=== PATIENT | male | born 1965 ===

== ENCOUNTER 2018-01-04 00:42 | Inpatient (IN) | payer MEDICAID ==
[2018-01-04] MEDS ORDERED: Sodium Chloride 0.9% 1,000 ML ONE (01:02)
--- NOTE | 2018-01-04 01:07 | C.PDOC ---
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 Pt had prostate biopsy w/ Dr. Patten at [facility] today and was d/c home. Pt had intractable nausea and vomiting once at home since 4pm. No bilious or bloody vomit. Pt was npo prior to procedure. Per bedside pts rare form of MS makes him extremely sensitive to anesthesia and feels this may be due anesthesia. She denies any fall or trauma. He denies any headache. He denies any headache or back pain. No abnl rectal d/c s/p procedure. No BM yet s/p procedure. No urinary complaints. No fever, chills or night sweats. Per this is similiar occurence to what occured prior and pt was admitted for intractable n/v at [facility]. PMD: [place] No other complaints. Time Seen by Provider: 01/04/18 01:06 Chief Complaint (Nursing): GI Problem Past Medical History Vital Signs: Last Vital Signs Temp 98.5 F 01/04/18 00:47 Pulse 89 01/04/18 00:47 Resp 22 01/04/18 00:47 BP 155/115 H 01/04/18 00:47 Pulse Ox 99 01/04/18 00:47 - Medical History PMH: HTN, Multiple Sclerosis (CIDP) Family History: States: Unknown Family Hx - Social History Hx Alcohol Use: No Hx Substance Use: No - Immunization History Hx Tetanus Toxoid Vaccination: No Hx Influenza Vaccination: No Hx Pneumococcal Vaccination: No Review Of Systems Constitutional: Negative for: Fever, Chills, Sweats, Weakness, Malaise, Weight l oss Eyes: Negative for: Pain, Vision Change, Eyelid Inflammation, Redness ENT: Negative for: Ear Pain, Ear Discharge, Nose Pain, Nose Congestion, Mouth Pain Cardiovascular: Negative for: Chest Pain, Palpitations, Orthopnea Respiratory: Negative for: Cough, Shortness of Breath, SOB with Excertion, Pl euritic Pain Gastrointestinal: Positive for: Nausea, Vomiting. Negative for: Abdominal Pain, Diarrhea, Melena, Hematochezia, Hematemesis, Rectal Pain Genitourinary: Negative for: Dysuria, Frequency, Hematuria, Penile Discharge Musculoskeletal: Negative for: Neck Pain, Arm Pain, Back Pain Skin: Negative for: Rash, Lesions Neurological: Negative for: Weakness, Numbness, Confusion, Seizures Physical Exam - Physical Exam Appears: Non-toxic, Other (vomiting) Skin: Normal Color, Warm, No Diaphoretic Head: Atraumatic, Normacephalic Eye(s): bilateral: Normal Inspection, PERRL, EOMI Nose: Normal Oral Mucosa: Other (vomiting) Tongue: Normal Appearing Lips: Normal Appearing Gingiva: Normal Appearing Throat: No Drooling, No Mass Neck: Normal ROM, Supple, Other (no meningeal signs) Chest: Symmetrical, No Deformity Cardiovascular: Rhythm Regular, No Rhythm Irregular Respiratory: Normal Breath Sounds, No Decreased Breath Sounds, No Stridor, No Wheezing Gastrointestinal/Abdominal: Normal Exam, Soft, No Tenderness, No Organomegaly, No Mass, No Distention, No Guarding, No Rebound Back: Normal Inspection, No CVA Tenderness Extremity: Normal ROM, No Tenderness Extremity: Bilateral: Atraumatic Neurological/Psych: Oriented x3, Normal Speech, Normal Cognition Additional Physical Exam Comments: at baseline strength per : pt has 4/5 strength in all extremities. ED Course And Treatment - Laboratory Results Result Diagrams: 01/04/18 01:27 01/04/18 01:27 O2 Sat by Pulse Oximetry: 99 - CT Scan/US CT abd/pel Other Rad Studies (CT/US): Read By Radiologist, Radiology Report Reviewed CT/US Interpretation: CT SCAN OF THE ABDOMEN AND PELVIS WITH CONTRAST. CLINICAL HISTORY: Abdominal pain. TECHNIQUE: Multiple axial and coronal CT images were obtained through the abdomen and pelvis after administration of intravenous contrast material. COMMENTS: Diffuse thickening of the transverse and descending colon. The liver is of uniform attenuation without mass or defect. There is no intra or extrahepatic biliary ductal dilatation. The spleen is normal. The gallbladder is within normal limits. The pancreas is of normal contour and attenuation characteristics. There is no evidence of adrenal mass. Both kidneys demonstrate prompt and equal nephrograms. The kidneys are normal in size, shape and configuration. There is no evidence of renal or ureteral mass. No renal or ureteral calculi are identified. There is no hydroureter or hydronephrosis. No evidence for appendicitis. No evidence for small or large bowel obstruction. There is no evidence of abdominal ascites or lymphadenopathy. There is no evidence of intrinsic or extrinsic bladder mass. There is no pelvic ascites or lymphadenopathy. Moderate prostatomegaly impinging on the bladder base. Images of the lung bases show no evidence of pleural or parenchymal mass. There are no pleural effusions. The bony structures are free of lytic or blastic lesions. IMPRESSION: Uncomplicated colitis. Moderate prostatomegaly. Distended bladder. Thank you for your kind referral of this patient. Medical Decision Making Medical Decision Makin yr old male w/ hx of CIDP MS, HTN ~12 h s/p prostate biopsy p/w intractable n/v. Likely secondary to anesthesia vs cyclical vomiting vs obstruction. Will seek imaging and labs. No other complaints. [address], no obstruction PO trialed: continues w/ n/v will require inpt admission for intractable n/v started on IV abx for colitis family and pt agreeable. appreciate consult w/ Bruce Fiore to admit to his service. Disposition - Disposition Disposition Time: 04:18 Condition: GOOD Forms: [facility] (French) - Clinical Impression Clinical Impression: Colitis, Intractable nausea and vomiting
[2018-01-04] MEDS: Sodium Chloride 0.9% 1,000 ML IV SCH ×3 (01:09→20:15)
[2018-01-04 01:34] LABS: BASO % 0.2 % (0.0-2.0); HEMOGLOBIN 17.4 g/dL (12.0-18.0); LYMPH # 0.7 K/uL (1.0-4.3); LYMPH % 5.5 % (20.0-40.0); MEAN CELL VOLUME 88.4 fL (80.0-94.0); MEAN CORPUSCULAR HEMOGLOBIN 30.1 pg (27.0-31.0); MEAN PLATELET VOLUME 11.1 fL (7.2-11.7); MONO # 0.3 K/uL (0.0-0.8); MONO % 2.7 % (0.0-10.0); NEUT # 11.6 K/uL (1.8-7.0); NEUT % 91.6 % (50.0-75.0); PLATELET COUNT 223 K/uL (130-400); RBC 5.78 Mil/uL (4.40-5.90); RED CELL DISTRIBUTION WIDTH 12.8 % (11.5-14.5); WHITE BLOOD COUNT 12.7 K/uL (4.8-10.8)
[2018-01-04 01:47] LABS: BLOOD UREA NITROGEN 9 mg/dL (9-20); CALCIUM 9.5 mg/dl (8.6-10.4); GFR NON-AFRICAN AMERICAN > 60
[2018-01-04 01:50] LABS: ALB/GLOB RATIO 1.3 (1.0-2.1); ALBUMIN 4.7 g/dL (3.5-5.0); ALT/SGPT 25 U/L (21-72); AST/SGOT 54 U/L (17-59)
[2018-01-04] MEDS ORDERED: Iodixanol 320 MG/ML 100 ML BOTTLE IV ONE (01:53)
[2018-01-04 01:57] LABS: LYMPHOCYTE 6 % (20-40); MONOCYTE 3 % (0-10); NEUTROPHIL 91 % (50-75); PLATELET ESTIMATE NORMAL (NORMAL); TOTAL CELLS COUNTED 100
[2018-01-04 02:21] LABS: URINE BILIRUBIN NEGATIVE (NEGATIVE); URINE BLOOD 1+ (NEGATIVE); URINE CLARITY Clear (Clear); URINE COLOR Yellow (YELLOW); URINE GLUCOSE (UA) NORMAL (Normal); URINE LEUKOCYTE ESTERASE NEG Leu/uL (Negative); URINE PROTEIN NEGATIVE (NEGATIVE); URINE UROBILINOGEN NORMAL mg/dL (0.2-1.0)
[2018-01-04] MEDS ORDERED: metroNIDAZOLE IV 500 mg/100 ml 500 MG/100 ML BAG IVPB STA (04:05)
[2018-01-04] MEDS ORDERED: Ciprofloxacin 400mg/200ml D5W 400 MG/200 ML BAG IVPB STA (04:05)
[2018-01-04] MEDS ORDERED: metroNIDAZOLE IV 500 mg/100 ml 500 MG/100 ML BAG ONE (04:12)
[2018-01-04] MEDS ORDERED: Ciprofloxacin 400mg/200ml D5W 400 MG/200 ML BAG IVPB ONE (04:12)
--- NOTE | 2018-01-04 05:04 | CP.PCM.HP ---
<Renetta Nunez P - Last Filed: 01/04/18 10:51> History of Present Illness - History of Present Illness History of Present Illness: Medicine H&P CC: Nausea and vomiting for 12 hours HPI: 52 year old male with PMHx of MS with paralysis of lower extremities and HTN who presents to ED for severe nasuea and vomiting for the past 12 hours. Patient states he had a prostate biopsy done at 1:30pm, felt slightly nauseous after the procedure and then began with severe intractable vomiting 4 hours later. Has not been able to tolerate PO intate. Emesis is non-bloody. Patient denies abdominal pain, diarrhea, constipation, fever, chills, chest pain and shortness of breath. No modifying factors noted. PMHx: MS with paralysis of lower extremities, HTN, prostatic enlargement PSHx: Prostate biopsy 01/03/18 Meds: Losartan 50mg daily, Citalopram 20mg Daily, loratadine 10mg PRN, IVIG treatment monthly for MS Allergies: NKDA FamHx: Mother- DM, HTN SocHx: denies tobacco, alcohol, drugs, is disabled, lives with ex- who cares for him PMD: Jomar Review of Systems: -Gen: No fever, No chills, No headache, No lethargy, No weakness. -HEENT: No dizziness, No change in vision, No change in hearing, No sore throat, No dysphagia, No nasal congestion, No mucous. -Cardio: No chest pain, No palpitations, No lower extremity edema, No orthopnea. -Resp: No cough, No dyspnea, No hemoptysis, No wheezing, No pain on inspiration. -GI: No abdominal pain, + nausea/vomiting, No diarrhea/constipation, No hematochezia, No hematemesis. -: No dysuria, No urinary freq, No incontinence, No hematuria, No change in urinary stream. -MSK: No back pain, No muscle weakness, No radiating pain. -Skin: No itching, No rash, No lesions. -Neuro: No confusion, No numbness, No tingling, No focal weakness, No radicular pain, No syncope. -Psych: No anxiety, No depression, No H/I, No S/I, No hallucinations. Present on Admission - Present on Admission Any Indicators Present on Admission: No Past Patient History - Past Social History Smoking Status: Never Smoked - CARDIAC Hx Hypertension: Yes - NEUROLOGICAL Hx Multiple Sclerosis: Yes (CIDP) - PSYCHIATRIC Hx Substance Use: No - SURGICAL HISTORY Hx Surgeries: No Meds Allergies/Adverse Reactions: Allergies Allergy/AdvReac Type Severity Reaction Status Date / Time No Known Allergies Allergy Unverified 01/04/18 00:51 Physical Exam - Constitutional Appears: In Acute Distress (with vomiting) - Head Exam Head Exam: ATRAUMATIC, NORMOCEPHALIC - Eye Exam Eye Exam: EOMI, Normal appearance, PERRL - ENT Exam ENT Exam: Mucous Membranes Moist - Neck Exam Neck exam: Positive for: Full Rom, Normal Inspection - Respiratory Exam Respiratory Exam: Clear to Auscultation Bilateral, NORMAL BREATHING PATTERN. absent: Decreased Breath Sounds, Rales, Rhonchi, Wheezes - Cardiovascular Exam Cardiovascular Exam: REGULAR RHYTHM, +S1, +S2 - GI/Abdominal Exam GI & Abdominal Exam: Normal Bowel Sounds, Soft. absent: Guarding, Rebound, Tenderness - Extremities Exam Extremities exam: Positive for: normal capillary refill, normal inspection. Negative for: calf tenderness, full ROM (paralysis to bilateral lower extremities), pedal edema, tenderness - Neurological Exam Neurological exam: Alert, CN II-XII Intact, Oriented x3 - Psychiatric Exam Psychiatric exam: Normal Affect, Normal Mood - Skin Skin Exam: Dry, Intact, Normal Color, Warm Results - Vital Signs Recent Vital Signs: Last Vital Signs Temp 98.5 F 01/04/18 00:47 Pulse 89 01/04/18 03:45 Resp 18 01/04/18 03:45 BP 154/88 H 01/04/18 03:45 Pulse Ox 99 01/04/18 04:20 - Labs Result Diagrams: 01/04/18 01:27 01/04/18 01:27 Labs: Laboratory Results - last 24 hr 01/04/18 01/04/18 01/04/18 01:27 01:27 02:10 WBC 12.7 H RBC 5.78 Hgb 17.4 Hct 51.1 H MCV 88.4 MCH 30.1 MCHC 34.0 RDW 12.8 Plt Count 223 MPV 11.1 Neut % (Auto) 91.6 H Lymph % (Auto) 5.5 L [place] % (Auto) 2.7 Eos % (Auto) 0.0 Baso % (Auto) 0.2 Neut # (Auto) 11.6 H Lymph # (Auto) 0.7 L [place] # (Auto) 0.3 Eos # (Auto) 0.0 Baso # (Auto) 0.0 Neutrophils % (Manual) 91 H Lymphocytes % (Manual) 6 L Monocytes % (Manual) 3 Platelet Estimate Normal Sodium 135 Potassium 4.5 Chloride 100 Carbon Dioxide 23 Anion Gap 17 BUN 9 Creatinine 0.3 L Est GFR ( Amer) > 60 Est GFR (Non-Af Amer) > 60 Random Glucose 129 H Calcium 9.5 Magnesium 1.8 Total Bilirubin 2.4 H AST 54 ALT 25 Alkaline Phosphatase 100 Total Protein 8.4 H Albumin 4.7 Globulin 3.7 Albumin/Globulin Ratio 1.3 Urine Color Yellow Urine Clarity Clear Urine pH 7.0 Ur Specific [place] 1.013 Urine Protein Negative Urine Glucose (UA) Normal Urine Ketones 2+ H Urine Blood 1+ H Urine Nitrate Negative Urine Bilirubin Negative Urine Urobilinogen Normal Ur Leukocyte Esterase Neg Urine WBC (Auto) 3 Urine RBC (Auto) 28 H Assessment & Plan - Assessment and Plan (Free Text) Plan: 52 year old male with PMHx of MS and HTN presents to ED with intractable vomiting s/p prostate biopsy. Colitis -CT abdomen pelvis: Uncomplicated colitis, prostatomegaly, distended bladder. (see full report) -Ciprofloxacin 400mg IV Q12H (01/04) -Flagyl 500mg IV Q8 (01/04) -NS @ 100ml/hr Intractable vomiting -Zofran 4mg IV Q6H -NPO MS -Outpatient IVIg treatments -Follow up as outpatient Hx HTN -Losartan 50mg PO daily to be resumed once patient tolerating PO intake -Monitor BP Depression -Citalopram 20mg PO daily- to be resumed once patient tolerating PO intake Prophylaxis -Holding chemical anticoagulation due to recent procedure -GI prophylaxis not indicated -SCDs <Tony Ruby - Last Filed: 01/04/18 18:47> Results - Vital Signs Recent Vital Signs: Last Vital Signs Temp 98.7 F 01/04/18 15:51 Pulse 91 H 01/04/18 15:51 Resp 20 01/04/18 15:51 BP 127/72 01/04/18 15:51 Pulse Ox 100 01/04/18 15:51 - Labs Result Diagrams: 01/04/18 01:27 01/04/18 01:27 Labs: Laboratory Results - last 24 hr 01/04/18 01/04/18 01/04/18 01:27 01:27 02:10 WBC 12.7 H RBC 5.78 Hgb 17.4 Hct 51.1 H MCV 88.4 MCH 30.1 MCHC 34.0 RDW 12.8 Plt Count 223 MPV 11.1 Neut % (Auto) 91.6 H Lymph % (Auto) 5.5 L [place] % (Auto) 2.7 Eos % (Auto) 0.0 Baso % (Auto) 0.2 Neut # (Auto) 11.6 H Lymph # (Auto) 0.7 L [place] # (Auto) 0.3 Eos # (Auto) 0.0 Baso # (Auto) 0.0 Neutrophils % (Manual) 91 H Lymphocytes % (Manual) 6 L Monocytes % (Manual) 3 Platelet Estimate Normal Sodium 135 Potassium 4.5 Chloride 100 Carbon Dioxide 23 Anion Gap 17 BUN 9 Creatinine 0.3 L Est GFR ( Amer) > 60 Est GFR (Non-Af Amer) > 60 Random Glucose 129 H Calcium 9.5 Magnesium 1.8 Total Bilirubin 2.4 H AST 54 ALT 25 Alkaline Phosphatase 100 Total Protein 8.4 H Albumin 4.7 Globulin 3.7 Albumin/Globulin Ratio 1.3 Urine Color Yellow Urine Clarity Clear Urine pH 7.0 Ur Specific [place] 1.013 Urine Protein Negative Urine Glucose (UA) Normal Urine Ketones 2+ H Urine Blood 1+ H Urine Nitrate Negative Urine Bilirubin Negative Urine Urobilinogen Normal Ur Leukocyte Esterase Neg Urine WBC (Auto) 3 Urine RBC (Auto) 28 H Assessment & Plan - Date & Time Date: 01/04/18 (I have seen and examined the patient. I agree with the findings and plan of care as documented by Dr. Nunez. Patient with colitis. Intractable nausea/vomiting. Zofran. Symptomatic treatment. Cipro and flagyl. Monitor for acute changes.) Time: 18:46 Attending/Attestation - Attestation I have personally seen and examined this patient.: Yes I have fully participated in the care of the patient.: Yes I have reviewed all pertinent clinical information: Yes
[2018-01-04] MEDS: Ciprofloxacin 400mg/200ml D5W 400 MG/200 ML BAG IVPB SCH ×2 (05:17→17:34)
[2018-01-04] MEDS: metroNIDAZOLE IV 500 mg/100 ml 500 MG/100 ML BAG IVPB SCH ×3 (05:18→21:15)
--- NOTE | 2018-01-04 07:40 | RAD ---
Date of service: 01/04/2018 HISTORY: n/v COMPARISON: None available. FINDINGS: LUNGS: No active pulmonary disease. PLEURA: No significant pleural effusion identified, no pneumothorax apparent. CARDIOVASCULAR: No aortic atherosclerotic calcification present. Normal cardiac size. No pulmonary vascular congestion. OSSEOUS STRUCTURES: No significant abnormalities. VISUALIZED UPPER ABDOMEN: Elevated left hemidiaphragm of indeterminate etiology. OTHER FINDINGS: None. IMPRESSION: No acute infiltrate or pleural effusion. No pneumothorax bilaterally. Elevated left hemidiaphragm identified.
--- NOTE | 2018-01-04 09:15 | CP.PCM.PN ---
<Benito Jamil - Last Filed: 01/04/18 17:37> Subjective - Date & Time of Evaluation Date of Evaluation: 01/04/18 Time of Evaluation: 09:15 - Subjective Subjective: PGY-1 Medicine progress note for Dr. iHram Gomes Patient seen and examined at bedside. Patient complains of nausea and vomited a few times this morning. Denies hematemesis, fever, chills, shortness of breath, chest pain, or diarrhea. Objective - Vital Signs/Intake and Output Vital Signs (last 24 hours): Temp Pulse Resp BP Pulse Ox 98.1 F 91 H 21 143/76 100 01/04/18 08:30 01/04/18 08:30 01/04/18 08:30 01/04/18 08:30 01/04/18 08:30 - Medications Medications: Current Medications Sodium Chloride (Sodium Chloride 0.9%) 1,000 mls @ 100 mls/hr IV .Q10H [facility] Last Admin: 01/04/18 01:09 Dose: 100 mls/hr Ciprofloxacin (Cipro 400mg/200ml Dsw) 400 mg in 200 mls @ 133 mls/hr IVPB Q12H [facility]AD[facility]; Protocol Last Admin: 01/04/18 05:17 Dose: Not Given Metronidazole (Flagyl) 500 mg in 100 mls @ 100 mls/hr IVPB Q8H [facility]; Protocol Last Admin: 01/04/18 05:18 Dose: Not Given Ondansetron HCl (Zofran Inj) 4 mg IVP Q6H PRN PRN Reason: Nausea/Vomiting Last Admin: 01/04/18 05:44 Dose: 4 mg - Labs Labs: 01/04/18 01:27 01/04/18 01:27 - Additional Findings Additional findings: - Constitutional Appears: In Acute Distress (with vomiting) - Head Exam Head Exam: ATRAUMATIC, NORMOCEPHALIC - Eye Exam Eye Exam: EOMI, Normal appearance, PERRL - ENT Exam ENT Exam: Mucous Membranes Moist - Neck Exam Neck exam: Positive for: Full Rom, Normal Inspection - Respiratory Exam Respiratory Exam: Clear to Auscultation Bilateral, NORMAL BREATHING PATTERN. absent: Decreased Breath Sounds, Rales, Rhonchi, Wheezes - Cardiovascular Exam Cardiovascular Exam: REGULAR RHYTHM, +S1, +S2 - GI/Abdominal Exam GI & Abdominal Exam: Normal Bowel Sounds, Soft. absent: Guarding, Rebound, Tenderness - Extremities Exam Extremities exam: Positive for: normal capillary refill, normal inspection. Negative for: calf tenderness, full ROM (paralysis to bilateral lower extremities), pedal edema, tenderness - Neurological Exam Neurological exam: Alert, CN II-XII Intact, Oriented x3 - Psychiatric Exam Psychiatric exam: Normal Affect, Normal Mood - Skin Skin Exam: Dry, Intact, Normal Color, Warm Assessment and Plan - Assessment and Plan (Free Text) Assessment: 52 year old male with PMHx of MS and HTN presents to ED with intractable vomiting s/p prostate biopsy. Plan: Colitis: - CT abdomen/pelvis (01/04): Uncomplicated colitis, prostatomegaly, distended bladder. (Official read pending) - Ciprofloxacin 400mg IV Q12H (started on 01/04) - Flagyl 500mg IV Q8 (started on 01/04) - NS @ 100ml/hr Intractable vomiting: - Zofran 4mg IV Q6H PRN - Reglan 10mg IV Q6H PRN - NPO Multiple sclerosis: - Outpatient IVIg treatments - Follow up as outpatient Hx of HTN: - Losartan 50mg PO daily to be resumed once patient tolerating PO intake - Monitor BP Hx of depression: - Citalopram 20mg PO daily- to be resumed once patient tolerating PO intake Prophylaxis: - Holding chemical anticoagulation due to recent procedure - GI prophylaxis not indicated - SCDs Case discussed with Dr. Hiram Jamil, PGY-1 <Cody Gomes - Last Filed: 01/08/18 00:24> Objective - Vital Signs/Intake and Output Vital Signs (last 24 hours): Temp Pulse Resp BP Pulse Ox 97.3 F L 73 20 130/78 98 01/07/18 15:25 01/07/18 15:25 01/07/18 15:25 01/07/18 15:25 01/07/18 15:25 - Medications Medications: Current Medications Dextrose (Dextrose 50% Inj) 0 ml IVP .STAT PRN; Protocol PRN Reason: Hypoglycemia Protocol Dextrose (Glutose 15) 0 gm PO .ONCE PRN; Protocol PRN Reason: Hypoglycemia Protocol Enoxaparin Sodium (Lovenox) 40 mg SC DAILY [facility] Last Admin: 01/07/18 11:38 Dose: 40 mg Glucagon (Glucagen Diagnostic Kit) 0 mg IM .STAT PRN; Protocol PRN Reason: Hypoglycemia Protocol Sodium Chloride (Sodium Chloride 0.9%) 1,000 mls @ 100 mls/hr IV .Q10H [facility] Last Admin: 01/07/18 02:00 Dose: 100 mls/hr Dextrose (Dextrose 5% In Water 1000 Ml) 1,000 mls @ 0 mls/hr IV .Q0M PRN; Protocol PRN Reason: Hypoglycemia Protocol Potassium Chloride/Dextrose/Sod Cl (Potassium Chl 40 Meq In D5-1/2ns) 1,000 mls @ 80 mls/hr IV .[id number] [facility] Last Admin: 01/07/18 21:40 Dose: 80 mls/hr Metoclopramide HCl (Reglan) 10 mg IVP Q6H PRN PRN Reason: Nausea/Vomiting Last Admin: 01/07/18 12:59 Dose: 10 mg Ondansetron HCl (Zofran Inj) 4 mg IVP Q6H PRN PRN Reason: Nausea/Vomiting Last Admin: 01/07/18 17:04 Dose: 4 mg Pantoprazole Sodium (Protonix Inj) 40 mg IVP DAILY [facility] Last Admin: 01/07/18 14:57 Dose: 40 mg Sucralfate (Carafate Oral Susp) 1 gm PO BID [facility] Last Admin: 01/07/18 18:16 Dose: Not Given - Labs Labs: 01/07/18 07:11 01/07/18 07:11 Attending/Attestation - Attestation I have personally seen and examined this patient.: Yes I have fully participated in the care of the patient.: Yes I have reviewed all pertinent clinical information, including history, physical exam and plan: Yes Notes (Text): 01/08/18 00:23 This is a late entry. Care of this patient was gone over with resident Dr. Jamil on 01/04/18 juan c ta. Cody Gomes D.O.
--- NOTE | 2018-01-04 15:33 | CT ---
Date of service: 01/04/2018 PROCEDURE: CT Abdomen and Pelvis with contrast HISTORY: intractable n/v s/p prostate biopsy COMPARISON: None available TECHNIQUE: Contrast dose: 100 mL Visipaque IV Radiation dose: Total exam DLP = 587.35 mGy-cm. This CT exam was performed using one or more of the following dose reduction techniques: Automated exposure control, adjustment of the mA and/or kV according to patient size, and/or use of iterative reconstruction technique. FINDINGS: LOWER THORAX: No visible consolidation, pleural effusion, or pneumothorax. LIVER: Hypoattenuation of the liver compatible with hepatic steatosis. GALLBLADDER AND BILE DUCTS: Unremarkable. PANCREAS: Atrophic. SPLEEN: Unremarkable. ADRENALS: Unremarkable. KIDNEYS AND URETERS: The kidneys enhance symmetrically. No hydronephrosis or obstructing calculus identified. Too small to characterize renal hypodensities; statistically likely cysts. VASCULATURE: No aortic aneurysm. No atherosclerotic calcification or mural plaque present. BOWEL: Stomach is nondistended. Lack of oral contrast limits evaluation for bowel pathology. Bowel loops appear within normal limits of caliber without evidence of obstruction. Mild wall thickening of the transverse colon, likely exaggerated by under distension. Correlate clinically. APPENDIX: The appendix appears within normal limits of caliber. No secondary signs of acute appendicitis. PERITONEUM: No significant free fluid. No definite free air. LYMPH NODES: No bulky adenopathy identified. BLADDER: Urinary bladder distension. REPRODUCTIVE: Heterogeneous enlarged prostate gland measures approximately 5.0 x 6.4 cm. BONES: Degenerative changes. OTHER FINDINGS: None. IMPRESSION: Mild wall thickening of the transverse colon, likely exaggerated by under distension rather than colitis. Correlate clinically. Enlarged heterogeneous prostate gland. Urinary bladder distension. Additional findings as above. Preliminary impression was provided by [employer]. Study marked for PA review.
[2018-01-05] MEDS: metroNIDAZOLE IV 500 mg/100 ml 500 MG/100 ML BAG IVPB SCH ×2 (05:37→14:24)
[2018-01-05] MEDS: Ciprofloxacin 400mg/200ml D5W 400 MG/200 ML BAG IVPB SCH (05:38)
[2018-01-05] MEDS: Sodium Chloride 0.9% 1,000 ML IV SCH ×2 (07:21→17:05)
[2018-01-05 08:12] LABS: BASO % 0.2 % (0.0-2.0); HEMOGLOBIN 15.5 g/dL (12.0-18.0); LYMPH # 1.3 K/uL (1.0-4.3); MEAN CELL VOLUME 88.1 fL (80.0-94.0); MEAN CORPUSCULAR HEMOGLOBIN 30.6 pg (27.0-31.0); MEAN CORPUSCULAR HGB CONC 34.7 g/dL (33.0-37.0); MEAN PLATELET VOLUME 10.7 fL (7.2-11.7); MONO # 0.5 K/uL (0.0-0.8); MONO % 4.1 % (0.0-10.0); NEUT # 9.8 K/uL (1.8-7.0); NEUT % 84.7 % (50.0-75.0); RBC 5.08 Mil/uL (4.40-5.90); WHITE BLOOD COUNT 11.6 K/uL (4.8-10.8)
[2018-01-05 08:47] LABS: ALB/GLOB RATIO 1.1 (1.0-2.1); ALBUMIN 3.8 g/dL (3.5-5.0); ALT/SGPT 27 U/L (21-72); AST/SGOT 31 U/L (17-59); BLOOD UREA NITROGEN 14 mg/dL (9-20); CALCIUM 8.9 mg/dl (8.6-10.4); GFR NON-AFRICAN AMERICAN > 60
--- NOTE | 2018-01-05 09:23 | CP.PCM.PN ---
Subjective - Date & Time of Evaluation Date of Evaluation: 01/05/18 Time of Evaluation: 09:22 - Subjective Subjective: Medicine Dr. Go's Service Patient seen and examined at bedside this morning. Per RN overnight patient had to be moved to an empty room without roommates because he was retching/vomiting all night. However, patient thinks addition of reglan decreased vomiting some but not enough. Denies abdominal pain, diarrhea, fevers, chills, night sweats, chest pain, palpitations Objective - Vital Signs/Intake and Output Vital Signs (last 24 hours): Temp Pulse Resp BP Pulse Ox 98.1 F 72 20 173/96 H 97 01/05/18 08:26 01/05/18 08:26 01/05/18 08:26 01/05/18 08:26 01/05/18 08:26 Intake and Output: 01/05/18 01/05/18 06:59 18:59 Intake Total 600 Output Total 400 Balance 200 - Medications Medications: Current Medications Enoxaparin Sodium (Lovenox) 40 mg SC DAILY [facility] Sodium Chloride (Sodium Chloride 0.9%) 1,000 mls @ 100 mls/hr IV .Q10H [facility] Last Admin: 01/05/18 07:21 Dose: Not Given Ciprofloxacin (Cipro 400mg/200ml Dsw) 400 mg in 200 mls @ 133 mls/hr IVPB Q12H [facility]; Protocol Last Admin: 01/05/18 05:38 Dose: 133 mls/hr Metronidazole (Flagyl) 500 mg in 100 mls @ 100 mls/hr IVPB Q8H [facility]; Protocol Last Admin: 01/05/18 05:37 Dose: 100 mls/hr Metoclopramide HCl (Reglan) 10 mg IVP Q6H PRN PRN Reason: Nausea/Vomiting Last Admin: 01/05/18 08:32 Dose: 10 mg Ondansetron HCl (Zofran Inj) 4 mg IVP Q6H PRN PRN Reason: Nausea/Vomiting Last Admin: 01/05/18 07:41 Dose: 4 mg - Labs Labs: 01/05/18 07:57 01/05/18 07:57 - Constitutional Appears: Cachectic - Head Exam Head Exam: ATRAUMATIC, NORMAL INSPECTION - Eye Exam Additional comments: right directioned nystagmus - Neck Exam Neck Exam: Normal Inspection - Respiratory Exam Respiratory Exam: Clear to Ausculation Bilateral, NORMAL BREATHING PATTERN - Cardiovascular Exam Cardiovascular Exam: REGULAR RHYTHM. absent: Bradycardia, Tachycardia, Irregul ar Rhythm - GI/Abdominal Exam GI & Abdominal Exam: Soft, Normal Bowel Sounds. absent: Distended, Firm, Guarding, Rigid - Extremities Exam Extremities Exam: Normal Capillary Refill Additional comments: thin extremities cachexia - Neurological Exam Neurological Exam: Alert, Awake, Oriented x3. absent: Normal Gait (Patient bed bound due to weak lower extremities) - Psychiatric Exam Psychiatric exam: Normal Affect, Normal Mood - Skin Skin Exam: Dry, Intact, Normal Color, Warm Assessment and Plan - Assessment and Plan (Free Text) Assessment: 52 year old male with PMHx of MS and HTN presents to ED with intractable vomiting s/p prostate biopsy. Intractable vomiting: - Zofran 4mg IV Q6H PRN - Reglan 10mg IV Q6H PRN -added ativan 1 mg IV q6h PRN 01/05 - NS @ 100ml/hr - CMP qAM - NPO Abnormal CT abd/pelvis reading 01/04: - CT abdomen/pelvis (01/04): Uncomplicated colitis, prostatomegaly, distended bladder. (Official read pending) - Official read: Mild wall thickening of the transverse colon, likely exaggerated by under distension rather than colitis. - Ciprofloxacin 400mg IV Q12H (started on 01/04 and d/ke 01/05; lack of clinical evidence of colitis) - Flagyl 500mg IV Q8 (started on 01/04 and d/ke 01/05; lack of clinical evidence of colitis) Multiple sclerosis: - Outpatient IVIg treatments - Follow up as outpatient HTN: - Losartan 50mg PO daily to be resumed once patient tolerating PO intake - Monitor BP Enlarged prostate: -follow up outpatient depression: - Citalopram 20mg PO daily- to be resumed once patient tolerating PO intake Prophylaxis: - DVT: Holding chemical anticoagulation due to recent procedure, for now SCDs - GI: prophylaxis not indicated Case discussed with Dr. Donavan Garcia PGY1
[2018-01-05] MEDS: Enoxaparin 40 mg Syringe SC SCH (10:42)
--- NOTE | 2018-01-05 12:45 | CARD ---
APPROVED REPORT Date of service: 01/04/2018 EKG Measurement Heart [id number] <Conclusion> Sinus rhythm with occasional premature ventricular complexes Left axis deviation Abnormal ECG
[2018-01-06] MEDS: Sodium Chloride 0.9% 1,000 ML IV SCH ×5 (01:38→23:02)
[2018-01-06 08:44] LABS: BASO % 0.3 % (0.0-2.0); HEMOGLOBIN 14.1 g/dL (12.0-18.0); LYMPH # 1.3 K/uL (1.0-4.3); LYMPH % 13.6 % (20.0-40.0); MEAN CELL VOLUME 87.8 fL (80.0-94.0); MEAN CORPUSCULAR HEMOGLOBIN 30.4 pg (27.0-31.0); MEAN CORPUSCULAR HGB CONC 34.6 g/dL (33.0-37.0); MEAN PLATELET VOLUME 10.4 fL (7.2-11.7); MONO # 0.6 K/uL (0.0-0.8); MONO % 6.5 % (0.0-10.0); NEUT # 7.6 K/uL (1.8-7.0); NEUT % 79.6 % (50.0-75.0); RBC 4.65 Mil/uL (4.40-5.90); WHITE BLOOD COUNT 9.5 K/uL (4.8-10.8)
[2018-01-06 09:14] LABS: ALB/GLOB RATIO 1.2 (1.0-2.1); ALBUMIN 3.3 g/dL (3.5-5.0); ALT/SGPT 32 U/L (21-72); AST/SGOT 34 U/L (17-59); BLOOD UREA NITROGEN 13 mg/dL (9-20); CALCIUM 8.4 mg/dl (8.6-10.4); GFR NON-AFRICAN AMERICAN > 60
[2018-01-06] MEDS: Enoxaparin 40 mg Syringe SC SCH (10:27)
[2018-01-06] MEDS ORDERED: Glucagon Recombinant 1 mg Inj IM PRN (11:48)
[2018-01-06] MEDS ORDERED: Dextrose 50% SYRINGE Inj (50 ml) IVP PRN (11:48)
--- NOTE | 2018-01-06 12:58 | CP.PCM.PN ---
<Benito Jamil - Last Filed: 01/06/18 15:50> Subjective - Date & Time of Evaluation Date of Evaluation: 01/06/18 Time of Evaluation: 12:58 - Subjective Subjective: PGY-1 Medicine progress note for Dr. King Patient seen and examined at bedside. Patient last vomited clear mucus last night at 9PM. He denies nausea and vomiting thois morning. He states that he would like to start eating. He denies hematemesis, fever, chills, shortness of breath, chest pain, or diarrhea. Objective - Vital Signs/Intake and Output Vital Signs (last 24 hours): Temp Pulse Resp BP Pulse Ox 97.8 F 69 18 156/79 H 96 01/06/18 08:15 01/06/18 08:15 01/06/18 08:15 01/06/18 08:15 01/06/18 08:15 Intake and Output: 01/06/18 01/06/18 06:59 18:59 Intake Total 1000 Balance 1000 - Medications Medications: Current Medications Dextrose (Dextrose 50% Inj) 0 ml IVP .STAT PRN; Protocol PRN Reason: Hypoglycemia Protocol Dextrose (Glutose 15) 0 gm PO .ONCE PRN; Protocol PRN Reason: Hypoglycemia Protocol Enoxaparin Sodium (Lovenox) 40 mg SC DAILY [facility] Last Admin: 01/06/18 10:27 Dose: 40 mg Glucagon (Glucagen Diagnostic Kit) 0 mg IM .STAT PRN; Protocol PRN Reason: Hypoglycemia Protocol Sodium Chloride (Sodium Chloride 0.9%) 1,000 mls @ 100 mls/hr IV .Q10H [facility] Last Admin: 01/06/18 10:27 Dose: 100 mls/hr Potassium Chloride (Potassium Chloride 20 Meq/100 Ml) 20 meq in 100 mls @ 50 mls/hr IVPB Q2H [facility] Stop: 01/06/18 15:44 Last Admin: 01/06/18 10:26 Dose: 50 mls/hr Dextrose (Dextrose 5% In Water 1000 Ml) 1,000 mls @ 0 mls/hr IV .Q0M PRN; Protocol PRN Reason: Hypoglycemia Protocol Lorazepam (Ativan) 1 mg IVP Q6H PRN PRN Reason: Anxiety Metoclopramide HCl (Reglan) 10 mg IVP Q6H PRN PRN Reason: Nausea/Vomiting Last Admin: 01/05/18 20:11 Dose: 10 mg Ondansetron HCl (Zofran Inj) 4 mg IVP Q6H PRN PRN Reason: Nausea/Vomiting Last Admin: 01/06/18 04:52 Dose: 4 mg - Labs Labs: 01/06/18 08:32 01/06/18 08:32 - Additional Findings Additional findings: - Constitutional Appears: Not in Acute Distress - Head Exam Head Exam: ATRAUMATIC, NORMOCEPHALIC - Eye Exam Eye Exam: EOMI, Normal appearance, PERRL - ENT Exam ENT Exam: Mucous Membranes Moist - Neck Exam Neck exam: Positive for: Full Rom, Normal Inspection - Respiratory Exam Respiratory Exam: Clear to Auscultation Bilateral, NORMAL BREATHING PATTERN. absent: Decreased Breath Sounds, Rales, Rhonchi, Wheezes - Cardiovascular Exam Cardiovascular Exam: REGULAR RHYTHM, +S1, +S2 - GI/Abdominal Exam GI & Abdominal Exam: Normal Bowel Sounds, Soft. absent: Guarding, Rebound, Tenderness - Extremities Exam Extremities exam: Positive for: normal capillary refill, normal inspection. Negative for: calf tenderness, pedal edema, tenderness - Neurological Exam Neurological exam: Alert, CN II-XII Intact, Oriented x3 - Psychiatric Exam Psychiatric exam: Normal Affect, Normal Mood - Skin Skin Exam: Dry, Intact, Normal Color, Warm Assessment and Plan - Assessment and Plan (Free Text) Assessment: 52 year old male with PMHx of MS, BPH, and HTN presents to ED with intractable vomiting s/p prostate biopsy. Plan: Intractable vomiting: - Zofran 4mg IV Q6H PRN - Reglan 10mg IV Q6H PRN - Ativan 1mg IV QD PRN - Clear liquid diet - Accuchecks Q6H - Hypoglycemia protocol - GI consulted, Dr. Quijano Hypokalemia: - Potassium 20mEq IVPB Q2H X 3 - Mg: f/u - Continue to monitor and replete as needed Multiple sclerosis: - Outpatient IVIg treatments - Follow up as outpatient Hx of HTN: - Losartan 50mg PO daily to be resumed once patient tolerating PO intake - Monitor BP Hx of depression: - Citalopram 20mg PO daily- to be resumed once patient tolerating PO intake Prophylaxis: - Holding chemical anticoagulation due to recent procedure - GI prophylaxis not indicated - SCDs Case discussed with Dr. Fernando Jamil, PGY-1 <Melva King V - Last Filed: 01/06/18 23:07> Objective - Vital Signs/Intake and Output Vital Signs (last 24 hours): Temp Pulse Resp BP Pulse Ox 99.2 F 56 L 20 141/82 96 01/06/18 16:00 01/06/18 16:00 01/06/18 16:00 01/06/18 16:00 01/06/18 16:00 Intake and Output: 01/06/18 01/07/18 18:59 06:59 Intake Total 500 1175 Balance 500 1175 - Medications Medications: Current Medications Dextrose (Dextrose 50% Inj) 0 ml IVP .STAT PRN; Protocol PRN Reason: Hypoglycemia Protocol Dextrose (Glutose 15) 0 gm PO .ONCE PRN; Protocol PRN Reason: Hypoglycemia Protocol Enoxaparin Sodium (Lovenox) 40 mg SC DAILY [facility] Last Admin: 01/06/18 10:27 Dose: 40 mg Glucagon (Glucagen Diagnostic Kit) 0 mg IM .STAT PRN; Protocol PRN Reason: Hypoglycemia Protocol Sodium Chloride (Sodium Chloride 0.9%) 1,000 mls @ 100 mls/hr IV .Q10H [facility] Last Admin: 01/06/18 13:15 Dose: Not Given Dextrose (Dextrose 5% In Water 1000 Ml) 1,000 mls @ 0 mls/hr IV .Q0M PRN; Protocol PRN Reason: Hypoglycemia Protocol Lorazepam (Ativan) 1 mg IVP Q6H PRN PRN Reason: Anxiety Metoclopramide HCl (Reglan) 10 mg IVP Q6H PRN PRN Reason: Nausea/Vomiting Last Admin: 01/05/18 20:11 Dose: 10 mg Ondansetron HCl (Zofran Inj) 4 mg IVP Q6H PRN PRN Reason: Nausea/Vomiting Last Admin: 01/06/18 04:52 Dose: 4 mg - Labs Labs: 01/06/18 08:32 01/06/18 18:46 Attending/Attestation - Attestation I have personally seen and examined this patient.: Yes I have fully participated in the care of the patient.: Yes I have reviewed all pertinent clinical information, including history, physical exam and plan: Yes Notes (Text): Patient seen, examined, and case discussed with product manager medical device. Patient seen this morning accompanied with present at bedside. Patient had been NPO for persistent nausea since completing prostate biopsy at 1:30PM on 01/04. Patient had this accomplished at separate facility however came to [facility] because it was closer for him. patient per view of EMR has been notably taking Zofran more frequently compared to Reglan. Patient this morning reported he would like to try clear diet and if see how he felt. He had been notably spitting up in pink basin at bedside. No blood noted. In spite of liquid diet, patient continues to report intractable nausea; he notes he has not had this problem before. Will seek recommendations from GI butadiene converter helper. Assessment/Plan 1) Intractable vomiting: - Zofran 4mg IV Q6H PRN - Reglan 10mg IV Q6H PRN - Ativan 1mg IV QD PRN - Clear liquid diet - Accuchecks Q6H - Hypoglycemia protocol - GI consulted, Dr. Quijano 2) Hypokalemia: - Potassium 20mEq IVPB Q2H X 3 - Mg: f/u - Continue to monitor and replete as needed 3. History of Multiple sclerosis: - Outpatient IVIg treatments - Follow up as outpatient - Patient goes to center for MS 4. Hx of HTN: * Losartan 50mg PO daily to be resumed once patient tolerating PO intake * Monitor BP 5 hHx of depression: - Citalopram 20mg PO daily- to be resumed once patient tolerating PO intake 6. Prophylaxis: * -Holding chemical anticoagulation due to recent procedure * GI prophylaxis not indicated * SCDs Disposition: patient reporting persistent nausea in spite of PRNs. Seek gi recommendation.
[2018-01-06 19:07] LABS: BLOOD UREA NITROGEN 14 mg/dL (9-20); CALCIUM 8.8 mg/dl (8.6-10.4); GFR NON-AFRICAN AMERICAN > 60
[2018-01-07] MEDS: Sodium Chloride 0.9% 1,000 ML IV SCH (02:00)
[2018-01-07 07:27] LABS: BASO % 0.5 % (0.0-2.0); EOS % 0.6 % (0.0-4.0); LYMPH # 1.4 K/uL (1.0-4.3); LYMPH % 21.5 % (20.0-40.0); MEAN CELL VOLUME 88.3 fL (80.0-94.0); MEAN CORPUSCULAR HEMOGLOBIN 30.7 pg (27.0-31.0); MEAN CORPUSCULAR HGB CONC 34.7 g/dL (33.0-37.0); MEAN PLATELET VOLUME 10.6 fL (7.2-11.7); MONO # 0.5 K/uL (0.0-0.8); MONO % 7.8 % (0.0-10.0); NEUT # 4.5 K/uL (1.8-7.0); NEUT % 69.6 % (50.0-75.0); NRBC % 0.2 % (0.0-2.0); RBC 4.88 Mil/uL (4.40-5.90); RED CELL DISTRIBUTION WIDTH 12.7 % (11.5-14.5); WHITE BLOOD COUNT 6.4 K/uL (4.8-10.8)
[2018-01-07 08:04] LABS: ALB/GLOB RATIO 1.1 (1.0-2.1); ALBUMIN 3.1 g/dL (3.5-5.0); ALT/SGPT 29 U/L (21-72); AST/SGOT 21 U/L (17-59); BLOOD UREA NITROGEN 7 mg/dL (9-20); CALCIUM 8.2 mg/dl (8.6-10.4); GFR NON-AFRICAN AMERICAN > 60
[2018-01-07] MEDS ORDERED: Potassium Chloride 20 mEq/15 ml LIQ UD PO ONE (08:45)
[2018-01-07] MEDS ORDERED: Promethazine 12.5 mg/10 ml Syrup PO ONE (09:50)
[2018-01-07] MEDS: Potassium Chl 40 mEq in D5-1/2 1,000 ML IV SCH ×2 (10:30→21:40)
[2018-01-07] MEDS: Enoxaparin 40 mg Syringe SC SCH (11:38)
--- NOTE | 2018-01-07 13:22 | CP.PCM.PN ---
<Leyda Hennessy - Last Filed: 01/07/18 13:12> Subjective - Date & Time of Evaluation Date of Evaluation: 01/07/18 Time of Evaluation: 08:00 - Subjective Subjective: GI Fellow PGY5 Consult Note This is a 52 year old male with PMHx of MS with paralysis of lower extremities and HTN who presents to ED for severe nasuea and vomiting. Patient states he had a prostate biopsy done and soon after started having nausea and then began with severe intractable vomiting. Has not been able to tolerate PO intate. Emesis is non-bloody. Patient denies abdominal pain, diarrhea, constipation, fever, chills, chest pain and shortness of breath. No complaints of dysphagia, he was tolerating a regular diet with no issues prior to this acute onset. No prior EGD. ROS: A 12pt ROS was negative except as above PMHx: MS with paralysis of lower extremities, HTN, prostatic enlargement PSHx: Prostate biopsy 01/03/18 FHx: Mother- DM, HTN SHx: denies tobacco, alcohol, drugs Objective - Vital Signs/Intake and Output Vital Signs (last 24 hours): Temp Pulse Resp BP Pulse Ox 98.5 F 65 20 168/85 H 96 01/07/18 07:56 01/07/18 07:56 01/07/18 07:56 01/07/18 07:56 01/07/18 07:56 Intake and Output: 01/07/18 01/07/18 06:59 18:59 Intake Total 1975 Output Total 1300 Balance 675 - Medications Medications: Current Medications Dextrose (Dextrose 50% Inj) 0 ml IVP .STAT PRN; Protocol PRN Reason: Hypoglycemia Protocol Dextrose (Glutose 15) 0 gm PO .ONCE PRN; Protocol PRN Reason: Hypoglycemia Protocol Enoxaparin Sodium (Lovenox) 40 mg SC DAILY [facility] Last Admin: 01/07/18 11:38 Dose: 40 mg Glucagon (Glucagen Diagnostic Kit) 0 mg IM .STAT PRN; Protocol PRN Reason: Hypoglycemia Protocol Sodium Chloride (Sodium Chloride 0.9%) 1,000 mls @ 100 mls/hr IV .Q10H [facility] Last Admin: 01/07/18 02:00 Dose: 100 mls/hr Dextrose (Dextrose 5% In Water 1000 Ml) 1,000 mls @ 0 mls/hr IV .Q0M PRN; Protocol PRN Reason: Hypoglycemia Protocol Potassium Chloride/Dextrose/Sod Cl (Potassium Chl 40 Meq In D5-1/2ns) 1,000 mls @ 80 mls/hr IV .[id number] [facility] Last Admin: 01/07/18 10:30 Dose: 80 mls/hr Lorazepam (Ativan) 1 mg IVP Q6H PRN PRN Reason: Anxiety Last Admin: 01/07/18 13:02 Dose: 1 mg Metoclopramide HCl (Reglan) 10 mg IVP Q6H PRN PRN Reason: Nausea/Vomiting Last Admin: 01/07/18 12:59 Dose: 10 mg Ondansetron HCl (Zofran Inj) 4 mg IVP Q6H PRN PRN Reason: Nausea/Vomiting Last Admin: 01/07/18 08:45 Dose: 4 mg Pantoprazole Sodium (Protonix Inj) 40 mg IVP DAILY [facility] Sucralfate (Carafate Tab) 1 gm PO BID [facility] - Labs Labs: 01/07/18 07:11 01/07/18 07:11 - Constitutional Appears: Non-toxic, No Acute Distress - Head Exam Head Exam: ATRAUMATIC, NORMAL INSPECTION - Eye Exam Eye Exam: EOMI, Normal appearance, PERRL - ENT Exam ENT Exam: Mucous Membranes Moist, Normal Exam - Neck Exam Neck Exam: Full ROM - Respiratory Exam Respiratory Exam: Clear to Ausculation Bilateral, NORMAL BREATHING PATTERN - Cardiovascular Exam Cardiovascular Exam: RRR, +S1, +S2 - GI/Abdominal Exam GI & Abdominal Exam: Soft, Normal Bowel Sounds. absent: Distended, Firm, Guard ing - Neurological Exam Neurological Exam: Alert, Awake, Oriented x3 - Psychiatric Exam Psychiatric exam: Normal Affect, Normal Mood - Skin Skin Exam: Dry, Normal Color, Warm Assessment and Plan - Assessment and Plan (Free Text) Assessment: This is a 52yM presenting with N/V. 1. Nausea and Vomiting 2. Multiple sclerosis Plan: -Continue supportive care -Pt was tolerating clears, continue clear liquid diet -Start IV PPI -Carafate daily -IVF hydration -No prior EGD -If persistent N/V will consider EGD -N/V maybe from MS flare and gastroparesis -Will continue to follow closely <Pipe Drew - Last Filed: 01/07/18 14:23> Objective - Vital Signs/Intake and Output Vital Signs (last 24 hours): Temp Pulse Resp BP Pulse Ox 98.5 F 65 20 168/85 H 96 01/07/18 07:56 01/07/18 07:56 01/07/18 07:56 01/07/18 07:56 01/07/18 07:56 Intake and Output: 01/07/18 01/07/18 06:59 18:59 Intake Total 1975 Output Total 1300 Balance 675 - Medications Medications: Current Medications Dextrose (Dextrose 50% Inj) 0 ml IVP .STAT PRN; Protocol PRN Reason: Hypoglycemia Protocol Dextrose (Glutose 15) 0 gm PO .ONCE PRN; Protocol PRN Reason: Hypoglycemia Protocol Enoxaparin Sodium (Lovenox) 40 mg SC DAILY [facility] Last Admin: 01/07/18 11:38 Dose: 40 mg Glucagon (Glucagen Diagnostic Kit) 0 mg IM .STAT PRN; Protocol PRN Reason: Hypoglycemia Protocol Sodium Chloride (Sodium Chloride 0.9%) 1,000 mls @ 100 mls/hr IV .Q10H [facility] Last Admin: 01/07/18 02:00 Dose: 100 mls/hr Dextrose (Dextrose 5% In Water 1000 Ml) 1,000 mls @ 0 mls/hr IV .Q0M PRN; Protocol PRN Reason: Hypoglycemia Protocol Potassium Chloride/Dextrose/Sod Cl (Potassium Chl 40 Meq In D5-1/2ns) 1,000 mls @ 80 mls/hr IV .[id number] [facility] Last Admin: 01/07/18 10:30 Dose: 80 mls/hr Lorazepam (Ativan) 1 mg IVP Q6H PRN PRN Reason: Anxiety Last Admin: 01/07/18 13:02 Dose: 1 mg Metoclopramide HCl (Reglan) 10 mg IVP Q6H PRN PRN Reason: Nausea/Vomiting Last Admin: 01/07/18 12:59 Dose: 10 mg Ondansetron HCl (Zofran Inj) 4 mg IVP Q6H PRN PRN Reason: Nausea/Vomiting Last Admin: 01/07/18 08:45 Dose: 4 mg Pantoprazole Sodium (Protonix Inj) 40 mg IVP DAILY [facility] Sucralfate (Carafate Tab) 1 gm PO BID [facility] - Labs Labs: 01/07/18 07:11 01/07/18 07:11 Attending/Attestation - Attestation I have personally seen and examined this patient.: Yes I have fully participated in the care of the patient.: Yes I have reviewed all pertinent clinical information, including history, physical exam and plan: Yes Notes (Text): 01/07/18 13:49 The patient was evaluated today and discussed with Dr. De Los Santos. Agree with above assessment and recommendations.
--- NOTE | 2018-01-07 17:28 | CP.PCM.PN ---
Subjective - Date & Time of Evaluation Date of Evaluation: 01/07/18 Time of Evaluation: 16:00 - Subjective Subjective: Medical Attending note: Patient seen and examined this afternoon. Discussed with patient's RN Forrest this morning, patient is audible wretching this morning; did not tolerate liquid diet overnight. I spoke with his this morning, patient did not appear well today. I saw patient this afternoon, he reports he got promethazine which helped little bit and tried some clears. He is urinating, has not had a bowel movement which is expected given he has not eaten for 4 days given nausea. Objective - Vital Signs/Intake and Output Vital Signs (last 24 hours): Temp Pulse Resp BP Pulse Ox 97.3 F L 73 20 130/78 98 01/07/18 15:25 01/07/18 15:25 01/07/18 15:25 01/07/18 15:25 01/07/18 15:25 Intake and Output: 01/07/18 01/07/18 06:59 18:59 Intake Total 1975 Output Total 1300 Balance 675 - Medications Medications: Current Medications Dextrose (Dextrose 50% Inj) 0 ml IVP .STAT PRN; Protocol PRN Reason: Hypoglycemia Protocol Dextrose (Glutose 15) 0 gm PO .ONCE PRN; Protocol PRN Reason: Hypoglycemia Protocol Enoxaparin Sodium (Lovenox) 40 mg SC DAILY [facility] Last Admin: 01/07/18 11:38 Dose: 40 mg Glucagon (Glucagen Diagnostic Kit) 0 mg IM .STAT PRN; Protocol PRN Reason: Hypoglycemia Protocol Sodium Chloride (Sodium Chloride 0.9%) 1,000 mls @ 100 mls/hr IV .Q10H [facility] Last Admin: 01/07/18 02:00 Dose: 100 mls/hr Dextrose (Dextrose 5% In Water 1000 Ml) 1,000 mls @ 0 mls/hr IV .Q0M PRN; Protocol PRN Reason: Hypoglycemia Protocol Potassium Chloride/Dextrose/Sod Cl (Potassium Chl 40 Meq In D5-1/2ns) 1,000 mls @ 80 mls/hr IV .[id number] [facility] Last Admin: 01/07/18 10:30 Dose: 80 mls/hr Metoclopramide HCl (Reglan) 10 mg IVP Q6H PRN PRN Reason: Nausea/Vomiting Last Admin: 01/07/18 12:59 Dose: 10 mg Ondansetron HCl (Zofran Inj) 4 mg IVP Q6H PRN PRN Reason: Nausea/Vomiting Last Admin: 01/07/18 17:04 Dose: 4 mg Pantoprazole Sodium (Protonix Inj) 40 mg IVP DAILY [facility] Last Admin: 01/07/18 14:57 Dose: 40 mg Sucralfate (Carafate Oral Susp) 1 gm PO BID [facility] - Labs Labs: 01/07/18 07:11 01/07/18 07:11 - Constitutional Appears: Non-toxic, No Acute Distress, Unkempt - Head Exam Head Exam: NORMAL INSPECTION - Eye Exam Eye Exam: EOMI - ENT Exam ENT Exam: Mucous Membranes Dry - Respiratory Exam Respiratory Exam: Clear to Ausculation Bilateral, NORMAL BREATHING PATTERN. absent: Rales, Rhonchi, Wheezes - Cardiovascular Exam Cardiovascular Exam: REGULAR RHYTHM, +S1, +S2 - GI/Abdominal Exam GI & Abdominal Exam: Soft, Normal Bowel Sounds. absent: Distended, Firm, Guarding, Rigid, Tenderness, Rebound - Extremities Exam Extremities Exam: absent: Pedal Edema, Tenderness - Neurological Exam Neurological Exam: Alert, Awake, Oriented x3 - Psychiatric Exam Additional comments: tired, lethargic - Skin Skin Exam: Dry, Intact, Normal Color, Warm. 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 History of Multiple sclerosis: * Outpatient IVIg treatments * Patient goes to center for MS 4. Hx of HTN: * Losartan 50mg PO daily to be resumed once patient tolerating PO intake * Monitor BP 5 Hx of depression: * Citalopram 20mg PO daily- to be resumed once patient tolerating PO intake 6. Prophylaxis: * Lovenox 40mg subqdaily * GI prophylaxis: protonix 40mg IV qdaily * Sucralfate 1gm PO BID * SCDs * D51/2 NS with KCL 40meq 80cc/hr Disposition: patient reporting persistent nausea in spite of PRNs. GI consult appreciated. Continue to monitor for symptom relief; may warrant EGD if refractory to PRNs.
[2018-01-07] MEDS: Sucralfate 1 gm/10 ml Oral Susp UD PO SCH (18:16)
[2018-01-08] MEDS: Sodium Chloride 0.9% 1,000 ML IV SCH ×2 (06:20→15:28)
[2018-01-08 07:34] LABS: BASO % 0.4 % (0.0-2.0); EOS % 0.4 % (0.0-4.0); HEMOGLOBIN 15.2 g/dL (12.0-18.0); LYMPH # 1.2 K/uL (1.0-4.3); LYMPH % 18.9 % (20.0-40.0); MEAN CELL VOLUME 88.1 fL (80.0-94.0); MEAN CORPUSCULAR HEMOGLOBIN 30.2 pg (27.0-31.0); MEAN CORPUSCULAR HGB CONC 34.3 g/dL (33.0-37.0); MONO # 0.5 K/uL (0.0-0.8); MONO % 8.8 % (0.0-10.0); NEUT # 4.4 K/uL (1.8-7.0); NEUT % 71.5 % (50.0-75.0); NRBC % 0.1 % (0.0-2.0); RBC 5.05 Mil/uL (4.40-5.90); RED CELL DISTRIBUTION WIDTH 12.7 % (11.5-14.5); WHITE BLOOD COUNT 6.2 K/uL (4.8-10.8)
[2018-01-08 07:50] LABS: ALB/GLOB RATIO 1.1 (1.0-2.1); ALBUMIN 3.3 g/dL (3.5-5.0); ALT/SGPT 29 U/L (21-72); AST/SGOT 25 U/L (17-59); BLOOD UREA NITROGEN 7 mg/dL (9-20); CALCIUM 8.6 mg/dl (8.6-10.4); GFR NON-AFRICAN AMERICAN > 60
[2018-01-08] MEDS: Sucralfate 1 gm/10 ml Oral Susp UD PO SCH ×2 (09:12→17:27)
[2018-01-08] MEDS: Enoxaparin 40 mg Syringe SC SCH (09:12)
[2018-01-08] MEDS: Potassium Chl 40 mEq in D5-1/2 1,000 ML IV SCH (10:16)
--- NOTE | 2018-01-08 11:47 | CP.PCM.PN ---
<Leyda Hennessy - Last Filed: 01/08/18 11:42> Subjective - Date & Time of Evaluation Date of Evaluation: 01/08/18 Time of Evaluation: 08:30 - Subjective Subjective: GI Fellow PGY5 Progress Note Pt seen and evaluated at bedside, pt denies any abdominal pain. Nausea and spitting up, dry heaves. ROS: A 12pt ROS was negative except as above. Objective - Vital Signs/Intake and Output Vital Signs (last 24 hours): Temp Pulse Resp BP Pulse Ox 98.1 F 60 60 H 147/89 98 01/08/18 08:00 01/08/18 08:00 01/08/18 08:00 01/08/18 08:00 01/08/18 08:00 - Medications Medications: Current Medications Dextrose (Dextrose 50% Inj) 0 ml IVP .STAT PRN; Protocol PRN Reason: Hypoglycemia Protocol Dextrose (Glutose 15) 0 gm PO .ONCE PRN; Protocol PRN Reason: Hypoglycemia Protocol Enoxaparin Sodium (Lovenox) 40 mg SC DAILY [facility] Last Admin: 01/08/18 09:12 Dose: 40 mg Glucagon (Glucagen Diagnostic Kit) 0 mg IM .STAT PRN; Protocol PRN Reason: Hypoglycemia Protocol Sodium Chloride (Sodium Chloride 0.9%) 1,000 mls @ 100 mls/hr IV .Q10H [facility] Last Admin: 01/08/18 06:20 Dose: Not Given Dextrose (Dextrose 5% In Water 1000 Ml) 1,000 mls @ 0 mls/hr IV .Q0M PRN; Protocol PRN Reason: Hypoglycemia Protocol Potassium Chloride/Dextrose/Sod Cl (Potassium Chl 40 Meq In D5-1/2ns) 1,000 mls @ 80 mls/hr IV .[id number] [facility] Last Admin: 01/08/18 10:16 Dose: 80 mls/hr Metoclopramide HCl (Reglan) 10 mg IVP Q6H PRN PRN Reason: Nausea/Vomiting Last Admin: 01/08/18 09:12 Dose: 10 mg Ondansetron HCl (Zofran Inj) 4 mg IVP Q6H PRN PRN Reason: Nausea/Vomiting Last Admin: 01/08/18 07:18 Dose: 4 mg Pantoprazole Sodium (Protonix Inj) 40 mg IVP DAILY [facility] Last Admin: 01/08/18 09:11 Dose: 40 mg Sucralfate (Carafate Oral Susp) 1 gm PO BID [facility] Last Admin: 01/08/18 09:12 Dose: 1 gm - Labs Labs: 01/08/18 07:23 01/08/18 07:23 - Constitutional Appears: Non-toxic, No Acute Distress - Head Exam Head Exam: ATRAUMATIC, NORMAL INSPECTION, NORMOCEPHALIC - Eye Exam Eye Exam: EOMI, Normal appearance Pupil Exam: PERRL - ENT Exam ENT Exam: Mucous Membranes Moist - Respiratory Exam Respiratory Exam: Clear to Ausculation Bilateral, NORMAL BREATHING PATTERN - Cardiovascular Exam Cardiovascular Exam: REGULAR RHYTHM, RRR - GI/Abdominal Exam GI & Abdominal Exam: Soft, Normal Bowel Sounds - Extremities Exam Extremities Exam: Full ROM, Normal Inspection - Neurological Exam Neurological Exam: Alert, Awake, Oriented x3 - Psychiatric Exam Psychiatric exam: Normal Affect, Normal Mood - Skin Skin Exam: Dry, Intact, Normal Color, Warm Assessment and Plan - Assessment and Plan (Free Text) Assessment: This is a 52yM presenting with N/V. 1. Nausea and Vomiting 2. Multiple sclerosis Plan: -Continue supportive care -Pt on clear liquid diet but not tolerating -Continue IV PPI -Carafate daily -IVF hydration -No prior EGD -Persistent N/V -N/V maybe from MS flare and gastroparesis -Keep NPO for possible EGD tomorrow -Will continue to follow closely <Pipe Drew - Last Filed: 01/08/18 14:49> Objective - Vital Signs/Intake and Output Vital Signs (last 24 hours): Temp Pulse Resp BP Pulse Ox 98.1 F 60 20 147/89 98 01/08/18 08:00 01/08/18 08:00 01/08/18 08:00 01/08/18 08:00 01/08/18 08:00 - Medications Medications: Current Medications Dextrose (Dextrose 50% Inj) 0 ml IVP .STAT PRN; Protocol PRN Reason: Hypoglycemia Protocol Dextrose (Glutose 15) 0 gm PO .ONCE PRN; Protocol PRN Reason: Hypoglycemia Protocol Enoxaparin Sodium (Lovenox) 40 mg SC DAILY [facility] Last Admin: 01/08/18 09:12 Dose: 40 mg Glucagon (Glucagen Diagnostic Kit) 0 mg IM .STAT PRN; Protocol PRN Reason: Hypoglycemia Protocol Sodium Chloride (Sodium Chloride 0.9%) 1,000 mls @ 100 mls/hr IV .Q10H [facility] Last Admin: 01/08/18 06:20 Dose: Not Given Dextrose (Dextrose 5% In Water 1000 Ml) 1,000 mls @ 0 mls/hr IV .Q0M PRN; P rotocol PRN Reason: Hypoglycemia Protocol Potassium Chloride/Dextrose/Sod Cl (Potassium Chl 40 Meq In D5-1/2ns) 1,000 mls @ 80 mls/hr IV .[id number] [facility] Last Admin: 01/08/18 10:16 Dose: 80 mls/hr Metoclopramide HCl (Reglan) 10 mg IVP Q6H PRN PRN Reason: Nausea/Vomiting Last Admin: 01/08/18 09:12 Dose: 10 mg Ondansetron HCl (Zofran Inj) 4 mg IVP Q6H PRN PRN Reason: Nausea/Vomiting Last Admin: 01/08/18 14:33 Dose: 4 mg Pantoprazole Sodium (Protonix Inj) 40 mg IVP DAILY [facility] Last Admin: 01/08/18 09:11 Dose: 40 mg Sucralfate (Carafate Oral Susp) 1 gm PO BID [facility] Last Admin: 01/08/18 09:12 Dose: 1 gm - Labs Labs: 01/08/18 07:23 01/08/18 07:23 Attending/Attestation - Attestation I have personally seen and examined this patient.: Yes I have fully participated in the care of the patient.: Yes I have reviewed all pertinent clinical information, including history, physical exam and plan: Yes Notes (Text): 01/08/18 14:49 The patient was evaluated today and discussed with Dr. De Los Santos. Agree with above findings, assessment and recommendations.
[2018-01-08] MEDS ORDERED: Promethazine 12.5 mg/10 ml Syrup PO PRN (15:04)
--- NOTE | 2018-01-08 15:08 | CP.PCM.PN ---
Subjective - Date & Time of Evaluation Date of Evaluation: 01/08/18 Time of Evaluation: 15:08 - Subjective Subjective: PGY3 Note for Dr. Scanlon Patient seen and examined at bedside this AM; patient admits to continued nausea/vomiting however able to eat some of dinner last night. Mostly nauseas in the morning time, and still stating he is extremely nauseas this AM. Denies fevers/chills, BRAVO, CP, Sob, abdominal pain, diarrhea, or lower extremity pain /swelling. Objective - Vital Signs/Intake and Output Vital Signs (last 24 hours): Temp Pulse Resp BP Pulse Ox 98.1 F 60 20 147/89 98 01/08/18 08:00 01/08/18 08:00 01/08/18 08:00 01/08/18 08:00 01/08/18 08:00 - Medications Medications: Current Medications Dextrose (Dextrose 50% Inj) 0 ml IVP .STAT PRN; Protocol PRN Reason: Hypoglycemia Protocol Dextrose (Glutose 15) 0 gm PO .ONCE PRN; Protocol PRN Reason: Hypoglycemia Protocol Enoxaparin Sodium (Lovenox) 40 mg SC DAILY [facility] Last Admin: 01/08/18 09:12 Dose: 40 mg Glucagon (Glucagen Diagnostic Kit) 0 mg IM .STAT PRN; Protocol PRN Reason: Hypoglycemia Protocol Sodium Chloride (Sodium Chloride 0.9%) 1,000 mls @ 100 mls/hr IV .Q10H [facility] Last Admin: 01/08/18 06:20 Dose: Not Given Dextrose (Dextrose 5% In Water 1000 Ml) 1,000 mls @ 0 mls/hr IV .Q0M PRN; Protocol PRN Reason: Hypoglycemia Protocol Potassium Chloride/Dextrose/Sod Cl (Potassium Chl 40 Meq In D5-1/2ns) 1,000 mls @ 80 mls/hr IV .[id number] [facility] Last Admin: 01/08/18 10:16 Dose: 80 mls/hr Metoclopramide HCl (Reglan) 10 mg IVP Q6H PRN PRN Reason: Nausea/Vomiting Last Admin: 01/08/18 09:12 Dose: 10 mg Ondansetron HCl (Zofran Inj) 4 mg IVP Q6H PRN PRN Reason: Nausea/Vomiting Last Admin: 01/08/18 14:33 Dose: 4 mg Pantoprazole Sodium (Protonix Inj) 40 mg IVP DAILY [facility] Last Admin: 01/08/18 09:11 Dose: 40 mg Promethazine HCl (Phenergan Syrup) 12.5 mg PO Q6 PRN PRN Reason: Nausea/Vomiting Sucralfate (Carafate Oral Susp) 1 gm PO BID [facility] Last Admin: 01/08/18 09:12 Dose: 1 gm - Labs Labs: 01/08/18 07:23 01/08/18 07:23 - Constitutional Appears: Cachectic, Chronically Ill - Head Exam Head Exam: ATRAUMATIC - Eye Exam Eye Exam: EOMI, Normal appearance, PERRL - Neck Exam Neck Exam: absent: Lymphadenopathy, Tenderness, Thyromegaly - Respiratory Exam Respiratory Exam: Clear to Ausculation Bilateral, NORMAL BREATHING PATTERN. absent: Rales, Rhonchi, Wheezes - Cardiovascular Exam Cardiovascular Exam: REGULAR RHYTHM, +S1, +S2 - GI/Abdominal Exam GI & Abdominal Exam: Soft, Normal Bowel Sounds. absent: Tenderness, Organomegaly - Extremities Exam Extremities Exam: absent: Calf Tenderness - Back Exam Back Exam: NORMAL INSPECTION. absent: CVA tenderness (L), CVA tenderness (R) - Neurological Exam Neurological Exam: Awake - Skin Skin Exam: Warm Assessment and Plan - Assessment and Plan (Free Text) Assessment: 1) Intractable nausea and vomiting * GI (Dr. Quijano) physician compensation analyst-->help appreciated * may consider EGD if continues to be persistent * Possible flare from MS or gastroparesis * Zofran 4mg IV Q6H PRN * Reglan 10mg IV Q6H PRN * Clear liquid diet * Accuchecks Q6H * Hypoglycemia protocol For tentative EGD 01/09 NPO after midnight 01/08 2) Hypokalemia-->resolved * Potassium 20mEq IVPB Q2H X 3: k+ 3.3 * Mg2+: 1.7 * Continue to monitor and replete as needed 3. History of Multiple sclerosis: * Outpatient IVIg treatments * Patient goes to center for MS 4. Hx of HTN: * Losartan 50mg PO daily to be resumed once patient tolerating PO intake * Monitor BP 5 Hx of depression: * Citalopram 20mg PO daily- to be resumed once patient tolerating PO intake 6. Prophylaxis: * Lovenox 40mg subqdaily * GI prophylaxis: protonix 40mg IV qdaily * Sucralfate 1gm PO BID * D5 1/2 normal saline at 100ml/hr for maintan * SCDs Disposition: patient reporting persistent nausea in spite of PRNs. GI consult appreciated; thank you for your help case discussed and seen with Dr. Capo Muhammad PGY3
[2018-01-08] MEDS: Dextrose 5%/0.45% NS 1,000 ML IV SCH (16:14)
[2018-01-09] MEDS: Dextrose 5%/0.45% NS 1,000 ML IV SCH ×3 (02:10→22:32)
[2018-01-09] MEDS: Sodium Chloride 0.9% 1,000 ML IV SCH (06:17)
[2018-01-09 08:24] LABS: BASO % 0.2 % (0.0-2.0); EOS % 0.3 % (0.0-4.0); HEMOGLOBIN 15.8 g/dL (12.0-18.0); LYMPH # 1.1 K/uL (1.0-4.3); LYMPH % 11.4 % (20.0-40.0); MEAN CELL VOLUME 88.3 fL (80.0-94.0); MEAN CORPUSCULAR HEMOGLOBIN 30.4 pg (27.0-31.0); MEAN CORPUSCULAR HGB CONC 34.4 g/dL (33.0-37.0); MEAN PLATELET VOLUME 10.1 fL (7.2-11.7); MONO # 0.8 K/uL (0.0-0.8); NEUT # 7.3 K/uL (1.8-7.0); NEUT % 79.1 % (50.0-75.0); NRBC % 0.1 % (0.0-2.0); RBC 5.2 Mil/uL (4.40-5.90); RED CELL DISTRIBUTION WIDTH 12.8 % (11.5-14.5); WHITE BLOOD COUNT 9.3 K/uL (4.8-10.8)
[2018-01-09 08:47] LABS: ALB/GLOB RATIO 1.1 (1.0-2.1); ALBUMIN 3.3 g/dL (3.5-5.0); ALT/SGPT 29 U/L (21-72); AST/SGOT 24 U/L (17-59); BLOOD UREA NITROGEN 5 mg/dL (9-20); CALCIUM 8.7 mg/dl (8.6-10.4); GFR NON-AFRICAN AMERICAN > 60
[2018-01-09] MEDS ORDERED: Potassium Chloride 20 mEq/15 ml LIQ UD PO STA (08:49)
--- NOTE | 2018-01-09 08:57 | CP.PCM.PN ---
<Kevin Beyer - Last Filed: 01/09/18 14:19> Subjective - Date & Time of Evaluation Date of Evaluation: 01/09/18 Time of Evaluation: 08:54 - Subjective Subjective: GI Fellow PGY4, progress note. Patient feels better. No nausea, vomiting today. He is hungry and would like to try liquids. Patient and are very concerned about anesthesia for EGD. Prefer to avoid if possible. Objective - Vital Signs/Intake and Output Vital Signs (last 24 hours): Temp Pulse Resp BP Pulse Ox 97.6 F 56 L 20 138/84 97 01/09/18 00:00 01/09/18 00:00 01/09/18 00:00 01/09/18 00:00 01/09/18 00:00 Intake and Output: 01/09/18 01/09/18 06:59 18:59 Intake Total 1600 Balance 1600 - Medications Medications: Current Medications Dextrose (Dextrose 50% Inj) 0 ml IVP .STAT PRN; Protocol PRN Reason: Hypoglycemia Protocol Dextrose (Glutose 15) 0 gm PO .ONCE PRN; Protocol PRN Reason: Hypoglycemia Protocol Enoxaparin Sodium (Lovenox) 40 mg SC DAILY [facility] Last Admin: 01/08/18 09:12 Dose: 40 mg Glucagon (Glucagen Diagnostic Kit) 0 mg IM .STAT PRN; Protocol PRN Reason: Hypoglycemia Protocol Sodium Chloride (Sodium Chloride 0.9%) 1,000 mls @ 100 mls/hr IV .Q10H [facility] Last Admin: 01/09/18 06:17 Dose: Not Given Dextrose (Dextrose 5% In Water 1000 Ml) 1,000 mls @ 0 mls/hr IV .Q0M PRN; Protocol PRN Reason: Hypoglycemia Protocol Dextrose/Sodium Chloride (Dextrose 5%/0.45% Ns 1000 Ml) 1,000 mls @ 100 mls/hr IV .Q10H [facility] Last Admin: 01/09/18 02:10 Dose: 100 mls/hr Metoclopramide HCl (Reglan) 10 mg IVP Q6H PRN PRN Reason: Nausea/Vomiting Last Admin: 01/09/18 00:21 Dose: 10 mg Ondansetron HCl (Zofran Inj) 4 mg IVP Q6H PRN PRN Reason: Nausea/Vomiting Last Admin: 01/09/18 07:01 Dose: 4 mg Pantoprazole Sodium (Protonix Inj) 40 mg IVP DAILY [facility] Last Admin: 01/08/18 09:11 Dose: 40 mg Potassium Chloride (Potassium Chloride Oral Soln) 40 meq PO STAT [facility] Stop: 01/09/18 08:50 Promethazine HCl (Phenergan Syrup) 12.5 mg PO Q6 PRN PRN Reason: Nausea/Vomiting Sucralfate (Carafate Oral Susp) 1 gm PO BID [facility] Last Admin: 01/08/18 17:27 Dose: Not Given - Labs Labs: 01/09/18 08:13 01/09/18 08:13 - Constitutional Appears: Non-toxic, No Acute Distress, Chronically Ill - Head Exam Head Exam: NORMAL INSPECTION, NORMOCEPHALIC - Eye Exam Eye Exam: EOMI, Normal appearance - ENT Exam ENT Exam: Mucous Membranes Moist, Normal Exam - Respiratory Exam Respiratory Exam: Clear to Ausculation Bilateral, NORMAL BREATHING PATTERN - Cardiovascular Exam Cardiovascular Exam: REGULAR RHYTHM, +S1, +S2 - Extremities Exam Extremities Exam: absent: Normal Inspection - Neurological Exam Neurological Exam: Alert, Awake, Oriented x3 - Psychiatric Exam Psychiatric exam: Normal Affect, Normal Mood - Skin Skin Exam: Dry, Normal Color Assessment and Plan - Assessment and Plan (Free Text) Assessment: This is a 52yM presenting with N/V. 1. Nausea and Vomiting 2. Multiple sclerosis Plan: -Continue supportive care -Trial of CLD and advanced to regular. -Continue IV PPI -Carafate daily -IVF hydration -No prior EGD. Patient and would like to avoid given previous poor tolerance to anesthesia. -Continue PRN salome lopez. Monitor closely for side effects. <Ankit Quijano - Last Filed: 01/09/18 15:19> Objective - Vital Signs/Intake and Output Vital Signs (last 24 hours): Temp Pulse Resp BP Pulse Ox 99.2 F 59 L 20 138/87 98 01/09/18 08:59 01/09/18 08:59 01/09/18 08:59 01/09/18 08:59 01/09/18 08:59 Intake and Output: 01/09/18 01/09/18 06:59 18:59 Intake Total 1600 Balance 1600 - Medications Medications: Current Medications Dextrose (Dextrose 50% Inj) 0 ml IVP .STAT PRN; Protocol PRN Reason: Hypoglycemia Protocol Dextrose (Glutose 15) 0 gm PO .ONCE PRN; Protocol PRN Reason: Hypoglycemia Protocol Enoxaparin Sodium (Lovenox) 40 mg SC DAILY [facility] Last Admin: 01/09/18 09:29 Dose: 40 mg Glucagon (Glucagen Diagnostic Kit) 0 mg IM .STAT PRN; Protocol PRN Reason: Hypoglycemia Protocol Sodium Chloride (Sodium Chloride 0.9%) 1,000 mls @ 100 mls/hr IV .Q10H [facility] Last Admin: 01/09/18 06:17 Dose: Not Given Dextrose (Dextrose 5% In Water 1000 Ml) 1,000 mls @ 0 mls/hr IV .Q0M PRN; Protocol PRN Reason: Hypoglycemia Protocol Dextrose/Sodium Chloride (Dextrose 5%/0.45% Ns 1000 Ml) 1,000 mls @ 100 mls/hr IV .Q10H [facility] Last Admin: 01/09/18 12:21 Dose: 100 mls/hr Metoclopramide HCl (Reglan) 10 mg IVP Q6H PRN PRN Reason: Nausea/Vomiting Last Admin: 01/09/18 00:21 Dose: 10 mg Ondansetron HCl (Zofran Inj) 4 mg IVP Q6H PRN PRN Reason: Nausea/Vomiting Last Admin: 01/09/18 07:01 Dose: 4 mg Pantoprazole Sodium (Protonix Inj) 40 mg IVP DAILY [facility] Last Admin: 01/09/18 09:29 Dose: 40 mg Promethazine HCl (Phenergan Syrup) 12.5 mg PO Q6 PRN PRN Reason: Nausea/Vomiting Sucralfate (Carafate Oral Susp) 1 gm PO BID [facility] Last Admin: 01/09/18 09:29 Dose: 1 gm - Labs Labs: 01/09/18 08:13 01/09/18 08:13 Attending/Attestation - Attestation I have personally seen and examined this patient.: Yes I have fully participated in the care of the patient.: Yes I have reviewed all pertinent clinical information, including history, physical exam and plan: Yes Notes (Text): 01/09/18 15:17 I have seen and examined patient with GI fellow. No acute events overnight, he is seen resting in bed comfortably. He denies abdominal pain, nausea, vomiting, fever/chills. Tolerating PO liquids without difficulty. Review of vitals from today are normal. Multiple sclerosis Nausea, vomiting - resolving, possibly related to post anesthesia course - Advance diet slowly as tolerated - Continue with supportive care, IVF hydration therapy - Anti-emetic therapy PRN - Patient would benefit from additional outpatient follow up including age appropriate screening colonoscopy. No further GI intervention planned, will sign off case. Please reconsult as necessary, thank you.
[2018-01-09] MEDS: Sucralfate 1 gm/10 ml Oral Susp UD PO SCH ×2 (09:29→17:54)
[2018-01-09] MEDS: Enoxaparin 40 mg Syringe SC SCH (09:29)
[2018-01-09] MEDS ORDERED: Simethicone 80 mg Chewtab PO ONE (13:28)
--- NOTE | 2018-01-09 15:09 | CP.PCM.PN ---
<Jeff Brown - Last Filed: 01/09/18 15:05> Subjective - Date & Time of Evaluation Date of Evaluation: 01/09/18 Time of Evaluation: 15:05 - Subjective Subjective: Hospitalist Service Pt seen and examined at bedside. Pt symptoms of nausea improved greatly, no more vomiting. Pt believes new medication worked well. Pt tolerating foods and feels ready to start regular diet. Pt denies cp sob fc Objective - Vital Signs/Intake and Output Vital Signs (last 24 hours): Temp Pulse Resp BP Pulse Ox 99.2 F 59 L 20 138/87 98 01/09/18 08:59 01/09/18 08:59 01/09/18 08:59 01/09/18 08:59 01/09/18 08:59 Intake and Output: 01/09/18 01/09/18 06:59 18:59 Intake Total 1600 Balance 1600 - Medications Medications: Current Medications Dextrose (Dextrose 50% Inj) 0 ml IVP .STAT PRN; Protocol PRN Reason: Hypoglycemia Protocol Dextrose (Glutose 15) 0 gm PO .ONCE PRN; Protocol PRN Reason: Hypoglycemia Protocol Enoxaparin Sodium (Lovenox) 40 mg SC DAILY [facility] Last Admin: 01/09/18 09:29 Dose: 40 mg Glucagon (Glucagen Diagnostic Kit) 0 mg IM .STAT PRN; Protocol PRN Reason: Hypoglycemia Protocol Sodium Chloride (Sodium Chloride 0.9%) 1,000 mls @ 100 mls/hr IV .Q10H [facility] Last Admin: 01/09/18 06:17 Dose: Not Given Dextrose (Dextrose 5% In Water 1000 Ml) 1,000 mls @ 0 mls/hr IV .Q0M PRN; Protocol PRN Reason: Hypoglycemia Protocol Dextrose/Sodium Chloride (Dextrose 5%/0.45% Ns 1000 Ml) 1,000 mls @ 100 mls/hr IV .Q10H [facility] Last Admin: 01/09/18 12:21 Dose: 100 mls/hr Metoclopramide HCl (Reglan) 10 mg IVP Q6H PRN PRN Reason: Nausea/Vomiting Last Admin: 01/09/18 00:21 Dose: 10 mg Ondansetron HCl (Zofran Inj) 4 mg IVP Q6H PRN PRN Reason: Nausea/Vomiting Last Admin: 01/09/18 07:01 Dose: 4 mg Pantoprazole Sodium (Protonix Inj) 40 mg IVP DAILY [facility] Last Admin: 01/09/18 09:29 Dose: 40 mg Promethazine HCl (Phenergan Syrup) 12.5 mg PO Q6 PRN PRN Reason: Nausea/Vomiting Sucralfate (Carafate Oral Susp) 1 gm PO BID [facility] Last Admin: 01/09/18 09:29 Dose: 1 gm - Labs Labs: 01/09/18 08:13 01/09/18 08:13 - Additional Findings Additional findings: - Constitutional Appears: Cachectic, Chronically Ill - Head Exam Head Exam: ATRAUMATIC - Eye Exam Eye Exam: EOMI, Normal appearance, PERRL - Neck Exam Neck Exam: absent: Lymphadenopathy, Tenderness, Thyromegaly - Respiratory Exam Respiratory Exam: Clear to Ausculation Bilateral, NORMAL BREATHING PATTERN. absent: Rales, Rhonchi, Wheezes - Cardiovascular Exam Cardiovascular Exam: REGULAR RHYTHM, +S1, +S2 - GI/Abdominal Exam GI & Abdominal Exam: Soft, Normal Bowel Sounds. absent: Tenderness, Organomegaly - Extremities Exam Extremities Exam: absent: Calf Tenderness - Back Exam Back Exam: NORMAL INSPECTION. absent: CVA tenderness (L), CVA tenderness (R) - Neurological Exam Neurological Exam: Awake - Skin Skin Exam: Warm Assessment and Plan - Assessment and Plan (Free Text) Assessment: 52M with MS related gastroparesis, responding to phenergan, to f/u with established care at [facility] 1) Intractable nausea and vomiting * GI (Dr. Quijano) system operation superintendent-->help appreciated * may consider EGD if continues to be persistent * Possible flare from MS or gastroparesis * Zofran 4mg IV Q6H PRN * Reglan 10mg IV Q6H PRN * Phenergan 12.5mg q6 * Clear liquid diet * Accuchecks Q6H * Hypoglycemia protocol For tentative EGD 01/09 NPO after midnight 01/08 2) Hypokalemia * Potassium 40meq oral soln given * 3.3 today * Mg2+: 1.7 * Continue to monitor and replete as needed 3. History of Multiple sclerosis: * Outpatient IVIg treatments * Patient goes to center for MS 4. Hx of HTN: * Losartan 50mg PO daily to be resumed once patient tolerating PO intake * Monitor BP 5 Hx of depression: * Citalopram 20mg PO daily- to be resumed once patient tolerating PO intake 6. Prophylaxis: * Lovenox 40mg subqdaily * GI prophylaxis: protonix 40mg IV qdaily * Sucralfate 1gm PO BID * D5 1/2 normal saline at 100ml/hr for maintan * SCDs Disposition: patient symptoms improved, likely d/c tmrw <Melva King V - Last Filed: 01/09/18 20:20> Objective - Vital Signs/Intake and Output Vital Signs (last 24 hours): Temp Pulse Resp BP Pulse Ox 99.9 F H 68 20 117/76 96 01/09/18 16:00 01/09/18 16:00 01/09/18 16:00 01/09/18 16:00 01/09/18 16:00 - Medications Medications: Current Medications Dextrose (Dextrose 50% Inj) 0 ml IVP .STAT PRN; Protocol PRN Reason: Hypoglycemia Protocol Dextrose (Glutose 15) 0 gm PO .ONCE PRN; Protocol PRN Reason: Hypoglycemia Protocol Enoxaparin Sodium (Lovenox) 40 mg SC DAILY [facility] Last Admin: 01/09/18 09:29 Dose: 40 mg Glucagon (Glucagen Diagnostic Kit) 0 mg IM .STAT PRN; Protocol PRN Reason: Hypoglycemia Protocol Sodium Chloride (Sodium Chloride 0.9%) 1,000 mls @ 100 mls/hr IV .Q10H [facility] Last Admin: 01/09/18 06:17 Dose: Not Given Dextrose (Dextrose 5% In Water 1000 Ml) 1,000 mls @ 0 mls/hr IV .Q0M PRN; Protocol PRN Reason: Hypoglycemia Protocol Dextrose/Sodium Chloride (Dextrose 5%/0.45% Ns 1000 Ml) 1,000 mls @ 100 mls/hr IV .Q10H [facility] Last Admin: 01/09/18 12:21 Dose: 100 mls/hr Metoclopramide HCl (Reglan) 10 mg IVP Q6H PRN PRN Reason: Nausea/Vomiting Last Admin: 01/09/18 00:21 Dose: 10 mg Ondansetron HCl (Zofran Inj) 4 mg IVP Q6H PRN PRN Reason: Nausea/Vomiting Last Admin: 01/09/18 07:01 Dose: 4 mg Pantoprazole Sodium (Protonix Inj) 40 mg IVP DAILY [facility] Last Admin: 01/09/18 09:29 Dose: 40 mg Promethazine HCl (Phenergan Syrup) 12.5 mg PO Q6 PRN PRN Reason: Nausea/Vomiting Sucralfate (Carafate Oral Susp) 1 gm PO BID [facility] Last Admin: 01/09/18 17:54 Dose: 1 gm - Labs Labs: 01/09/18 08:13 01/09/18 08:13 Attending/Attestation - Attestation I have personally seen and examined this patient.: Yes I have fully participated in the care of the patient.: Yes I have reviewed all pertinent clinical information, including history, physical exam and plan: Yes Notes (Text): Patient seen, examined, and case discussed with day-time resident. Patient seen this afternoon. Patient reports he was able to tolerate breakfast liquid diet. He will attempt lunch liquid diet. He is eager to try regular diet. He and have refused EGD, would like to hold off until he sees his GI in [place]. GI has signed off. If patient's nausea abated and able to tolerate diet, will discharge the patient tomorrow. Social work to help patient to arrange transportation in the morning. Patient and have refused rehab would like to take the patient home Assessment/Plan 1) Intractable nausea and vomiting * GI (Dr. Quijano) system operation superintendent-->help appreciated * may consider EGD if continues to be persistent * Possible flare from MS or gastroparesis * Family has refused EGD. * GI has signed off. * Zofran 4mg IV Q6H PRN * Reglan 10mg IV Q6H PRN * Clear liquid diet * Accuchecks Q6H * Hypoglycemia protocol 2) Hypokalemia: * Continue to monitor and replete as needed 3. History of Multiple sclerosis: * Outpatient IVIg treatments * Patient goes to center for MS 4. Hx of HTN: * Losartan 50mg PO daily to be resumed once patient tolerating PO intake * Monitor BP 5 Hx of depression: * Citalopram 20mg PO daily- to be resumed once patient tolerating PO intake 6. Prophylaxis: * Lovenox 40mg subqdaily * GI prophylaxis: protonix 40mg IV qdaily * Sucralfate 1gm PO BID * SCDs * D51/2 NS with KCL 40meq 80cc/hr Disposition: Patient reports improving nausea. Advanced diet as tolerated. Refused EGD. If patient tolerate diet and nausea abated, will discharge in the morning.
[2018-01-10 00:52] VITALS: PULSE 66
[2018-01-10 01:34] VITALS: RESP 18
[2018-01-10 06:27] LABS: BASO % 0.3 % (0.0-2.0); EOS % 0.2 % (0.0-4.0); HEMOGLOBIN 15.8 g/dL (12.0-18.0); LYMPH # 1.2 K/uL (1.0-4.3); LYMPH % 11.4 % (20.0-40.0); MEAN CELL VOLUME 88.5 fL (80.0-94.0); MEAN CORPUSCULAR HEMOGLOBIN 30.1 pg (27.0-31.0); MEAN PLATELET VOLUME 10.6 fL (7.2-11.7); MONO # 0.9 K/uL (0.0-0.8); MONO % 8.1 % (0.0-10.0); NEUT # 8.5 K/uL (1.8-7.0); RBC 5.25 Mil/uL (4.40-5.90); RED CELL DISTRIBUTION WIDTH 12.7 % (11.5-14.5); WHITE BLOOD COUNT 10.6 K/uL (4.8-10.8)
[2018-01-10 06:51] LABS: ALBUMIN 3.2 g/dL (3.5-5.0); ALT/SGPT 30 U/L (21-72); AST/SGOT 27 U/L (17-59); BLOOD UREA NITROGEN 4 mg/dL (9-20); CALCIUM 8.7 mg/dl (8.6-10.4); GFR NON-AFRICAN AMERICAN > 60
[2018-01-10 08:18] VITALS: BP 135/79; TEMP 98.8; O2SAT 97
[2018-01-10] MEDS: Enoxaparin 40 mg Syringe SC SCH (09:43)
[2018-01-10] MEDS: Sucralfate 1 gm/10 ml Oral Susp UD PO SCH (09:43)
--- NOTE | 2018-01-10 13:27 | CP.PCM.DIS ---
<Jeff Brown - Last Filed: 01/10/18 13:27> Provider - Provider Date of Admission: 01/04/18 04:40 Attending physician: Melva King DO Time Spent in preparation of Discharge (in minutes): 45 Diagnosis - Discharge Diagnosis (1) Colitis Status: Resolved (2) Intractable nausea and vomiting Status: Resolved Hospital Course - Lab Results Lab Results: Most Recent Lab Values WBC 10.6 K/uL (4.8-10.8) 01/10/18 06:19 RBC 5.25 Mil/uL (4.40-5.90) 01/10/18 06:19 Hgb 15.8 g/dL (12.0-18.0) 01/10/18 06:19 Hct 46.5 % (35.0-51.0) 01/10/18 06:19 MCV 88.5 fL (80.0-94.0) 01/10/18 06:19 MCH 30.1 pg (27.0-31.0) 01/10/18 06:19 MCHC 34.0 g/dL (33.0-37.0) 01/10/18 06:19 RDW 12.7 % (11.5-14.5) 01/10/18 06:19 Plt Count 163 K/uL (130-400) 01/10/18 06:19 MPV 10.6 fL (7.2-11.7) 01/10/18 06:19 Neut % (Auto) 80.0 % (50.0-75.0) H 01/10/18 06:19 Lymph % (Auto) 11.4 % (20.0-40.0) L 01/10/18 06:19 Garfield % (Auto) 8.1 % (0.0-10.0) 01/10/18 06:19 Eos % (Auto) 0.2 % (0.0-4.0) 01/10/18 06:19 Baso % (Auto) 0.3 % (0.0-2.0) 01/10/18 06:19 Neut # (Auto) 8.5 K/uL (1.8-7.0) H 01/10/18 06:19 Lymph # (Auto) 1.2 K/uL (1.0-4.3) 01/10/18 06:19 Garfield # (Auto) 0.9 K/uL (0.0-0.8) H 01/10/18 06:19 Eos # (Auto) 0.0 K/uL (0.0-0.7) 01/10/18 06:19 Baso # (Auto) 0.0 K/uL (0.0-0.2) 01/10/18 06:19 Neutrophils % (Manual) 91 % (50-75) H 01/04/18 01:27 Lymphocytes % (Manual) 6 % (20-40) L 01/04/18 01:27 Monocytes % (Manual) 3 % (0-10) 01/04/18 01:27 Platelet Estimate Normal (NORMAL) 01/04/18 01:27 Sodium 136 mmol/L (132-148) 01/10/18 06:19 Potassium 3.6 mmol/L (3.6-5.2) 01/10/18 06:19 Chloride 99 mmol/L (98-107) 01/10/18 06:19 Carbon Dioxide 29 mmol/L (22-30) 01/10/18 06:19 Anion Gap 12 (10-20) 01/10/18 06:19 BUN 4 mg/dL (9-20) L 01/10/18 06:19 Creatinine 0.4 mg/dL (0.8-1.5) L 01/10/18 06:19 Est GFR ( Amer) > 60 01/10/18 06:19 Est GFR (Non-Af Amer) > 60 01/10/18 06:19 POC Glucose (mg/dL) 121 mg/dL (65-110) H 01/08/18 21:04 Random Glucose 123 mg/dL (75-110) H 01/10/18 06:19 Calcium 8.7 mg/dl (8.6-10.4) 01/10/18 06:19 Phosphorus 3.1 mg/dL (2.5-4.5) 01/10/18 06:19 Magnesium 1.8 mg/dL (1.6-2.3) 01/10/18 06:19 Total Bilirubin 2.1 mg/dL (0.2-1.3) H 01/10/18 06:19 AST 27 U/L (17-59) 01/10/18 06:19 ALT 30 U/L (21-72) 01/10/18 06:19 Alkaline Phosphatase 51 U/L (38-126) 01/10/18 06:19 Total Protein 6.3 g/dL (6.3-8.3) 01/10/18 06:19 Albumin 3.2 g/dL (3.5-5.0) L 01/10/18 06:19 Globulin 3.1 gm/dL (2.2-3.9) 01/10/18 06:19 Albumin/Globulin Ratio 1.0 (1.0-2.1) 01/10/18 06:19 Urine Color Yellow (YELLOW) 01/04/18 02:10 Urine Clarity Clear (Clear) 01/04/18 02:10 Urine pH 7.0 (5.0-8.0) 01/04/18 02:10 Ur Specific [place] 1.013 (1.003-1.030) 01/04/18 02:10 Urine Protein Negative mg/dL (NEGATIVE) 01/04/18 02:10 Urine Glucose (UA) Normal mg/dL (Normal) 01/04/18 02:10 Urine Ketones 2+ mg/dL (NEGATIVE) H 01/04/18 02:10 Urine Blood 1+ (NEGATIVE) H 01/04/18 02:10 Urine Nitrate Negative (NEGATIVE) 01/04/18 02:10 Urine Bilirubin Negative (NEGATIVE) 01/04/18 02:10 Urine Urobilinogen Normal mg/dL (0.2-1.0) 01/04/18 02:10 Ur Leukocyte Esterase Neg Michael/uL (Negative) 01/04/18 02:10 Urine WBC (Auto) 3 /hpf (0-5) 01/04/18 02:10 Urine RBC (Auto) 28 /hpf (0-3) H 01/04/18 02:10 - Hospital Course Hospital Course: Medicine H&P CC: Nausea and vomiting for 12 hours HPI: 52 year old male with PMHx of MS with paralysis of lower extremities and HTN who presents to ED for severe nasuea and vomiting for the past 12 hours. Patient states he had a prostate biopsy done at 1:30pm, felt slightly nauseous after the procedure and then began with severe intractable vomiting 4 hours later. Has not been able to tolerate PO intate. Emesis is non-bloody. Patient denies abdominal pain, diarrhea, constipation, fever, chills, chest pain and shortness of breath. No modifying factors noted. PMHx: MS with paralysis of lower extremities, HTN, prostatic enlargement PSHx: Prostate biopsy 01/03/18 Meds: Losartan 50mg daily, Citalopram 20mg Daily, loratadine 10mg PRN, IVIG treatment monthly for MS Allergies: NKDA FamHx: Mother- DM, HTN SocHx: denies tobacco, alcohol, drugs, is disabled, lives with ex- who cares for him PMD: Jomar HOSPITAL COURSE: Pt was admitted for intractable vomiting. Pt received NS IV fluids for rehydration, Zofran and Reglan for nausea, and Flagyl for suspected infectious gastritis. Pt was afebrile and no leukocytosis on follow up labs so flagyl was stopped. Patient had no relief with the Zofran Reglan antiemetic regimen and was still unable to tolerate any foods or liquids. He was started on Phenergan on 01/08 and got relief from his nausea and vomiting. His diet was progressed to clears then regular foods and the patient was deemed medically stable for discharge on 01/10. Pt has no more episodes of emesis from 01/08 onwards. IMAGING AND DIAGNOSTICS: 01/04 CXR: no infiltrates or pleural effusions, neg for acute pathology 01/04 CT Abd Pelv: Mild wall thickening likely 2/2 to under distention Instructions: Pt is to be discharged home Pt is instructed to follow up with PMD Dr David Hadley in [facility] office within 7 days Recommending established of care with Gastroenterology through referral from PMD Dr Hadley If symptoms of acute nausea, vomiting, severe abdominal pain recur please seek medical attention immediately. Please take care and be well Fidencio Thapa DO This is a summary please refer to [facility] for complete records. Discharge Exam - Head Exam Head Exam: NORMAL INSPECTION, NORMOCEPHALIC - Additional Findings Additional findings: - Constitutional Appears: Cachectic, Chronically Ill - Head Exam Head Exam: ATRAUMATIC - Eye Exam Eye Exam: EOMI, Normal appearance, PERRL - Neck Exam Neck Exam: absent: Lymphadenopathy, Tenderness, Thyromegaly - Respiratory Exam Respiratory Exam: Clear to Ausculation Bilateral, NORMAL BREATHING PATTERN. absent: Rales, Rhonchi, Wheezes - Cardiovascular Exam Cardiovascular Exam: REGULAR RHYTHM, +S1, +S2 - GI/Abdominal Exam GI & Abdominal Exam: Soft, Normal Bowel Sounds. absent: Tenderness, Organomegaly - Extremities Exam Extremities Exam: absent: Calf Tenderness - Back Exam Back Exam: NORMAL INSPECTION. absent: CVA tenderness (L), CVA tenderness (R) - Neurological Exam Neurological Exam: Awake - Skin Skin Exam: Warm Discharge Plan - Follow Up Plan Condition: GOOD Disposition: HOME/ ROUTINE Instructions: Diarrhea in Adolescents and Adults, Nausea and Vomiting, Adult (DC) Additional Instructions: Pt is to be discharged home Pt is instructed to follow up with PMD Dr David Hadley in [facility] office within 7 days Recommending established of care with Gastroenterology through referral from PMD Dr Hadley If symptoms of acute nausea, vomiting, severe abdominal pain recur please seek medical attention immediately. Please take care and be well Fidencio Thapa DO Referrals: David Hadley MD [Staff Provider] - <Melva iKng V - Last Filed: 01/11/18 09:43> Provider - Provider Date of Admission: 01/04/18 04:40 Attending physician: Melva King DO Hospital Course - Lab Results Lab Results: Most Recent Lab Values WBC 10.6 K/uL (4.8-10.8) 01/10/18 06:19 RBC 5.25 Mil/uL (4.40-5.90) 01/10/18 06:19 Hgb 15.8 g/dL (12.0-18.0) 01/10/18 06:19 Hct 46.5 % (35.0-51.0) 01/10/18 06:19 MCV 88.5 fL (80.0-94.0) 01/10/18 06:19 MCH 30.1 pg (27.0-31.0) 01/10/18 06:19 MCHC 34.0 g/dL (33.0-37.0) 01/10/18 06:19 RDW 12.7 % (11.5-14.5) 01/10/18 06:19 Plt Count 163 K/uL (130-400) 01/10/18 06:19 MPV 10.6 fL (7.2-11.7) 01/10/18 06:19 Neut % (Auto) 80.0 % (50.0-75.0) H 01/10/18 06:19 Lymph % (Auto) 11.4 % (20.0-40.0) L 01/10/18 06:19 Garfield % (Auto) 8.1 % (0.0-10.0) 01/10/18 06:19 Eos % (Auto) 0.2 % (0.0-4.0) 01/10/18 06:19 Baso % (Auto) 0.3 % (0.0-2.0) 01/10/18 06:19 Neut # (Auto) 8.5 K/uL (1.8-7.0) H 01/10/18 06:19 Lymph # (Auto) 1.2 K/uL (1.0-4.3) 01/10/18 06:19 Garfield # (Auto) 0.9 K/uL (0.0-0.8) H 01/10/18 06:19 Eos # (Auto) 0.0 K/uL (0.0-0.7) 01/10/18 06:19 Baso # (Auto) 0.0 K/uL (0.0-0.2) 01/10/18 06:19 Neutrophils % (Manual) 91 % (50-75) H 01/04/18 01:27 Lymphocytes % (Manual) 6 % (20-40) L 01/04/18 01:27 Monocytes % (Manual) 3 % (0-10) 01/04/18 01:27 Platelet Estimate Normal (NORMAL) 01/04/18 01:27 Sodium 136 mmol/L (132-148) 01/10/18 06:19 Potassium 3.6 mmol/L (3.6-5.2) 01/10/18 06:19 Chloride 99 mmol/L (98-107) 01/10/18 06:19 Carbon Dioxide 29 mmol/L (22-30) 01/10/18 06:19 Anion Gap 12 (10-20) 01/10/18 06:19 BUN 4 mg/dL (9-20) L 01/10/18 06:19 Creatinine 0.4 mg/dL (0.8-1.5) L 01/10/18 06:19 Est GFR ( Amer) > 60 01/10/18 06:19 Est GFR (Non-Af Amer) > 60 01/10/18 06:19 POC Glucose (mg/dL) 121 mg/dL (65-110) H 01/08/18 21:04 Random Glucose 123 mg/dL (75-110) H 01/10/18 06:19 Calcium 8.7 mg/dl (8.6-10.4) 01/10/18 06:19 Phosphorus 3.1 mg/dL (2.5-4.5) 01/10/18 06:19 Magnesium 1.8 mg/dL (1.6-2.3) 01/10/18 06:19 Total Bilirubin 2.1 mg/dL (0.2-1.3) H 01/10/18 06:19 AST 27 U/L (17-59) 01/10/18 06:19 ALT 30 U/L (21-72) 01/10/18 06:19 Alkaline Phosphatase 51 U/L (38-126) 01/10/18 06:19 Total Protein 6.3 g/dL (6.3-8.3) 01/10/18 06:19 Albumin 3.2 g/dL (3.5-5.0) L 01/10/18 06:19 Globulin 3.1 gm/dL (2.2-3.9) 01/10/18 06:19 Albumin/Globulin Ratio 1.0 (1.0-2.1) 01/10/18 06:19 Urine Color Yellow (YELLOW) 01/04/18 02:10 Urine Clarity Clear (Clear) 01/04/18 02:10 Urine pH 7.0 (5.0-8.0) 01/04/18 02:10 Ur Specific [place] 1.013 (1.003-1.030) 01/04/18 02:10 Urine Protein Negative mg/dL (NEGATIVE) 01/04/18 02:10 Urine Glucose (UA) Normal mg/dL (Normal) 01/04/18 02:10 Urine Ketones 2+ mg/dL (NEGATIVE) H 01/04/18 02:10 Urine Blood 1+ (NEGATIVE) H 01/04/18 02:10 Urine Nitrate Negative (NEGATIVE) 01/04/18 02:10 Urine Bilirubin Negative (NEGATIVE) 01/04/18 02:10 Urine Urobilinogen Normal mg/dL (0.2-1.0) 01/04/18 02:10 Ur Leukocyte Esterase Neg Michael/uL (Negative) 01/04/18 02:10 Urine WBC (Auto) 3 /hpf (0-5) 01/04/18 02:10 Urine RBC (Auto) 28 /hpf (0-3) H 01/04/18 02:10 Attending/Attestation - Attestation I have personally seen and examined this patient.: Yes I have fully participated in the care of the patient.: Yes I have reviewed all pertinent clinical information, including history, physical exam and plan: Yes Notes (Text): This is late computer entry for 01/10/18. Patient seen, examined, and case discussed with day-time resident. Patient seen in the morning. He is working with occupational therapy. He reports he is tolerating diet and no longer nausea and would like to go home. patient refuses rehab, would like to go home. Patient understands he need to follow-up with his GI in [place]. Patient is medically stable for discharge. No new medications on discharge. Social/case management to make arrangements for transportation for discharge. This is a summary of patient's hospitalization. Please see EMR for further detail of record. Discharge Diagnoses: 1) Intractable nausea and vomiting-->resolved * tolerating diet, no longer symptomatic of nausea 2) Hypokalemia-->resolved * Continue to monitor and replete as needed 3. History of Multiple sclerosis-->chronic * Outpatient IVIg treatments * Patient goes to center for MS 4. Hx of HTN-->resume meds on discharge * Losartan 50mg PO daily resumed on discharge * Monitor BP 5 Hx of depression-->msume meds on discharge * Citalopram 20mg PO daily resume on discharge
== END 2018-01-10 15:35 | disposition home or self-care (01) | DRG 813 ==
LOC: C.ER 00:42 → C.9E 04:40 → C.5S 08:14
PROVIDERS: ADMIT Hospitalist; ATTEND Hospitalist
DX: K52.9 Noninfective gastroenteritis and colitis, unspecified (principal); G35 Multiple sclerosis; E87.6 Hypokalemia; N40.0 Benign prostatic hyperplasia without lower urinary tract symptoms; K31.84 Gastroparesis; I10 Essential (primary) hypertension; G82.20 Paraplegia, unspecified; F32.9 Major depressive disorder, single episode, unspecified

== ENCOUNTER 2018-01-23 18:24 | Inpatient (IN) | payer MEDICAID ==
[2018-01-23] MEDS ORDERED: Sodium Chloride 0.9% 1,000 ML IV ONE (20:32)
[2018-01-23 20:56] LABS: BASO % 0.1 % (0.0-2.0); HEMOGLOBIN 16.7 g/dL (12.0-18.0); LYMPH # 0.5 K/uL (1.0-4.3); LYMPH % 4.1 % (20.0-40.0); MEAN CELL VOLUME 87.8 fL (80.0-94.0); MEAN CORPUSCULAR HEMOGLOBIN 29.3 pg (27.0-31.0); MEAN CORPUSCULAR HGB CONC 33.4 g/dL (33.0-37.0); MEAN PLATELET VOLUME 10.1 fL (7.2-11.7); MONO # 0.6 K/uL (0.0-0.8); MONO % 4.6 % (0.0-10.0); NEUT # 12.2 K/uL (1.8-7.0); NEUT % 91.2 % (50.0-75.0); RBC 5.69 Mil/uL (4.40-5.90); RED CELL DISTRIBUTION WIDTH 13.2 % (11.5-14.5); WHITE BLOOD COUNT 13.4 K/uL (4.8-10.8)
[2018-01-23 20:57] LABS: PLATELET COUNT 352 K/uL (130-400)
[2018-01-23] MEDS ORDERED: Sodium Chloride 0.9% 1,000 ML ONE (20:58)
[2018-01-23 21:16] LABS: ALB/GLOB RATIO 1.2 (1.0-2.1); ALT/SGPT 28 U/L (21-72); AST/SGOT 33 U/L (17-59); BLOOD UREA NITROGEN 10 mg/dL (9-20); CALCIUM 9.2 mg/dl (8.6-10.4); GFR NON-AFRICAN AMERICAN > 60; LIPASE < 10 U/L (23-300)
[2018-01-23 21:22] LABS: B-TYPE NATRIURETIC PEPTIDE 1380 pg/mL (0-900); LYMPHOCYTE 7 % (20-40); MONOCYTE 7 % (0-10); NEUTROPHIL 86 % (50-75); TOTAL CELLS COUNTED 100
[2018-01-23 21:23] LABS: PLATELET ESTIMATE NORMAL (NORMAL)
--- NOTE | 2018-01-23 21:47 | C.PDOC ---
History Of Present Illness 52 year old male presents to the ED for evaluation of persistent nausea and vomiting for 11 days. Patient has history of cyclical vomiting. He underwent admission from 01/04-01/11 under Hospitalist's service. Patient was refractory t o Zofran and Reglan, but was responsive to Phenergan. Patient denies fever, chills. Time Seen by Provider: 01/23/18 19:37 Chief Complaint (Nursing): GI Problem History Per: Patient History/Exam Limitations: no limitations Onset/Duration Of Symptoms: Days Current Symptoms Are (Timing): Still Present Associated Symptoms: Nausea, Vomiting. denies: Fever, Chills Additional History Per: Patient Past Medical History Reviewed: Historical Data, Nursing Documentation, Vital Signs Vital Signs: Last Vital Signs Temp 98.7 F 01/23/18 18:25 Pulse 84 01/23/18 21:20 Resp 20 01/23/18 21:20 BP 147/79 01/23/18 21:20 Pulse Ox 99 01/23/18 21:20 - Medical History PMH: HTN, Multiple Sclerosis (CIDP) Surgical History: No Surg Hx Family History: States: Unknown Family Hx - Social History Hx Alcohol Use: No Hx Substance Use: No - Immunization History Hx Tetanus Toxoid Vaccination: No Hx Influenza Vaccination: No Hx Pneumococcal Vaccination: No Review Of Systems Constitutional: Negative for: Fever, Chills Gastrointestinal: Positive for: Nausea, Vomiting Physical Exam - Physical Exam Appears: Non-toxic, No Acute Distress, Chronically Ill, Other (thin, appears older than stated age ) Skin: Normal Color, Warm, Dry Head: Atraumatic, Normacephalic Eye(s): bilateral: Normal Inspection Oral Mucosa: Moist Neck: Supple Chest: Symmetrical, No Deformity, No Tenderness Cardiovascular: Rhythm Regular, No Murmur Respiratory: Normal Breath Sounds, No Rales, No Rhonchi, No Wheezing Gastrointestinal/Abdominal: Soft, No Tenderness, No Guarding, No Rebound Extremity: Other (small, thin lower extremities related to paraplegia) Neurological/Psych: Oriented x3, Normal Speech, Normal Cognition ED Course And Treatment - Laboratory Results Result Diagrams: 01/23/18 20:53 01/23/18 20:53 Lab Interpretation: Abnormal (trop 0.160 H) ECG: Interpreted By Hi ECG Rhythm: Sinus Rhythm ECG Interpretation: Normal Rate From EC O2 Sat by Pulse Oximetry: 99 (on RA) Pulse Ox Interpretation: Normal - Radiology CXR: Interpreted by Me CXR Interpretation: Yes: No Acute Disease Progress Note: Bloodwork, urinalysis, CXR ordered and reviewed. Protonix IVP and IV fluids given. Case discussed with pharmacist. Phenergan IM has been taken out of formulary due to side effect issues. Advised to order TX. Phenergan TX given. Reevaluation Time: 22:01 Reassessment Condition: Improved - Physician Consult Information Outcome Of Conversation: 2200: d/w Dr. Tony Ruby- Hospitalist- ok to admit Medical Decision Making Medical Decision Making: cyclical vomiting improved with Phenergan TX continue hydration follow WBC's NSTEMI asa given normal EKG cardio consult Disposition Doctor Will See Patient In The: Hospital Counseled Patient/Family Regarding: Studies Performed, Diagnosis - Disposition Disposition: HOSPITALIZED Disposition Time: 22:03 Condition: GOOD Forms: [facility] (Indonesian) - Clinical Impression Clinical Impression: NSTEMI (non-ST elevated myocardial infarction), Intractable vomiting with nausea - Scribe Statement The provider has reviewed the documentation as recorded by the Scribe (Gabriela Gomes) Provider Attestation: All medical record entries made by the Scribe were at my direction and personally dictated by me. I have reviewed the chart and agree that the record accurately reflects my personal performance of the history, physical exam, medical decision making, and the department course for this patient. I have also personally directed, reviewed, and agree with the discharge instructions and disposition.
[2018-01-23] MEDS ORDERED: Aspirin 325 mg EC Tablets PO STA (22:00)
[2018-01-23] MEDS ORDERED: Aspirin 325 mg EC Tablets PO ONE (22:32)
[2018-01-23] MEDS ORDERED: Dextrose 5%/0.9% NS 1,000 ML IV SCH (23:45)
[2018-01-23 23:48] LABS: URINE BACTERIA MOD (<OCC); URINE BILIRUBIN NEGATIVE (NEGATIVE); URINE BLOOD 1+ (NEGATIVE); URINE CLARITY Hazy (Clear); URINE GLUCOSE (UA) NORMAL (Normal); URINE LEUKOCYTE ESTERASE 3+ Leu/uL (Negative); URINE PROTEIN 2+ mg/dL (NEGATIVE); URINE UROBILINOGEN NORMAL mg/dL (0.2-1.0)
[2018-01-23 23:49] LABS: URINE COLOR YELLOW (YELLOW)
--- NOTE | 2018-01-24 00:05 | CP.PCM.HP ---
<Ankit Love - Last Filed: 01/24/18 06:16> History of Present Illness - History of Present Illness History of Present Illness: PGY-1 H&P note for Dr Ruby Patient is 52 year old Male with Pmhx of Chronic Inflammatory Demyelinating Polyneuropathy (CIDP), HTN, depression, anxiety and prostatic enlargement who presents to the ER today for nausea and vomiting. Patient's is at bedside and contribute to the history of present illness. Patient states these episodes started at 2 am this morning and occurred every 2-3 minutes after he had a single bowel movement. Patient's gave patient one dose of zofran orally, which provided temporary relief for a few hours. Patient continued having nausea and vomiting through the day, and was given a second dose of zofran, which did not help, with patient becoming short of breath, feeling weak and hyperventilating. Vomit is described as a "dry vomit", containing mostly clear phlegm but no watery, bloody or food-containing vomit. Patient admits to feeling vertigo when today's episodes occurred. Patient states these episodes of vomiting have occurred in the past, and are usually associated with anxiety. Patient admits to having constipation for the past week. Patient is bedridden and requires the help of an marketing support assistant and his . Admits to 15-20 lbs of weight loss for the past 6 months, and decreased appetite. Admits to burning feeling when urinating this morning. Denies fever, chills, chest pain, shortness of breath, abdominal pain, sore throat, diarrhea, constipation, blood in the urine or bowels, rash or leg swelling. PMD: Jomar Code Status: Full Code, Proxy: Bindu Leahy (daughter), No Advance directive All: NKDA Pmhx: CIDP affecting upper and lower extremities (diagnosed 2007), HTN, Prostatic enlargement Shx: Prostate biopsy 01/03/18 Meds: Zofran 4mg Q8hrs PRN, Losartan 50mg PO QD, Citalopram (celexa) 10mg QD Fmhx: Diabetes, HTN (mother) Sochx: denies alcohol, tobacco or illegal drug use, Lives with and mother, disabled. Present on Admission - Present on Admission Any Indicators Present on Admission: No Review of Systems - Review of Systems All systems: reviewed and no additional remarkable complaints except (as stated in HPI) Past Patient History - Past Medical History & Family History Past Medical History?: Yes - Past Social History Smoking Status: Never Smoked - CARDIAC Hx Hypertension: Yes - NEUROLOGICAL Hx Multiple Sclerosis: Yes (CIDP) - MUSCULOSKELETAL/RHEUMATOLOGICAL Hx Falls: No Other/Comment: Muscular dystrophy - PSYCHIATRIC Hx Substance Use: No - SURGICAL HISTORY Hx Surgeries: No - ANESTHESIA Hx Anesthesia: Yes Meds Allergies/Adverse Reactions: Allergies Allergy/AdvReac Type Severity Reaction Status Date / Time No Known Allergies Allergy Unverified 01/23/18 18:29 Physical Exam - Constitutional Appears: Non-toxic, No Acute Distress, Cachectic, Chronically Ill - Head Exam Head Exam: ATRAUMATIC, NORMAL INSPECTION, NORMOCEPHALIC - Eye Exam Eye Exam: EOMI, Normal appearance Pupil Exam: absent: NORMAL ACCOMODATION - ENT Exam ENT Exam: Mucous Membranes Moist, Normal Exam, Normal Oropharynx - Neck Exam Neck exam: Positive for: Normal Inspection. Negative for: Lymphadenopathy, Tenderness, Thyromegaly - Respiratory Exam Respiratory Exam: Clear to Auscultation Bilateral, NORMAL BREATHING PATTERN. absent: Rales, Rhonchi, Wheezes - Cardiovascular Exam Cardiovascular Exam: REGULAR RHYTHM, +S1, +S2 - GI/Abdominal Exam GI & Abdominal Exam: Normal Bowel Sounds, Soft, Tenderness (mild tenderness on left lower quadrant). absent: Distended - Extremities Exam Extremities exam: Positive for: pedal pulses present Additional comments: bilateral feet observed to be inverted and plantar flexed. - Back Exam Back exam: FULL ROM, NORMAL INSPECTION - Neurological Exam Neurological exam: Alert, CN II-XII Intact, Oriented x3 - Expanded Neurological Exam Expanded Patient oriented to: person, place, time Sensory exam: Lower Extremity Light Touch: Abnormal Left, Abnormal Right (absent sensation b/l leg and foot), Upper Extremity Light Touch: Abnormal Left, Abnormal Right (absent sensation b/l hands ) Neuro motor strength exam: Left Upper Extremity: 5, Right Upper Extremity: 5, Left Lower Extremity: 2/1, Right Lower Extremity: 2/1 - Psychiatric Exam Psychiatric exam: Depressed, Normal Affect, Normal Mood - Skin Additional comments: erythema left 1st toe plantar driness and scaling bilaterally healed pressure ulcer on dorsal aspect of right foot and lateral aspect of left foot Results - Vital Signs Recent Vital Signs: Last Vital Signs Temp 98.7 F 12/03/18 18:25 Pulse 85 01/23/18 22:34 Resp 20 01/23/18 22:34 BP 141/90 01/23/18 22:34 Pulse Ox 100 01/23/18 22:34 - Labs Result Diagrams: 01/24/18 05:16 01/24/18 05:16 Labs: Laboratory Results - last 24 hr 01/23/18 01/23/18 01/23/18 20:53 20:53 23:49 WBC 13.4 H RBC 5.69 Hgb 16.7 Hct 50.0 MCV 87.8 MCH 29.3 MCHC 33.4 RDW 13.2 Plt Count 352 D MPV 10.1 Neut % (Auto) 91.2 H Lymph % (Auto) 4.1 L [place] % (Auto) 4.6 Eos % (Auto) 0.0 Baso % (Auto) 0.1 Neut # (Auto) 12.2 H Lymph # (Auto) 0.5 L [place] # (Auto) 0.6 Eos # (Auto) 0.0 Baso # (Auto) 0.0 Neutrophils % (Manual) 86 H Lymphocytes % (Manual) 7 L Monocytes % (Manual) 7 Platelet Estimate Normal Sodium 137 Potassium 3.7 Chloride 96 L Carbon Dioxide 28 Anion Gap 17 BUN 10 Creatinine 0.4 L Est GFR ( Amer) > 60 Est GFR (Non-Af Amer) > 60 Random Glucose 111 H Calcium 9.2 Total Bilirubin 1.1 AST 33 ALT 28 Alkaline Phosphatase 68 Troponin I 0.1600 H* NT-Pro-B Natriuret Pep 1380 H Total Protein 7.6 Albumin 4.0 Globulin 3.5 Albumin/Globulin Ratio 1.2 Lipase < 10 L Urine Color Yellow Urine Clarity Hazy Urine pH 6.0 Ur Specific Anderson 1.015 Urine Protein 2+ H Urine Glucose (UA) Normal Urine Ketones 1+ H Urine Blood 1+ H Urine Nitrate Negative Urine Bilirubin Negative Urine Urobilinogen Normal Ur Leukocyte Esterase 3+ H Urine WBC (Auto) 578 H Urine RBC (Auto) 36 H Urine Bacteria Mod H Assessment & Plan - Assessment and Plan (Free Text) Plan: Elevated Troponin level, r/o cardiac cause - F/U troponin at 5:00 am and 11:00 am - F/U EKG at 5:00 am and 11: am - Echo in am - Cardio consult - Dr Bear Terry - help is appreciated - Crestor 5mg PO HS elevated BNP, r/o PE - D-dimer stat -f/u - if d-dimer positive - consider CTA - Aspirin 325 mg x 1 dose given in ER - Aspirin 81mg PO QD Mild Leukocytosis w/o bandemia - no abx at this time - continue monitor - am labs (CBC, CMP) - f/u blood culture UTI - U/A: +leukocyte esterase, WBC 578 - rocephin 1gm IVPB Q24hrs Erythema left 1st toe - r/o infection - Podiatry consult - help is appreciated Nausea/ intractable vomiting - Phenergan 25mg DC Q4hrs PRN for nausea/vomiting - Monitor patient - D5W 1/2 NS @ 100mls/hr hx of Chronic inflammatory Demyelinating radiculopathy/ MS - Neuro Consult - Dr Samm Ronquillo- help is appreciated for management - Patient supposed to go for IVIG infusion this tuesday for 3 consecutive days - PT consult - help is appreciated hx of HTN - continue home med Losartan 50mg QD hx of anxiety/depression - continue celexa 10mg QD Prophylaxis - Heparin 5,000 SC Q8hrs - Swallow eval - evaluate and treat for decrease food intake - NPO except meds diet until swallow eval - Full code Plan discussed with Dr Flori Love, PGY-1 - Date & Time Date: 01/23/18 Time: 23:05 <Tony Ruby - Last Filed: 01/24/18 06:27> Results - Vital Signs Recent Vital Signs: Last Vital Signs Temp 98.6 F 01/24/18 01:37 Pulse 76 01/24/18 01:37 Resp 20 01/24/18 01:37 BP 123/83 01/24/18 01:37 Pulse Ox 97 01/24/18 01:37 - Labs Result Diagrams: 01/24/18 05:16 01/24/18 05:16 Labs: Laboratory Results - last 24 hr 01/23/18 01/23/18 01/23/18 20:53 20:53 22:34 WBC 13.4 H RBC 5.69 Hgb 16.7 Hct 50.0 MCV 87.8 MCH 29.3 MCHC 33.4 RDW 13.2 Plt Count 352 D MPV 10.1 Neut % (Auto) 91.2 H Lymph % (Auto) 4.1 L [place] % (Auto) 4.6 Eos % (Auto) 0.0 Baso % (Auto) 0.1 Neut # (Auto) 12.2 H Lymph # (Auto) 0.5 L [place] # (Auto) 0.6 Eos # (Auto) 0.0 Baso # (Auto) 0.0 Neutrophils % (Manual) 86 H Lymphocytes % (Manual) 7 L Monocytes % (Manual) 7 Platelet Estimate Normal D-Dimer, Quantitative < 200 Sodium 137 Potassium 3.7 Chloride 96 L Carbon Dioxide 28 Anion Gap 17 BUN 10 Creatinine 0.4 L Est GFR ( Amer) > 60 Est GFR (Non-Af Amer) > 60 Random Glucose 111 H Calcium 9.2 Total Bilirubin 1.1 AST 33 ALT 28 Alkaline Phosphatase 68 Troponin I 0.1600 H* NT-Pro-B Natriuret Pep 1380 H Total Protein 7.6 Albumin 4.0 Globulin 3.5 Albumin/Globulin Ratio 1.2 Lipase < 10 L Urine Color Urine Clarity Urine pH Ur Specific Anderson Urine Protein Urine Glucose (UA) Urine Ketones Urine Blood Urine Nitrate Urine Bilirubin Urine Urobilinogen Ur Leukocyte Esterase Urine WBC (Auto) Urine RBC (Auto) Urine Bacteria 01/23/18 01/24/18 01/24/18 23:49 05:16 05:16 WBC 11.9 H RBC 4.91 Hgb 14.7 D Hct 43.1 MCV 87.7 MCH 29.8 MCHC 34.0 RDW 13.1 Plt Count 290 MPV 9.9 Neut % (Auto) 80.8 H Lymph % (Auto) 12.3 L [place] % (Auto) 6.6 Eos % (Auto) 0.0 Baso % (Auto) 0.3 Neut # (Auto) 9.6 H Lymph # (Auto) 1.5 [place] # (Auto) 0.8 Eos # (Auto) 0.0 Baso # (Auto) 0.0 Neutrophils % (Manual) Lymphocytes % (Manual) Monocytes % (Manual) Platelet Estimate D-Dimer, Quantitative Sodium 139 Potassium 3.3 L Chloride 104 Carbon Dioxide 28 Anion Gap 10 BUN 12 Creatinine 0.3 L Est GFR ( Amer) > 60 Est GFR (Non-Af Amer) > 60 Random Glucose 122 H Calcium 8.8 Total Bilirubin 0.7 AST 18 ALT 29 Alkaline Phosphatase 66 Troponin I 0.1430 H* NT-Pro-B Natriuret Pep Total Protein 6.1 L Albumin 3.3 L Globulin 2.8 Albumin/Globulin Ratio 1.2 Lipase Urine Color Yellow Urine Clarity Hazy Urine pH 6.0 Ur Specific Anderson 1.015 Urine Protein 2+ H Urine Glucose (UA) Normal Urine Ketones 1+ H Urine Blood 1+ H Urine Nitrate Negative Urine Bilirubin Negative Urine Urobilinogen Normal Ur Leukocyte Esterase 3+ H Urine WBC (Auto) 578 H Urine RBC (Auto) 36 H Urine Bacteria Mod H Assessment & Plan - Date & Time Date: 01/24/18 (I have seen and examined the patient. I agree with the findings and plan of care as documented by Dr. Love. Patient with NSTEMI. ROMIx3 with EKG. Aspirin and Statin. Consult to Cardio. Check d-dimer. If positive, check CTA. UTI. Rocephin for now. Check urine and blood cultures. History of MS. Consult to neuro. Consult to podiatry due to complications of MS. Monitor for acute changes.) Time: 06:25 Attending/Attestation - Attestation I have personally seen and examined this patient.: Yes I have fully participated in the care of the patient.: Yes I have reviewed all pertinent clinical information: Yes
[2018-01-24 05:36] LABS: BASO % 0.3 % (0.0-2.0); HEMOGLOBIN 14.7 g/dL (12.0-18.0); LYMPH # 1.5 K/uL (1.0-4.3); LYMPH % 12.3 % (20.0-40.0); MEAN CELL VOLUME 87.7 fL (80.0-94.0); MEAN CORPUSCULAR HEMOGLOBIN 29.8 pg (27.0-31.0); MEAN PLATELET VOLUME 9.9 fL (7.2-11.7); MONO # 0.8 K/uL (0.0-0.8); MONO % 6.6 % (0.0-10.0); NEUT # 9.6 K/uL (1.8-7.0); NEUT % 80.8 % (50.0-75.0); RBC 4.91 Mil/uL (4.40-5.90); RED CELL DISTRIBUTION WIDTH 13.1 % (11.5-14.5); WHITE BLOOD COUNT 11.9 K/uL (4.8-10.8)
[2018-01-24 06:03] LABS: ALB/GLOB RATIO 1.2 (1.0-2.1); ALBUMIN 3.3 g/dL (3.5-5.0); ALT/SGPT 29 U/L (21-72); AST/SGOT 18 U/L (17-59); BLOOD UREA NITROGEN 12 mg/dL (9-20); CALCIUM 8.8 mg/dl (8.6-10.4); GFR NON-AFRICAN AMERICAN > 60
--- NOTE | 2018-01-24 07:23 | CP.PCM.PN ---
<Shelly Olivera L - Last Filed: 01/24/18 14:30> Subjective - Date & Time of Evaluation Date of Evaluation: 01/24/18 Time of Evaluation: 07:22 - Subjective Subjective: Resident Progress Note for Hospitalist Service Patient examined at bedside. States that he is feeling better today and that nausea and vomiting is resolved. States that he did not follow up with a GI specialist upon discharge from previous admission because his symptoms had resolved. Offers no other complaints at this time. He has a chronic indwelling west catheter. Denies fevers, chills, chest pain, palpitations, shortness of breath, abdominal pain, constipation, diarrhea. Objective - Vital Signs/Intake and Output Vital Signs (last 24 hours): Temp Pulse Resp BP Pulse Ox 98.6 F 76 20 123/83 97 01/24/18 01:37 01/24/18 01:37 01/24/18 01:37 01/24/18 01:37 01/24/18 01:37 Intake and Output: 01/24/18 01/24/18 06:59 18:59 Output Total 300 Balance -300 - Medications Medications: Current Medications Acetaminophen (Tylenol 650 Mg Supp) 650 mg NM Q6 PRN PRN Reason: Fever >100.4 F Aspirin (Ecotrin) 81 mg PO DAILY [facility] Citalopram Hydrobromide (Celexa) 1 mg PO DAILY [facility] Heparin Sodium (Porcine) (Heparin) 5,000 units SC Q8 [facility] Last Admin: 01/24/18 05:35 Dose: 5,000 units Dextrose/Sodium Chloride (Dextrose 5%/0.9% Ns 1000 Ml) 1,000 mls @ 100 mls/hr IV .Q10H [facility] Last Admin: 01/24/18 00:37 Dose: 100 mls/hr Ceftriaxone Sodium 1 gm/ (Sodium Chloride) 100 mls @ 100 mls/hr IVPB DAILY [facility]; Protocol Last Admin: 01/24/18 04:20 Dose: 100 mls/hr Losartan Potassium (Cozaar) 1 mg PO DAILY [facility] Promethazine HCl (Phenergan Rectal Supp) 25 mg NM Q4 PRN PRN Reason: Nausea/Vomiting Rosuvastatin Calcium (Crestor) 5 mg PO HS [facility] - Labs Labs: 01/24/18 05:16 01/24/18 05:16 - Additional Findings Additional findings: - Constitutional Appears: Non-toxic, No Acute Distress, Cachectic - Head Exam Head Exam: ATRAUMATIC, NORMOCEPHALIC - Eye Exam Eye Exam: EOMI, Normal appearance - ENT Exam ENT Exam: Mucous Membranes Moist, Normal Exam - Neck Exam Neck exam: Positive for: Normal Inspection. Negative for: Lymphadenopathy, Tenderness, Thyromegaly - Respiratory Exam Respiratory Exam: Clear to Auscultation Bilateral, NORMAL BREATHING PATTERN. absent: Rales, Rhonchi, Wheezes - Cardiovascular Exam Cardiovascular Exam: REGULAR RHYTHM, +S1, +S2 - GI/Abdominal Exam GI & Abdominal Exam: Normal Bowel Sounds, Soft. absent: Tenderness, Rebound, Distended - Extremities Exam Extremities exam: Positive for: pedal pulses present Additional comments: bilateral feet observed to be inverted and plantar flexed. - Neurological Exam Neurological exam: Alert, CN II-XII Intact, Oriented x3 - Expanded Neurological Exam Expanded Patient oriented to: person, place, time Sensory exam: Lower Extremity Light Touch: Abnormal Left, Abnormal Right (absent sensation b/l leg and foot), Upper Extremity Light Touch: Abnormal Left, Abnormal Right (absent sensation b/l hands ) Neuro motor strength exam: Left Upper Extremity: 5, Right Upper Extremity: 5, Left Lower Extremity: 2/1, Right Lower Extremity: 2/1 - Psychiatric Exam Psychiatric exam: Normal Affect, Normal Mood - Skin Additional comments: erythema left 1st toe plantar dryness and scaling bilaterally healed pressure ulcer on dorsal aspect of right foot and lateral aspect of left foot Assessment and Plan - Assessment and Plan (Free Text) Assessment: Patient is 52 year old male with PMH Chronic Inflammatory Demyelinating Polyneuropathy (CIDP), HTN, depression, anxiety and prostatic enlargement who presented to ED with nausea and vomiting and was found to have elevated troponins and UTI. Plan: Elevated troponins - Troponins 0.1600 (H) -> 0.1430 (H) -> 0.1130 - EKG x3 shows normal sinus rhythm, left axis deviation - Followup echo - Cardio consult - Dr Bear Terry. Appreciate recs. - Crestor 5mg PO HS UTI - U/A: +leukocyte esterase, WBC 578 - Rocephin 1gm IVPB Q24hrs - blood cultures, urine cultures Erythema left 1st toe - Podiatry consult. Recs appreciated. Nausea/intractable vomiting - Phenergan 25mg NM Q4hrs PRN - D5W / NS @ 100mls/hr elevated BNP, r/o PE - D-dimer <200 - Aspirin 325 mg x 1 dose given in ER - Aspirin 81mg PO QD Chronic inflammatory Demyelinating radiculopathy/ MS - Neurology consulted. Appreciate recs. - Patient supposed to go for IVIG infusion this tuesday for 3 consecutive days - PT consult HTN - continue home Losartan 50mg QD Anxiety/depression - continue Celexa 10mg QD Prophylaxis - Heparin 5,000 SC Q8H - Full code Plan discussed with Dr. Scanlon <Naveen Scanlon - Last Filed: 01/25/18 16:05> Objective - Vital Signs/Intake and Output Vital Signs (last 24 hours): Temp Pulse Resp BP Pulse Ox 98.2 F 83 18 139/82 97 01/25/18 08:00 01/25/18 11:54 01/25/18 08:00 01/25/18 08:00 01/25/18 08:00 Intake and Output: 01/25/18 01/25/18 06:59 18:59 Intake Total 300 Output Total 850 300 Balance -550 -300 - Medications Medications: Current Medications Acetaminophen (Tylenol 325mg Tab) 650 mg PO Q6 PRN PRN Reason: Fever >100.4 F Aspirin (Ecotrin) 81 mg PO DAILY [facility] Last Admin: 01/25/18 09:57 Dose: 81 mg Citalopram Hydrobromide (Celexa) 10 mg PO DAILY [facility] Last Admin: 01/25/18 09:56 Dose: 10 mg Heparin Sodium (Porcine) (Heparin) 5,000 units SC Q8 [facility] Last Admin: 01/25/18 14:21 Dose: 5,000 units Ceftriaxone Sodium 1 gm/ (Sodium Chloride) 100 mls @ 100 mls/hr IVPB DAILY [facility]; Protocol Last Admin: 01/25/18 09:56 Dose: 100 mls/hr Losartan Potassium (Cozaar) 12.5 mg PO DAILY [facility] Last Admin: 01/25/18 09:56 Dose: 12.5 mg Meclizine HCl (Antivert) 25 mg PO Q8H [facility] Last Admin: 01/25/18 11:32 Dose: Not Given Rosuvastatin Calcium (Crestor) 5 mg PO HS [facility] Last Admin: 01/24/18 21:46 Dose: 5 mg - Labs Labs: 01/25/18 06:55 01/25/18 06:55 Attending/Attestation - Attestation I have personally seen and examined this patient.: Yes I have fully participated in the care of the patient.: Yes I have reviewed all pertinent clinical information, including history, physical exam and plan: Yes Notes (Text): Seen and examined.feels good,nonausea,no vomiting and no urinary symptoms spoke to DR Ronquillo.Plan discussed. Spoke to Dr Terry. consult appreciated I agree with the resident's documentation continue antibiotics and follow cultures
[2018-01-24] MEDS ORDERED: Potassium Chloride 20 mEq ER Tab PO ONE (09:55)
[2018-01-24] MEDS ORDERED: Potassium Chloride 20 mEq ER Tab PO SCH (10:00)
--- NOTE | 2018-01-24 10:21 | RAD ---
Chest x-ray single frontal view HISTORY: Abdominal pain. Comparison: 01/04/2018 FINDINGS: No focal infiltrate or effusion. Tortuous aorta. Heart size within normal limits. Mild venous congestion. Impression: Mild venous congestion.
--- NOTE | 2018-01-24 12:17 | CP.PCM.CON ---
History of Present Illness - History of Present Illness History of Present Illness: Podiatry Consult note: Dr. Urbano 52 year old male with PMHx of Chronic Inflammatory Demyelinating Polyneuropathy (CIDP), HTN, depression, anxiety and prostatic enlargement was seen and evaluated for erythema on the left hallux. Patient reports that he came to the hospital yesterday due to multiple incidents of nausea and vomiting. Patient denies of any recent trauma to the LE. Patient denies of any incident where he may have fallen or hit his foot. Patient states that he does not have much of control on his LE due to neuropathy. Denies of having recent F/C/SOB/CP/headache. No other pedal complains at this time. PMHx: Chronic Inflammatory Demyelinating Polyneuropathy (CIDP), HTN, depression, anxiety and prostatic enlargement PSHx: Prostate biopsy Allergies: N.K.D.A SHx: denies of EtOH, illicit drug usage, denies smoking Review of Systems - Constitutional Constitutional: As Per HPI Past Patient History - Past Medical History & Family History Past Medical History?: Yes - Past Social History Smoking Status: Never Smoked - CARDIAC Hx Hypertension: Yes - NEUROLOGICAL Hx Multiple Sclerosis: Yes (CIDP) - MUSCULOSKELETAL/RHEUMATOLOGICAL Hx Falls: No Other/Comment: Muscular dystrophy - PSYCHIATRIC Hx Substance Use: No - SURGICAL HISTORY Hx Surgeries: No - ANESTHESIA Hx Anesthesia: Yes Meds Allergies/Adverse Reactions: Allergies Allergy/AdvReac Type Severity Reaction Status Date / Time No Known Allergies Allergy Unverified 01/23/18 18:29 - Medications Medications: Current Medications Acetaminophen (Tylenol 650 Mg Supp) 650 mg VA Q6 PRN PRN Reason: Fever >100.4 F Aspirin (Ecotrin) 81 mg PO DAILY [facility] Last Admin: 01/24/18 10:42 Dose: 81 mg Citalopram Hydrobromide (Celexa) 10 mg PO DAILY [facility] Last Admin: 01/24/18 10:42 Dose: 10 mg Heparin Sodium (Porcine) (Heparin) 5,000 units SC Q8 [facility] Last Admin: 01/24/18 05:35 Dose: 5,000 units Dextrose/Sodium Chloride (Dextrose 5%/0.9% Ns 1000 Ml) 1,000 mls @ 100 mls/hr IV .Q10H [facility] Last Admin: 01/24/18 00:37 Dose: 100 mls/hr Ceftriaxone Sodium 1 gm/ (Sodium Chloride) 100 mls @ 100 mls/hr IVPB DAILY [facility]; Protocol Last Admin: 01/24/18 11:34 Dose: 100 mls/hr Losartan Potassium (Cozaar) 1 mg PO DAILY [facility] Meclizine HCl (Antivert) 25 mg PO Q8H [facility] Promethazine HCl (Phenergan Rectal Supp) 25 mg VA Q4 PRN PRN Reason: Nausea/Vomiting Rosuvastatin Calcium (Crestor) 5 mg PO HS [facility] Physical Exam - Constitutional Appears: Well, Non-toxic, No Acute Distress - Extremities Exam Additional comments: Bilateral LE exam VASC: DP/PT pulses are palpable 2/4, Cap refill time: < 3 sec to all digits, Temp gradient: warm to cold from proximal to distal, no pitting or non-pitting edema noted DERM: mild erythema noted on the hallux of the LLE, no open lesions, previous healed wound site noted, no clinical suspicion of active infection NEURO: Protective sensation grossly diminished ORTHO: Bilateral feet are inverted, patient unable to move bilateral LE - Neurological Exam Neurological exam: Alert, Oriented x3 - Psychiatric Exam Psychiatric exam: Normal Affect, Normal Mood Results - Vital Signs Recent Vital Signs: Last Vital Signs Temp 97.8 F 01/24/18 08:02 Pulse 68 01/24/18 08:02 Resp 20 01/24/18 08:02 BP 161/82 H 01/24/18 08:02 Pulse Ox 98 01/24/18 08:02 - Labs Result Diagrams: 01/24/18 05:16 01/24/18 05:16 Labs: Laboratory Results - last 24 hr 01/23/18 01/23/18 01/23/18 20:53 20:53 22:34 WBC 13.4 H RBC 5.69 Hgb 16.7 Hct 50.0 MCV 87.8 MCH 29.3 MCHC 33.4 RDW 13.2 Plt Count 352 D MPV 10.1 Neut % (Auto) 91.2 H Lymph % (Auto) 4.1 L [place] % (Auto) 4.6 Eos % (Auto) 0.0 Baso % (Auto) 0.1 Neut # (Auto) 12.2 H Lymph # (Auto) 0.5 L [place] # (Auto) 0.6 Eos # (Auto) 0.0 Baso # (Auto) 0.0 Neutrophils % (Manual) 86 H Lymphocytes % (Manual) 7 L Monocytes % (Manual) 7 Platelet Estimate Normal D-Dimer, Quantitative < 200 Sodium 137 Potassium 3.7 Chloride 96 L Carbon Dioxide 28 Anion Gap 17 BUN 10 Creatinine 0.4 L Est GFR ( Amer) > 60 Est GFR (Non-Af Amer) > 60 Random Glucose 111 H Calcium 9.2 Total Bilirubin 1.1 AST 33 ALT 28 Alkaline Phosphatase 68 Troponin I 0.1600 H* NT-Pro-B Natriuret Pep 1380 H Total Protein 7.6 Albumin 4.0 Globulin 3.5 Albumin/Globulin Ratio 1.2 Lipase < 10 L Urine Color Urine Clarity Urine pH Ur Specific [place] Urine Protein Urine Glucose (UA) Urine Ketones Urine Blood Urine Nitrate Urine Bilirubin Urine Urobilinogen Ur Leukocyte Esterase Urine WBC (Auto) Urine RBC (Auto) Urine Bacteria 01/23/18 01/24/18 01/24/18 23:49 05:16 05:16 WBC 11.9 H RBC 4.91 Hgb 14.7 D Hct 43.1 MCV 87.7 MCH 29.8 MCHC 34.0 RDW 13.1 Plt Count 290 MPV 9.9 Neut % (Auto) 80.8 H Lymph % (Auto) 12.3 L [place] % (Auto) 6.6 Eos % (Auto) 0.0 Baso % (Auto) 0.3 Neut # (Auto) 9.6 H Lymph # (Auto) 1.5 [place] # (Auto) 0.8 Eos # (Auto) 0.0 Baso # (Auto) 0.0 Neutrophils % (Manual) Lymphocytes % (Manual) Monocytes % (Manual) Platelet Estimate D-Dimer, Quantitative Sodium 139 Potassium 3.3 L Chloride 104 Carbon Dioxide 28 Anion Gap 10 BUN 12 Creatinine 0.3 L Est GFR ( Amer) > 60 Est GFR (Non-Af Amer) > 60 Random Glucose 122 H Calcium 8.8 Total Bilirubin 0.7 AST 18 ALT 29 Alkaline Phosphatase 66 Troponin I 0.1430 H* NT-Pro-B Natriuret Pep Total Protein 6.1 L Albumin 3.3 L Globulin 2.8 Albumin/Globulin Ratio 1.2 Lipase Urine Color Yellow Urine Clarity Hazy Urine pH 6.0 Ur Specific [place] 1.015 Urine Protein 2+ H Urine Glucose (UA) Normal Urine Ketones 1+ H Urine Blood 1+ H Urine Nitrate Negative Urine Bilirubin Negative Urine Urobilinogen Normal Ur Leukocyte Esterase 3+ H Urine WBC (Auto) 578 H Urine RBC (Auto) 36 H Urine Bacteria Mod H 01/24/18 11:05 WBC RBC Hgb Hct MCV MCH MCHC RDW Plt Count MPV Neut % (Auto) Lymph % (Auto) [place] % (Auto) Eos % (Auto) Baso % (Auto) Neut # (Auto) Lymph # (Auto) [place] # (Auto) Eos # (Auto) Baso # (Auto) Neutrophils % (Manual) Lymphocytes % (Manual) Monocytes % (Manual) Platelet Estimate D-Dimer, Quantitative Sodium Potassium Chloride Carbon Dioxide Anion Gap BUN Creatinine Est GFR ( Amer) Est GFR (Non-Af Amer) Random Glucose Calcium Total Bilirubin AST ALT Alkaline Phosphatase Troponin I 0.1130 NT-Pro-B Natriuret Pep Total Protein Albumin Globulin Albumin/Globulin Ratio Lipase Urine Color Urine Clarity Urine pH Ur Specific [place] Urine Protein Urine Glucose (UA) Urine Ketones Urine Blood Urine Nitrate Urine Bilirubin Urine Urobilinogen Ur Leukocyte Esterase Urine WBC (Auto) Urine RBC (Auto) Urine Bacteria Assessment & Plan - Assessment and Plan (Free Text) Assessment: 52 year old male with extensive PMHx was evaluated for left LE erythema Plan: Patient seen and evaluated Discussed plan with attending Dr. Urbano Labs, vitals and charts reviewed - VSS, Positive leukocytosis No signs of infection on b/l LE Multipodus boots ordered - to be worn while in bed Stable from podiatry standpoint Please re-consult if needed Thank you for the podiatry consult and allowing to take part in patient care - Date & Time Date: 01/24/18 Time: 12:29
--- NOTE | 2018-01-24 13:05 | CT ---
Date of service: 01/24/2018 PROCEDURE: CT HEAD WITHOUT CONTRAST. HISTORY: vertigo COMPARISON: None available. TECHNIQUE: Axial computed tomography images were obtained through the head/brain without intravenous contrast. Radiation dose: Total exam DLP = 1053.09 mGy-cm. This CT exam was performed using one or more of the following dose reduction techniques: Automated exposure control, adjustment of the mA and/or kV according to patient size, and/or use of iterative reconstruction technique. FINDINGS: HEMORRHAGE: No intracranial hemorrhage. BRAIN: No mass effect or edema. The rodríguez-white matter differentiation appears intact. Please note that MRI with diffusion imaging is more sensitive in the detection of acute ischemic event. VENTRICLES: No hydrocephalus. CALVARIUM: Unremarkable. PARANASAL SINUSES: Unremarkable as visualized. No significant inflammatory changes. MASTOID AIR CELLS: Unremarkable as visualized. No inflammatory changes. OTHER FINDINGS: None. IMPRESSION: No acute intracranial pathology identified.
[2018-01-24] MEDS: Losartan 12.5 MG TAB PO SCH (15:48)
--- NOTE | 2018-01-24 18:46 | CARD ---
APPROVED REPORT Date of service: 01/24/2018 EXAM: Two-dimensional and M-mode echocardiogram with Doppler and color Doppler. INDICATION elevated troponin RISK FACTORS Hypertension 2D DIMENSIONS IVSd1.2 (0.7-1.1cm)LVDd3.8 (3.9-5.9cm) PWd1.0 (0.7-1.1cm)LA Bcpdap39 (18-58mL) LVDs2.0 (2.5-4.0cm)FS (%) 48.2 % LVEF (%)80.2 (>50%)LVEF (Davalos's)78 % IVC0.00 cm M-Mode DIMENSIONS RVDd1.26 (2.1-3.2cm)Left Atrium (MM)3.89 (2.5-4.0cm) IVSd1.14 (0.7-1.1cm)Aortic Root2.99 (2.2-3.7cm) LVDd4.77 (4.0-5.6cm)Aortic Cusp Exc.2.28 (1.5-2.0cm) PWd0.97 (0.7-1.1cm)FS (%) 46 % LVDs2.56 (2.0-3.8cm)TAPSE20.17 cm LVEF (%)78 (>50%) Mitral Valve MV E Qledpvmr09.2cm/sMV A Lurfgzjx240.9cm/sE/A ratio0.8 LKUS200.92 cm/s TDI Lateral E' Peak V8.09cm/sMedial E' Peak V5.00cm/sE/Lateral E'10.4 E/Medial E'16.8 Tricuspid Valve TR Peak Rwitlvyg421ft/sTR Peak Gr.[id number] <Conclusion> normal size la,lv & ra rv. normal lv wall motion,thickness & systolic function with lvef of 65-70%. lv diastolic dysfunction grade one. normal aortic,mitral,tv & pv. mild mr & tr with normal pulmonary systolic pressures of 23 mm of hg. no pericardial effusion. normal size aortic root & ivc.
--- NOTE | 2018-01-24 19:27 | CARD ---
APPROVED REPORT Date of service: 01/23/2018 EKG Measurement Heart [id number] MD [id number] <Conclusion> Normal sinus rhythm Left axis deviation Abnormal ECG
--- NOTE | 2018-01-24 21:50 | CON ---
DATE: 01/24/2018 HISTORY OF PRESENT ILLNESS: This is a 52-year-old male with a past medical history of CIDP, hypertension, depression, anxiety and prostatic enlargement, came to the emergency room with nausea and vomiting. The patient's gave Zofran, got some temporary relief and also was becoming short of breath. The patient also complained of vertigo, dizziness associated with his anxiety. The patient is bedridden and weight loss for the past 6 months and also burning feeling during urination. PAST MEDICAL HISTORY: As above. History of CIDP diagnosed in 2007. The patient gets IVIG at home. Hypertension, prostatic enlargement. ALLERGIES: NO KNOWN DRUG ALLERGIES. HOME MEDICATIONS: Losartan, citalopram, and Zofran. SOCIAL HISTORY: He does not smoke, does not drink. PHYSICAL EXAMINATION: VITAL SIGNS: Blood pressure 141/90. NEUROLOGY: Awake. Oriented to self. No aphasia. Cranial nerves II through XII were tested. Pupils reactive. EOM intact. Visual felipe full. No facial asymmetry. Tongue midline. Motor examination, weakness of all the four extremities. Tone normal. Deep tendon reflexes 1+, absent in the lower extremities. Cerebellar, gait was deferred. LABORATORY DATA: WBC 11.1, hemoglobin 14.7, hematocrit 43.1, platelets 290. Sodium 139, potassium 3.3, chloride 104, CO2 of 28, glucose 122, BUN 12, creatinine 0.3. IMPRESSION: A 52-year-old male with a past medical history of chronic inflammatory demyelinating polyneuropathy and hypertension. The patient came with dizziness and vomiting, and the patient had [id number] myocardial infarction. Cardiology on the case. We will do CAT scan of the head without contrast. Continue meclizine and continue home intravenous immunoglobulin. Samm Ronquillo MD
[2018-01-25 00:21] VITALS: O2SAT 97
[2018-01-25 07:03] LABS: HEMOGLOBIN 16.2 g/dL (12.0-18.0); MEAN CELL VOLUME 87.9 fL (80.0-94.0); MEAN CORPUSCULAR HEMOGLOBIN 29.9 pg (27.0-31.0); MEAN PLATELET VOLUME 9.9 fL (7.2-11.7); RBC 5.43 Mil/uL (4.40-5.90); RED CELL DISTRIBUTION WIDTH 13.2 % (11.5-14.5); WHITE BLOOD COUNT 8.3 K/uL (4.8-10.8)
[2018-01-25 07:33] LABS: ALB/GLOB RATIO 1.2 (1.0-2.1); ALBUMIN 3.6 g/dL (3.5-5.0); ALT/SGPT 35 U/L (21-72); AST/SGOT 25 U/L (17-59); BLOOD UREA NITROGEN 11 mg/dL (9-20); CALCIUM 9.1 mg/dl (8.6-10.4); GFR NON-AFRICAN AMERICAN > 60
--- NOTE | 2018-01-25 07:45 | CP.PCM.PN ---
Subjective - Date & Time of Evaluation Date of Evaluation: 01/25/18 Time of Evaluation: 07:45 - Subjective Subjective: PGY-1 Carina Gallo D.O. Medicine progress note for Dr. Scanlon's service: Patient was seen and examined this morning. Objective - Vital Signs/Intake and Output Vital Signs (last 24 hours): Temp Pulse Resp BP Pulse Ox 98.5 F 78 20 132/84 97 01/24/18 23:10 01/24/18 23:10 01/24/18 23:10 01/24/18 23:10 01/24/18 23:10 Intake and Output: 01/25/18 01/25/18 06:59 18:59 Intake Total 300 Output Total 850 Balance -550 - Medications Medications: Current Medications Acetaminophen (Tylenol 325mg Tab) 650 mg PO Q6 PRN PRN Reason: Fever >100.4 F Aspirin (Ecotrin) 81 mg PO DAILY [facility] Last Admin: 01/24/18 10:42 Dose: 81 mg Citalopram Hydrobromide (Celexa) 10 mg PO DAILY [facility] Last Admin: 01/24/18 10:42 Dose: 10 mg Heparin Sodium (Porcine) (Heparin) 5,000 units SC Q8 [facility] Last Admin: 01/25/18 06:14 Dose: 5,000 units Ceftriaxone Sodium 1 gm/ (Sodium Chloride) 100 mls @ 100 mls/hr IVPB DAILY [facility]; Protocol Last Admin: 01/24/18 11:34 Dose: 100 mls/hr Losartan Potassium (Cozaar) 12.5 mg PO DAILY [facility] Last Admin: 01/24/18 15:48 Dose: 12.5 mg Meclizine HCl (Antivert) 25 mg PO Q8H [facility] Last Admin: 01/25/18 04:00 Dose: Not Given Rosuvastatin Calcium (Crestor) 5 mg PO HS [facility] Last Admin: 01/24/18 21:46 Dose: 5 mg - Labs Labs: 01/25/18 06:55 01/25/18 06:55
--- NOTE | 2018-01-25 07:51 | CON ---
DATE: 01/24/2018 LOCATION: Presently in room [address] [place] [address] Requested to see this 52-year-old male due to borderline elevation of troponins. HISTORY OF PRESENT ILLNESS: Mr. Leahy was admitted with severe nausea and vomiting for several days on and off. Matter of fact, he was admitted a week ago or so with similar condition. He was sent home, and he returned with nausea and vomiting. During his preliminary investigation, troponin was done and it was borderline elevated resulting in this cardiologic evaluation. The patient denies any chest discomfort. There is no evidence of any history of heart disease in the past. His only complaint has been this nausea and vomiting with repeated admissions now as mentioned above. Since his arrival here several EKGs done and totally unremarkable. I just looked at the echocardiogram that was done some time today and there is no evidence of any wall motion abnormality, whatsoever normal left ventricular function. PAST MEDICAL HISTORY: complicated with history of chronic demyelinating disease with polyneuropathy with almost paraplegia at this point in time, this began 10 years ago. He is under the care of neurologist, and he gets home infusion of immunoglobulin. According to him and his , the bout of vomiting etc., began several weeks ago when he underwent a prostate biopsy. According to both of them, and , after that biopsy, he began having all these nausea and vomiting and inability to eat etc. He denies any chills. However, during this admission, he had urinalysis, appears to be dirty somehow, and I spoke with the hospitalist, Dr. Francisco. He is prophylactically on Rocephin as well as urine culture appears to be awaited. From the cardiopulmonary view point, once again no evidence of any heart disease, no chest discomfort, no shortness of breath, no dizziness, palpitations, or any other cardiopulmonary symptoms reported at any given time. He has a history of hypertension, taking Rocephin 50 mg once a day by his primary physician, in his area. SOCIAL HISTORY: He is a nonsmoker. ALLERGIES: NO KNOWN ALLERGIES TO ANY MEDICATIONS. PHYSICAL EXAMINATION: GENERAL: Alert, oriented, very nice gentleman with obviously polyneuropathy, has severe weakness of both arms as well as legs. From the cardiopulmonary viewpoint, jugular veins were not distended. Carotids are normal. LUNGS: Totally clear to auscultation. CARDIOLOGIC: Precordium is unremarkable. No thrill. Heart sounds normal in intensity and regular. No significant murmurs. ABDOMEN: Unremarkable during my limited evaluation. CENTRAL NERVOUS SYSTEM: For details of [employer] exam, kindly refer to neurologist evaluation. COMPLEMENTARY DATA: From the cardiologic viewpoint, as mentioned, very borderline troponins. The initial one is 0.16, this followed on 0.14, now the third one 0.11. The upper limit is 0.12. So, again these are extremely borderline. EKG is totally normal. Chest x-ray, no cardiomegaly. Radiologist reported perhaps mild pulmonary venous congestion, to me it looks normal. Echocardiogram just reviewed. No evidence of any segmental wall motion abnormality. Normal ventricular function. IMPRESSION AND PLAN: Borderline troponin appears to be noncardiac at this point in time could be multifactorial etc. We will watch this closely. At this moment, I do not see any recent at this moment. Bear Terry MD
[2018-01-25 08:00] VITALS: BP 139/82; RESP 18; TEMP 98.2
[2018-01-25] MEDS: Losartan 12.5 MG TAB PO SCH (09:56)
--- NOTE | 2018-01-25 11:45 | CARD ---
APPROVED REPORT Date of service: 01/24/2018 EKG Measurement Heart [id number] MI [id number] <Conclusion> Sinus bradycardia Left anterior fascicular block Abnormal ECG
--- NOTE | 2018-01-25 11:45 | CARD ---
APPROVED REPORT Date of service: 01/24/2018 EKG Measurement Heart [id number] ID [id number] <Conclusion> Sinus rhythm with occasional premature ventricular complexes Left axis deviation Abnormal ECG
--- NOTE | 2018-01-25 11:51 | CP.PCM.DIS ---
<Carina Gallo - Last Filed: 01/25/18 13:04> Provider - Provider Date of Admission: 01/23/18 22:03 Attending physician: Naveen Scanlon MD Primary care physician: Jomar Consults: 01/24/18 00:10 Cardiology Consult Routine Comment: Consulting Provider: Bear Terry Consulting Physician: Bear Terry Reason for Consult: elevated troponin, R/O PE 01/24/18 01:46 Neurology Consult Routine Comment: Consulting Provider: Samm Ronquillo Consulting Physician: Samm Ronquillo Reason for Consult: hx of multiple Sclerosis 01/24/18 02:19 Nursing Referral for Wound Care Routine Comment: Physician Instructions: Reason For Exam: St. I pressure sore 01/24/18 06:52 Podiatry Consult Routine Comment: Consulting Provider: Guadalupe Urbano Consulting Physician: Guadalupe Urbano Reason for Consult: erythema left first toe Time Spent in preparation of Discharge (in minutes): 45 Diagnosis - Discharge Diagnosis (1) Intractable vomiting with nausea Status: Resolved Priority: High (2) Complicated UTI (urinary tract infection) Status: Acute Priority: High Hospital Course - Lab Results Lab Results: Micro Results 01/23/18 21:32 Blood Blood Culture - Preliminary NO GROWTH AFTER 24 HOURS 01/23/18 21:00 Blood Blood Culture - Preliminary NO GROWTH AFTER 24 HOURS Most Recent Lab Values WBC 8.3 K/uL (4.8-10.8) 01/25/18 06:55 RBC 5.43 Mil/uL (4.40-5.90) 01/25/18 06:55 Hgb 16.2 g/dL (12.0-18.0) 01/25/18 06:55 Hct 47.7 % (35.0-51.0) 01/25/18 06:55 MCV 87.9 fL (80.0-94.0) 01/25/18 06:55 MCH 29.9 pg (27.0-31.0) 01/25/18 06:55 MCHC 34.0 g/dL (33.0-37.0) 01/25/18 06:55 RDW 13.2 % (11.5-14.5) 01/25/18 06:55 Plt Count 287 K/uL (130-400) 01/25/18 06:55 MPV 9.9 fL (7.2-11.7) 01/25/18 06:55 Neut % (Auto) 80.8 % (50.0-75.0) H 01/24/18 05:16 Lymph % (Auto) 12.3 % (20.0-40.0) L 01/24/18 05:16 [place] % (Auto) 6.6 % (0.0-10.0) 01/24/18 05:16 Eos % (Auto) 0.0 % (0.0-4.0) 01/24/18 05:16 Baso % (Auto) 0.3 % (0.0-2.0) 01/24/18 05:16 Neut # (Auto) 9.6 K/uL (1.8-7.0) H 01/24/18 05:16 Lymph # (Auto) 1.5 K/uL (1.0-4.3) 01/24/18 05:16 Beadle # (Auto) 0.8 K/uL (0.0-0.8) 01/24/18 05:16 Eos # (Auto) 0.0 K/uL (0.0-0.7) 01/24/18 05:16 Baso # (Auto) 0.0 K/uL (0.0-0.2) 01/24/18 05:16 Neutrophils % (Manual) 86 % (50-75) H 01/23/18 20:53 Lymphocytes % (Manual) 7 % (20-40) L 01/23/18 20:53 Monocytes % (Manual) 7 % (0-10) 01/23/18 20:53 Platelet Estimate Normal (NORMAL) 01/23/18 20:53 D-Dimer, Quantitative < 200 ng/mlDDU (0-243) 01/23/18 22:34 Sodium 137 mmol/L (132-148) 01/25/18 06:55 Potassium 3.6 mmol/L (3.6-5.2) 01/25/18 06:55 Chloride 99 mmol/L (98-107) 01/25/18 06:55 Carbon Dioxide 29 mmol/L (22-30) 01/25/18 06:55 Anion Gap 13 (10-20) 01/25/18 06:55 BUN 11 mg/dL (9-20) 01/25/18 06:55 Creatinine 0.4 mg/dL (0.8-1.5) L 01/25/18 06:55 Est GFR ( Amer) > 60 12 06:55 Est GFR (Non-Af Amer) > 60 01/25/18 06:55 Random Glucose 90 mg/dL (75-110) 01/25/18 06:55 Calcium 9.1 mg/dl (8.6-10.4) 01/25/18 06:55 Phosphorus 3.0 mg/dL (2.5-4.5) 01/25/18 06:55 Magnesium 2.1 mg/dL (1.6-2.3) 01/25/18 06:55 Total Bilirubin 0.8 mg/dL (0.2-1.3) 01/25/18 06:55 AST 25 U/L (17-59) 01/25/18 06:55 ALT 35 U/L (21-72) 01/25/18 06:55 Alkaline Phosphatase 63 U/L (38-126) 01/25/18 06:55 Troponin I 0.1130 ng/mL (0.00-0.120) 01/24/18 11:05 NT-Pro-B Natriuret Pep 1380 pg/mL (0-900) H 01/23/18 20:53 Total Protein 6.7 g/dL (6.3-8.3) 01/25/18 06:55 Albumin 3.6 g/dL (3.5-5.0) 01/25/18 06:55 Globulin 3.1 gm/dL (2.2-3.9) 01/25/18 06:55 Albumin/Globulin Ratio 1.2 (1.0-2.1) 01/25/18 06:55 Lipase < 10 U/L (23-300) L 01/23/18 20:53 Urine Color Yellow (YELLOW) 01/23/18 23:49 Urine Clarity Hazy (Clear) 01/23/18 23:49 Urine pH 6.0 (5.0-8.0) 01/23/18 23:49 Ur Specific [place] 1.015 (1.003-1.030) 01/23/18 23:49 Urine Protein 2+ mg/dL (NEGATIVE) H 01/23/18 23:49 Urine Glucose (UA) Normal mg/dL (Normal) 01/23/18 23:49 Urine Ketones 1+ mg/dL (NEGATIVE) H 01/23/18:49 Urine Blood 1+ (NEGATIVE) H 01/23/18 23:49 Urine Nitrate Negative (NEGATIVE) 01/23/18:49 Urine Bilirubin Negative (NEGATIVE) 01/23/18:49 Urine Urobilinogen Normal mg/dL (0.2-1.0) 01/23/18 23:49 Ur Leukocyte Esterase 3+ Michael/uL (Negative) H 01/23/18 23:49 Urine WBC (Auto) 578 /hpf (0-5) H 01/23/18:49 Urine RBC (Auto) 36 /hpf (0-3) H 01/23/18:49 Urine Bacteria Mod (<OCC) H 01/23/18:49 - Hospital Course Hospital Course: Patient is 52 year old Male with Pmhx of Chronic Inflammatory Demyelinating Polyneuropathy (CIDP), HTN, depression, anxiety and prostatic enlargement who presents to the ER today for nausea and vomiting. Patient's is at bedside and contribute to the history of present illness. Patient states these episodes started at 2 am this morning and occurred every 2-3 minutes after he had a single bowel movement. Patient's gave patient one dose of zofran orally, which provided temporary relief for a few hours. Patient continued having nausea and vomiting through the day, and was given a second dose of zofran, which did not help, with patient becoming short of breath, feeling weak and hyperventilating. Vomit is described as a "dry vomit", containing mostly clear phlegm but no watery, bloody or food-containing vomit. Patient admits to feeling vertigo when today's episodes occurred. Patient states these episodes of vomiting have occurred in the past, and are usually associated with anxiety. Patient admits to having constipation for the past week. Patient is bedridden and requires the help of an production assistant and his . Admits to 15-20 lbs of weight loss for the past 6 months, and decreased appetite. Admits to burning feeling when urinating this morning. Denies fever, chills, chest pain, shortness of breath, abdominal pain, sore throat, diarrhea, constipation, blood in the urine or bowels, rash or leg swelling. Upon admission, patient had elevated troponins. EKG did not have any ST elevations. D-dimer negative. Patient had echo and was seen by cardiology. Echo showed 65-70% ejection fraction and no significant abnormalities. Neon Sign Worker did not feel that troponin elevated is cardiac related. Patient was placed on ASA 81 and Crestor 5. Patient was seen by his neurologist, Dr. Ronquillo, who ordered a CT head that did not show any acute findings. Additionally, podiatry saw patient for toe erythema. They recommended multipodus boots to be worn while in bed. Upon discharge, patient's nausea and vomiting resolved. He was tolerating a regular PO diet. Vitals were stable. Patient felt back at his baseline health. He will follow-up with GI as an outpatient. He will take a course of antibiotics for UTI. Urine Cx was not back by the time of discharge, so patient will be called with results and any necessary medication change. Discharge Exam - Head Exam Head Exam: ATRAUMATIC, NORMAL INSPECTION, NORMOCEPHALIC - Eye Exam Eye Exam: EOMI, Normal appearance, PERRL - ENT Exam ENT Exam: Mucous Membranes Moist - Neck Exam Neck exam: Normal Inspection - Respiratory Exam Respiratory Exam: Clear to PA & Lateral, NORMAL BREATHING PATTERN, UNREMARKABLE - Cardiovascular Exam Cardiovascular Exam: REGULAR RHYTHM, +S1, +S2 - GI/Abdominal Exam GI & Abdominal Exam: Normal Bowel Sounds, Soft, Unremarkable. absent: Tenderness - Rectal Exam Rectal Exam: Deferred - Exam Additional comments: Blake - Extremities Exam Additional comments: b/l feet contracted - Neurological Exam Neurological exam: Alert, CN II-XII Intact, Oriented x3 - Psychiatric Exam Psychiatric exam: Normal Affect, Normal Mood - Skin Skin Exam: Normal Color, Warm Discharge Plan - Discharge Medications Prescriptions: RX: Aspirin [Ecotrin] 81 mg PO DAILY #30 tabec Ciprofloxacin [Cipro] 500 mg PO Q12 7 Days #14 tab RX: Rosuvastatin Calcium [Crestor] 5 mg PO HS #30 tab - Follow Up Plan Condition: IMPROVED Disposition: HOME/ ROUTINE Patient education suggested?: Yes Instructions: Ciprofloxacin (Systemic), Heart Healthy Diet, Heart Attack (DC), Nausea and Vomiting, Adult (DC), Rosuvastatin, Urinary Tract Infection in Men (DC) Additional Instructions: Please follow-up with your primary care physician, Dr. Hadley, within 3-5 days of discharge. It is important that you establish care with the gastroenteritides (GI) physician that Dr. Hadley referred you to in order to further evaluate and manage your nausea, vomiting, and weight loss. Please follow-up with your urologist, Dr. Mack, within 1 week of discharge. Please continue your regular follow-up appointments with your neurologist, Dr. Ronquillo. You will be given a prescription for Cipro 500 mg, an antibiotic. Take two times per day for a total of 7 days. Do not take Zofran (odansetron) while you are taking Cipro as they may have a negative interaction. See gastroenterology for appropriate management of your nausea and vomiting. You may resume your other home medications, including IVIG. If symptoms recur, please return to the nearest emergency room. Por favor, shira un seguimiento con rocha mdico de atencin primaria, el Dr. Hadley, dentro de los 3-5 leslie posteriores al joann. Es importante que establezca atencin con el mdico especialista en gastroenterologa (GI) al que el Dr. Hadley lo refiri para evaluar y controlar mejor meet nuseas, vmitos y prdida de peso. Por favor, shira un seguimiento con rocha urlogo, el Dr. Mack, dentro de eri semana despus del joann. Por favor contine meet citas de seguimiento regulares con rocha neurlogo, el Dr. Ronquillo. Le darn eri receta de Cipro 500 mg, un antibitico. Gabriel dos veces al da por un total de 7 leslie. No tome Zofran (odansetron) mientras est tomando Cipro, ya que pueden tener eri interaccin negativa. Consulte la gastroenterologa para el manejo adecuado de meet nuseas y vmitos. Puede reanudar meet otros medicamentos caseros, incluida la IgIV. Si los sntomas se repiten, por favor regrese a la danielle de emergencias ms cercana. Referrals: Samm Ronquillo MD [Staff Provider] - Michael Mack MD [Non-Staff] - David Hadley MD [Staff Provider] - <Naveen Scanlon - Last Filed: 01/25/18 16:03> Provider - Provider Date of Admission: 01/23/18 22:03 Attending physician: Naveen Scanlon MD Consults: 01/24/18 00:10 Cardiology Consult Routine Comment: Consulting Provider: Bear Terry Consulting Physician: Bear Terry Reason for Consult: elevated troponin, R/O PE 01/24/18 01:46 Neurology Consult Routine Comment: Consulting Provider: Samm Ronquillo Consulting Physician: Samm Ronquillo Reason for Consult: hx of multiple Sclerosis 01/24/18 02:19 Nursing Referral for Wound Care Routine Comment: Physician Instructions: Reason For Exam: St. I pressure sore 01/24/18 06:52 Podiatry Consult Routine Comment: Consulting Provider: Guadalupe Urbano Consulting Physician: Guadalupe Urbano Reason for Consult: erythema left first toe Hospital Course - Lab Results Lab Results: Micro Results 01/23/18 21:32 Blood Blood Culture - Preliminary NO GROWTH AFTER 24 HOURS 01/23/18 21:00 Blood Blood Culture - Preliminary NO GROWTH AFTER 24 HOURS Most Recent Lab Values WBC 8.3 K/uL (4.8-10.8) 01/25/18 06:55 RBC 5.43 Mil/uL (4.40-5.90) 01/25/18 06:55 Hgb 16.2 g/dL (12.0-18.0) 01/25/18 06:55 Hct 47.7 % (35.0-51.0) 01/25/18 06:55 MCV 87.9 fL (80.0-94.0) 01/25/18 06:55 MCH 29.9 pg (27.0-31.0) 01/25/18 06:55 MCHC 34.0 g/dL (33.0-37.0) 01/25/18 06:55 RDW 13.2 % (11.5-14.5) 01/25/18 06:55 Plt Count 287 K/uL (130-400) 01/25/18 06:55 MPV 9.9 fL (7.2-11.7) 01/25/18 06:55 Neut % (Auto) 80.8 % (50.0-75.0) H 01/24/18 05:16 Lymph % (Auto) 12.3 % (20.0-40.0) L 01/24/18 05:16 Beadle % (Auto) 6.6 % (0.0-10.0) 01/24/18 05:16 Eos % (Auto) 0.0 % (0.0-4.0) 01/24/18 05:16 Baso % (Auto) 0.3 % (0.0-2.0) 01/24/18 05:16 Neut # (Auto) 9.6 K/uL (1.8-7.0) H 01/24/18 05:16 Lymph # (Auto) 1.5 K/uL (1.0-4.3) 01/24/18 05:16 Beadle # (Auto) 0.8 K/uL (0.0-0.8) 01/24/18 05:16 Eos # (Auto) 0.0 K/uL (0.0-0.7) 01/24/18 05:16 Baso # (Auto) 0.0 K/uL (0.0-0.2) 01/24/18 05:16 Neutrophils % (Manual) 86 % (50-75) H 01/23/18 20:53 Lymphocytes % (Manual) 7 % (20-40) L 01/23/18 20:53 Monocytes % (Manual) 7 % (0-10) 01/23/18 20:53 Platelet Estimate Normal (NORMAL) 01/23/18 20:53 D-Dimer, Quantitative < 200 ng/mlDDU (0-243) 01/23/18 22:34 Sodium 137 mmol/L (132-148) 01/25/18 06:55 Potassium 3.6 mmol/L (3.6-5.2) 01/25/18 06:55 Chloride 99 mmol/L (98-107) 01/25/18 06:55 Carbon Dioxide 29 mmol/L (22-30) 01/25/18 06:55 Anion Gap 13 (10-20) 01/25/18 06:55 BUN 11 mg/dL (9-20) 01/25/18 06:55 Creatinine 0.4 mg/dL (0.8-1.5) L 01/25/18 06:55 Est GFR ( Amer) > 60 12 06:55 Est GFR (Non-Af Amer) > 60 01/25/18 06:55 Random Glucose 90 mg/dL (75-110) 01/25/18 06:55 Calcium 9.1 mg/dl (8.6-10.4) 01/25/18 06:55 Phosphorus 3.0 mg/dL (2.5-4.5) 01/25/18 06:55 Magnesium 2.1 mg/dL (1.6-2.3) 01/25/18 06:55 Total Bilirubin 0.8 mg/dL (0.2-1.3) 01/25/18 06:55 AST 25 U/L (17-59) 01/25/18 06:55 ALT 35 U/L (21-72) 01/25/18 06:55 Alkaline Phosphatase 63 U/L (38-126) 01/25/18 06:55 Troponin I 0.1130 ng/mL (0.00-0.120) 01/24/18 11:05 NT-Pro-B Natriuret Pep 1380 pg/mL (0-900) H 01/23/18 20:53 Total Protein 6.7 g/dL (6.3-8.3) 01/25/18 06:55 Albumin 3.6 g/dL (3.5-5.0) 01/25/18 06:55 Globulin 3.1 gm/dL (2.2-3.9) 01/25/18 06:55 Albumin/Globulin Ratio 1.2 (1.0-2.1) 01/25/18 06:55 Lipase < 10 U/L (23-300) L 01/23/18 20:53 Urine Color Yellow (YELLOW) 01/23/18 23:49 Urine Clarity Hazy (Clear) 01/23/18 23:49 Urine pH 6.0 (5.0-8.0) 01/23/18 23:49 Ur Specific [place] 1.015 (1.003-1.030) 01/23/18 23:49 Urine Protein 2+ mg/dL (NEGATIVE) H 01/23/18 23:49 Urine Glucose (UA) Normal mg/dL (Normal) 01/23/18 23:49 Urine Ketones 1+ mg/dL (NEGATIVE) H 01/23/18 23:49 Urine Blood 1+ (NEGATIVE) H 01/23/18 23:49 Urine Nitrate Negative (NEGATIVE) 01/23/18 23:49 Urine Bilirubin Negative (NEGATIVE) 01/23/18 23:49 Urine Urobilinogen Normal mg/dL (0.2-1.0) 12 23:49 Ur Leukocyte Esterase 3+ Michael/uL (Negative) H 01/23/18 23:49 Urine WBC (Auto) 578 /hpf (0-5) H 01/23/18 23:49 Urine RBC (Auto) 36 /hpf (0-3) H 01/23/18 23:49 Urine Bacteria Mod (<OCC) H 01/23/18 23:49 Attending/Attestation - Attestation I have personally seen and examined this patient.: Yes I have fully participated in the care of the patient.: Yes I have reviewed all pertinent clinical information, including history, physical exam and plan: Yes Notes (Text): Patient wants to go home. Plan explained. patient agrees to keep up with his appointments 01/25/18 16:02
[2018-01-25 13:15] VITALS: PULSE 83
== END 2018-01-25 17:37 | disposition home or self-care (01) | DRG 122 ==
LOC: C.ER 18:24 → C.9E 22:03 → C.6T 01-24 00:09
PROVIDERS: ADMIT Family Medicine; ATTEND Internal Medicine
DX: I21.4 Non-ST elevation (NSTEMI) myocardial infarction (principal); G35 Multiple sclerosis; N39.0 Urinary tract infection, site not specified; G61.81 Chronic inflammatory demyelinating polyneuritis; G43.A0 Cyclical vomiting, in migraine, not intractable; I10 Essential (primary) hypertension; F41.9 Anxiety disorder, unspecified; B95.2 Enterococcus as the cause of diseases classified elsewhere; N40.0 Benign prostatic hyperplasia without lower urinary tract symptoms; G71.00 Muscular dystrophy, unspecified; L53.9 Erythematous condition, unspecified; K59.00 Constipation, unspecified; Z74.01 Bed confinement status; Z82.49 Family history of ischemic heart disease and other diseases of the circulatory system; Z83.3 Family history of diabetes mellitus

== ENCOUNTER 2018-01-28 20:22 | Inpatient (IN) | payer MEDICAID ==
[2018-01-28 20:51] LABS: BASO % 0.2 % (0.0-2.0); EOS % 0.2 % (0.0-4.0); HEMOGLOBIN 17.9 g/dL (12.0-18.0); LYMPH # 1.2 K/uL (1.0-4.3); LYMPH % 7.2 % (20.0-40.0); MEAN CELL VOLUME 87.6 fL (80.0-94.0); MEAN CORPUSCULAR HEMOGLOBIN 29.3 pg (27.0-31.0); MEAN CORPUSCULAR HGB CONC 33.5 g/dL (33.0-37.0); MONO # 0.7 K/uL (0.0-0.8); NEUT # 15.1 K/uL (1.8-7.0); NEUT % 88.4 % (50.0-75.0); NRBC % 0.2 % (0.0-2.0); PLATELET COUNT 323 K/uL (130-400); RBC 6.12 Mil/uL (4.40-5.90); RED CELL DISTRIBUTION WIDTH 13.2 % (11.5-14.5)
--- NOTE | 2018-01-28 20:51 | C.PDOC ---
History Of Present Illness 52 y/o male pt with hx of progressive MS presents to the ER with his c/o nausea, dry-heaving, low abdominal pain and constipation. reports pt received a biopsy of his prostate last month and afterwards his sx started. providing additional history. Patient actively dry heaving. denies pt has dysuria, fever, chills, chest pain, sob, syncope, and headache. state patient had a small bowel movement this morning. Patient was admitted on on 01/23, discharged on 01/25, for similar symptoms, was found to have UTI and prescribed Cipro. Time Seen by Provider: 01/28/18 20:29 Chief Complaint (Nursing): Abdominal Pain History Per: Patient History/Exam Limitations: no limitations Onset/Duration Of Symptoms: Days Current Symptoms Are (Timing): Still Present Location Of Pain/Discomfort: LLQ, Suprapubic Past Medical History Reviewed: Historical Data, Nursing Documentation, Vital Signs Vital Signs: Last Vital Signs Temp 98.9 F 01/28/18 20:28 Pulse 99 H 01/28/18 20:28 Resp 16 01/28/18 20:28 BP 173/106 H 01/28/18 20:28 Pulse Ox - Medical History PMH: HTN, Multiple Sclerosis (CIDP) Family History: States: Unknown Family Hx - Social History Hx Alcohol Use: No Hx Substance Use: No - Immunization History Hx Tetanus Toxoid Vaccination: No Hx Influenza Vaccination: No Hx Pneumococcal Vaccination: No Review Of Systems Except As Marked, All Systems Reviewed And Found Negative. Constitutional: Negative for: Fever, Chills Cardiovascular: Negative for: Chest Pain Respiratory: Positive for: Other (dry-heaving) Gastrointestinal: Positive for: Nausea, Abdominal Pain (LLQ and suprapubic), Constipation Genitourinary: Negative for: Dysuria Neurological: Negative for: Headache Physical Exam - Physical Exam Appears: Non-toxic, In Acute Distress (mild), Chronically Ill (thin, frail, muscle wasting) Skin: Normal Color, Warm Head: Atraumatic, Normacephalic Eye(s): bilateral: PERRL, EOMI, Other (conjunctiva clear ) Oral Mucosa: Moist Throat: No Erythema, No Exudate, Other (uvula midline) Chest: Symmetrical Cardiovascular: Rhythm Regular, No Murmur, Other (normal S1,S2) Respiratory: No Rales, No Rhonchi, No Wheezing, Other Gastrointestinal/Abdominal: Bowel Sounds (slight increase), Soft, Tenderness (mild to suprapubic and LLQ ), No Distention, No Guarding, No Rebound Extremity: Bilateral: Atraumatic, Normal Color And Temperature Pulses: Left Dorsalis Pedis: Normal (2+), Right Dorsalis Pedis: Normal (2+) Neurological/Psych: Oriented x3, Normal Motor (5/5), Normal Sensation, Other (GCS 15, CN 2-12 intact) ED Course And Treatment - Laboratory Results Result Diagrams: 01/28/18 20:47 01/28/18 20:47 ECG: Interpreted By Me, Viewed By Me ECG Rhythm: Sinus Rhythm ECG Interpretation: No Changes From Prior (01/24/18) Interpretation Of ECG: Normal intervals, normal axis, no ST elevations Rate From EC O2 Sat by Pulse Oximetry: 95 Pulse Ox Interpretation: Normal - Radiology CXR: Interpreted by Me, Viewed By Me CXR Interpretation: Yes: No Acute Disease. No: Infiltrates - Other Rad Abdomen X-Ray X-Ray: Interpreted by Me, Viewed By Me Interpretation: Negative free air, normal fluids levels, increased stool amount througout colon Medical Decision Making Medical Decision Making: Plans: -- EKG -- chem labs -- blood work -- Obstructive series -- Phenergan rectal -- IV fluids -- urine Cx -- UA 22:00 - Reevaluation after phenergan NM was given as requested by patient's as it helped with symptoms last visit to the ED. Patient now with some facial grimacing Benadryl given. 22:40 - Discussed results with patient's , Patient has a white count of 17 that went up from 8 in his previous visit. Patient in on Cipro but not able to take it due to his vomiting. 23:00 - Spoke with Hospitalist Dr. Loco covering for Dr. Gilbert, who accepts the patient to be admitted to his service. Disposition Counseled Patient/Family Regarding: Studies Performed, Diagnosis - Disposition Disposition: HOSPITALIZED Disposition Time: 23:00 Condition: STABLE - Clinical Impression Clinical Impression: Abdominal pain, UTI (urinary tract infection), Vomiting, Nausea, Constipation - Scribe Statement The provider has reviewed the documentation as recorded by the Rhianna Singleton Do Provider Attestation: All medical record entries made by the Scribe were at my direction and personall y dictated by me. I have reviewed the chart and agree that the record accurately reflects my personal performance of the history, physical exam, medical decision making, and the department course for this patient. I have also personally directed, reviewed, and agree with the discharge instructions and disposition.
[2018-01-28 20:52] LABS: WHITE BLOOD COUNT 17.1 K/uL (4.8-10.8)
[2018-01-28] MEDS ORDERED: Sodium Chloride 0.9% 1,000 ML IV ONE (20:56)
[2018-01-28 21:07] LABS: ALB/GLOB RATIO 1.3 (1.0-2.1); ALBUMIN 4.3 g/dL (3.5-5.0); ALT/SGPT 41 U/L (21-72); AST/SGOT 37 U/L (17-59); BLOOD UREA NITROGEN 9 mg/dL (9-20); CALCIUM 9.5 mg/dl (8.6-10.4); GFR NON-AFRICAN AMERICAN > 60; LIPASE 17 U/L (23-300)
[2018-01-28] MEDS ORDERED: Morphine 4 MG/ML VIAL ONE (21:55)
[2018-01-28 21:57] LABS: LYMPHOCYTE 7 % (20-40); MONOCYTE 2 % (0-10); NEUTROPHIL 90 % (50-75); PLATELET ESTIMATE NORMAL (NORMAL); REACTIVE LYMPHOCYTES 1 % (0-0); TOTAL CELLS COUNTED 100
[2018-01-28] MEDS ORDERED: DiphenhydrAMINE 50 mg/ml Inj IVP STA (21:57)
[2018-01-28] MEDS ORDERED: DiphenhydrAMINE 50 mg/ml Inj ONE (22:02)
[2018-01-28] MEDS ORDERED: Enalaprilat 2.5 MG/2 ML IV STA (23:56)
[2018-01-29 00:15] LABS: URINE BILIRUBIN NEGATIVE (NEGATIVE); URINE BLOOD NEGATIVE (NEGATIVE); URINE CLARITY Clear (Clear); URINE COLOR Yellow (YELLOW); URINE GLUCOSE (UA) NORMAL (Normal); URINE LEUKOCYTE ESTERASE NEG Leu/uL (Negative); URINE PROTEIN NEGATIVE (NEGATIVE); URINE UROBILINOGEN NORMAL mg/dL (0.2-1.0)
--- NOTE | 2018-01-29 00:19 | CP.PCM.HP ---
<Eduar oHoks - Last Filed: 01/29/18 05:29> History of Present Illness - History of Present Illness History of Present Illness: PGY-1 H&P note for Hospitalist Patient is 52 year old Male with Pmhx of Chronic Inflammatory Demyelinating Polyneuropathy (CIDP), HTN, depression, anxiety and prostatic enlargement who presents to the ED for abdominal pain, with nausea and dry wretching. Family is at bedside, and history obtained from family as pt is unable to answer questions during initial evaluation. Family reports that since 8 pm (01/28) pt developed lower abdominal pain with distension, described as a sharp pressure. Pt developed dry wretching productive of spit, no vomiting (bloody or bilious, or containing any food materials). Pt was given Zofran at home for the nausea, which did not help. reports pt was complaining of a pressure in the rectum, and inability to move his bowels or urinate. Denies fever, chills, chest pain, shortness of breath, hematochezia, melena, rash or leg swelling, seizure activity. Pt was recently discharged from [facility] on 01/25 with Ciprofloxacin for UTI noted during hospitalization. In the ED, pt was given Morphine 2 mg IVP for the pain, phenergen 25 mg OH for the nausea. As per ED physician, pt developed facial grimacing after Phenergan and Benadryl 25 mg IVP was given. On initial evaluation, pt is unable to respond to my voice, is rolling his eyes, moving his jaw and tongue, nonverbal. He continues to have episodes of spitting up (nonbloody). Pt is responsive to painful stimuli (lower abdominal ttp). Bladder scan showed over 900mL. West catheter was inserted which relieved the abdominal distension and produced approximately 1L of dark yellow urine. Head CT w/o contrast ordered stat. After approximately 30 minutes, pt's extrapyramidal symptoms resolved and pt was AAOx3. He denies any complaints. He corroborates the HPI that the family reported. Prior chart reviewed: PMD: Jomar Code Status: Full Code, Proxy: Bindu Leahy (daughter), No Advance directive Allx: NKDA Pmhx: CIDP affecting upper and lower extremities (diagnosed 2007), HTN, Prostatic enlargement Shx: Prostate biopsy 01/03/18 Meds: Zofran 4mg Q8hrs PRN, Losartan 50mg PO QD, Citalopram (celexa) 10mg QD, Ciprofloxacin 500 mg PO Q12h FHx: Diabetes, HTN (mother) SHx: denies alcohol, tobacco or illegal drug use, Lives with and mother, disabled. Present on Admission - Present on Admission Any Indicators Present on Admission: No Review of Systems - Review of Systems All systems: reviewed and no additional remarkable complaints except (as per HPI) Past Patient History - Past Medical History & Family History Past Medical History?: Yes - Past Social History Smoking Status: Never Smoked - CARDIAC Hx Hypertension: Yes - NEUROLOGICAL Hx Multiple Sclerosis: Yes (CIDP) - MUSCULOSKELETAL/RHEUMATOLOGICAL Hx Falls: No Other/Comment: Muscular dystrophy - PSYCHIATRIC Hx Substance Use: No - SURGICAL HISTORY Hx Surgeries: No - ANESTHESIA Hx Anesthesia: Yes Meds Allergies/Adverse Reactions: Allergies Allergy/AdvReac Type Severity Reaction Status Date / Time No Known Allergies Allergy Verified 01/28/18 20:31 Physical Exam - Constitutional Appears: Non-toxic, No Acute Distress - Head Exam Head Exam: ATRAUMATIC, NORMAL INSPECTION - Eye Exam Eye Exam: EOMI, Normal appearance, PERRL - ENT Exam ENT Exam: Mucous Membranes Moist - Respiratory Exam Respiratory Exam: Clear to Auscultation Bilateral. absent: Rales, Rhonchi, Wheezes, Respiratory Distress - Cardiovascular Exam Cardiovascular Exam: REGULAR RHYTHM, +S1, +S2. absent: Diastolic murmur, Systolic Murmur - GI/Abdominal Exam GI & Abdominal Exam: Normal Bowel Sounds, Soft. absent: Distended, Firm, Guarding, Rebound, Rigid - Extremities Exam Extremities exam: Positive for: normal capillary refill, normal inspection, pedal pulses present. Negative for: calf tenderness, pedal edema - Back Exam Back exam: NORMAL INSPECTION. absent: CVA tenderness (L), CVA tenderness (R) - Neurological Exam Neurological exam: Alert, CN II-XII Intact, Oriented x3 Additional comments: 5/5 strength in bilateral upper and lower extremities; EXCEPT 0/5 strength in hands and feet, which is baseline for due to CIDP - Psychiatric Exam Psychiatric exam: Normal Affect, Normal Mood - Skin Skin Exam: Dry, Normal Color, Warm Results - Vital Signs Recent Vital Signs: Last Vital Signs Temp 98.8 F 01/28/18 23:50 Pulse 94 H 01/28/18 23:50 Resp 18 01/28/18 23:50 BP 183/96 H 01/28/18 23:59 Pulse Ox 95 01/29/18 00:17 - Labs Result Diagrams: 01/28/18 20:47 01/28/18 20:47 Labs: Laboratory Results - last 24 hr 01/28/18 01/28/18 01/28/18 20:47 20:47 21:03 WBC 17.1 H D RBC 6.12 H Hgb 17.9 Hct 53.6 H MCV 87.6 MCH 29.3 MCHC 33.5 RDW 13.2 Plt Count 323 MPV 10.0 Neut % (Auto) 88.4 H Lymph % (Auto) 7.2 L Putnam % (Auto) 4.0 Eos % (Auto) 0.2 Baso % (Auto) 0.2 Neut # (Auto) 15.1 H Lymph # (Auto) 1.2 Putnam # (Auto) 0.7 Eos # (Auto) 0.0 Baso # (Auto) 0.0 Neutrophils % (Manual) 90 H Lymphocytes % (Manual) 7 L Reactive Lymphs % 1 H Monocytes % (Manual) 2 Platelet Estimate Normal Sodium 137 Potassium 4.5 Chloride 100 Carbon Dioxide 27 Anion Gap 14 BUN 9 Creatinine 0.4 L Est GFR ( Amer) > 60 Est GFR (Non-Af Amer) > 60 Random Glucose 125 H Calcium 9.5 Total Bilirubin 1.2 AST 37 ALT 41 Alkaline Phosphatase 87 Troponin I 0.0130 Total Protein 7.5 Albumin 4.3 Globulin 3.3 Albumin/Globulin Ratio 1.3 Lipase 17 L Urine Color Urine Clarity Urine pH Ur Specific Malcolm Urine Protein Urine Glucose (UA) Urine Ketones Urine Blood Urine Nitrate Urine Bilirubin Urine Urobilinogen Ur Leukocyte Esterase Urine WBC (Auto) Urine RBC (Auto) 01/29/18 00:08 WBC RBC Hgb Hct MCV MCH MCHC RDW Plt Count MPV Neut % (Auto) Lymph % (Auto) Putnam % (Auto) Eos % (Auto) Baso % (Auto) Neut # (Auto) Lymph # (Auto) Putnam # (Auto) Eos # (Auto) Baso # (Auto) Neutrophils % (Manual) Lymphocytes % (Manual) Reactive Lymphs % Monocytes % (Manual) Platelet Estimate Sodium Potassium Chloride Carbon Dioxide Anion Gap BUN Creatinine Est GFR ( Amer) Est GFR (Non-Af Amer) Random Glucose Calcium Total Bilirubin AST ALT Alkaline Phosphatase Troponin I Total Protein Albumin Globulin Albumin/Globulin Ratio Lipase Urine Color Yellow Urine Clarity Clear Urine pH 6.0 Ur Specific Malcolm 1.013 Urine Protein Negative Urine Glucose (UA) Normal Urine Ketones Trace Urine Blood Negative Urine Nitrate Negative Urine Bilirubin Negative Urine Urobilinogen Normal Ur Leukocyte Esterase Neg Urine WBC (Auto) 12 H Urine RBC (Auto) 2 Assessment & Plan - Assessment and Plan (Free Text) Assessment: This is a 52 year old Male with Pmhx of Chronic Inflammatory Demyelinating Polyneuropathy (CIDP), HTN, depression, anxiety and prostatic enlargement who presents to the ED for abdominal pain, with nausea and dry wretching. Found to have urinary retention and constipation. Plan: Abdominal pain likely secondary to constipation and urinary retention Abdominal XR showed no free air, perforation, (+) retained stool CXR showed no active disease; no free air West placed with return of 900+ mL of dark yellow urine, and resolution of lower abdominal pain Will remove west in morning, and proceed with voiding trial. Fleet enema for constipation UA is normal Lipase is normal NPO, bedside swallow eval F/u urine culture Extrapyrimadal symptoms, likely due to phenergan given in ED Resolved in ED, pt is AAox3 Pt received benadryl 25 mg IVP in the ED Avoid medications that may bring on EPS Head CT shows no acute intracranial pathology as per [facility] (see report) Neurochecks q4h Seizure, aspiration precautions Leukocytosis, likely reactive Pt is afebrile, not tachycardic Recent history of E. faecalis UTI treated with Ciprofloxacin, but today's UA is normal Blood culture x 2 ordered by ED, will f/u with results No need for antibiotics at this time NS IVF at 125mL/hr F/u urine culture HTN 183/96 on admission, responded well to Vasotec 2.5 mg IVP in the ED Hold home Losartan 50 mg daily due to nausea, pending swallow eval Vasotec 1.25 mg IVP Q6H, hold is SBP is less than 120mmHg Chronic inflammatory Demyelinating radiculopathy/ MS Continue to monitor Dispo: admit to tele, pt is feeling much better after west insertion. Will give fleet enema for fecal constipation. Remove west in am and proceed with voiding trial. Case discussed with attending physician, Dr. Claudy Hooks PGY-1 <Ben Loco - Last Filed: 01/29/18 06:27> Results - Vital Signs Recent Vital Signs: Last Vital Signs Temp 98.7 F 01/29/18 02:43 Pulse 95 H 01/29/18 02:40 Resp 18 01/29/18 02:40 BP 151/93 H 01/29/18 01:58 Pulse Ox 100 01/29/18 02:40 - Labs Result Diagrams: 01/29/18 06:04 01/28/18 20:47 Labs: Laboratory Results - last 24 hr 01/28/18 01/28/18 01/28/18 20:47 20:47 21:03 WBC 17.1 H D RBC 6.12 H Hgb 17.9 Hct 53.6 H MCV 87.6 MCH 29.3 MCHC 33.5 RDW 13.2 Plt Count 323 MPV 10.0 Neut % (Auto) 88.4 H Lymph % (Auto) 7.2 L Putnam % (Auto) 4.0 Eos % (Auto) 0.2 Baso % (Auto) 0.2 Neut # (Auto) 15.1 H Lymph # (Auto) 1.2 Putnam # (Auto) 0.7 Eos # (Auto) 0.0 Baso # (Auto) 0.0 Neutrophils % (Manual) 90 H Lymphocytes % (Manual) 7 L Reactive Lymphs % 1 H Monocytes % (Manual) 2 Platelet Estimate Normal Sodium 137 Potassium 4.5 Chloride 100 Carbon Dioxide 27 Anion Gap 14 BUN 9 Creatinine 0.4 L Est GFR ( Amer) > 60 Est GFR (Non-Af Amer) > 60 Random Glucose 125 H Calcium 9.5 Total Bilirubin 1.2 AST 37 ALT 41 Alkaline Phosphatase 87 Troponin I 0.0130 Total Protein 7.5 Albumin 4.3 Globulin 3.3 Albumin/Globulin Ratio 1.3 Lipase 17 L Urine Color Urine Clarity Urine pH Ur Specific Malcolm Urine Protein Urine Glucose (UA) Urine Ketones Urine Blood Urine Nitrate Urine Bilirubin Urine Urobilinogen Ur Leukocyte Esterase Urine WBC (Auto) Urine RBC (Auto) 01/29/18 00:08 WBC RBC Hgb Hct MCV MCH MCHC RDW Plt Count MPV Neut % (Auto) Lymph % (Auto) Putnam % (Auto) Eos % (Auto) Baso % (Auto) Neut # (Auto) Lymph # (Auto) Putnam # (Auto) Eos # (Auto) Baso # (Auto) Neutrophils % (Manual) Lymphocytes % (Manual) Reactive Lymphs % Monocytes % (Manual) Platelet Estimate Sodium Potassium Chloride Carbon Dioxide Anion Gap BUN Creatinine Est GFR ( Amer) Est GFR (Non-Af Amer) Random Glucose Calcium Total Bilirubin AST ALT Alkaline Phosphatase Troponin I Total Protein Albumin Globulin Albumin/Globulin Ratio Lipase Urine Color Yellow Urine Clarity Clear Urine pH 6.0 Ur Specific Malcolm 1.013 Urine Protein Negative Urine Glucose (UA) Normal Urine Ketones Trace Urine Blood Negative Urine Nitrate Negative Urine Bilirubin Negative Urine Urobilinogen Normal Ur Leukocyte Esterase Neg Urine WBC (Auto) 12 H Urine RBC (Auto) 2 Attending/Attestation - Attestation I have personally seen and examined this patient.: Yes I have fully participated in the care of the patient.: Yes I have reviewed all pertinent clinical information: Yes Notes (Text): 01/29/18 05:50 I saw and examined this patient shoulder to shoulder with Dr Hooks. I agree with the assessment andplan outlined above. This is a 52 years old male with hx of Chronic inflammatory Demyelinating Polyneuropahy who came with lower abdominal pain and retching. In the ED patient he received Phenergan along with Benadryl for the retching. He developed significant signs of Tardive Dyskinesias with uncontrollable facial movements, sucking chewing sticking tongue out and eye movements up with dy stonic contraction of the neck muscles. Most likely caused by medication. Because of the sudden unset of this extrapyramidal symptoms, a CT of the Head without contrast was ordered to r/o visible intracraneal pathology. This was negative. Exam showed distended bladder and Urinary retention. West catheter inserted and drained approximately 1000mls of urine. Obstructive series showed no obstruction but abundant stool from ascending colon to descending colon from constipation. The patient will receive Enemas for stool elimination and will need continual Laxatives. Urinalysis showed no sign of infection. The Patient is admitted for Observation, to treat the constipation, relieve the urinary retention which could be caused by the Benadryl that could control the Extrapyramidal symptoms. We will use Ativan if this continues. Start Flomax when he starts taking oral medication. West catheter would be removed for Urine trial. Ben Loco MD
[2018-01-29] MEDS ORDERED: Enalaprilat 2.5 MG/2 ML IV SCH ×3 (00:30→03:00)
[2018-01-29] MEDS: Sodium Chloride 0.9% 1,000 ML IV SCH ×3 (01:20→18:03)
[2018-01-29] MEDS ORDERED: Trimethobenzamide 200 mg/2 mL Inj IM ONE (06:00)
[2018-01-29] MEDS: Enalaprilat 2.5 MG/2 ML IV SCH ×4 (06:00→23:58)
[2018-01-29 06:10] LABS: BASO % 0.2 % (0.0-2.0); LYMPH # 1.3 K/uL (1.0-4.3); LYMPH % 8.1 % (20.0-40.0); MEAN CELL VOLUME 87.2 fL (80.0-94.0); MEAN CORPUSCULAR HEMOGLOBIN 29.1 pg (27.0-31.0); MEAN CORPUSCULAR HGB CONC 33.3 g/dL (33.0-37.0); MEAN PLATELET VOLUME 9.7 fL (7.2-11.7); MONO # 0.7 K/uL (0.0-0.8); MONO % 4.1 % (0.0-10.0); NEUT # 14.2 K/uL (1.8-7.0); NEUT % 87.6 % (50.0-75.0); PLATELET COUNT 306 K/uL (130-400); RED CELL DISTRIBUTION WIDTH 13.1 % (11.5-14.5); WHITE BLOOD COUNT 16.2 K/uL (4.8-10.8)
[2018-01-29 06:27] LABS: ALB/GLOB RATIO 1.3 (1.0-2.1); ALBUMIN 3.6 g/dL (3.5-5.0); ALT/SGPT 37 U/L (21-72); AST/SGOT 28 U/L (17-59); BLOOD UREA NITROGEN 6 mg/dL (9-20); CALCIUM 8.6 mg/dl (8.6-10.4); GFR NON-AFRICAN AMERICAN > 60
--- NOTE | 2018-01-29 08:23 | CT ---
Date of service: 01/29/2018 PROCEDURE: CT HEAD WITHOUT CONTRAST. HISTORY: r/o intracranial pathology COMPARISON: 01/24/2018. TECHNIQUE: Axial computed tomography images were obtained through the head/brain without intravenous contrast. Radiation dose: Total exam DLP = 1057.87 mGy-cm. This CT exam was performed using one or more of the following dose reduction techniques: Automated exposure control, adjustment of the mA and/or kV according to patient size, and/or use of iterative reconstruction technique. FINDINGS: HEMORRHAGE: No intracranial hemorrhage. BRAIN: Juan-white matter differentiation is preserved. There is no mass, mass effect or abnormal extra-axial fluid collection. There is no territorial infarction. The midline sagittal structures are normal. VENTRICLES: The ventricles are normal in size, shape and configuration. CALVARIUM: There is no calvarial fracture or extracranial soft tissue swelling. PARANASAL SINUSES: Predominantly clear. MASTOID AIR CELLS: Predominantly clear. OTHER FINDINGS: None. IMPRESSION: No acute intracranial abnormality. A preliminary report was provided by [facility].
[2018-01-29 08:28] LABS: LYMPHOCYTE 8 % (20-40); MONOCYTE 5 % (0-10); NEUTROPHIL 87 % (50-75); PLATELET ESTIMATE NORMAL (NORMAL); TOTAL CELLS COUNTED 100
[2018-01-29 08:29] LABS: ANISOCYTOSIS SLIGHT; GIANT PLATELETS PRESENT; LARGE PLATELETS PRESENT; TOXIC GRANULATION PRESENT
--- NOTE | 2018-01-29 08:43 | RAD ---
Date of service: 01/28/2018 PROCEDURE: Radiographs of the chest and abdomen (obstructive series) HISTORY: abd pain COMPARISON: No prior. TECHNIQUE: AP radiograph of the chest, with upright and supine radiographs of the abdomen. FINDINGS: CHEST: Lungs: Clear. Cardiovascular: Normal size heart. No pulmonary vascular congestion. No aortic atherosclerotic calcification present Pleura: No pleural fluid. No pneumothorax. Other findings: None. ABDOMEN AND PELVIS: Bowel: There is large amount of stool in the colon and rectum. No evidence of mechanical obstruction. Free air: None. Bones: Unremarkable. Other findings: None. IMPRESSION: Severe constipation. Nonobstructive bowel gas Clear lungs.
[2018-01-29] MEDS ORDERED: Promethazine 12.5 mg/10 ml Syrup PO PRN (14:16)
[2018-01-29] MEDS ORDERED: Glucagon Recombinant 1 mg Inj IM PRN (14:17)
[2018-01-29] MEDS ORDERED: Dextrose 50% SYRINGE Inj (50 ml) IVP PRN (14:17)
[2018-01-29] MEDS ORDERED: Ciprofloxacin 400mg/200ml D5W 400 MG/200 ML BAG IVPB SCH (14:30)
[2018-01-29] MEDS ORDERED: DiphenhydrAMINE 50 mg/ml Inj IVP STA (17:24)
--- NOTE | 2018-01-29 17:29 | CP.PCM.PN ---
Subjective - Date & Time of Evaluation Date of Evaluation: 01/29/18 Time of Evaluation: 17:25 - Subjective Subjective: Medical Attending Note: Patient seen, examined at bedside. Patient seen status post EPS side effect of Promethazine. Patient is awake, talking, weak, denies chest pain, denies palpitations, denies abdominal pain, wretching has restarted. Objective - Vital Signs/Intake and Output Vital Signs (last 24 hours): Temp Pulse Resp BP Pulse Ox 98.6 F 62 18 125/83 99 01/29/18 12:00 01/29/18 16:00 01/29/18 12:00 01/29/18 12:05 01/29/18 12:00 Intake and Output: 01/29/18 01/29/18 06:59 18:59 Intake Total 125 Balance 125 - Medications Medications: Current Medications Dextrose (Dextrose 50% Inj) 0 ml IVP .STAT PRN; Protocol PRN Reason: Hypoglycemia Protocol Dextrose (Glutose 15) 0 gm PO .ONCE PRN; Protocol PRN Reason: Hypoglycemia Protocol Diphenhydramine HCl (Benadryl) 25 mg IVP STAT STA Stop: 01/29/18 17:25 Enalaprilat (Vasotec) 1.25 mg IV Q6H ELADIO Last Admin: 01/29/18 12:05 Dose: 1.25 mg Glucagon (Glucagen Diagnostic Kit) 0 mg IM .STAT PRN; Protocol PRN Reason: Hypoglycemia Protocol Heparin Sodium (Porcine) (Heparin) 5,000 units SC Q12 ELADIO Last Admin: 01/29/18 09:50 Dose: 5,000 units Sodium Chloride (Sodium Chloride 0.9%) 1,000 mls @ 125 mls/hr IV .Q8H ELADIO Last Admin: 01/29/18 09:51 Dose: Not Given Dextrose (Dextrose 5% In Water 1000 Ml) 1,000 mls @ 0 mls/hr IV .Q0M PRN; Protocol PRN Reason: Hypoglycemia Protocol Ciprofloxacin (Cipro 400mg/200ml Dsw) 400 mg in 200 mls @ 133 mls/hr IVPB Q12H ELADIO; Protocol Lorazepam (Ativan) 1 mg IVP ONCE ONE Stop: 01/29/18 17:25 Pantoprazole Sodium (Protonix Inj) 40 mg IVP DAILY [facility] Last Admin: 01/29/18 09:50 Dose: 40 mg - Labs Labs: 01/29/18 06:04 01/29/18 06:04 - Constitutional Appears: Non-toxic, No Acute Distress, Chronically Ill - Head Exam Head Exam: NORMAL INSPECTION - Eye Exam Eye Exam: EOMI - ENT Exam ENT Exam: Mucous Membranes Dry - Respiratory Exam Respiratory Exam: Clear to Ausculation Bilateral, NORMAL BREATHING PATTERN. absent: Rales, Rhonchi, Wheezes - Cardiovascular Exam Cardiovascular Exam: REGULAR RHYTHM, +S1, +S2 - GI/Abdominal Exam GI & Abdominal Exam: Soft, Normal Bowel Sounds. absent: Distended, Firm, Guarding, Rigid, Tenderness, Rebound - Extremities Exam Extremities Exam: absent: Pedal Edema, Tenderness - Back Exam Back Exam: absent: CVA tenderness (L), CVA tenderness (R) - Neurological Exam Neurological Exam: Alert, Awake, Oriented x3 Neuro motor strength exam: Left Upper Extremity: 2/1, Right Upper Extremity: 2/1, Left Lower Extremity: 2/1, Right Lower Extremity: 2/1 - Psychiatric Exam Psychiatric exam: Agitated, Anxious - Skin Skin Exam: Dry, Intact, Normal Color, Warm Assessment and Plan (1) CIDP (chronic inflammatory demyelinating polyneuropathy) Assessment & Plan: Patient has had this diagnosed in 2004 He follows outpatient with Dr. Ronquillo Status: Chronic (2) Intractable nausea and vomiting Assessment & Plan: unable to use Promethazine secondary to EPS side effect Zofran alone does not control systems Patient was seen in prior hospitalization and had refused EGD due to concern for anesthesia side effect Status: Resolved (3) UTI (urinary tract infection) Assessment & Plan: Patient was d/c on Cipro 01/25 to complete 5 day course last admission Restart Cipro 400mg IV Q12H for 5 days (Active since 01/29/18) West d/c 01/29/18 Noted urinary retention on admission Patient has had recent prostate biopsy earlier in December at a different facility Status: Acute (4) Hypokalemia Assessment & Plan: Repleted today Monitor K+ and Mg2+ likely secondary to nausea/vomitting Status: Acute (5) Side effect of medication Assessment & Plan: Patient has EPS side effects from Promethazine-->do not give it; witnessed on admission and today in the ICU Given dose of Benadryl 12.5mg IV X1 and Ativan 1 mg IVX1 This was updated in the EMR but I was not allowed to put it as EPS Status: Acute (6) Hypertension Assessment & Plan: patient is off losartan due to n/v Enalpril 1/25mg IV Q6 PRN Status: Chronic (7) Urinary retention Assessment & Plan: had TURP earlier in December urinary retention on admission west d/c Status: Acute (8) Constipation Assessment & Plan: had multiple bowel movements today per nurse Status: Acute (9) Prophylactic measure Assessment & Plan: Heparin 5000 units subq8H Protonix 40mg IV q daily Status: Acute Attending/Attestation - Attestation I have personally seen and examined this patient.: Yes I have fully participated in the care of the patient.: Yes I have reviewed all pertinent clinical information, including history, physical exam and plan: Yes
[2018-01-29] MEDS: Ciprofloxacin 400mg/200ml D5W 400 MG/200 ML BAG IVPB SCH (17:36)
[2018-01-30 05:51] LABS: BASO % 0.5 % (0.0-2.0); EOS # 0.1 K/uL (0.0-0.7); EOS % 1.2 % (0.0-4.0); HEMOGLOBIN 14.4 g/dL (12.0-18.0); LYMPH # 1.1 K/uL (1.0-4.3); LYMPH % 14.6 % (20.0-40.0); MEAN CELL VOLUME 87.5 fL (80.0-94.0); MEAN CORPUSCULAR HEMOGLOBIN 29.4 pg (27.0-31.0); MEAN CORPUSCULAR HGB CONC 33.6 g/dL (33.0-37.0); MEAN PLATELET VOLUME 9.9 fL (7.2-11.7); MONO # 0.4 K/uL (0.0-0.8); NEUT # 5.7 K/uL (1.8-7.0); NEUT % 77.7 % (50.0-75.0); NRBC % 0.1 % (0.0-2.0); RBC 4.88 Mil/uL (4.40-5.90); RED CELL DISTRIBUTION WIDTH 13.3 % (11.5-14.5); WHITE BLOOD COUNT 7.3 K/uL (4.8-10.8)
[2018-01-30 06:32] LABS: ALB/GLOB RATIO 1.2 (1.0-2.1); ALBUMIN 3.1 g/dL (3.5-5.0); ALT/SGPT 36 U/L (21-72); AST/SGOT 26 U/L (17-59); BLOOD UREA NITROGEN 7 mg/dL (9-20); CALCIUM 7.8 mg/dl (8.6-10.4); GFR NON-AFRICAN AMERICAN > 60
[2018-01-30] MEDS: Ciprofloxacin 400mg/200ml D5W 400 MG/200 ML BAG IVPB SCH ×2 (06:42→18:56)
[2018-01-30] MEDS: Enalaprilat 2.5 MG/2 ML IV SCH ×3 (06:42→18:50)
--- NOTE | 2018-01-30 07:50 | CP.PCM.PN ---
<Eduar Hooks - Last Filed: 01/30/18 16:21> Subjective - Date & Time of Evaluation Date of Evaluation: 01/30/18 Time of Evaluation: 07:50 - Subjective Subjective: PGY1 Medicine progress note for Dr. Hiram Gomes Pt was seen and examined at bedside. Pt is complaining of diffuse abdominal pain, and actively dry wretching. No acute events overnight. Limited ROS secondary to dry wretching. Pt continues to have mild facial grimacing. Objective - Vital Signs/Intake and Output Vital Signs (last 24 hours): Temp Pulse Resp BP Pulse Ox 98.6 F 50 L 18 153/100 H 99 01/30/18 06:00 01/30/18 06:00 01/30/18 06:00 01/30/18 06:42 01/30/18 06:00 Intake and Output: 01/30/18 01/30/18 06:59 18:59 Intake Total 1000 Output Total 900 Balance 100 - Medications Medications: Current Medications Dextrose (Dextrose 50% Inj) 0 ml IVP .STAT PRN; Protocol PRN Reason: Hypoglycemia Protocol Dextrose (Glutose 15) 0 gm PO .ONCE PRN; Protocol PRN Reason: Hypoglycemia Protocol Enalaprilat (Vasotec) 1.25 mg IV Q6H [facility] Last Admin: 01/30/18 06:42 Dose: 1.25 mg Glucagon (Glucagen Diagnostic Kit) 0 mg IM .STAT PRN; Protocol PRN Reason: Hypoglycemia Protocol Heparin Sodium (Porcine) (Heparin) 5,000 units SC Q12 [facility] Last Admin: 01/29/18 21:38 Dose: 5,000 units Sodium Chloride (Sodium Chloride 0.9%) 1,000 mls @ 125 mls/hr IV .Q8H [facility] Last Admin: 01/30/18 00:00 Dose: Not Given Dextrose (Dextrose 5% In Water 1000 Ml) 1,000 mls @ 0 mls/hr IV .Q0M PRN; Protocol PRN Reason: Hypoglycemia Protocol Ciprofloxacin (Cipro 400mg/200ml Dsw) 400 mg in 200 mls @ 133 mls/hr IVPB Q12H [facility]; Protocol Last Admin: 01/30/18 06:42 Dose: 133 mls/hr Pantoprazole Sodium (Protonix Inj) 40 mg IVP DAILY [facility] Last Admin: 01/29/18 09:50 Dose: 40 mg - Labs Labs: 01/30/18 05:40 01/30/18 05:40 - Constitutional Appears: Non-toxic, In Acute Distress - Head Exam Head Exam: ATRAUMATIC, NORMAL INSPECTION - Eye Exam Eye Exam: EOMI - ENT Exam ENT Exam: Mucous Membranes Moist - Respiratory Exam Respiratory Exam: Clear to Ausculation Bilateral - Cardiovascular Exam Cardiovascular Exam: REGULAR RHYTHM, +S1, +S2 - GI/Abdominal Exam GI & Abdominal Exam: Soft, Normal Bowel Sounds. absent: Distended, Firm, Guarding, Rigid, Tenderness - Extremities Exam Extremities Exam: Normal Inspection. absent: Calf Tenderness, Pedal Edema - Neurological Exam Neurological Exam: Alert, Awake - Psychiatric Exam Psychiatric exam: Anxious - Skin Skin Exam: Dry, Normal Color, Warm Assessment and Plan - Assessment and Plan (Free Text) Assessment: This is a 52 year old Male with Pmhx of Chronic Inflammatory Demyelinating Polyneuropathy (CIDP), HTN, depression, anxiety and prostatic enlargement who presents to the ED for abdominal pain, with nausea and dry wretching. Found to have urinary retention and constipation. Plan: CIDP (chronic inflammatory demyelinating polyneuropathy) Patient has had this diagnosed in 2004 Case discussed at length with pt and sister. Pt's abdominla pain and nausea and vomiting is secondary to CIDP. Pt has not followed up with Dr. ely since november. Pt's EPS symtopms are due to the phenergan given in the ED. Pt has been moving his bowel well with the phosphate enemas, which we will continue. Pt has had decreased nausea as he has been moving his bowels. Case was discussed with Dr. Ely via telephone, who does not believe this is due to CIDP flare, but to give IVIG as pt has missed [address] Arreola, neurology, consulted who believes these GI symptoms are secondary to CIDP flare, and recommends IVIG over three days. Pt will receive IVIG Intractable nausea and vomiting, with abdominal pain Unable to use Promethazine secondary to EPS side effect Zofran alone does not control systems Patient was seen in prior hospitalization and had refused EGD due to concern for anesthesia side effect Ativan 1mg IVP Q6H prn Toradol 15 mg IVP 16h prn moderate pain, Toradol 30 mg IVP q6h prn severe pain NS IVF at 125 mL/hr GI, Dr. Quijano, consulted. Recs appreciated UTI (urinary tract infection) Patient was d/c on Cipro 01/25 to complete 5 day course last admission Restart Cipro 400mg IV Q12H for 5 days (Active since 01/29/18) West d/c 01/29/18 Noted urinary retention on admission Patient has had recent prostate biopsy earlier in December at a different facility Hypokalemia likely secondary to vomiting Repleted again today Continue to monitor K+ and Mg2+ Side effect of medication Will avoid promethazine, reglan Given dose of Benadryl 12.5mg IV X1 and Ativan 1 mg IVX1 Hypertension Continue to hold home losartan due to N/V Enalpril 1.25mg IV Q6 PRN Urinary retention Had TURP earlier in December Urinary retention on admission West discontinued but pt retained urine again Continue west, with betadine regularly Constipation Pt has had multiple BMs today Continue Phosphate enemas PPX Heparin 5000 units SC 8H Protonix 40mg IV q daily Diet: CLD as tolerated Case discussed with attending physician, Dr. Hiram Hooks <Cody Gomes - Last Filed: 02/05/18 19:07> Objective - Vital Signs/Intake and Output Vital Signs (last 24 hours): Temp Pulse Resp BP Pulse Ox 98.0 F 113 H 20 128/73 99 02/05/18 15:00 02/05/18 15:00 02/05/18 15:00 02/05/18 15:00 02/05/18 15:00 Intake and Output: 02/05/18 02/06/18 18:59 06:59 Intake Total 450 Output Total 400 Balance 50 - Medications Medications: Current Medications Acetylcysteine (Acetylcysteine 20%) 4 ml INH RQ6 [facility] Last Admin: 02/05/18 13:35 Dose: 4 ml Albuterol Sulfate (Albuterol 0.083% Inhal Zhane (2.5 Mg/3 Ml) Ud) 2.5 mg INH RQ6 [facility] Last Admin: 02/05/18 13:35 Dose: 2.5 mg Amitriptyline HCl (Elavil) 25 mg PO HS [facility] Last Admin: 02/04/18 21:31 Dose: 25 mg Bisacodyl (Dulcolax) 10 mg MO DAILY [facility] Last Admin: 02/05/18 10:43 Dose: 10 mg Dextrose (Dextrose 50% Inj) 0 ml IVP .STAT PRN; Protocol PRN Reason: Hypoglycemia Protocol Last Admin: 01/31/18 00:53 Dose: 50 ml Dextrose (Glutose 15) 0 gm PO .ONCE PRN; Protocol PRN Reason: Hypoglycemia Protocol Gabapentin (Neurontin) 300 mg PO TID [facility] Last Admin: 02/05/18 17:47 Dose: 300 mg Glucagon (Glucagen Diagnostic Kit) 0 mg IM .STAT PRN; Protocol PRN Reason: Hypoglycemia Protocol Heparin Sodium (Porcine) (Heparin) 5,000 units SC Q12 [facility] Last Admin: 02/05/18 10:42 Dose: 5,000 units Methylprednisolone 1,000 mg/ (Sodium Chloride) 250 mls @ 125 mls/hr IVPB DAILY [facility] Stop: 02/07/18 11:59 Last Admin: 02/05/18 13:06 Dose: 125 mls/hr Lorazepam (Ativan) 0.5 mg PO TID PRN PRN Reason: Anxiety Last Admin: 02/05/18 05:49 Dose: 0.5 mg Losartan Potassium (Cozaar) 50 mg PO DAILY [facility] Last Admin: 02/05/18 10:43 Dose: 50 mg Pantoprazole Sodium (Protonix Inj) 40 mg IVP DAILY [facility] Last Admin: 02/05/18 10:38 Dose: 40 mg - Labs Labs: 02/05/18 08:33 02/05/18 08:33 Attending/Attestation - Attestation I have personally seen and examined this patient.: Yes I have fully participated in the care of the patient.: Yes I have reviewed all pertinent clinical information, including history, physical exam and plan: Yes Notes (Text): 02/05/18 19:07 This is a late entry. Care of this patient was gone over in detail with resident Dr. Hooks. Cody Gomes D.O.
[2018-01-30] MEDS ORDERED: Aluminum Hydroxide/Magnesium Hydroxide Susp (30 mL) PO ONE (08:00)
--- NOTE | 2018-01-30 08:26 | CP.PCM.CON ---
<Hernan Alvarado - Last Filed: 01/30/18 10:18> History of Present Illness - History of Present Illness History of Present Illness: PGY-4 GI Fellow Consult Note Pt is a 52 yo Hisp Male with Chronic Inflammatory Demyelinating Polyneuropathy affecting upper and lower extremities (diagnosed 2007), HTN, Prostatic enlargement presented in evening of 01/28/18 with complaints of abd pain and nausea/vomiting. Pain was lower quadrants associated with abd distension. Pt was continuing trt for UTI with ciprofloxacin. Emesis was mostly dry heaving and NB/NB emesis. In the ED, he was given promethazine but soon developed EPS signs which abated with diphenhydramine and after 30 minutes time. A Blake was place after 900 mL were found post-void. Pt was also to have large amount of stool burden and started on enemas. GI consulted for N/V in the setting of EPS symptoms. During our encounter, pt was constantly retching and gagging at times. Reports some ongoing lower abd discomfort but main complaint is nausea. Blake in place and nursing pt taking some PO and having difficulty retaining enemas. 12 point ROS negative other than stated above MHx: See above SurgHx: Prostate biopsy 01/03/18 Meds: Zofran 4mg Q8hrs PRN, Losartan 50mg PO QD, Citalopram (celexa) 10mg QD, Ciprofloxacin 500 mg PO Q12h FamHx: Diabetes, HTN (mother) SocHx: Denies alcohol, tobacco or illegal drug use. All: NKDA Past Patient History - Past Medical History & Family History Past Medical History?: Yes - Past Social History Smoking Status: Never Smoked - CARDIAC Hx Hypertension: Yes - NEUROLOGICAL Hx Multiple Sclerosis: Yes (CIDP) - MUSCULOSKELETAL/RHEUMATOLOGICAL Hx Falls: No Other/Comment: Muscular dystrophy - GASTROINTESTINAL Hx Colitis: Yes Hx Nausea: Yes - GENITOURINARY/GYNECOLOGICAL Hx Prostate Problems: Yes - PSYCHIATRIC Hx Substance Use: No - SURGICAL HISTORY Hx Surgeries: No - ANESTHESIA Hx Anesthesia: Yes Meds Allergies/Adverse Reactions: Allergies Allergy/AdvReac Type Severity Reaction Status Date / Time promethazine AdvReac NAUSEA Verified 01/29/18 17:35 - Medications Medications: Current Medications Dextrose (Dextrose 50% Inj) 0 ml IVP .STAT PRN; Protocol PRN Reason: Hypoglycemia Protocol Dextrose (Glutose 15) 0 gm PO .ONCE PRN; Protocol PRN Reason: Hypoglycemia Protocol Enalaprilat (Vasotec) 1.25 mg IV Q6H [facility] Last Admin: 01/30/18 06:42 Dose: 1.25 mg Glucagon (Glucagen Diagnostic Kit) 0 mg IM .STAT PRN; Protocol PRN Reason: Hypoglycemia Protocol Heparin Sodium (Porcine) (Heparin) 5,000 units SC Q12 [facility] Last Admin: 01/29/18 21:38 Dose: 5,000 units Sodium Chloride (Sodium Chloride 0.9%) 1,000 mls @ 125 mls/hr IV .Q8H [facility] Last Admin: 01/30/18 00:00 Dose: Not Given Dextrose (Dextrose 5% In Water 1000 Ml) 1,000 mls @ 0 mls/hr IV .Q0M PRN; Protocol PRN Reason: Hypoglycemia Protocol Ciprofloxacin (Cipro 400mg/200ml Dsw) 400 mg in 200 mls @ 133 mls/hr IVPB Q12H [facility]; Protocol Last Admin: 01/30/18 06:42 Dose: 133 mls/hr Potassium Chloride (Potassium Chloride 10 Meq/100 Ml) 10 meq in 100 mls @ 100 mls/hr IVPB ONCE ONE Stop: 01/30/18 09:12 Potassium Chloride (Potassium Chloride 10 Meq/100 Ml) 10 meq in 100 mls @ 100 mls/hr IVPB ONCE ONE Stop: 01/30/18 10:14 Pantoprazole Sodium (Protonix Inj) 40 mg IVP DAILY [facility] Last Admin: 01/29/18 09:50 Dose: 40 mg Physical Exam - Constitutional Appears: In Acute Distress (mild), Cachectic, Chronically Ill - Head Exam Head Exam: ATRAUMATIC, NORMAL INSPECTION - Eye Exam Eye Exam: EOMI. absent: Scleral icterus - ENT Exam ENT Exam: Mucous Membranes Dry. absent: Mucous Membranes Moist - Respiratory Exam Respiratory Exam: Clear to Auscultation Bilateral. absent: Accessory Muscle Use - Cardiovascular Exam Cardiovascular Exam: REGULAR RHYTHM, RRR - GI/Abdominal Exam GI & Abdominal Exam: Normal Bowel Sounds, Soft, Tenderness (ttp in RLQ w/o guarding). absent: Bruit, Diminished Bowel Sounds, Distended, Firm, Guarding, Hernia, Mass, Organomegaly, Pulsatile Mass, Rebound, Rigid - Rectal Exam Rectal Exam: Deferred - Extremities Exam Extremities exam: Positive for: normal inspection. Negative for: pedal edema - Neurological Exam Neurological exam: Alert, CN II-XII Intact - Psychiatric Exam Psychiatric exam: Agitated - Skin Skin Exam: Normal Color, Warm Results - Vital Signs Recent Vital Signs: Last Vital Signs Temp 98.6 F 01/30/18 06:00 Pulse 50 L 01/30/18 06:00 Resp 18 01/30/18 06:00 BP 153/100 H 01/30/18 06:42 Pulse Ox 99 01/30/18 06:00 - Labs Result Diagrams: 01/30/18 05:40 01/30/18 05:40 Labs: Laboratory Results - last 24 hr 01/29/18 01/29/18 01/29/18 06:04 17:44 23:31 WBC RBC Hgb Hct MCV MCH MCHC RDW Plt Count MPV Neut % (Auto) Lymph % (Auto) Pierce % (Auto) Eos % (Auto) Baso % (Auto) Neut # (Auto) Lymph # (Auto) Pierce # (Auto) Eos # (Auto) Baso # (Auto) Neutrophils % (Manual) 87 H Lymphocytes % (Manual) 8 L Monocytes % (Manual) 5 Toxic Granulation Present Platelet Estimate Normal Large Platelets Present Giant Platelets Present Anisocytosis (manual) Slight Sodium Potassium Chloride Carbon Dioxide Anion Gap BUN Creatinine Est GFR ( Amer) Est GFR (Non-Af Amer) POC Glucose (mg/dL) 99 85 Random Glucose Calcium Phosphorus Magnesium Total Bilirubin AST ALT Alkaline Phosphatase Total Protein Albumin Globulin Albumin/Globulin Ratio 01/30/18 01/30/18 05:40 05:40 WBC 7.3 D RBC 4.88 Hgb 14.4 Hct 42.7 MCV 87.5 MCH 29.4 MCHC 33.6 RDW 13.3 Plt Count 236 MPV 9.9 Neut % (Auto) 77.7 H Lymph % (Auto) 14.6 L Pierce % (Auto) 6.0 Eos % (Auto) 1.2 Baso % (Auto) 0.5 Neut # (Auto) 5.7 Lymph # (Auto) 1.1 Pierce # (Auto) 0.4 Eos # (Auto) 0.1 Baso # (Auto) 0.0 Neutrophils % (Manual) Lymphocytes % (Manual) Monocytes % (Manual) Toxic Granulation Platelet Estimate Large Platelets Giant Platelets Anisocytosis (manual) Sodium 137 Potassium 3.5 L Chloride 103 Carbon Dioxide 26 Anion Gap 11 BUN 7 L Creatinine 0.3 L Est GFR ( Amer) > 60 Est GFR (Non-Af Amer) > 60 POC Glucose (mg/dL) Random Glucose 78 Calcium 7.8 L Phosphorus 3.0 Magnesium 1.8 Total Bilirubin 1.6 H AST 26 ALT 36 Alkaline Phosphatase 50 Total Protein 5.6 L Albumin 3.1 L Globulin 2.6 Albumin/Globulin Ratio 1.2 Assessment & Plan - Assessment and Plan (Free Text) Assessment: 52 yo Hisp Male with CIDP, recent UTI trt presenting with nausea/vomiting. # Nausea/Vomiting: Unclear etiology. However, given constellation of urinary retention and constipation with large stool burden, wonder if all related to underlying neurologic disorder (CIDP) or anticholinergic syndrome. # CRC Screening: Never had any CRC screening prior Plan: - On Clear Liq Diet - Enemas as able - Trial PO dulcolax - Lorazepam PRN nausea - Cautious use of ondansetron given EPS concerns, found relief with prior - Avoid metoclopramide given EPS - Agree with Neurology consult to assess CIDP, possibly flare? - PPI QD - May consider EGD pending course - Avoid anti-cholinergics, narcotics as able - IVF, Blake placement/Prostate management per primary - Recommend outpatient Colonoscopy for CRC screening Thank you for the consult; will cont to follow. Pt seen and examined with Dr. Quijano; please see attestation for further recs/changes. Hernan Alvarado, PGY-4 <Ankit Quijano - Last Filed: 01/30/18 13:29> Meds - Medications Medications: Current Medications Bisacodyl (Dulcolax) 10 mg HI DAILY [facility] Dextrose (Dextrose 50% Inj) 0 ml IVP .STAT PRN; Protocol PRN Reason: Hypoglycemia Protocol Dextrose (Glutose 15) 0 gm PO .ONCE PRN; Protocol PRN Reason: Hypoglycemia Protocol Enalaprilat (Vasotec) 1.25 mg IV Q6H [facility] Last Admin: 01/30/18 06:42 Dose: 1.25 mg Glucagon (Glucagen Diagnostic Kit) 0 mg IM .STAT PRN; Protocol PRN Reason: Hypoglycemia Protocol Heparin Sodium (Porcine) (Heparin) 5,000 units SC Q12 [facility] Last Admin: 01/30/18 09:51 Dose: 5,000 units Sodium Chloride (Sodium Chloride 0.9%) 1,000 mls @ 125 mls/hr IV .Q8H [facility] Last Admin: 01/30/18 00:00 Dose: Not Given Dextrose (Dextrose 5% In Water 1000 Ml) 1,000 mls @ 0 mls/hr IV .Q0M PRN; Protocol PRN Reason: Hypoglycemia Protocol Ciprofloxacin (Cipro 400mg/200ml Dsw) 400 mg in 200 mls @ 133 mls/hr IVPB Q12H [facility]; Protocol Last Admin: 01/30/18 06:42 Dose: 133 mls/hr Ketorolac Tromethamine (Toradol) 15 mg IVP Q6 PRN PRN Reason: Pain, moderate (4-7) Ketorolac Tromethamine (Toradol) 30 mg IVP Q6 PRN PRN Reason: Pain, severe (8-10) Last Admin: 01/30/18 10:44 Dose: 30 mg Pantoprazole Sodium (Protonix Inj) 40 mg IVP DAILY [facility] Last Admin: 01/30/18 09:53 Dose: 40 mg Results - Vital Signs Recent Vital Signs: Last Vital Signs Temp 97.4 F L 01/30/18 08:00 Pulse 86 01/30/18 08:00 Resp 19 01/30/18 08:00 BP 158/89 H 01/30/18 08:00 Pulse Ox 98 01/30/18 08:00 - Labs Result Diagrams: 01/30/18 05:40 01/30/18 05:40 Labs: Laboratory Results - last 24 hr 01/29/18 01/29/18 01/30/18 17:44 23:31 05:40 WBC 7.3 D RBC 4.88 Hgb 14.4 Hct 42.7 MCV 87.5 MCH 29.4 MCHC 33.6 RDW 13.3 Plt Count 236 MPV 9.9 Neut % (Auto) 77.7 H Lymph % (Auto) 14.6 L Pierce % (Auto) 6.0 Eos % (Auto) 1.2 Baso % (Auto) 0.5 Neut # (Auto) 5.7 Lymph # (Auto) 1.1 Pierce # (Auto) 0.4 Eos # (Auto) 0.1 Baso # (Auto) 0.0 Sodium Potassium Chloride Carbon Dioxide Anion Gap BUN Creatinine Est GFR ( Amer) Est GFR (Non-Af Amer) POC Glucose (mg/dL) 99 85 Random Glucose Calcium Phosphorus Magnesium Total Bilirubin AST ALT Alkaline Phosphatase Total Protein Albumin Globulin Albumin/Globulin Ratio 01/30/18 01/30/18 05:40 11:37 WBC RBC Hgb Hct MCV MCH MCHC RDW Plt Count MPV Neut % (Auto) Lymph % (Auto) Pierce % (Auto) Eos % (Auto) Baso % (Auto) Neut # (Auto) Lymph # (Auto) Pierce # (Auto) Eos # (Auto) Baso # (Auto) Sodium 137 Potassium 3.5 L Chloride 103 Carbon Dioxide 26 Anion Gap 11 BUN 7 L Creatinine 0.3 L Est GFR ( Amer) > 60 Est GFR (Non-Af Amer) > 60 POC Glucose (mg/dL) 86 Random Glucose 78 Calcium 7.8 L Phosphorus 3.0 Magnesium 1.8 Total Bilirubin 1.6 H AST 26 ALT 36 Alkaline Phosphatase 50 Total Protein 5.6 L Albumin 3.1 L Globulin 2.6 Albumin/Globulin Ratio 1.2 Attending/Attestation - Attestation I have personally seen and examined this patient.: Yes I have fully participated in the care of the patient.: Yes I have reviewed all pertinent clinical information: Yes Notes (Text): 01/30/18 13:23 I have seen and examined patient with GI fellow. Agree with above documentation with the following additions. In brief, this is a 52 year old male with history of MS, HTN, who presents to hospital with complaint of abdominal pain and vomiting which began two days ago. Prior to this he was in usual state of health, though he did have a recent hospitalization with similar complaints following prostate biopsy which was attributed to effects of anesthesia. He is currently seen resting in bed, complains of ongoing severe nausea and RLQ abdominal pain. He has been dry heaving but no emesis since yesterday. He was noted to have EPS related symptoms following anti-nausea medication administered in ED which has since resolved. He apparently had an EGD several years ago which was normal as per patient, no prior colonoscopy. MS HTN Abdominal pain, nausea, vomiting - Clear liquid diet as tolerated - Continue with IVF hydration, supportive care - Tigan ordered by medical team, observe for clinical response - Suggest avoidance of agents like Reglan given EPS side effects and underlying demyelinating disorder. May use Zofran which has less risk of associated EPS. - Suggest bowel regimen given presence of fecal retention on imaging - Follow up neurology recommendations - If symptoms persist despite conservative management, suggest EGD evaluation. Will continue to monitor patient clinical course.
[2018-01-30] MEDS: Sodium Chloride 0.9% 1,000 ML IV SCH ×4 (14:23→16:11)
--- NOTE | 2018-01-30 14:46 | CP.PCM.CON ---
History of Present Illness - History of Present Illness History of Present Illness: Consult for Dr. Arreola Patient is 52 year old Male with past medical history of Chronic Inflammatory Demyelinating Polyneuropathy (CIDP), HTN, depression, anxiety and prostatic enlargement who presents to the ED for abdominal pain, with nausea and dry wretching. Patient was diagnosed with CIDP in 2004 and has been following Dr. Ronquillo since. He has been receiving three IVIG treatments per month and his last treatment was in November 2017. He did not received treatments in December because he was hospitalized. Family is at bedside and providing the history as patient is uncooperative, lethargic, and non verbal at this time. Review of systems not obtained due to patient's condition. PMD: Dr. Hadley Neurologist: Dr. Ronquillo Pmhx: CIDP affecting upper and lower extremities (diagnosed 2007), HTN, Prostatic enlargement Surghx: Prostate biopsy 01/03/18 FHx: Diabetes, HTN (mother) SocHx: denies alcohol, tobacco or illegal drug use, Lives with and mother, disabled. Allergies: promethazine Meds: Zofran 4mg Q8hrs PRN, Losartan 50mg PO QD, Citalopram (celexa) 10mg QD, Ciprofloxacin 500 mg PO Q12h Review of Systems - Review of Systems Systems not reviewed;Unavailable: Uncooperative (aphasic, lethargic, uncooperative) Past Patient History - Past Medical History & Family History Past Medical History?: Yes - Past Social History Smoking Status: Never Smoked - CARDIAC Hx Hypertension: Yes - NEUROLOGICAL Hx Multiple Sclerosis: Yes (CIDP) - MUSCULOSKELETAL/RHEUMATOLOGICAL Hx Falls: No Other/Comment: Muscular dystrophy - GASTROINTESTINAL Hx Colitis: Yes Hx Nausea: Yes - GENITOURINARY/GYNECOLOGICAL Hx Prostate Problems: Yes - PSYCHIATRIC Hx Substance Use: No - SURGICAL HISTORY Hx Surgeries: No - ANESTHESIA Hx Anesthesia: Yes Meds Allergies/Adverse Reactions: Allergies Allergy/AdvReac Type Severity Reaction Status Date / Time promethazine AdvReac NAUSEA Verified 01/29/18 17:35 - Medications Medications: Current Medications Bisacodyl (Dulcolax) 10 mg [place] DAILY [facility] Last Admin: 01/30/18 13:37 Dose: 10 mg Dextrose (Dextrose 50% Inj) 0 ml IVP .STAT PRN; Protocol PRN Reason: Hypoglycemia Protocol Dextrose (Glutose 15) 0 gm PO .ONCE PRN; Protocol PRN Reason: Hypoglycemia Protocol Enalaprilat (Vasotec) 1.25 mg IV Q6H [facility] Last Admin: 01/30/18 13:37 Dose: 1.25 mg Glucagon (Glucagen Diagnostic Kit) 0 mg IM .STAT PRN; Protocol PRN Reason: Hypoglycemia Protocol Heparin Sodium (Porcine) (Heparin) 5,000 units SC Q12 [facility] Last Admin: 01/30/18 09:51 Dose: 5,000 units Sodium Chloride (Sodium Chloride 0.9%) 1,000 mls @ 125 mls/hr IV .Q8H [facility] Last Admin: 01/30/18 14:23 Dose: Not Given Dextrose (Dextrose 5% In Water 1000 Ml) 1,000 mls @ 0 mls/hr IV .Q0M PRN; Protocol PRN Reason: Hypoglycemia Protocol Ciprofloxacin (Cipro 400mg/200ml Dsw) 400 mg in 200 mls @ 133 mls/hr IVPB Q12H [facility]; Protocol Last Admin: 01/30/18 06:42 Dose: 133 mls/hr Ketorolac Tromethamine (Toradol) 15 mg IVP Q6 PRN PRN Reason: Pain, moderate (4-7) Ketorolac Tromethamine (Toradol) 30 mg IVP Q6 PRN PRN Reason: Pain, severe (8-10) Last Admin: 01/30/18 10:44 Dose: 30 mg Lorazepam (Ativan) 1 mg IVP Q6H PRN PRN Reason: Anxiety Last Admin: 01/30/18 14:24 Dose: 1 mg Pantoprazole Sodium (Protonix Inj) 40 mg IVP DAILY [facility] Last Admin: 01/30/18 09:53 Dose: 40 mg Physical Exam - Constitutional Appears: Other Additional comments: Lethargic - Head Exam Head Exam: NORMAL INSPECTION - Eye Exam Eye Exam: Normal appearance. absent: EOMI (difficult to assess as patient is not cooperating) - Respiratory Exam Respiratory Exam: NORMAL BREATHING PATTERN. absent: Respiratory Distress - Cardiovascular Exam Cardiovascular Exam: +S1, +S2 - GI/Abdominal Exam GI & Abdominal Exam: Soft. absent: Distended, Tenderness - Extremities Exam Additional comments: +1 reflexes b/l LE, sensory exam difficult to assess as patient is not cooperating; passive motor strength of LE 0/5, Packer Insulation 2/5, UE 3-4/5. Active motor strength difficult to assess as patient is not cooperating - Neurological Exam Neurological exam: Motor Sensory Deficit, Reflexes Normal Additional comments: Neurologic exam difficult to assess as patient is not cooperating; +1 reflexes b/l LE, passive motor strength of LE 0/5, Packer Insulation 2/5, UE 3-4/5. Active motor strength difficult to assess as patient is not cooperating - Psychiatric Exam Psychiatric exam: Flat Affect - Skin Skin Exam: Normal Color, Warm Results - Vital Signs Recent Vital Signs: Last Vital Signs Temp 98.3 F 01/30/18 12:00 Pulse 98 H 01/30/18 12:00 Resp 18 01/30/18 12:00 BP 158/85 H 01/30/18 13:37 Pulse Ox 100 01/30/18 12:00 - Labs Result Diagrams: 01/30/18 05:40 01/30/18 05:40 Labs: Laboratory Results - last 24 hr 01/29/18 01/29/18 01/30/18 17:44 23:31 05:40 WBC 7.3 D RBC 4.88 Hgb 14.4 Hct 42.7 MCV 87.5 MCH 29.4 MCHC 33.6 RDW 13.3 Plt Count 236 MPV 9.9 Neut % (Auto) 77.7 H Lymph % (Auto) 14.6 L Sawyer % (Auto) 6.0 Eos % (Auto) 1.2 Baso % (Auto) 0.5 Neut # (Auto) 5.7 Lymph # (Auto) 1.1 Sawyer # (Auto) 0.4 Eos # (Auto) 0.1 Baso # (Auto) 0.0 Sodium Potassium Chloride Carbon Dioxide Anion Gap BUN Creatinine Est GFR ( Amer) Est GFR (Non-Af Amer) POC Glucose (mg/dL) 99 85 Random Glucose Calcium Phosphorus Magnesium Total Bilirubin AST ALT Alkaline Phosphatase Total Protein Albumin Globulin Albumin/Globulin Ratio 01/30/18 01/30/18 05:40 11:37 WBC RBC Hgb Hct MCV MCH MCHC RDW Plt Count MPV Neut % (Auto) Lymph % (Auto) Sawyer % (Auto) Eos % (Auto) Baso % (Auto) Neut # (Auto) Lymph # (Auto) Sawyer # (Auto) Eos # (Auto) Baso # (Auto) Sodium 137 Potassium 3.5 L Chloride 103 Carbon Dioxide 26 Anion Gap 11 BUN 7 L Creatinine 0.3 L Est GFR ( Amer) > 60 Est GFR (Non-Af Amer) > 60 POC Glucose (mg/dL) 86 Random Glucose 78 Calcium 7.8 L Phosphorus 3.0 Magnesium 1.8 Total Bilirubin 1.6 H AST 26 ALT 36 Alkaline Phosphatase 50 Total Protein 5.6 L Albumin 3.1 L Globulin 2.6 Albumin/Globulin Ratio 1.2 Assessment & Plan - Assessment and Plan (Free Text) Plan: 52 year old Male with Pmhx of Chronic Inflammatory Demyelinating Polyneuropathy (CIDP), HTN, depression, anxiety and prostatic enlargement who presents to the ED for abdominal pain, with nausea and dry wretching. Neurologist, Dr. Arreola, was consulted for management of CIDP. The patient normally received 3 IVIG treatments per month; his last treatment was in November 2017 [missed December treatment due to hospitalization]. Plan: Chronic Inflammatory Demyelinating Polyneuropathy (CIDP) - Will order IVIG. - If patient does not improve/continues to worsen, may consider EEG. Case discuss with Dr. Maxwell Bagley, PGY2
--- NOTE | 2018-01-30 15:01 | CARD ---
APPROVED REPORT Date of service: 01/28/2018 EKG Measurement Heart [id number] <Conclusion> Normal sinus rhythm Possible Left atrial enlargement Left anterior fascicular block Cannot rule out Anterior infarct, age undetermined Abnormal ECG
[2018-01-30] MEDS ORDERED: DiphenhydrAMINE 50 mg/ml Inj IVP ONE (21:30)
[2018-01-30] MEDS ORDERED: Immune Globulin 50 MG/ML (OCTAGAM 5%) 10 GM/200 ML IV ONE (22:00)
[2018-01-30] MEDS: IMMUNE GLOBULIN IV SCH (22:23)
[2018-01-31] MEDS: Enalaprilat 2.5 MG/2 ML IV SCH ×4 (00:33→21:44)
[2018-01-31] MEDS: Sodium Chloride 0.9% 1,000 ML IV SCH ×4 (00:48→21:45)
[2018-01-31] MEDS: Ciprofloxacin 400mg/200ml D5W 400 MG/200 ML BAG IVPB SCH ×2 (06:04→18:00)
[2018-01-31 08:47] LABS: BASO % 0.5 % (0.0-2.0); EOS % 0.3 % (0.0-4.0); LYMPH # 1.6 K/uL (1.0-4.3); LYMPH % 19.6 % (20.0-40.0); MEAN CELL VOLUME 88.9 fL (80.0-94.0); MEAN CORPUSCULAR HEMOGLOBIN 30.1 pg (27.0-31.0); MEAN CORPUSCULAR HGB CONC 33.9 g/dL (33.0-37.0); MEAN PLATELET VOLUME 10.2 fL (7.2-11.7); MONO # 0.9 K/uL (0.0-0.8); MONO % 10.7 % (0.0-10.0); NEUT # 5.5 K/uL (1.8-7.0); NEUT % 68.9 % (50.0-75.0); NRBC % 0.1 % (0.0-2.0); RBC 5.56 Mil/uL (4.40-5.90); RED CELL DISTRIBUTION WIDTH 13.1 % (11.5-14.5)
[2018-01-31 08:48] LABS: HEMOGLOBIN 16.7 g/dL (12.0-18.0)
[2018-01-31 09:09] LABS: ALB/GLOB RATIO 1.1 (1.0-2.1); ALBUMIN 3.4 g/dL (3.5-5.0); ALT/SGPT 33 U/L (21-72); AST/SGOT 26 U/L (17-59); BLOOD UREA NITROGEN 8 mg/dL (9-20); CALCIUM 9.1 mg/dl (8.6-10.4); GFR NON-AFRICAN AMERICAN > 60
[2018-01-31] MEDS ORDERED: Potassium Chloride 20 mEq ER Tab PO ONE (09:37)
--- NOTE | 2018-01-31 09:37 | CP.PCM.PN ---
<JennyGarcíamatt - Last Filed: 01/31/18 09:38> Subjective - Date & Time of Evaluation Date of Evaluation: 01/31/18 Time of Evaluation: 07:45 - Subjective Subjective: PGY-4 GI Fellow Prog Note Pt lying in bed sleeping this AM. Minimally conversive but states that he feels better than yesterday with only mild nausea, no dry heaves/emesis. Nursing reports multiple BMs overnight and some low blood sugars, but pt states plans on taking liquid diet soon. 5 point ROS negative other than stated above Objective - Vital Signs/Intake and Output Vital Signs (last 24 hours): Temp Pulse Resp BP Pulse Ox 98.5 F 81 20 126/79 98 01/31/18 07:50 01/31/18 08:19 01/31/18 07:50 01/31/18 07:50 01/31/18 07:50 Intake and Output: 01/31/18 01/31/18 06:59 18:59 Intake Total 750 Output Total 800 Balance -50 - Medications Medications: Current Medications Bisacodyl (Dulcolax) 10 mg [place] DAILY [facility] Last Admin: 01/30/18 13:37 Dose: 10 mg Dextrose (Dextrose 50% Inj) 0 ml IVP .STAT PRN; Protocol PRN Reason: Hypoglycemia Protocol Last Admin: 01/31/18 00:53 Dose: 50 ml Dextrose (Glutose 15) 0 gm PO .ONCE PRN; Protocol PRN Reason: Hypoglycemia Protocol Enalaprilat (Vasotec) 1.25 mg IV Q6H [facility] Last Admin: 01/31/18 06:03 Dose: 1.25 mg Famotidine (Pepcid) 20 mg IVP ONCE ONE Stop: 01/31/18 21:31 Glucagon (Glucagen Diagnostic Kit) 0 mg IM .STAT PRN; Protocol PRN Reason: Hypoglycemia Protocol Heparin Sodium (Porcine) (Heparin) 5,000 units SC Q12 [facility] Last Admin: 01/30/18 22:10 Dose: 5,000 units Sodium Chloride (Sodium Chloride 0.9%) 1,000 mls @ 125 mls/hr IV .Q8H [facility] Last Admin: 01/31/18 06:12 Dose: 125 mls/hr Dextrose (Dextrose 5% In Water 1000 Ml) 1,000 mls @ 0 mls/hr IV .Q0M PRN; Protocol PRN Reason: Hypoglycemia Protocol Last Admin: 01/31/18 07:34 Dose: 100 mls/hr Ciprofloxacin (Cipro 400mg/200ml Dsw) 400 mg in 200 mls @ 133 mls/hr IVPB Q12H [facility]; Protocol Last Admin: 01/31/18 06:04 Dose: 133 mls/hr Immune Globulin (Gamunex 10%) 290 mls @ 17.28 mls/hr IV Q24H [facility] Stop: 02/01/18 14:47 Last Admin: 01/30/18 22:23 Dose: 17.28 mls/hr Ketorolac Tromethamine (Toradol) 15 mg IVP Q6 PRN PRN Reason: Pain, moderate (4-7) Ketorolac Tromethamine (Toradol) 30 mg IVP Q6 PRN PRN Reason: Pain, severe (8-10) Last Admin: 01/30/18 10:44 Dose: 30 mg Lorazepam (Ativan) 1 mg IVP Q6H PRN PRN Reason: Anxiety Last Admin: 01/30/18 22:36 Dose: 1 mg Pantoprazole Sodium (Protonix Inj) 40 mg IVP DAILY [facility] Last Admin: 01/30/18 09:53 Dose: 40 mg - Labs Labs: 01/31/18 08:33 01/31/18 08:33 - Constitutional Appears: Chronically Ill, Other (tired) - Head Exam Head Exam: ATRAUMATIC, NORMAL INSPECTION - Eye Exam Eye Exam: EOMI. absent: Scleral icterus - ENT Exam ENT Exam: Mucous Membranes Dry. absent: Mucous Membranes Moist - GI/Abdominal Exam GI & Abdominal Exam: Soft, Normal Bowel Sounds. 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 # Nausea/Vomiting: Unclear etiology. However, given constellation of urinary retention and constipation with large stool burden, wonder if all related to underlying neurologic disorder (CIDP) or anticholinergic syndrome. Improved today post-IVIG on 01/30 # CRC Screening: Never had any CRC screening prior Plan: - Neurology consulted, appreciate recs, seems patient missed dose of IVIG in December which may be contributing to presentation; received dose in PM of 01/30 and pt reports some improvement of symptoms this AM - On Clear Liq Diet - Monitor for further constipation; daily bisacodyl - Lorazepam PRN nausea - Cautious use of ondansetron given EPS concerns, found relief with prior - Avoid metoclopramide given EPS - PPI QD - Avoid anti-cholinergics, narcotics as able - IVF, Blake placement/Prostate management per primary - May consider EGD pending course - Recommend outpatient Colonoscopy for CRC screening Pt seen and examined with Dr. Quijano; please see attestation for further re cs/changes. Hernan Alvarado, PGY-4 <Ankit Quijano - Last Filed: 01/31/18 12:22> Objective - Vital Signs/Intake and Output Vital Signs (last 24 hours): Temp Pulse Resp BP Pulse Ox 98.5 F 81 20 126/79 98 01/31/18 07:50 01/31/18 08:19 01/31/18 07:50 01/31/18 07:50 01/31/18 07:50 Intake and Output: 01/31/18 01/31/18 06:59 18:59 Intake Total 750 Output Total 800 Balance -50 - Medications Medications: Current Medications Bisacodyl (Dulcolax) 10 mg ME DAILY [facility] Last Admin: 01/31/18 10:14 Dose: Not Given Dextrose (Dextrose 50% Inj) 0 ml IVP .STAT PRN; Protocol PRN Reason: Hypoglycemia Protocol Last Admin: 01/31/18 00:53 Dose: 50 ml Dextrose (Glutose 15) 0 gm PO .ONCE PRN; Protocol PRN Reason: Hypoglycemia Protocol Enalaprilat (Vasotec) 1.25 mg IV Q6H [facility] Last Admin: 01/31/18 06:03 Dose: 1.25 mg Famotidine (Pepcid) 20 mg IVP ONCE ONE Stop: 01/31/18 21:31 Glucagon (Glucagen Diagnostic Kit) 0 mg IM .STAT PRN; Protocol PRN Reason: Hypoglycemia Protocol Heparin Sodium (Porcine) (Heparin) 5,000 units SC Q12 [facility] Last Admin: 01/31/18 10:32 Dose: 5,000 units Dextrose (Dextrose 5% In Water 1000 Ml) 1,000 mls @ 0 mls/hr IV .Q0M PRN; Protocol PRN Reason: Hypoglycemia Protocol Last Admin: 01/31/18 07:34 Dose: 100 mls/hr Ciprofloxacin (Cipro 400mg/200ml Dsw) 400 mg in 200 mls @ 133 mls/hr IVPB Q12H [facility]; Protocol Last Admin: 01/31/18 06:04 Dose: 133 mls/hr Immune Globulin (Gamunex 10%) 290 mls @ 17.28 mls/hr IV Q24H [facility] Stop: 02/01/18 14:47 Last Admin: 01/30/18 22:23 Dose: 17.28 mls/hr Potassium Chloride (Potassium Chloride 10 Meq/100 Ml) 10 meq in 100 mls @ 100 mls/hr IVPB Q1H [facility] Stop: 01/31/18 15:44 Last Admin: 01/31/18 12:06 Dose: 100 mls/hr Sodium Chloride (Sodium Chloride 0.9%) 1,000 mls @ 125 mls/hr IV .Q8H [facility] Last Admin: 01/31/18 12:06 Dose: 125 mls/hr Ketorolac Tromethamine (Toradol) 15 mg IVP Q6 PRN PRN Reason: Pain, moderate (4-7) Ketorolac Tromethamine (Toradol) 30 mg IVP Q6 PRN PRN Reason: Pain, severe (8-10) Last Admin: 01/31/18 12:05 Dose: 30 mg Lorazepam (Ativan) 1 mg IVP Q6H PRN PRN Reason: Anxiety Last Admin: 01/30/18 22:36 Dose: 1 mg Pantoprazole Sodium (Protonix Inj) 40 mg IVP DAILY [facility] Last Admin: 01/31/18 10:32 Dose: 40 mg - Labs Labs: 01/31/18 08:33 01/31/18 08:33 Attending/Attestation - Attestation I have personally seen and examined this patient.: Yes I have fully participated in the care of the patient.: Yes I have reviewed all pertinent clinical information, including history, physical exam and plan: Yes Notes (Text): 01/31/18 12:20 I have seen and examined patient with GI fellow. No acute events overnight, he reports ongoing nausea but denies vomiting, fever/chills. He feels improved compared to yesterday and was able to tolerate sips of liquid today without difficulty. He also had multiple bowel movements overnight as per nursing staff. Review of vitals from today are normal. CIDP / MS Nausea, vomiting - improved - Liquid diet as tolerated - Symptom improvement noted following IVIG treatment, follow up neurology recommendations - Maintain bowel regimen to prevent constipation - Anti-emetic therapy PRN - Continue with PPI therapy - Will continue to monitor patient clinical course
--- NOTE | 2018-01-31 09:38 | CP.PCM.PN ---
<Eduar Hooks - Last Filed: 01/31/18 16:08> Subjective - Date & Time of Evaluation Date of Evaluation: 01/31/18 Time of Evaluation: 09:38 - Subjective Subjective: PGY1 Medicine progress note for Dr. Hiram Gomes Pt was seen and examined at bedside. Pt reports improvement of nausea, but still feels weak. He reports multiple bowel movements yesterday, but none today. He states that he hasn't been eating or drinking because of the nausea. Denies fever, chills, chest pain, sob, vomiting, diarrhea, hematochezia, melena, dizziness, Objective - Vital Signs/Intake and Output Vital Signs (last 24 hours): Temp Pulse Resp BP Pulse Ox 98.5 F 81 20 126/79 98 01/31/18 07:50 01/31/18 08:19 01/31/18 07:50 01/31/18 07:50 01/31/18 07:50 Intake and Output: 01/31/18 01/31/18 06:59 18:59 Intake Total 750 Output Total 800 Balance -50 - Medications Medications: Current Medications Bisacodyl (Dulcolax) 10 mg [place] DAILY [facility] Last Admin: 01/30/18 13:37 Dose: 10 mg Dextrose (Dextrose 50% Inj) 0 ml IVP .STAT PRN; Protocol PRN Reason: Hypoglycemia Protocol Last Admin: 01/31/18 00:53 Dose: 50 ml Dextrose (Glutose 15) 0 gm PO .ONCE PRN; Protocol PRN Reason: Hypoglycemia Protocol Enalaprilat (Vasotec) 1.25 mg IV Q6H [facility] Last Admin: 01/31/18 06:03 Dose: 1.25 mg Famotidine (Pepcid) 20 mg IVP ONCE ONE Stop: 01/31/18 21:31 Glucagon (Glucagen Diagnostic Kit) 0 mg IM .STAT PRN; Protocol PRN Reason: Hypoglycemia Protocol Heparin Sodium (Porcine) (Heparin) 5,000 units SC Q12 [facility] Last Admin: 01/30/18 22:10 Dose: 5,000 units Sodium Chloride (Sodium Chloride 0.9%) 1,000 mls @ 125 mls/hr IV .Q8H [facility] Last Admin: 01/31/18 06:12 Dose: 125 mls/hr Dextrose (Dextrose 5% In Water 1000 Ml) 1,000 mls @ 0 mls/hr IV .Q0M PRN; Protocol PRN Reason: Hypoglycemia Protocol Last Admin: 01/31/18 07:34 Dose: 100 mls/hr Ciprofloxacin (Cipro 400mg/200ml Dsw) 400 mg in 200 mls @ 133 mls/hr IVPB Q12H [facility]; Protocol Last Admin: 01/31/18 06:04 Dose: 133 mls/hr Immune Globulin (Gamunex 10%) 290 mls @ 17.28 mls/hr IV Q24H [facility] Stop: 02/01/18 14:47 Last Admin: 01/30/18 22:23 Dose: 17.28 mls/hr Potassium Chloride (Potassium Chloride 10 Meq/100 Ml) 10 meq in 100 mls @ 100 mls/hr IVPB Q1H [facility] Stop: 01/31/18 12:44 Ketorolac Tromethamine (Toradol) 15 mg IVP Q6 PRN PRN Reason: Pain, moderate (4-7) Ketorolac Tromethamine (Toradol) 30 mg IVP Q6 PRN PRN Reason: Pain, severe (8-10) Last Admin: 01/30/18 10:44 Dose: 30 mg Lorazepam (Ativan) 1 mg IVP Q6H PRN PRN Reason: Anxiety Last Admin: 01/30/18 22:36 Dose: 1 mg Pantoprazole Sodium (Protonix Inj) 40 mg IVP DAILY [facility] Last Admin: 01/30/18 09:53 Dose: 40 mg Potassium Chloride (K-Dur 20 Meq Er Tab) 40 meq PO ONCE ONE Stop: 01/31/18 09:38 - Labs Labs: 01/31/18 08:33 01/31/18 08:33 - Constitutional Appears: Non-toxic, No Acute Distress, Chronically Ill - Head Exam Head Exam: NORMAL INSPECTION - Eye Exam Eye Exam: EOMI, Normal appearance - ENT Exam ENT Exam: Mucous Membranes Moist - Respiratory Exam Respiratory Exam: Clear to Ausculation Bilateral. absent: Rales, Rhonchi, Wheezes, Respiratory Distress - Cardiovascular Exam Cardiovascular Exam: REGULAR RHYTHM, +S1, +S2 - GI/Abdominal Exam GI & Abdominal Exam: Soft, Normal Bowel Sounds. absent: Distended, Firm, Guarding, Rigid, Tenderness, Rebound - Neurological Exam Neurological Exam: Alert, Awake, Oriented x3 - Psychiatric Exam Psychiatric exam: Depressed, Normal Affect - Skin Skin Exam: Dry, Normal Color, Warm Assessment and Plan - Assessment and Plan (Free Text) Assessment: This is a 52 year old Male with Pmhx of Chronic Inflammatory Demyelinating Polyneuropathy (CIDP), HTN, depression, anxiety and prostatic enlargement who presents to the ED for abdominal pain, with nausea and dry wretching. Found to have urinary retention and constipation. Pt has been responding well to west catheter insertion for urinary retention and fleet enemas to help with constipation. Pt started on IVIG. Plan: CIDP (chronic inflammatory demyelinating polyneuropathy) Patient has had this diagnosed in 2004 Case discussed at length with pt and sister. Pt's abdominal pain and nausea and vomiting is secondary to CIDP. Pt has not followed up with Dr. ely since november. Pt's EPS symtopms are due to the phenergan given in the ED. Pt has been moving his bowel well with the phosphate enemas, which we will continue. Pt has had decreased nausea as he has been moving his bowels. Case was discussed with Dr. Ely via telephone, who does not believe this is due to CIDP flare, but to give IVIG as pt has missed [address] Arreola, neurology, consulted who believes these GI symptoms are secondary to CIDP flare, and recommends IVIG over three days. Pt started on IVIG, which will be completed over 2 days Intractable nausea and vomiting, with abdominal pain Unable to use Promethazine secondary to EPS side effect Zofran alone does not control systems Patient was seen in prior hospitalization and had refused EGD due to concern for anesthesia side effect Ativan 1mg IVP Q6H prn nausea and vomiting Toradol 15 mg IVP 16h prn moderate pain, Toradol 30 mg IVP q6h prn severe pain NS IVF at 125 mL/hr GI, Dr. Quijano, consulted. Recs appreciated UTI (urinary tract infection) Patient was d/c on Cipro 01/25 to complete 5 day course last admission Restart Cipro 400mg IV Q12H for 5 days (Active since 01/29/18) Noted urinary retention on admission Patient has had recent prostate biopsy earlier in December at a different facility Blood culture prelim negative x48 hours Urine culture (01/28) negative Hypokalemia likely secondary to vomiting Repleted again today Continue to monitor K+ and Mg2+ Side effect of medication Will continue to avoid promethazine, reglan Hypertension Continue to hold home losartan due to N/V Enalapril 1.25mg IV Q6 PRN Urinary retention Had TURP earlier in December Urinary retention on admission West discontinued but pt retained urine again Continue west, with betadine three times per day Constipation Stool noted in rectum on exam Continue Phosphate enemas PPX Heparin 5000 units SC 8H Protonix 40mg IV q daily Diet: CLD as tolerated Case discussed with attending physician, Dr. Hiram Hooks <Cody Gomes - Last Filed: 02/05/18 19:07> Objective - Vital Signs/Intake and Output Vital Signs (last 24 hours): Temp Pulse Resp BP Pulse Ox 98.0 F 113 H 20 128/73 99 02/05/18 15:00 02/05/18 15:00 02/05/18 15:00 02/05/18 15:00 02/05/18 15:00 Intake and Output: 02/05/18 02/06/18 18:59 06:59 Intake Total 450 Output Total 400 Balance 50 - Medications Medications: Current Medications Acetylcysteine (Acetylcysteine 20%) 4 ml INH RQ6 [facility] Last Admin: 02/05/18 13:35 Dose: 4 ml Albuterol Sulfate (Albuterol 0.083% Inhal Zhane (2.5 Mg/3 Ml) Ud) 2.5 mg INH RQ6 [facility] Last Admin: 02/05/18 13:35 Dose: 2.5 mg Amitriptyline HCl (Elavil) 25 mg PO HS [facility] Last Admin: 02/04/18 21:31 Dose: 25 mg Bisacodyl (Dulcolax) 10 mg [place] DAILY [facility] Last Admin: 02/05/18 10:43 Dose: 10 mg Dextrose (Dextrose 50% Inj) 0 ml IVP .STAT PRN; Protocol PRN Reason: Hypoglycemia Protocol Last Admin: 01/31/18 00:53 Dose: 50 ml Dextrose (Glutose 15) 0 gm PO .ONCE PRN; Protocol PRN Reason: Hypoglycemia Protocol Gabapentin (Neurontin) 300 mg PO TID [facility] Last Admin: 02/05/18 17:47 Dose: 300 mg Glucagon (Glucagen Diagnostic Kit) 0 mg IM .STAT PRN; Protocol PRN Reason: Hypoglycemia Protocol Heparin Sodium (Porcine) (Heparin) 5,000 units SC Q12 [facility] Last Admin: 02/05/18 10:42 Dose: 5,000 units Methylprednisolone 1,000 mg/ (Sodium Chloride) 250 mls @ 125 mls/hr IVPB DAILY [facility] Stop: 02/07/18 11:59 Last Admin: 02/05/18 13:06 Dose: 125 mls/hr Lorazepam (Ativan) 0.5 mg PO TID PRN PRN Reason: Anxiety Last Admin: 02/05/18 05:49 Dose: 0.5 mg Losartan Potassium (Cozaar) 50 mg PO DAILY [facility] Last Admin: 02/05/18 10:43 Dose: 50 mg Pantoprazole Sodium (Protonix Inj) 40 mg IVP DAILY [facility] Last Admin: 02/05/18 10:38 Dose: 40 mg - Labs Labs: 02/05/18 08:33 02/05/18 08:33 Attending/Attestation - Attestation I have personally seen and examined this patient.: Yes I have fully participated in the care of the patient.: Yes I have reviewed all pertinent clinical information, including history, physical exam and plan: Yes Notes (Text): 02/05/18 19:07 This is a late entry. Care of this patient was gone over in detail with resident Dr. Hooks. Cody Gomes D.O.
--- NOTE | 2018-01-31 10:50 | CP.PCM.PN ---
Subjective - Date & Time of Evaluation Date of Evaluation: 01/31/18 Time of Evaluation: 10:47 - Subjective Subjective: Neuro Follow-Up Note: Mr. Leahy was evaluated this morning. is at bedside. He normally receives 3 IVIG treatments per month as outpatient with Dr. Ronquillo, however, he missed his December treatment (last treatment was in November). Per , pt still having dry wretching and generalized weakness. ROS limited as the pt would not answer most questions during exam. Per pt he does not want to be examined today as he has abdominal pain, and he is noted to be restless during exam. Chart reviewed; no acute overnight events. Objective - Vital Signs/Intake and Output Vital Signs (last 24 hours): Temp Pulse Resp BP Pulse Ox 98.5 F 81 20 126/79 98 01/31/18 07:50 01/31/18 08:19 01/31/18 07:50 01/31/18 07:50 01/31/18 07:50 Intake and Output: 01/31/18 01/31/18 06:59 18:59 Intake Total 750 Output Total 800 Balance -50 - Medications Medications: Current Medications Bisacodyl (Dulcolax) 10 mg [place] DAILY [facility] Last Admin: 01/31/18 10:14 Dose: Not Given Dextrose (Dextrose 50% Inj) 0 ml IVP .STAT PRN; Protocol PRN Reason: Hypoglycemia Protocol Last Admin: 01/31/18 00:53 Dose: 50 ml Dextrose (Glutose 15) 0 gm PO .ONCE PRN; Protocol PRN Reason: Hypoglycemia Protocol Enalaprilat (Vasotec) 1.25 mg IV Q6H [facility] Last Admin: 01/31/18 06:03 Dose: 1.25 mg Famotidine (Pepcid) 20 mg IVP ONCE ONE Stop: 01/31/18 21:31 Glucagon (Glucagen Diagnostic Kit) 0 mg IM .STAT PRN; Protocol PRN Reason: Hypoglycemia Protocol Heparin Sodium (Porcine) (Heparin) 5,000 units SC Q12 [facility] Last Admin: 01/31/18 10:32 Dose: 5,000 units Dextrose (Dextrose 5% In Water 1000 Ml) 1,000 mls @ 0 mls/hr IV .Q0M PRN; Protocol PRN Reason: Hypoglycemia Protocol Last Admin: 01/31/18 07:34 Dose: 100 mls/hr Ciprofloxacin (Cipro 400mg/200ml Dsw) 400 mg in 200 mls @ 133 mls/hr IVPB Q12H [facility]; Protocol Last Admin: 01/31/18 06:04 Dose: 133 mls/hr Immune Globulin (Gamunex 10%) 290 mls @ 17.28 mls/hr IV Q24H [facility] Stop: 02/01/18 14:47 Last Admin: 01/30/18 22:23 Dose: 17.28 mls/hr Potassium Chloride (Potassium Chloride 10 Meq/100 Ml) 10 meq in 100 mls @ 100 mls/hr IVPB Q1H [facility] Stop: 01/31/18 12:44 Last Admin: 01/31/18 10:32 Dose: 100 mls/hr Potassium Chloride 20 meq/ (Sodium Chloride) 1,010 mls @ 125 mls/hr IV .Q8H5M [facility] Ketorolac Tromethamine (Toradol) 15 mg IVP Q6 PRN PRN Reason: Pain, moderate (4-7) Ketorolac Tromethamine (Toradol) 30 mg IVP Q6 PRN PRN Reason: Pain, severe (8-10) Last Admin: 01/30/18 10:44 Dose: 30 mg Lorazepam (Ativan) 1 mg IVP Q6H PRN PRN Reason: Anxiety Last Admin: 01/30/18 22:36 Dose: 1 mg Pantoprazole Sodium (Protonix Inj) 40 mg IVP DAILY [facility] Last Admin: 01/31/18 10:32 Dose: 40 mg - Labs Labs: 01/31/18 08:33 01/31/18 08:33 - Constitutional Appears: In Acute Distress (restless) - Head Exam Head Exam: ATRAUMATIC, NORMAL INSPECTION, NORMOCEPHALIC - Eye Exam Eye Exam: EOMI Additional comments: unable to assess PERRLA 2/2 pt not cooperative, restless - ENT Exam ENT Exam: Mucous Membranes Moist - Neck Exam Neck Exam: Full ROM - Respiratory Exam Respiratory Exam: NORMAL BREATHING PATTERN - Extremities Exam Extremities Exam: absent: Calf Tenderness (unable to assess extremity strength and rom 2/2 pt not cooperative, restless), Full ROM, Pedal Edema - Neurological Exam Neurological Exam: Alert, Awake Additional comments: unable to perform complete neuro exam 2/2 pt uncooperative and restless; pt refusing exam at this time. [place] his head no when asked to test strength, manager part, fine motor, and sensory. - Psychiatric Exam Psychiatric exam: absent: Normal Affect (restless) - Skin Skin Exam: Normal Color Assessment and Plan (1) CIDP (chronic inflammatory demyelinating polyneuropathy) Assessment & Plan: -Mr. Leahy is receiving a total of 2 doses of IVIG -May consider EEG after IVIG and if pt shows no improvement after he completes full regimen. -Continue PT/OT. -Please notify neuro team of any acute changes. Case discuss with Dr. Arreola Status: Chronic
[2018-01-31] MEDS: IMMUNE GLOBULIN IV SCH ×2 (22:04→22:09)
[2018-02-01] MEDS: Enalaprilat 2.5 MG/2 ML IV SCH ×2 (00:04→06:30)
[2018-02-01] MEDS: Sodium Chloride 0.9% 1,000 ML IV SCH ×3 (02:56→20:05)
[2018-02-01] MEDS: Ciprofloxacin 400mg/200ml D5W 400 MG/200 ML BAG IVPB SCH ×2 (05:37→17:44)
--- NOTE | 2018-02-01 06:31 | PCM.RRT ---
VENEER DEPARTMENT MANAGER Nurses Assessment - Situation Date: 02/01/18 Time VENEER DEPARTMENT MANAGER was called: 05:26 VENEER DEPARTMENT MANAGER Responder Arrival Time:: 05:27 VENEER DEPARTMENT MANAGER Location:: Med/Surg Room Number: 563B VENEER DEPARTMENT MANAGER Reason for Call: Change in Mental Status VENEER DEPARTMENT MANAGER Called By: RN - IV IV Inserted during VENEER DEPARTMENT MANAGER?: No - Respiratory VENEER DEPARTMENT MANAGER Delivery Method: Nasal Cannula @L/min - Diagnostic Test Ordered EKG: No Chest X-Ray: No CT Scan: No CPR started during VENEER DEPARTMENT MANAGER?: No I.Reason for VENEER DEPARTMENT MANAGER - A) Acute Change in Patient: (Select all that apply): Staff member or family is worried about patient - Neurological Status (Select all that apply): Confused. absent: Responsive, Oriented, Verbal, Follows Commands, Disoriented - Respiratory Oxygen Delivery Method: Nasal Cannula @L/min - Constitutional Appears: Non-toxic, No Acute Distress - Head Head Exam: ATRAUMATIC, NORMAL INSPECTION, NORMOCEPHALIC - Eyes Eye Exam: Normal appearance - Respiratory Exam Respiratory Exam: Clear to Ausculation Bilateral, NORMAL BREATHING PATTERN - Cardiovascular Exam Cardiovascular Exam: REGULAR RHYTHM, +S1, +S2 - GI/Abdominal Exam GI & Abdominal Exam: Soft, Normal Bowel Sounds Additional comments: mild distention in pubic area - Neurological Exam Neurological Exam: Altered - Extremities Exam Extremities Exam: Full ROM, Normal Inspection Plan - Assessment of Findings&Treatment Plan Rapid response note rapid response called at 5:26 for room 563 B for patient becoming unresponsive. Upon arrival patient was wretching, spitting clear phlegm, rolling his eyes. no shaking or tremors were noticed. Vitals at arrival T 97.4, HR 84, BP 164/95, 100% RA. Patient has hx of MS. West catheter noticed to be full and was emptied, collecting 1100cc. after urine removed from west, patient was able to answer and responding. Patient states he felt pain and urinary retention, and felt nauseous and anxious. Patient has had these episodes in the past. Suction used for clear phlegm. Ativan to be given for anxiety, nausea and vomiting. End of rapid vitals BP 160/97, O2 99%, HR 81 and T 97.5. End of RR 5:40
[2018-02-01] MEDS: Acetylcysteine 20% Inhal Soln (4ml) INH SCH ×3 (07:15→13:45)
[2018-02-01 07:25] LABS: BASO % 0.4 % (0.0-2.0); EOS % 0.5 % (0.0-4.0); HEMOGLOBIN 15.2 g/dL (12.0-18.0); LYMPH # 0.7 K/uL (1.0-4.3); LYMPH % 13.4 % (20.0-40.0); MEAN CELL VOLUME 88.6 fL (80.0-94.0); MEAN CORPUSCULAR HEMOGLOBIN 30.2 pg (27.0-31.0); MEAN CORPUSCULAR HGB CONC 34.1 g/dL (33.0-37.0); MEAN PLATELET VOLUME 9.8 fL (7.2-11.7); MONO # 0.6 K/uL (0.0-0.8); MONO % 11.5 % (0.0-10.0); NEUT # 4.1 K/uL (1.8-7.0); NEUT % 74.2 % (50.0-75.0); NRBC % 0.1 % (0.0-2.0); RBC 5.03 Mil/uL (4.40-5.90); RED CELL DISTRIBUTION WIDTH 13.1 % (11.5-14.5); WHITE BLOOD COUNT 5.5 K/uL (4.8-10.8)
[2018-02-01 07:54] LABS: ALB/GLOB RATIO 0.8 (1.0-2.1); ALBUMIN 3.4 g/dL (3.5-5.0); ALT/SGPT 24 U/L (21-72); AST/SGOT 26 U/L (17-59); BLOOD UREA NITROGEN 7 mg/dL (9-20); CALCIUM 8.4 mg/dl (8.6-10.4); GFR NON-AFRICAN AMERICAN > 60
[2018-02-01] MEDS ORDERED: Potassium Phosphate 15 MMOLE in Sodium Chloride 0.9% 250 ML IVPB ONE (08:24)
--- NOTE | 2018-02-01 08:28 | CP.PCM.PN ---
<Eduar Hooks - Last Filed: 02/01/18 16:35> Subjective - Date & Time of Evaluation Date of Evaluation: 02/01/18 Time of Evaluation: 08:28 - Subjective Subjective: PGY1 Medicine progress note for Dr. Hiram Gomes Pt was seen and examined at bedside. EVAPORATOR HELPER notes reviewed, and endorsed by colleague. He continues to report some nausea. He reports that he has no pain while dry heaving, and denies any pain at this time. He reports 1 small bowel movement yesterday, none today. He states that he hasn't been eating or drinking much because of the nausea. Denies fever, chills, chest pain, sob, vomiting, diarrhea, hematochezia, melena, dizziness. Objective - Vital Signs/Intake and Output Vital Signs (last 24 hours): Temp Pulse Resp BP Pulse Ox 97.4 F L 75 20 168/94 H 100 02/01/18 07:18 02/01/18 07:18 02/01/18 07:18 02/01/18 07:18 02/01/18 07:18 Intake and Output: 02/01/18 02/01/18 06:59 18:59 Intake Total 750 Output Total 1100 Balance -350 - Medications Medications: Current Medications Acetylcysteine (Acetylcysteine 20%) 4 ml INH RQ6 [facility] Bisacodyl (Dulcolax) 10 mg [place] DAILY [facility] Last Admin: 01/31/18 10:14 Dose: Not Given Citalopram Hydrobromide (Celexa) 10 mg PO DAILY [facility] Dextrose (Dextrose 50% Inj) 0 ml IVP .STAT PRN; Protocol PRN Reason: Hypoglycemia Protocol Last Admin: 01/31/18 00:53 Dose: 50 ml Dextrose (Glutose 15) 0 gm PO .ONCE PRN; Protocol PRN Reason: Hypoglycemia Protocol Enalaprilat (Vasotec) 1.25 mg IV Q6H [facility] Last Admin: 02/01/18 06:30 Dose: 1.25 mg Glucagon (Glucagen Diagnostic Kit) 0 mg IM .STAT PRN; Protocol PRN Reason: Hypoglycemia Protocol Heparin Sodium (Porcine) (Heparin) 5,000 units SC Q12 [facility] Last Admin: 01/31/18 21:53 Dose: 5,000 units Dextrose (Dextrose 5% In Water 1000 Ml) 1,000 mls @ 0 mls/hr IV .Q0M PRN; Protocol PRN Reason: Hypoglycemia Protocol Last Admin: 01/31/18 07:34 Dose: 100 mls/hr Ciprofloxacin (Cipro 400mg/200ml Dsw) 400 mg in 200 mls @ 133 mls/hr IVPB Q12H [facility]; Protocol Stop: 02/02/18 18:00 Last Admin: 02/01/18 05:37 Dose: 133 mls/hr Immune Globulin (Gamunex 10%) 290 mls @ 17.28 mls/hr IV Q24H [facility] Stop: 02/01/18 14:47 Last Admin: 01/31/18 22:09 Dose: 17.28 mls/hr Sodium Chloride (Sodium Chloride 0.9%) 1,000 mls @ 125 mls/hr IV .Q8H [facility] Last Admin: 02/01/18 02:56 Dose: 125 mls/hr Potassium Chloride (Potassium Chloride 10 Meq/100 Ml) 10 meq in 100 mls @ 100 mls/hr IVPB ONCE ONE Stop: 02/01/18 09:23 Potassium Phosphate 15 mmole/ (Sodium Chloride) 255 mls @ 42.5 mls/hr IVPB ONCE ONE Stop: 02/01/18 14:23 Ketorolac Tromethamine (Toradol) 15 mg IVP Q6 PRN PRN Reason: Pain, moderate (4-7) Ketorolac Tromethamine (Toradol) 30 mg IVP Q6 PRN PRN Reason: Pain, severe (8-10) Last Admin: 01/31/18 12:05 Dose: 30 mg Lorazepam (Ativan) 1 mg IVP Q6H PRN PRN Reason: Anxiety Last Admin: 02/01/18 05:44 Dose: 1 mg Pantoprazole Sodium (Protonix Inj) 40 mg IVP DAILY [facility] Last Admin: 01/31/18 10:32 Dose: 40 mg - Labs Labs: 02/01/18 07:19 02/01/18 07:19 - Additional Findings Additional findings: - Constitutional Appears: Non-toxic, No Acute Distress, Chronically Ill - Head Exam Head Exam: NORMAL INSPECTION - Eye Exam Eye Exam: EOMI, Normal appearance - ENT Exam ENT Exam: Mucous Membranes Moist - Respiratory Exam Respiratory Exam: Clear to Ausculation Bilateral. absent: Rales, Rhonchi, Wheezes, Respiratory Distress - Cardiovascular Exam Cardiovascular Exam: REGULAR RHYTHM, +S1, +S2. Distal pulses are 2+ in bilateral upper and lower extremities. - GI/Abdominal Exam GI & Abdominal Exam: Soft, Normal Bowel Sounds. absent: Distended, Firm, Guarding, Rigid, Tenderness, Rebound - Neurological Exam Neurological Exam: Alert, Awake, Oriented x3. Pt continues to have weakness in bilateral upper and lower distal extremities secondary to chronic illness. - Psychiatric Exam Psychiatric exam: Depressed, Normal Affect - Skin Skin Exam: Dry, Normal Color, Warm Assessment and Plan - Assessment and Plan (Free Text) Assessment: This is a 52 year old Male with Pmhx of Chronic Inflammatory Demyelinating Polyneuropathy (CIDP), HTN, depression, anxiety and prostatic enlargement who presents to the ED for abdominal pain, with nausea and dry wretching. Found to have urinary retention and constipation. Pt has been responding well to west catheter insertion for urinary retention and fleet enemas to help with constipation. Pt completed course of IVIG. TCA started today to help with anxiety/nausea. Plan: CIDP (chronic inflammatory demyelinating polyneuropathy) Patient has had this diagnosed in 2004 Case discussed at length with pt and sister. Pt's abdominal pain and nausea and vomiting is secondary to CIDP. Pt has not followed up with Dr. ely since november. Pt's EPS symtopms are due to the phenergan given in the ED. Pt has been moving his bowel well with the phosphate enemas, which we will continue. Pt has had decreased nausea as he has been moving his bowels. Case was discussed with Dr. Ely via telephone, who does not believe this is due to CIDP flare, but to give IVIG as pt has missed [address] Arreola, neurology, consulted who believes these GI symptoms are secondary to CIDP flare, and recommends IVIG. Pt finished a 2 day course of IVIG earlier today. Intractable nausea and vomiting, with abdominal pain Unable to use Promethazine secondary to EPS side effect Zofran alone does not control systems Patient was seen in prior hospitalization and had refused EGD due to concern for anesthesia side effect Ativan 1mg IVP Q6H prn nausea and vomiting Toradol 15 mg IVP 16h prn moderate pain, Toradol 30 mg IVP q6h prn severe pain NS IVF at 125 mL/hr GI, Dr. Quijano, consulted. Recs appreciated Mucinex added to help patient expectorate the spit that he brings up while dry wretching UTI (urinary tract infection) Patient was d/c on Cipro 01/25 to complete 5 day course last admission Restart Cipro 400mg IV Q12H for 5 days (Active since 01/29/18) Noted urinary retention on admission Patient has had recent prostate biopsy earlier in December at a different facility Blood culture prelim negative x3 days Urine culture (01/28) negative Electrolyte abnormality Phosphorous 2.4, Potassium 3.3 Repleted again today Continue to monitor Side effect of medication Will continue to avoid promethazine, reglan Hypertension Home Losartan 50 mg PO QD restarted Urinary retention Had TURP earlier in December Urinary retention on admission West discontinued but pt retained urine again Continue west, with betadine three times per day Constipation Continue Dulcolax enemas Hx of anxiety Psychiatry, Dr. Elizabeth, consulted. Recs starting Amitriptyline 25 mg PO QHS over restarting home Citalopram 10 mg PO PPX Heparin 5000 units SC 8H Protonix 40mg IV q daily Diet: CLD as tolerated Dispo: continue to manage intractable dry wretching, and cleanse bowel. Pt completed course of IVIG. Case discussed with attending physician, Dr. Hiram Hooks <Cody Gomes - Last Filed: 02/05/18 19:06> Objective - Vital Signs/Intake and Output Vital Signs (last 24 hours): Temp Pulse Resp BP Pulse Ox 98.0 F 113 H 20 128/73 99 02/05/18 15:00 02/05/18 15:00 02/05/18 15:00 02/05/18 15:00 02/05/18 15:00 Intake and Output: 02/05/18 02/06/18 18:59 06:59 Intake Total 450 Output Total 400 Balance 50 - Medications Medications: Current Medications Acetylcysteine (Acetylcysteine 20%) 4 ml INH RQ6 [facility] Last Admin: 02/05/18 13:35 Dose: 4 ml Albuterol Sulfate (Albuterol 0.083% Inhal Zhane (2.5 Mg/3 Ml) Ud) 2.5 mg INH RQ6 [facility] Last Admin: 02/05/18 13:35 Dose: 2.5 mg Amitriptyline HCl (Elavil) 25 mg PO HS [facility] Last Admin: 02/04/18 21:31 Dose: 25 mg Bisacodyl (Dulcolax) 10 mg [place] DAILY [facility] Last Admin: 02/05/18 10:43 Dose: 10 mg Dextrose (Dextrose 50% Inj) 0 ml IVP .STAT PRN; Protocol PRN Reason: Hypoglycemia Protocol Last Admin: 01/31/18 00:53 Dose: 50 ml Dextrose (Glutose 15) 0 gm PO .ONCE PRN; Protocol PRN Reason: Hypoglycemia Protocol Gabapentin (Neurontin) 300 mg PO TID [facility] Last Admin: 02/05/18 17:47 Dose: 300 mg Glucagon (Glucagen Diagnostic Kit) 0 mg IM .STAT PRN; Protocol PRN Reason: Hypoglycemia Protocol Heparin Sodium (Porcine) (Heparin) 5,000 units SC Q12 [facility] Last Admin: 02/05/18 10:42 Dose: 5,000 units Methylprednisolone 1,000 mg/ (Sodium Chloride) 250 mls @ 125 mls/hr IVPB DAILY [facility] Stop: 02/07/18 11:59 Last Admin: 02/05/18 13:06 Dose: 125 mls/hr Lorazepam (Ativan) 0.5 mg PO TID PRN PRN Reason: Anxiety Last Admin: 02/05/18 05:49 Dose: 0.5 mg Losartan Potassium (Cozaar) 50 mg PO DAILY [facility] Last Admin: 02/05/18 10:43 Dose: 50 mg Pantoprazole Sodium (Protonix Inj) 40 mg IVP DAILY [facility] Last Admin: 02/05/18 10:38 Dose: 40 mg - Labs Labs: 02/05/18 08:33 02/05/18 08:33 Attending/Attestation - Attestation I have personally seen and examined this patient.: Yes I have fully participated in the care of the patient.: Yes I have reviewed all pertinent clinical information, including history, physical exam and plan: Yes Notes (Text): 02/05/18 19:06 This is a late entry. Care of this patient was gone over in detail with resident Dr. Hooks. Cody Gomes D.O.
--- NOTE | 2018-02-01 09:27 | CP.PCM.PN ---
Subjective - Date & Time of Evaluation Date of Evaluation: 02/01/18 Time of Evaluation: 09:27 - Subjective Subjective: Progress note for Dr. Arreola Patient was seen and examined at bedside in no acute distress. was at bedside. The patient was lethargic after receiving ativan around 8am and was unable to follow commands. ROS not obtained. Per and nursing, patient had a bowel movement. Of note, overnight, an radio repairman was called for altered mental status. The patient was retaining urine, west was placed, and patient became more awake. Ativan was given during the radio repairman. Objective - Vital Signs/Intake and Output Vital Signs (last 24 hours): Temp Pulse Resp BP Pulse Ox 97.4 F L 75 20 168/94 H 100 02/01/18 07:18 02/01/18 07:18 02/01/18 07:18 02/01/18 07:18 02/01/18 07:18 Intake and Output: 02/01/18 02/01/18 06:59 18:59 Intake Total 750 Output Total 1100 Balance -350 - Medications Medications: Current Medications Acetylcysteine (Acetylcysteine 20%) 4 ml INH RQ6 [facility] Bisacodyl (Dulcolax) 10 mg [place] DAILY [facility] Last Admin: 02/01/18 09:00 Dose: 10 mg Citalopram Hydrobromide (Celexa) 10 mg PO DAILY [facility] Dextrose (Dextrose 50% Inj) 0 ml IVP .STAT PRN; Protocol PRN Reason: Hypoglycemia Protocol Last Admin: 01/31/18 00:53 Dose: 50 ml Dextrose (Glutose 15) 0 gm PO .ONCE PRN; Protocol PRN Reason: Hypoglycemia Protocol Enalaprilat (Vasotec) 1.25 mg IV Q6H [facility] Last Admin: 02/01/18 06:30 Dose: 1.25 mg Glucagon (Glucagen Diagnostic Kit) 0 mg IM .STAT PRN; Protocol PRN Reason: Hypoglycemia Protocol Heparin Sodium (Porcine) (Heparin) 5,000 units SC Q12 [facility] Last Admin: 02/01/18 08:59 Dose: 5,000 units Dextrose (Dextrose 5% In Water 1000 Ml) 1,000 mls @ 0 mls/hr IV .Q0M PRN; Protocol PRN Reason: Hypoglycemia Protocol Last Admin: 01/31/18 07:34 Dose: 100 mls/hr Ciprofloxacin (Cipro 400mg/200ml Dsw) 400 mg in 200 mls @ 133 mls/hr IVPB Q12H [facility]; Protocol Stop: 02/02/18 18:00 Last Admin: 02/01/18 05:37 Dose: 133 mls/hr Immune Globulin (Gamunex 10%) 290 mls @ 17.28 mls/hr IV Q24H [facility] Stop: 02/01/18 14:47 Last Admin: 01/31/18 22:09 Dose: 17.28 mls/hr Sodium Chloride (Sodium Chloride 0.9%) 1,000 mls @ 125 mls/hr IV .Q8H [facility] Last Admin: 02/01/18 02:56 Dose: 125 mls/hr Potassium Phosphate 15 mmole/ (Sodium Chloride) 255 mls @ 42.5 mls/hr IVPB ONCE ONE Stop: 02/01/18 14:23 Ketorolac Tromethamine (Toradol) 15 mg IVP Q6 PRN PRN Reason: Pain, moderate (4-7) Ketorolac Tromethamine (Toradol) 30 mg IVP Q6 PRN PRN Reason: Pain, severe (8-10) Last Admin: 01/31/18 12:05 Dose: 30 mg Lorazepam (Ativan) 1 mg IVP Q6H PRN PRN Reason: Anxiety Last Admin: 02/01/18 05:44 Dose: 1 mg Pantoprazole Sodium (Protonix Inj) 40 mg IVP DAILY [facility] Last Admin: 02/01/18 08:59 Dose: 40 mg - Labs Labs: 02/01/18 07:19 02/01/18 07:19 - Additional Findings Additional findings: - Constitutional Appears: Lethargic/sedated - Head Exam Head Exam: NORMAL INSPECTION - Eye Exam Eye Exam: Normal appearance, PERRLA; absent: EOMI (difficult to assess as patient is not cooperating) - Respiratory Exam Respiratory Exam: NORMAL BREATHING PATTERN. absent: Respiratory Distress - Cardiovascular Exam Cardiovascular Exam: +S1, +S2 - GI/Abdominal Exam GI & Abdominal Exam: Soft. absent: Distended, Tenderness - Extremities Exam Additional comments: +1 reflexes b/l LE, sensory and motor exam difficult to assess as patient is not cooperating and is lethargic - Neurological Exam Neurological exam: Motor Sensory Deficit, Reflexes Normal Additional comments: Neurologic exam difficult to assess as patient is not cooperating; +1 reflexes b/l LE, sensory and motor exam difficult to assess as patient is not cooperating and is lethargic - Psychiatric Exam Psychiatric exam: Flat Affect - Skin Skin Exam: Normal Color, Warm Assessment and Plan - Assessment and Plan (Free Text) Plan: 52 year old Male with Pmhx of Chronic Inflammatory Demyelinating Polyneuropathy (CIDP), HTN, depression, anxiety and prostatic enlargement who presents to the ED for abdominal pain, with nausea and dry wretching. Neurologist, Dr. Arreola, was consulted for management of CIDP. The patient normally receives 3 IVIG treatments per month; his last treatment was in November 2017 [missed December treatment due to hospitalization]. Plan: Chronic Inflammatory Demyelinating Polyneuropathy (CIDP) - Patient has received total of 2 doses of IVIG. - Ordered EEG to evaluate for seizure disorder. Follow up. - Continue PT/OT. Case discuss with Dr. Maxwell Bagley, PGY2
--- NOTE | 2018-02-01 10:00 | CP.PCM.PN ---
<JennyGarcíamatt - Last Filed: 02/01/18 09:57> Subjective - Date & Time of Evaluation Date of Evaluation: 02/01/18 Time of Evaluation: 07:00 - Subjective Subjective: PGY-4 GI Fellow Prog Note Pt lying in bed, tired during my intial encounter and states mild nausea. Rapid response event noted. When seen only [address] Quijano pt dry heaving and retching. Pt not conversive limiting history. Unable to obtain ROS due to clinical condition Objective - Vital Signs/Intake and Output Vital Signs (last 24 hours): Temp Pulse Resp BP Pulse Ox 97.4 F L 75 20 168/94 H 100 02/01/18 07:18 02/01/18 07:18 02/01/18 07:18 02/01/18 07:18 02/01/18 07:18 Intake and Output: 02/01/18 02/01/18 06:59 18:59 Intake Total 750 Output Total 1100 Balance -350 - Medications Medications: Current Medications Acetylcysteine (Acetylcysteine 20%) 4 ml INH RQ6 [facility] Bisacodyl (Dulcolax) 10 mg [place] DAILY [facility] Last Admin: 02/01/18 09:00 Dose: 10 mg Citalopram Hydrobromide (Celexa) 10 mg PO DAILY [facility] Dextrose (Dextrose 50% Inj) 0 ml IVP .STAT PRN; Protocol PRN Reason: Hypoglycemia Protocol Last Admin: 01/31/18 00:53 Dose: 50 ml Dextrose (Glutose 15) 0 gm PO .ONCE PRN; Protocol PRN Reason: Hypoglycemia Protocol Glucagon (Glucagen Diagnostic Kit) 0 mg IM .STAT PRN; Protocol PRN Reason: Hypoglycemia Protocol Heparin Sodium (Porcine) (Heparin) 5,000 units SC Q12 [facility] Last Admin: 02/01/18 08:59 Dose: 5,000 units Dextrose (Dextrose 5% In Water 1000 Ml) 1,000 mls @ 0 mls/hr IV .Q0M PRN; Protocol PRN Reason: Hypoglycemia Protocol Last Admin: 01/31/18 07:34 Dose: 100 mls/hr Ciprofloxacin (Cipro 400mg/200ml Dsw) 400 mg in 200 mls @ 133 mls/hr IVPB Q12H [facility]; Protocol Stop: 02/02/18 18:00 Last Admin: 02/01/18 05:37 Dose: 133 mls/hr Immune Globulin (Gamunex 10%) 290 mls @ 17.28 mls/hr IV Q24H [facility] Stop: 02/01/18 14:47 Last Admin: 01/31/18 22:09 Dose: 17.28 mls/hr Sodium Chloride (Sodium Chloride 0.9%) 1,000 mls @ 125 mls/hr IV .Q8H [facility] Last Admin: 02/01/18 02:56 Dose: 125 mls/hr Potassium Phosphate 15 mmole/ (Sodium Chloride) 255 mls @ 42.5 mls/hr IVPB ONCE ONE Stop: 02/01/18 14:23 Ketorolac Tromethamine (Toradol) 15 mg IVP Q6 PRN PRN Reason: Pain, moderate (4-7) Ketorolac Tromethamine (Toradol) 30 mg IVP Q6 PRN PRN Reason: Pain, severe (8-10) Last Admin: 01/31/18 12:05 Dose: 30 mg Lorazepam (Ativan) 1 mg IVP Q6H PRN PRN Reason: Anxiety Last Admin: 02/01/18 05:44 Dose: 1 mg Losartan Potassium (Cozaar) 50 mg PO DAILY [facility] Pantoprazole Sodium (Protonix Inj) 40 mg IVP DAILY [facility] Last Admin: 02/01/18 08:59 Dose: 40 mg - Labs Labs: 02/01/18 07:19 02/01/18 07:19 - Constitutional Appears: In Acute Distress, Chronically Ill - Head Exam Head Exam: ATRAUMATIC, NORMAL INSPECTION - Eye Exam Eye Exam: EOMI. absent: Scleral icterus - ENT Exam ENT Exam: Mucous Membranes Dry. absent: Mucous Membranes Moist - GI/Abdominal Exam GI & Abdominal Exam: Soft, Normal Bowel Sounds. 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 # Nausea/Vomiting: Unclear etiology. However, given constellation of N/V, urinary retention, constipation with large stool burden, wonder if all related to underlying neurologic disorder (CIDP) or anticholinergic syndrome. Improved post-IVIG on 01/30, second dose in PM of 01/31. # CRC Screening: Never had any CRC screening prior Plan: - Neurology consulted, appreciate recs, seems patient missed all doses of IVIG in December which likely cause of presentation --- IVIG per Neuro - On Clear Liq Diet, encourage to attempt some PO intake - Monitor for further constipation; daily bisacodyl - Lorazepam PRN nausea - Cautious use of ondansetron given EPS concerns, found relief with prior - Avoid metoclopramide given EPS - PPI QD - Avoid anti-cholinergics and narcotics as able - IVF, Blake placement/Prostate management per primary - May consider EGD pending course - Recommend outpatient Colonoscopy for CRC screening Pt seen and examined with Dr. Quijano; please see attestation for further recs/changes. Hernan Alvarado, PGY-4 <Ankit Quijano - Last Filed: 02/01/18 11:46> Objective - Vital Signs/Intake and Output Vital Signs (last 24 hours): Temp Pulse Resp BP Pulse Ox 97.4 F L 75 20 171/92 H 100 02/01/18 07:18 02/01/18 07:18 02/01/18 07:18 02/01/18 11:08 02/01/18 07:18 Intake and Output: 02/01/18 02/01/18 06:59 18:59 Intake Total 750 Output Total 1100 Balance -350 - Medications Medications: Current Medications Acetylcysteine (Acetylcysteine 20%) 4 ml INH RQ6 [facility] Last Admin: 02/01/18 08:00 Dose: Not Given Albuterol Sulfate (Albuterol 0.083% Inhal Zhane (2.5 Mg/3 Ml) Ud) 2.5 mg INH RQ6 [facility] Amitriptyline HCl (Elavil) 25 mg PO HS [facility] Bisacodyl (Dulcolax) 10 mg [place] DAILY [facility] Last Admin: 02/01/18 09:00 Dose: 10 mg Dextrose (Dextrose 50% Inj) 0 ml IVP .STAT PRN; Protocol PRN Reason: Hypoglycemia Protocol Last Admin: 01/31/18 00:53 Dose: 50 ml Dextrose (Glutose 15) 0 gm PO .ONCE PRN; Protocol PRN Reason: Hypoglycemia Protocol Glucagon (Glucagen Diagnostic Kit) 0 mg IM .STAT PRN; Protocol PRN Reason: Hypoglycemia Protocol Heparin Sodium (Porcine) (Heparin) 5,000 units SC Q12 [facility] Last Admin: 02/01/18 08:59 Dose: 5,000 units Dextrose (Dextrose 5% In Water 1000 Ml) 1,000 mls @ 0 mls/hr IV .Q0M PRN; Protocol PRN Reason: Hypoglycemia Protocol Last Admin: 01/31/18 07:34 Dose: 100 mls/hr Ciprofloxacin (Cipro 400mg/200ml Dsw) 400 mg in 200 mls @ 133 mls/hr IVPB Q12H [facility]; Protocol Stop: 02/02/18 18:00 Last Admin: 02/01/18 05:37 Dose: 133 mls/hr Immune Globulin (Gamunex 10%) 290 mls @ 17.28 mls/hr IV Q24H [facility] Stop: 02/01/18 14:47 Last Admin: 01/31/18 22:09 Dose: 17.28 mls/hr Sodium Chloride (Sodium Chloride 0.9%) 1,000 mls @ 125 mls/hr IV .Q8H [facility] Last Admin: 02/01/18 02:56 Dose: 125 mls/hr Potassium Phosphate 15 mmole/ (Sodium Chloride) 255 mls @ 42.5 mls/hr IVPB ONCE ONE Stop: 02/01/18 14:23 Last Admin: 02/01/18 09:51 Dose: 42.5 mls/hr Ketorolac Tromethamine (Toradol) 15 mg IVP Q6 PRN PRN Reason: Pain, moderate (4-7) Ketorolac Tromethamine (Toradol) 30 mg IVP Q6 PRN PRN Reason: Pain, severe (8-10) Last Admin: 01/31/18 12:05 Dose: 30 mg Lorazepam (Ativan) 1 mg IVP Q6H PRN PRN Reason: Anxiety Last Admin: 02/01/18 05:44 Dose: 1 mg Losartan Potassium (Cozaar) 50 mg PO DAILY [facility] Last Admin: 02/01/18 10:48 Dose: Not Given Pantoprazole Sodium (Protonix Inj) 40 mg IVP DAILY [facility] Last Admin: 02/01/18 08:59 Dose: 40 mg - Labs Labs: 02/01/18 07:19 02/01/18 07:19 Attending/Attestation - Attestation I have personally seen and examined this patient.: Yes I have fully participated in the care of the patient.: Yes I have reviewed all pertinent clinical information, including history, physical exam and plan: Yes Notes (Text): 02/01/18 11:43 I have seen and examined patient with GI fellow. He appears to be more lethargic as compared to yesterday along with ongoing retching. He is not able to communicate effectively today, though no reported vomiting, fever/chills. s/p IVIG therapy yesterday. Review of vitals from today shows elevated BP. CIDP / MS Urinary retention Nausea - Liquid diet as tolerated - Anti-emetic therapy PRN - Follow up neurology recommendations given neurologic deterioration - Maintain bowel regimen to prevent constipation - Will continue to monitor patient clinical course
[2018-02-01] MEDS ORDERED: Enalaprilat 2.5 MG/2 ML IV ONE (10:44)
--- NOTE | 2018-02-01 12:42 | PCM.PSYCH ---
Initial Psychiatric Evaluation - Initial Psychiatric Evaluation Type of Admission: Voluntary Legal Status: Capacity Chief Complaint (in patient's own words): "Tired" History of Present Illness and Precipitating Events: The patient is seen, chart reviewed and case discussed. Consultation was requested for possible medication change per his attending doctor. This is a 52-year-old male, with 2 adult children, disabled for the last 2 years. He lives with his . His was at bedside and she is also interviewed. The patient only complains of fatigue due to his condition and medications. He also has anxiety but denies feeling depressed. He was given Celexa by his primary care doctor for anxiety disorder. Currently, he is attending in the hospital wants to switch to a TCA, which may have better with his medical condition. Patient agrees with this change and is admitted to affect he has not been taking Celexa for 4 days. No taras, psychosis or significant depressive symptoms elicited. No alcohol or drug use. Past psychiatric: Denies Family psychiatric: Denies Medical history: CIDP and high blood pressure Current Medications: Active Medications Generic Name Dose Route Start Last Admin Trade Name Freq PRN Reason Stop Dose Admin Acetylcysteine 4 ml 02/01/18 07:15 02/01/18 08:00 Acetylcysteine 20% INH Not Given RQ6 ELADIO Albuterol Sulfate 2.5 mg 02/01/18 14:00 Albuterol 0.083% Inhal Zhane (2.5 Mg/3 Ml) Ud INH RQ6 ELADIO Amitriptyline HCl 25 mg 02/01/18 22:00 Elavil PO HS [facility] Bisacodyl 10 mg 01/30/18 12:30 02/01/18 09:00 Dulcolax LA 10 mg DAILY [facility] Administration Dextrose 0 ml 01/29/18 14:17 01/31/18 00:53 Dextrose 50% Inj IVP 50 ml .STAT PRN Administration Hypoglycemia Protocol Protocol Dextrose 0 gm 01/29/18 14:17 Glutose 15 PO .ONCE PRN Hypoglycemia Protocol Protocol Glucagon 0 mg 01/29/18 14:17 Glucagen Diagnostic Kit IM .STAT PRN Hypoglycemia Protocol Protocol Heparin Sodium (Porcine) 5,000 units 01/29/18 10:00 02/01/18 08:59 Heparin SC 5,000 units Q12 [facility] Administration Dextrose 1,000 mls @ 0 mls/hr 01/29/18 14:17 12//18 07:34 Dextrose 5% In Water 1000 Ml IV 100 mls/hr .Q0M PRN Administration Hypoglycemia Protocol Protocol Per Protocol Ciprofloxacin 400 mg in 200 mls @ 133 mls/hr 01/29/18 18:00 02/01/18 05:37 Cipro 400mg/200ml Dsw IVPB 02/02/18 18:00 133 mls/hr Q12H [facility] Administration Protocol Immune Globulin 290 mls @ 17.28 mls/hr 01/30/18 22:00 01/31/18 22:09 Gamunex 10% IV 02/01/18 14:47 17.28 mls/hr Q24H [facility] Administration Sodium Chloride 1,000 mls @ 125 mls/hr 01/31/18 11:05 02/01/18 02:56 Sodium Chloride 0.9% IV 125 mls/hr .Q8H [facility] Administration Potassium Phosphate 15 mmole/ 255 mls @ 42.5 mls/hr 02/01/18 08:24 02/01/18 09:51 Sodium Chloride IVPB 02/01/18 14:23 42.5 mls/hr ONCE ONE Administration Ketorolac Tromethamine 15 mg 01/30/18 10:28 Toradol IVP Q6 PRN Pain, moderate (4-7) Ketorolac Tromethamine 30 mg 01/30/18 10:28 01/31/18 12:05 Toradol IVP 30 mg Q6 PRN Administration Pain, severe (8-10) Lorazepam 1 mg 01/30/18 14:06 02/01/18 05:44 Ativan IVP 1 mg Q6H PRN Administration Anxiety Losartan Potassium 50 mg 02/01/18 10:00 02/01/18 10:48 Cozaar PO Not Given DAILY [facility] Pantoprazole Sodium 40 mg 01/29/18 10:00 02/01/18 08:59 Protonix Inj IVP 40 mg DAILY [facility] Administration Past Psychiatric History - Past Psychiatric History Previous Treatment History: Intensive Outpatient Pertinent Medical Hx (Current Medical&Sleep Prob, Allergies): Allergies Allergy/AdvReac Type Severity Reaction Status Date / Time promethazine AdvReac NAUSEA Verified 01/29/18 17:35 Citalopram [celeXA] 1 tab PO DAILY 01/04/18 Loratadine [Claritin] 1 tab PO DAILY 01/04/18 Losartan [Cozaar] 1 tab PO DAILY 01/04/18 Aspirin [Ecotrin] 81 mg PO DAILY #30 tabec 01/25/18 Ciprofloxacin [Cipro] 500 mg PO Q12 7 Days #14 tab 01/25/18 Rosuvastatin Calcium [Crestor] 5 mg PO HS #30 tab 01/25/18 Review of Systems - Psychiatric Psychiatric: Abnormal Sleep Pattern, Anxiety. absent: Hallucinations, Homicidal Ideation, Paranoia, Suicidal Ideation Mental Status Examination - Personal Presentation Personal Presentation: Looks older than stated age - Affect Affect: Constricted - Motor Activity Motor Activity: Calm - Reliability in Providing Information Reliability in Providing Information: Good - Speech Speech: Organized - Mood Mood: Anxious - Formal Thought Process Formal Thought Process: No Impairment - Cognitive Functions Orientation: Person, Place, Situation, Time Sensorium: Alert Attention/Concentration: Easily distracted Estimate of Intelligence: Average Judgement: Intact, as evidence by: Insight regarding need for hospitalization Memory: Recent intact, as evidence by: Ability to recall events of the day, Remote impaired as evidenced by: Inability to recall sig life events - Risk Risk: Diminished functioning - Strength & Assets Inventory Strength & Assets Inventory: Family support - Limitations Limitations: Other DSM 5 DX - DSM 5 DSM 5 Diagnosis: Generalized anxiety d/o - Recommended/Plan of Treatment Treatment Recommendations and Plan of Treatment: OK to switch from celexa to elavil 25 mg EKG Support and psychoed Psych will sign off 33 min
[2018-02-01] MEDS: Albuterol 0.083% Inhal Sol (2.5 mg/3 mL) UD INH SCH (13:45)
[2018-02-02] MEDS: Sodium Chloride 0.9% 1,000 ML IV SCH ×4 (00:21→19:00)
[2018-02-02] MEDS: Albuterol 0.083% Inhal Sol (2.5 mg/3 mL) UD INH SCH ×4 (01:25→19:20)
[2018-02-02] MEDS: Acetylcysteine 20% Inhal Soln (4ml) INH SCH ×4 (01:25→19:20)
[2018-02-02] MEDS: Ciprofloxacin 400mg/200ml D5W 400 MG/200 ML BAG IVPB SCH ×2 (05:51→18:00)
[2018-02-02 06:49] LABS: BASO % 0.6 % (0.0-2.0); EOS % 0.6 % (0.0-4.0); HEMOGLOBIN 14.4 g/dL (12.0-18.0); LYMPH # 1.4 K/uL (1.0-4.3); MEAN CELL VOLUME 86.7 fL (80.0-94.0); MEAN CORPUSCULAR HEMOGLOBIN 29.7 pg (27.0-31.0); MEAN CORPUSCULAR HGB CONC 34.2 g/dL (33.0-37.0); MONO # 0.6 K/uL (0.0-0.8); MONO % 9.6 % (0.0-10.0); NEUT # 4.2 K/uL (1.8-7.0); NEUT % 66.2 % (50.0-75.0); RBC 4.85 Mil/uL (4.40-5.90); RED CELL DISTRIBUTION WIDTH 13.1 % (11.5-14.5); WHITE BLOOD COUNT 6.3 K/uL (4.8-10.8)
[2018-02-02 07:44] LABS: ALB/GLOB RATIO 0.8 (1.0-2.1); ALT/SGPT 24 U/L (21-72); AST/SGOT 22 U/L (17-59); BLOOD UREA NITROGEN 6 mg/dL (9-20); CALCIUM 8.3 mg/dl (8.6-10.4); GFR NON-AFRICAN AMERICAN > 60
--- NOTE | 2018-02-02 08:26 | CP.PCM.PN ---
<Hernan Alvarado - Last Filed: 02/02/18 08:21> Subjective - Date & Time of Evaluation Date of Evaluation: 02/02/18 Time of Evaluation: 07:10 - Subjective Subjective: PGY-4 GI Fellow Prog Note Pt sleeping in bed when seen this AM. Tired but states that he is feeling somewhat better with less nausea. Denied any BMs but hasn't been taking much PO until recently, questionable BM per nursing. 5 point ROS negative other than stated above Objective - Vital Signs/Intake and Output Vital Signs (last 24 hours): Temp Pulse Resp BP Pulse Ox 97.8 F 72 20 131/79 100 02/02/18 07:15 02/02/18 07:15 02/02/18 07:15 02/02/18 07:15 02/02/18 07:15 Intake and Output: 02/02/18 02/02/18 06:59 18:59 Intake Total 2810 Output Total 2500 Balance 310 - Medications Medications: Current Medications Acetylcysteine (Acetylcysteine 20%) 4 ml INH RQ6 [facility] Last Admin: 02/02/18 08:16 Dose: 4 ml Albuterol Sulfate (Albuterol 0.083% Inhal Zhane (2.5 Mg/3 Ml) Ud) 2.5 mg INH RQ6 [facility] Last Admin: 02/02/18 08:16 Dose: 2.5 mg Amitriptyline HCl (Elavil) 25 mg PO HS [facility] Last Admin: 02/01/18 21:51 Dose: 25 mg Bisacodyl (Dulcolax) 10 mg [place] DAILY [facility] Last Admin: 02/01/18 09:00 Dose: 10 mg Dextrose (Dextrose 50% Inj) 0 ml IVP .STAT PRN; Protocol PRN Reason: Hypoglycemia Protocol Last Admin: 01/31/18 00:53 Dose: 50 ml Dextrose (Glutose 15) 0 gm PO .ONCE PRN; Protocol PRN Reason: Hypoglycemia Protocol Glucagon (Glucagen Diagnostic Kit) 0 mg IM .STAT PRN; Protocol PRN Reason: Hypoglycemia Protocol Heparin Sodium (Porcine) (Heparin) 5,000 units SC Q12 [facility] Last Admin: 02/01/18 21:52 Dose: 5,000 units Ciprofloxacin (Cipro 400mg/200ml Dsw) 400 mg in 200 mls @ 133 mls/hr IVPB Q12H [facility]; Protocol Stop: 02/02/18 18:00 Last Admin: 02/02/18 05:51 Dose: 133 mls/hr Sodium Chloride (Sodium Chloride 0.9%) 1,000 mls @ 125 mls/hr IV .Q8H [facility] Last Admin: 02/02/18 03:05 Dose: Not Given Ketorolac Tromethamine (Toradol) 15 mg IVP Q6 PRN PRN Reason: Pain, moderate (4-7) Ketorolac Tromethamine (Toradol) 30 mg IVP Q6 PRN PRN Reason: Pain, severe (8-10) Last Admin: 01/31/18 12:05 Dose: 30 mg Lorazepam (Ativan) 1 mg IVP Q6H PRN PRN Reason: Anxiety Last Admin: 02/01/18 05:44 Dose: 1 mg Losartan Potassium (Cozaar) 50 mg PO DAILY [facility] Last Admin: 02/01/18 10:48 Dose: Not Given Pantoprazole Sodium (Protonix Inj) 40 mg IVP DAILY [facility] Last Admin: 02/01/18 08:59 Dose: 40 mg - Labs Labs: 02/02/18 06:40 02/02/18 06:40 - Constitutional Appears: No Acute Distress, Chronically Ill - Head Exam Head Exam: ATRAUMATIC, NORMAL INSPECTION - Eye Exam Eye Exam: EOMI. absent: Conjunctival injection, Scleral icterus - ENT Exam ENT Exam: Mucous Membranes Dry. absent: Mucous Membranes Moist - GI/Abdominal Exam GI & Abdominal Exam: Soft, Normal Bowel Sounds. 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 # Nausea/Vomiting: Unclear etiology, Improved. However, given constellation of N/V, urinary retention, constipation with large stool burden, wonder if all related to underlying neurologic disorder (CIDP) or anticholinergic syndrome. Improved post-IVIG on 01/30, second dose in PM of 01/31. # CRC Screening: Never had any CRC screening prior Plan: - Neurology consulted, appreciate recs, patient missed all doses of IVIG in December which likely cause of presentation --- IVIG per Neuro - On Clear Liq Diet, advance as tolerated - Monitor for further constipation; daily bisacodyl, can increase regimen - Lorazepam PRN nausea - Cautious use of ondansetron given EPS concerns, found relief with prior - Avoid metoclopramide given EPS - PPI QD - Avoid anti-cholinergics and narcotics as able - IVF, Blake placement/Prostate management per primary - May consider EGD pending course - Recommend outpatient Colonoscopy for CRC screening Pt seen and examined with Dr. Quijano; please see attestation for further recs/changes. Hernan Alvarado, PGY-4 <Ankit Quijano - Last Filed: 02/02/18 09:43> Objective - Vital Signs/Intake and Output Vital Signs (last 24 hours): Temp Pulse Resp BP Pulse Ox 97.8 F 72 20 131/79 100 02/02/18 07:15 02/02/18 07:15 02/02/18 07:15 02/02/18 07:15 02/02/18 07:15 Intake and Output: 02/02/18 02/02/18 06:59 18:59 Intake Total 2810 Output Total 2500 Balance 310 - Medications Medications: Current Medications Acetylcysteine (Acetylcysteine 20%) 4 ml INH RQ6 [facility] Last Admin: 02/02/18 08:16 Dose: 4 ml Albuterol Sulfate (Albuterol 0.083% Inhal Zhane (2.5 Mg/3 Ml) Ud) 2.5 mg INH RQ6 [facility] Last Admin: 02/02/18 08:16 Dose: 2.5 mg Amitriptyline HCl (Elavil) 25 mg PO HS [facility] Last Admin: 02/01/18 21:51 Dose: 25 mg Bisacodyl (Dulcolax) 10 mg [place] DAILY [facility] Last Admin: 02/02/18 09:14 Dose: 10 mg Dextrose (Dextrose 50% Inj) 0 ml IVP .STAT PRN; Protocol PRN Reason: Hypoglycemia Protocol Last Admin: 01/31/18 00:53 Dose: 50 ml Dextrose (Glutose 15) 0 gm PO .ONCE PRN; Protocol PRN Reason: Hypoglycemia Protocol Glucagon (Glucagen Diagnostic Kit) 0 mg IM .STAT PRN; Protocol PRN Reason: Hypoglycemia Protocol Heparin Sodium (Porcine) (Heparin) 5,000 units SC Q12 [facility] Last Admin: 02/02/18 09:13 Dose: 5,000 units Ciprofloxacin (Cipro 400mg/200ml Dsw) 400 mg in 200 mls @ 133 mls/hr IVPB Q12H [facility]; Protocol Stop: 02/02/18 18:00 Last Admin: 02/02/18 05:51 Dose: 133 mls/hr Sodium Chloride (Sodium Chloride 0.9%) 1,000 mls @ 125 mls/hr IV .Q8H [facility] Last Admin: 02/02/18 03:05 Dose: Not Given Ketorolac Tromethamine (Toradol) 15 mg IVP Q6 PRN PRN Reason: Pain, moderate (4-7) Ketorolac Tromethamine (Toradol) 30 mg IVP Q6 PRN PRN Reason: Pain, severe (8-10) Last Admin: 01/31/18 12:05 Dose: 30 mg Lorazepam (Ativan) 1 mg IVP Q6H PRN PRN Reason: Anxiety Last Admin: 02/01/18 05:44 Dose: 1 mg Losartan Potassium (Cozaar) 50 mg PO DAILY [facility] Last Admin: 02/02/18 09:17 Dose: 50 mg Pantoprazole Sodium (Protonix Inj) 40 mg IVP DAILY [facility] Last Admin: 02/02/18 09:13 Dose: 40 mg - Labs Labs: 02/02/18 06:40 02/02/18 06:40 Attending/Attestation - Attestation I have personally seen and examined this patient.: Yes I have fully participated in the care of the patient.: Yes I have reviewed all pertinent clinical information, including history, physical exam and plan: Yes Notes (Text): 02/02/18 09:40 I have seen and examined patient with GI fellow. Appears more comfortable today compared to yesterday, was able to tolerate PO liquids without difficulty. He denies abdominal pain, nausea, vomiting, fever/chills. CIDP / MS Nausea - resolving - Advance diet slowly as tolerated - Anti-emetic therapy PRN - Follow up neurologic recommendations, s/p IVIG therapy - Continue with PPI therapy - Patient would benefit from elective endoscopic evaluation following complete resolution of neurological issues. No further planned GI intervention, will sign off case. Please reconsult as necessary, thank you.
--- NOTE | 2018-02-02 10:01 | CP.PCM.PN ---
Subjective - Date & Time of Evaluation Date of Evaluation: 02/02/18 Time of Evaluation: 09:58 - Subjective Subjective: Progress note for Dr. Flynn Patient was seen and examined at bedside in no acute distress. Mother and home health aide were at bedside. The patient reports feeling nausea and tired. During examination, patient continuously retching and spitting up phlegm. He also complains of feeling weak, but is not worse than prior to admission. The patient currently denies chest pain, palpitations, dyspnea, cough, abdominal pain, leg pain. Objective - Vital Signs/Intake and Output Vital Signs (last 24 hours): Temp Pulse Resp BP Pulse Ox 97.8 F 72 20 131/79 100 02/02/18 07:15 02/02/18 07:15 02/02/18 07:15 02/02/18 07:15 02/02/18 07:15 Intake and Output: 02/02/18 02/02/18 06:59 18:59 Intake Total 2810 Output Total 2500 Balance 310 - Medications Medications: Current Medications Acetylcysteine (Acetylcysteine 20%) 4 ml INH RQ6 [facility] Last Admin: 02/02/18 08:16 Dose: 4 ml Albuterol Sulfate (Albuterol 0.083% Inhal Zhane (2.5 Mg/3 Ml) Ud) 2.5 mg INH RQ6 [facility] Last Admin: 02/02/18 08:16 Dose: 2.5 mg Amitriptyline HCl (Elavil) 25 mg PO HS [facility] Last Admin: 02/01/18 21:51 Dose: 25 mg Bisacodyl (Dulcolax) 10 mg [place] DAILY [facility] Last Admin: 02/02/18 09:14 Dose: 10 mg Dextrose (Dextrose 50% Inj) 0 ml IVP .STAT PRN; Protocol PRN Reason: Hypoglycemia Protocol Last Admin: 01/31/18 00:53 Dose: 50 ml Dextrose (Glutose 15) 0 gm PO .ONCE PRN; Protocol PRN Reason: Hypoglycemia Protocol Glucagon (Glucagen Diagnostic Kit) 0 mg IM .STAT PRN; Protocol PRN Reason: Hypoglycemia Protocol Heparin Sodium (Porcine) (Heparin) 5,000 units SC Q12 [facility] Last Admin: 02/02/18 09:13 Dose: 5,000 units Ciprofloxacin (Cipro 400mg/200ml Dsw) 400 mg in 200 mls @ 133 mls/hr IVPB Q12H [facility]; Protocol Stop: 02/02/18 18:00 Last Admin: 02/02/18 05:51 Dose: 133 mls/hr Sodium Chloride (Sodium Chloride 0.9%) 1,000 mls @ 125 mls/hr IV .Q8H [facility] Last Admin: 02/02/18 03:05 Dose: Not Given Potassium Chloride (Potassium Chloride 10 Meq/100 Ml) 10 meq in 100 mls @ 100 mls/hr IVPB ONCE ONE Stop: 02/02/18 10:46 Ketorolac Tromethamine (Toradol) 15 mg IVP Q6 PRN PRN Reason: Pain, moderate (4-7) Ketorolac Tromethamine (Toradol) 30 mg IVP Q6 PRN PRN Reason: Pain, severe (8-10) Last Admin: 01/31/18 12:05 Dose: 30 mg Lorazepam (Ativan) 1 mg IVP Q6H PRN PRN Reason: Anxiety Last Admin: 02/01/18 05:44 Dose: 1 mg Losartan Potassium (Cozaar) 50 mg PO DAILY [facility] Last Admin: 02/02/18 09:17 Dose: 50 mg Pantoprazole Sodium (Protonix Inj) 40 mg IVP DAILY [facility] Last Admin: 02/02/18 09:13 Dose: 40 mg - Labs Labs: 02/02/18 06:40 02/02/18 06:40 - Additional Findings Additional findings: - Constitutional Appears: fatigued - Head Exam Head Exam: NORMAL INSPECTION - Eye Exam Eye Exam: Normal appearance, EOMI - Respiratory Exam Respiratory Exam: NORMAL BREATHING PATTERN, no wheezing, rhonchi or rales. absent: Respiratory Distress - Cardiovascular Exam Cardiovascular Exam: +S1, +S2 - GI/Abdominal Exam GI & Abdominal Exam: Soft. 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 Neurologist, Dr. Arreola, was consulted for management of CIDP. The patient normally receives 3 IVIG treatments per month; his last treatment was in November 2017 [missed December treatment due to hospitalization]. Plan: Chronic Inflammatory Demyelinating Polyneuropathy (CIDP) - Patient has received total of 2 doses of IVIG. - Ordered EEG to evaluate for seizure disorder. Follow up report. - Continue PT/OT. Case discuss with Dr. Rina Bagley, PGY2
--- NOTE | 2018-02-02 14:43 | CP.PCM.PN ---
<Eduar Hooks - Last Filed: 02/02/18 17:10> Subjective - Date & Time of Evaluation Date of Evaluation: 02/02/18 Time of Evaluation: 09:21 - Subjective Subjective: PGY1 Medicine progress note for Dr. Hiram Gomes Pt was seen and examined at bedside. Pt is complaining of fatigue. He continue sto have nausea. t was explained to the that pt's family may be causing increased anxiety which causing increase in wretching. He reports some abdominal pain. Pt ate the soup that his brought for him yesterday and has been able to tolerate some water. Denies fever, chills, chest pain, sob, vomiting, diarrhea, hematochezia, melena, dizziness. Pt has had two bowel movements today. Objective - Vital Signs/Intake and Output Vital Signs (last 24 hours): Temp Pulse Resp BP Pulse Ox 97.4 F L 106 H 20 143/99 H 99 02/02/18 09:10 02/02/18 12:27 02/02/18 09:10 02/02/18 12:27 02/02/18 09:10 Intake and Output: 02/02/18 02/02/18 06:59 18:59 Intake Total 2810 1070 Output Total 2500 500 Balance 310 570 - Medications Medications: Current Medications Acetylcysteine (Acetylcysteine 20%) 4 ml INH RQ6 [facility] Last Admin: 02/02/18 13:27 Dose: 4 ml Albuterol Sulfate (Albuterol 0.083% Inhal Zhane (2.5 Mg/3 Ml) Ud) 2.5 mg INH RQ6 [facility] Last Admin: 02/02/18 13:27 Dose: 2.5 mg Amitriptyline HCl (Elavil) 25 mg PO HS [facility] Last Admin: 02/01/18 21:51 Dose: 25 mg Bisacodyl (Dulcolax) 10 mg [place] DAILY [facility] Last Admin: 02/02/18 09:14 Dose: 10 mg Dextrose (Dextrose 50% Inj) 0 ml IVP .STAT PRN; Protocol PRN Reason: Hypoglycemia Protocol Last Admin: 01/31/18 00:53 Dose: 50 ml Dextrose (Glutose 15) 0 gm PO .ONCE PRN; Protocol PRN Reason: Hypoglycemia Protocol Glucagon (Glucagen Diagnostic Kit) 0 mg IM .STAT PRN; Protocol PRN Reason: Hypoglycemia Protocol Heparin Sodium (Porcine) (Heparin) 5,000 units SC Q12 [facility] Last Admin: 02/02/18 09:13 Dose: 5,000 units Ciprofloxacin (Cipro 400mg/200ml Dsw) 400 mg in 200 mls @ 133 mls/hr IVPB Q12H [facility]; Protocol Stop: 02/02/18 18:00 Last Admin: 02/02/18 05:51 Dose: 133 mls/hr Sodium Chloride (Sodium Chloride 0.9%) 1,000 mls @ 125 mls/hr IV .Q8H [facility] Last Admin: 02/02/18 09:59 Dose: 125 mls/hr Ketorolac Tromethamine (Toradol) 15 mg IVP Q6 PRN PRN Reason: Pain, moderate (4-7) Ketorolac Tromethamine (Toradol) 30 mg IVP Q6 PRN PRN Reason: Pain, severe (8-10) Last Admin: 01/31/18 12:05 Dose: 30 mg Lorazepam (Ativan) 1 mg IVP Q6H PRN PRN Reason: Anxiety Last Admin: 02/02/18 11:05 Dose: 1 mg Losartan Potassium (Cozaar) 50 mg PO DAILY [facility] Last Admin: 02/02/18 10:55 Dose: Not Given Pantoprazole Sodium (Protonix Inj) 40 mg IVP DAILY [facility] Last Admin: 02/02/18 09:13 Dose: 40 mg - Labs Labs: 02/02/18 06:40 02/02/18 06:40 - Additional Findings Additional findings: - Constitutional Appears: Non-toxic, No Acute Distress, Chronically Ill - Head Exam Head Exam: NORMAL INSPECTION - Eye Exam Eye Exam: EOMI, Normal appearance - ENT Exam ENT Exam: Mucous Membranes Moist - Respiratory Exam Respiratory Exam: Clear to Ausculation Bilateral. absent: Rales, Rhonchi, Wheezes, Respiratory Distress - Cardiovascular Exam Cardiovascular Exam: REGULAR RHYTHM, +S1, +S2. Distal pulses are 2+ in bilateral upper and lower extremities. - GI/Abdominal Exam GI & Abdominal Exam: Soft, Normal Bowel Sounds. absent: Distended, Firm, Guarding, Rigid, Tenderness, Rebound - Neurological Exam Neurological Exam: Alert, Awake, Oriented x3. Pt continues to have weakness in bilateral upper and lower distal extremities secondary to chronic illness. - Psychiatric Exam Psychiatric exam: Depressed, Normal Affect. Lethargic but arousable. - Skin Skin Exam: Dry, Normal Color, Warm Assessment and Plan - Assessment and Plan (Free Text) Assessment: This is a 52 year old Male with Pmhx of Chronic Inflammatory Demyelinating Polyneuropathy (CIDP), HTN, depression, anxiety and prostatic enlargement who presents to the ED for abdominal pain, with nausea and dry wretching. Found to have urinary retention and constipation. Pt has been responding well to west catheter insertion for urinary retention and fleet enemas to help with constipation. Pt completed course of IVIG. Amitriptyline 25 mg PO QHS added for abdominal pain/nausea/anxiety. Plan: CIDP (chronic inflammatory demyelinating polyneuropathy) Patient has had this diagnosed in 2004 Case discussed at length with pt and sister. Pt's abdominal pain and nausea and vomiting is secondary to CIDP. Pt has not followed up with Dr. ely since november. Pt's EPS symtopms are due to the phenergan given in the ED. Pt has been moving his bowel well with the phosphate enemas, which we will continue. Pt has had decreased nausea as he has been moving his bowels. Case was discussed with Dr. Ely via telephone, who does not believe this is due to CIDP flare, but to give IVIG as pt has missed [address] Arreola, neurology, consulted who believes these GI symptoms are secondary to CIDP flare, and recommended restarting IVIG. Pt finished a 2 day course of IVIG on 02/01/18. Pt underwent EEG today ordered by Neuro to r/o any seizure activity. Case discussed with neurology, Dr. Flynn, who states that there is no contraindication to EGD procedure at [facility]. F/u EEG Intractable nausea and vomiting, with abdominal pain Unable to use Promethazine secondary to EPS side effect Zofran alone does not control systems Patient was seen in prior hospitalization and had refused EGD due to concern for anesthesia side effect Ativan 1mg IVP Q6H prn nausea and vomiting Toradol 15 mg IVP 16h prn moderate pain, Toradol 30 mg IVP q6h prn severe pain NS IVF at 125 mL/hr GI, Dr. Quijano, consulted. Recs appreciated Continue Mucinex, duonebs Q6h. UTI (urinary tract infection) Patient was d/c on Cipro 01/25 to complete 5 day course last admission Restart Cipro 400mg IV Q12H for 5 days (Active since 01/29/18) Noted urinary retention on admission Patient has had recent prostate biopsy earlier in December at a different facility Blood culture prelim negative x3 days Urine culture (01/28) negative Electrolyte abnormality Potassium repleted today Continue to monitor Side effect of medication Will continue to avoid promethazine, reglan Hypertension Home Losartan 50 mg PO QD restarted Urinary retention Had TURP earlier in December Urinary retention on admission West discontinued but pt retained urine again Continue west, with betadine three times per day Plan to discontinue west tomorrow morning and start voiding trial. Bladder scan q6h, with intermittent straight cath as needed. Constipation Continue Dulcolax enemas daily Hx of anxiety Psychiatry, Dr. Elizabeth, consulted. Continue Amitriptyline [address] Hiram Gomes and I discussed in detail pt's worsening nausea and wretching in r elation to anxiety caused by family members with , she agrees. PPX Heparin 5000 units SC 8H Protonix 40mg IV q daily Diet: CLD as tolerated PT/OT eval tomorrow Dispo: continue to manage intractable dry wretching, and cleanse bowel. Pt completed course of IVIG 02/01/18. Will plan for voiding trial tomorrow, PT/OT eval for potential [facility] placement. Case discussed with attending physician, Dr. Hiram Hooks <Cody Gomes - Last Filed: 02/05/18 19:06> Objective - Vital Signs/Intake and Output Vital Signs (last 24 hours): Temp Pulse Resp BP Pulse Ox 98.0 F 113 H 20 128/73 99 02/05/18 15:00 02/05/18 15:00 02/05/18 15:00 02/05/18 15:00 02/05/18 15:00 Intake and Output: 02/05/18 02/06/18 18:59 06:59 Intake Total 450 Output Total 400 Balance 50 - Medications Medications: Current Medications Acetylcysteine (Acetylcysteine 20%) 4 ml INH RQ6 [facility] Last Admin: 02/05/18 13:35 Dose: 4 ml Albuterol Sulfate (Albuterol 0.083% Inhal Zhane (2.5 Mg/3 Ml) Ud) 2.5 mg INH RQ6 [facility] Last Admin: 02/05/18 13:35 Dose: 2.5 mg Amitriptyline HCl (Elavil) 25 mg PO HS [facility] Last Admin: 02/04/18 21:31 Dose: 25 mg Bisacodyl (Dulcolax) 10 mg [place] DAILY [facility] Last Admin: 02/05/18 10:43 Dose: 10 mg Dextrose (Dextrose 50% Inj) 0 ml IVP .STAT PRN; Protocol PRN Reason: Hypoglycemia Protocol Last Admin: 01/31/18 00:53 Dose: 50 ml Dextrose (Glutose 15) 0 gm PO .ONCE PRN; Protocol PRN Reason: Hypoglycemia Protocol Gabapentin (Neurontin) 300 mg PO TID [facility] Last Admin: 02/05/18 17:47 Dose: 300 mg Glucagon (Glucagen Diagnostic Kit) 0 mg IM .STAT PRN; Protocol PRN Reason: Hypoglycemia Protocol Heparin Sodium (Porcine) (Heparin) 5,000 units SC Q12 [facility] Last Admin: 02/05/18 10:42 Dose: 5,000 units Methylprednisolone 1,000 mg/ (Sodium Chloride) 250 mls @ 125 mls/hr IVPB DAILY [facility] Stop: 02/07/18 11:59 Last Admin: 02/05/18 13:06 Dose: 125 mls/hr Lorazepam (Ativan) 0.5 mg PO TID PRN PRN Reason: Anxiety Last Admin: 02/05/18 05:49 Dose: 0.5 mg Losartan Potassium (Cozaar) 50 mg PO DAILY [facility] Last Admin: 02/05/18 10:43 Dose: 50 mg Pantoprazole Sodium (Protonix Inj) 40 mg IVP DAILY [facility] Last Admin: 02/05/18 10:38 Dose: 40 mg - Labs Labs: 02/05/18 08:33 02/05/18 08:33 Attending/Attestation - Attestation I have personally seen and examined this patient.: Yes I have fully participated in the care of the patient.: Yes I have reviewed all pertinent clinical information, including history, physical exam and plan: Yes Notes (Text): 02/05/18 19:06 This is a late entry. Care of this patient was gone over in detail with resident Dr. Hooks. Cody Gomes D.O.
--- NOTE | 2018-02-02 16:27 | PCM.EEG ---
Electroencephalogram Report - Electroencephalogram Report Procedure Date: 02/02/18 Medication: Ketorolac Pantoprazole, Ativan Interpretation: Technical Information: This was a 16 -channel EEG, 1-channel EKG routine EEG performed using an TPACK machine. Electrodes were applied using the 10/20 international placement system. Start; 8;25 End; 8;49 Total 24 min. EEG showed a significant amount of artifact. Clinical Information: 52 y/o man with alter mental status. During resting wakefulness there was a symmetric posterior dominant rhythm at 8.5-9.5 Hz, 30-50 uV, which was reactive to eye opening and closing. Drowsiness seen at 8;28, was associated with fragmentation of the posterior dominant rhythm and with slow roving eye movements. Hyperventilation was not performed. Photic stimulation was not performed. Focal abnormality; none ECG was associated with a normal sinus rhythm. Impression: This is a normal awake and drowsy electroencephalogram
[2018-02-03] MEDS: Albuterol 0.083% Inhal Sol (2.5 mg/3 mL) UD INH SCH ×4 (02:48→19:50)
[2018-02-03] MEDS: Acetylcysteine 20% Inhal Soln (4ml) INH SCH ×4 (02:48→19:50)
--- NOTE | 2018-02-03 07:49 | CP.PCM.PN ---
<Eduar Hooks - Last Filed: 02/03/18 17:55> Subjective - Date & Time of Evaluation Date of Evaluation: 02/03/18 Time of Evaluation: 07:47 - Subjective Subjective: PGY1 Medicine progress note for Dr. Hiram Gomes Pt was seen and examined at bedside. Pt is resting comfortably and smiling during the interview. He reports that he feels much better. He reports having 2 small bowel movement yesterday, nonbloody. He denies fever, chills, chest pain, sob, palpitations, abdominal pain, n/v/d, hematochezia, melena, numbness or tingling, headache, dizziness, visual changes. He states that he ate all of the veggie soup that his brought him yesterday. Objective - Vital Signs/Intake and Output Vital Signs (last 24 hours): Temp Pulse Resp BP Pulse Ox 98.7 F 71 20 107/73 99 02/03/18 00:00 02/03/18 00:00 02/03/18 00:00 02/03/18 00:00 02/03/18 00:00 Intake and Output: 02/03/18 02/03/18 06:59 18:59 Intake Total 2100 Output Total 1350 Balance 750 - Medications Medications: Current Medications Acetylcysteine (Acetylcysteine 20%) 4 ml INH RQ6 [facility] Last Admin: 02/03/18 02:48 Dose: 4 ml Albuterol Sulfate (Albuterol 0.083% Inhal Zhane (2.5 Mg/3 Ml) Ud) 2.5 mg INH RQ6 [facility] Last Admin: 02/03/18 02:48 Dose: 2.5 mg Amitriptyline HCl (Elavil) 25 mg PO HS [facility] Last Admin: 02/02/18 22:09 Dose: 25 mg Bisacodyl (Dulcolax) 10 mg [place] DAILY [facility] Last Admin: 02/02/18 09:14 Dose: 10 mg Dextrose (Dextrose 50% Inj) 0 ml IVP .STAT PRN; Protocol PRN Reason: Hypoglycemia Protocol Last Admin: 01/31/18 00:53 Dose: 50 ml Dextrose (Glutose 15) 0 gm PO .ONCE PRN; Protocol PRN Reason: Hypoglycemia Protocol Glucagon (Glucagen Diagnostic Kit) 0 mg IM .STAT PRN; Protocol PRN Reason: Hypoglycemia Protocol Heparin Sodium (Porcine) (Heparin) 5,000 units SC Q12 [facility] Last Admin: 02/02/18 21:51 Dose: 5,000 units Sodium Chloride (Sodium Chloride 0.9%) 1,000 mls @ 125 mls/hr IV .Q8H [facility] Last Admin: 02/02/18 19:00 Dose: Not Given Ketorolac Tromethamine (Toradol) 15 mg IVP Q6 PRN PRN Reason: Pain, moderate (4-7) Ketorolac Tromethamine (Toradol) 30 mg IVP Q6 PRN PRN Reason: Pain, severe (8-10) Last Admin: 01/31/18 12:05 Dose: 30 mg Lorazepam (Ativan) 1 mg IVP Q6H PRN PRN Reason: Anxiety Last Admin: 02/02/18 11:05 Dose: 1 mg Losartan Potassium (Cozaar) 50 mg PO DAILY [facility] Last Admin: 02/02/18 10:55 Dose: Not Given Pantoprazole Sodium (Protonix Inj) 40 mg IVP DAILY [facility] Last Admin: 02/02/18 09:13 Dose: 40 mg - Labs Labs: 02/02/18 06:40 02/02/18 06:40 - Additional Findings Additional findings: - Constitutional Appears: Non-toxic, No Acute Distress, Chronically Ill - Head Exam Head Exam: NORMAL INSPECTION - Eye Exam Eye Exam: EOMI, Normal appearance - ENT Exam ENT Exam: Mucous Membranes Moist - Respiratory Exam Respiratory Exam: Clear to Ausculation Bilateral. absent: Rales, Rhonchi, Wheezes, Respiratory Distress - Cardiovascular Exam Cardiovascular Exam: REGULAR RHYTHM, +S1, +S2. Distal pulses are 2+ in bilateral upper and lower extremities. - GI/Abdominal Exam GI & Abdominal Exam: Soft, Normal Bowel Sounds. absent: Distended, Firm, Guarding, Rigid, Tenderness, Rebound - Neurological Exam Neurological Exam: Alert, Awake, Oriented x3. Pt continues to have weakness in bilateral upper and lower distal extremities secondary to chronic illness. - Psychiatric Exam Psychiatric exam: Depressed, Normal Affect. Lethargic but arousable. - Skin Skin Exam: Dry, Normal Color, Warm Assessment and Plan - Assessment and Plan (Free Text) Assessment: This is a 52 year old Male with Pmhx of Chronic Inflammatory Demy elinating Polyneuropathy (CIDP), HTN, depression, anxiety and prostatic enlargement who presents to the ED for abdominal pain, with nausea and dry wretching. Found to have urinary retention and constipation. Pt has been responding well to west catheter insertion for urinary retention and fleet enem as to help with constipation. Pt completed course of IVIG. Amitriptyline 25 mg PO QHS added for abdominal pain/nausea/anxiety. Plan: CIDP (chronic inflammatory demyelinating polyneuropathy) Patient has had this diagnosed in 2004 Case discussed at length with pt and sister. Pt's abdominal pain and nausea and vomiting is secondary to CIDP. Pt has not followed up with Dr. ely since november. Pt's EPS symtopms are due to the phenergan given in the ED. Pt has been moving his bowel well with the phosphate enemas, which we will continue. Pt has had decreased nausea as he has been moving his bowels. Case was discussed with Dr. Ely via telephone, who does not believe this is due to CIDP flare, but to give IVIG as pt has missed [address] Arreola, neurology, consulted who believes these GI symptoms are secondary to CIDP flare, and recommended restarting IVIG. Pt finished a 2 day course of IVIG on 02/01/18. Case discussed with neurology, Dr. Flynn, who states that there is no contraindication to EGD procedure at [facility]. EEG is normal. Intractable nausea and vomiting, with abdominal pain Unable to use Promethazine secondary to EPS side effect Zofran alone does not control systems Patient was seen in prior hospitalization and had refused EGD due to concern for anesthesia side effect Ativan 1mg IVP Q6H switched to Ativan 0.5 mg PO TID prn anxiety. Toradol 15 mg IVP 16h prn moderate pain, Toradol 30 mg IVP q6h prn severe pain NS IVF at 125 mL/hr GI, Dr. Quijano, consulted. Recs appreciated No scope at this time. Continue Mucinex, duonebs Q6h. UTI (urinary tract infection) Pt completed course of Cipro 400mg IV Q12H for 5 days (01/29-02/02) Noted urinary retention on admission Patient has had recent prostate biopsy earlier in December at a different facility Blood culture prelim negative x3 days Urine culture (01/28) negative Electrolyte abnormality Potassium repleted again today Continue to monitor Side effect of medication Will continue to avoid promethazine, reglan Hypertension Home Losartan 50 mg PO QD restarted Urinary retention Had TURP earlier in December Urinary retention on admission Pt's anxiety is increased with urinary retention, west catheter reinserted; with betadine three times per day Constipation Continue Dulcolax enemas daily Hx of anxiety Psychiatry, Dr. Elizabeth, consulted. Continue Amitriptyline 25 mg PO QHS Pt may experience increased anxiety to to recently starting on amitriptyline. Pt needs to be calmed down in order to relax when having anxiety attacks which cause increased wretching and nausea. PPX Heparin 5000 units SC 8H Protonix 40mg IV q daily Diet: CLD as tolerated PT/OT for [facility] eval Dispo: continue to manage intractable dry wretching, and cleanse bowel. Pt completed course of IVIG 02/01/18. PT/OT eval pending. Case discussed with attending physician, Dr. Hiram Hooks <Cody Gomes - Last Filed: 02/05/18 19:06> Objective - Vital Signs/Intake and Output Vital Signs (last 24 hours): Temp Pulse Resp BP Pulse Ox 98.0 F 113 H 20 128/73 99 02/05/18 15:00 02/05/18 15:00 02/05/18 15:00 02/05/18 15:00 02/05/18 15:00 Intake and Output: 02/05/18 02/06/18 18:59 06:59 Intake Total 450 Output Total 400 Balance 50 - Medications Medications: Current Medications Acetylcysteine (Acetylcysteine 20%) 4 ml INH RQ6 [facility] Last Admin: 02/05/18 13:35 Dose: 4 ml Albuterol Sulfate (Albuterol 0.083% Inhal Zhane (2.5 Mg/3 Ml) Ud) 2.5 mg INH RQ6 [facility] Last Admin: 02/05/18 13:35 Dose: 2.5 mg Amitriptyline HCl (Elavil) 25 mg PO HS [facility] Last Admin: 02/04/18 21:31 Dose: 25 mg Bisacodyl (Dulcolax) 10 mg NE DAILY [facility] Last Admin: 02/05/18 10:43 Dose: 10 mg Dextrose (Dextrose 50% Inj) 0 ml IVP .STAT PRN; Protocol PRN Reason: Hypoglycemia Protocol Last Admin: 01/31/18 00:53 Dose: 50 ml Dextrose (Glutose 15) 0 gm PO .ONCE PRN; Protocol PRN Reason: Hypoglycemia Protocol Gabapentin (Neurontin) 300 mg PO TID [facility] Last Admin: 02/05/18 17:47 Dose: 300 mg Glucagon (Glucagen Diagnostic Kit) 0 mg IM .STAT PRN; Protocol PRN Reason: Hypoglycemia Protocol Heparin Sodium (Porcine) (Heparin) 5,000 units SC Q12 [facility] Last Admin: 02/05/18 10:42 Dose: 5,000 units Methylprednisolone 1,000 mg/ (Sodium Chloride) 250 mls @ 125 mls/hr IVPB DAILY [facility] Stop: 02/07/18 11:59 Last Admin: 02/05/18 13:06 Dose: 125 mls/hr Lorazepam (Ativan) 0.5 mg PO TID PRN PRN Reason: Anxiety Last Admin: 02/05/18 05:49 Dose: 0.5 mg Losartan Potassium (Cozaar) 50 mg PO DAILY [facility] Last Admin: 02/05/18 10:43 Dose: 50 mg Pantoprazole Sodium (Protonix Inj) 40 mg IVP DAILY [facility] Last Admin: 02/05/18 10:38 Dose: 40 mg - Labs Labs: 02/05/18 08:33 02/05/18 08:33 Attending/Attestation - Attestation I have personally seen and examined this patient.: Yes I have fully participated in the care of the patient.: Yes I have reviewed all pertinent clinical information, including history, physical exam and plan: Yes Notes (Text): 02/05/18 19:05 This is a late entry. Care of this patient was gone over in detail with resident Dr. Hooks. Cody Gomes D.O.
[2018-02-03 08:37] LABS: BASO % 0.4 % (0.0-2.0); EOS % 0.9 % (0.0-4.0); HEMOGLOBIN 14.3 g/dL (12.0-18.0); MEAN CELL VOLUME 88.3 fL (80.0-94.0); MEAN CORPUSCULAR HEMOGLOBIN 30.1 pg (27.0-31.0); MEAN CORPUSCULAR HGB CONC 34.1 g/dL (33.0-37.0); MEAN PLATELET VOLUME 10.1 fL (7.2-11.7); MONO # 0.4 K/uL (0.0-0.8); MONO % 11.1 % (0.0-10.0); NEUT # 2.6 K/uL (1.8-7.0); NEUT % 63.6 % (50.0-75.0); NRBC % 0.1 % (0.0-2.0); RBC 4.75 Mil/uL (4.40-5.90); RED CELL DISTRIBUTION WIDTH 13.3 % (11.5-14.5)
[2018-02-03 09:09] LABS: ALB/GLOB RATIO 0.8 (1.0-2.1); ALBUMIN 2.9 g/dL (3.5-5.0); ALT/SGPT 31 U/L (21-72); AST/SGOT 28 U/L (17-59); BLOOD UREA NITROGEN 7 mg/dL (9-20); CALCIUM 8.5 mg/dl (8.6-10.4); GFR NON-AFRICAN AMERICAN > 60
[2018-02-03] MEDS ORDERED: Potassium Chloride 20 mEq ER Tab PO ONE (14:00)
--- NOTE | 2018-02-03 15:06 | CP.PCM.PN ---
Subjective - Date & Time of Evaluation Date of Evaluation: 02/03/18 Time of Evaluation: 15:03 - Subjective Subjective: Neurology Follow-Up Note: Mr. Leahy was evaluated this afternoon in bed. He is still complaining of generalized weakness and dry wretching. He states that anti-emetics are helping and received a dose just prior to my exam. Today he denies h/a, dizziness, visual changes, chest pain, sob, abd pain, n/v/d. Objective - Vital Signs/Intake and Output Vital Signs (last 24 hours): Temp Pulse Resp BP Pulse Ox 98.0 F 67 18 145/82 98 02/03/18 07:00 02/03/18 07:00 02/03/18 07:00 02/03/18 07:00 02/03/18 07:00 Intake and Output: 02/03/18 02/03/18 06:59 18:59 Intake Total 2100 Output Total 1350 Balance 750 - Medications Medications: Current Medications Acetylcysteine (Acetylcysteine 20%) 4 ml INH RQ6 ELADIO Last Admin: 02/03/18 13:20 Dose: Not Given Albuterol Sulfate (Albuterol 0.083% Inhal Zhane (2.5 Mg/3 Ml) Ud) 2.5 mg INH RQ6 ELADIO Last Admin: 02/03/18 13:20 Dose: Not Given Amitriptyline HCl (Elavil) 25 mg PO HS ELADIO Last Admin: 02/02/18 22:09 Dose: 25 mg Bisacodyl (Dulcolax) 10 mg WA DAILY ELADIO Last Admin: 02/03/18 11:15 Dose: 10 mg Dextrose (Dextrose 50% Inj) 0 ml IVP .STAT PRN; Protocol PRN Reason: Hypoglycemia Protocol Last Admin: 01/31/18 00:53 Dose: 50 ml Dextrose (Glutose 15) 0 gm PO .ONCE PRN; Protocol PRN Reason: Hypoglycemia Protocol Glucagon (Glucagen Diagnostic Kit) 0 mg IM .STAT PRN; Protocol PRN Reason: Hypoglycemia Protocol Heparin Sodium (Porcine) (Heparin) 5,000 units SC Q12 ELADIO Last Admin: 02/03/18 11:14 Dose: 5,000 units Potassium Chloride (Potassium Chloride 10 Meq/100 Ml) 10 meq in 100 mls @ 100 mls/hr IVPB Q1H ELADIO Stop: 02/03/18 16:14 Ketorolac Tromethamine (Toradol) 15 mg IVP Q6 PRN PRN Reason: Pain, moderate (4-7) Ketorolac Tromethamine (Toradol) 30 mg IVP Q6 PRN PRN Reason: Pain, severe (8-10) Last Admin: 01/31/18 12:05 Dose: 30 mg Lorazepam (Ativan) 0.5 mg PO TID PRN PRN Reason: Anxiety Losartan Potassium (Cozaar) 50 mg PO DAILY [facility] Last Admin: 02/03/18 11:15 Dose: 50 mg Pantoprazole Sodium (Protonix Inj) 40 mg IVP DAILY [facility] Last Admin: 02/03/18 11:16 Dose: 40 mg - Labs Labs: 02/03/18 08:24 02/03/18 08:24 - Constitutional Appears: Well, Non-toxic, No Acute Distress - Head Exam Head Exam: ATRAUMATIC, NORMAL INSPECTION, NORMOCEPHALIC - Eye Exam Eye Exam: EOMI Pupil Exam: NORMAL ACCOMODATION, PERRL - ENT Exam ENT Exam: Mucous Membranes Moist - Neck Exam Neck Exam: Full ROM - Respiratory Exam Respiratory Exam: NORMAL BREATHING PATTERN - Extremities Exam Extremities Exam: absent: Full ROM (generalized weakness and decreased rom noted to all extremities, though slightly improved today to BUE) - Neurological Exam Neurological Exam: Alert, Awake Neuro motor strength exam: Left Upper Extremity: 3, Right Upper Extremity: 3, Left Lower Extremity: 2/1, Right Lower Extremity: 2/1 Additional comments: -wolof speaking, no slurred speech -cooperative today, follows some commands during exam -unable to test fine motor 2/2 not following commands -sensation equal - Psychiatric Exam Psychiatric exam: Flat Affect - Skin Skin Exam: Normal Color Assessment and Plan (1) CIDP (chronic inflammatory demyelinating polyneuropathy) Assessment & Plan: -Patient has received total of 2 doses of IVIG. -EEG normal. -Continue PT/OT and supportive measures. -We will sign off at this time. Please reconsult prn. Pt to f/u with his neurologist, Dr. Ronquillo, upon d/c and he can resume his IVIG treatments as outpatient. Case discussed with Dr. Flynn. Thank you for allowing us to participate in this pt's care. Status: Chronic
[2018-02-03] MEDS ORDERED: Flumazenil 0.1 mg/ml Inj (5ml) IVP STA (15:44)
--- NOTE | 2018-02-03 15:46 | PCM.RRT ---
<Jeff Brown - Last Filed: 02/03/18 15:51> DESKTOP SUPPORT ENGINEER Nurses Assessment - Situation Date: 02/01/18 Time DESKTOP SUPPORT ENGINEER was called: 05:26 DESKTOP SUPPORT ENGINEER Responder Arrival Time:: 05:27 DESKTOP SUPPORT ENGINEER Location:: Med/Surg Room Number: 563B DESKTOP SUPPORT ENGINEER Reason for Call: Change in Mental Status DESKTOP SUPPORT ENGINEER Called By: RN - IV IV Inserted during DESKTOP SUPPORT ENGINEER?: No - Respiratory DESKTOP SUPPORT ENGINEER Delivery Method: Nasal Cannula @L/min (2L) - Medication Medications Administered During DESKTOP SUPPORT ENGINEER: none - Diagnostic Test Ordered EKG: No Chest X-Ray: No CT Scan: No CPR started during DESKTOP SUPPORT ENGINEER?: No - Vital Signs Vital Signs: Rapid Response Vital Sign Blood Pressure 164/95 Pulse Rate 84 Respiratory Rate 20 Temperature 97.4 F Oxygen Saturation 100 - Time DESKTOP SUPPORT ENGINEER Ended Time DESKTOP SUPPORT ENGINEER Ended: 05:40 - Vital Signs at end of DESKTOP SUPPORT ENGINEER Vital Signs at end of DESKTOP SUPPORT ENGINEER: Rapid Response End Vital Sign Blood Pressure 160/97 Pulse Rate 78 Respiratory Rate 20 Temperature 97 F O2 Sat by Pulse Oximetry 98 - Recommendations Notifications: Attending Physician I.Reason for DESKTOP SUPPORT ENGINEER - A) Acute Change in Patient: (Select all that apply): Acute change in mental status - Neurological Status (Select all that apply): Disoriented - Respiratory Oxygen Delivery Method: Nasal Cannula @L/min - Constitutional Appears: Confused, Cachectic - Head Head Exam: ATRAUMATIC, NORMAL INSPECTION - Eyes Eye Exam: EOMI, Normal appearance - Respiratory Exam Respiratory Exam: Decreased Breath Sounds - Cardiovascular Exam Cardiovascular Exam: Tachycardia, +S1, +S2 - GI/Abdominal Exam GI & Abdominal Exam: Soft. absent: Tenderness - Extremities Exam Extremities Exam: Normal Inspection Plan - Assessment of Findings&Treatment Plan Pt responding now after [id number] inh salt, pt to get 0.2mg Flumanzenil IVP Monitor mental status BP 170/90 HR 100 T 98 O2 96% NC 2L <Cody Gomes - Last Filed: 02/05/18 19:06> DESKTOP SUPPORT ENGINEER Nurses Assessment - Vital Signs Vital Signs: Rapid Response Vital Sign Blood Pressure 180/101 Pulse Rate 95 Respiratory Rate 18 Temperature 98.7 F Oxygen Saturation 97 - Vital Signs at end of DESKTOP SUPPORT ENGINEER Vital Signs at end of DESKTOP SUPPORT ENGINEER: Rapid Response End Vital Sign Blood Pressure 134/85 Pulse Rate 95 Respiratory Rate 20 Temperature 97 F O2 Sat by Pulse Oximetry 97 Attending/Attestation - Attestation I have personally seen and examined this patient.: Yes I have fully participated in the care of the patient.: Yes I have reviewed all pertinent clinical information, including history, physical exam and plan: Yes
[2018-02-03] MEDS ORDERED: Ammonia 2% Inhalant INH ONE (16:15)
[2018-02-03] MEDS ORDERED: DiphenhydrAMINE 50 mg/ml Inj IVP ONE (19:00)
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
[2018-02-04] MEDS: Albuterol 0.083% Inhal Sol (2.5 mg/3 mL) UD INH SCH ×3 (02:50→19:45)
[2018-02-04] MEDS: Acetylcysteine 20% Inhal Soln (4ml) INH SCH ×3 (02:50→19:45)
[2018-02-04 07:34] LABS: BASO % 0.6 % (0.0-2.0); EOS % 0.8 % (0.0-4.0); LYMPH # 1.1 K/uL (1.0-4.3); LYMPH % 23.2 % (20.0-40.0); MEAN CELL VOLUME 88.2 fL (80.0-94.0); MEAN CORPUSCULAR HEMOGLOBIN 29.8 pg (27.0-31.0); MEAN CORPUSCULAR HGB CONC 33.8 g/dL (33.0-37.0); MEAN PLATELET VOLUME 9.9 fL (7.2-11.7); MONO # 0.5 K/uL (0.0-0.8); NEUT # 3.2 K/uL (1.8-7.0); NEUT % 65.4 % (50.0-75.0); RBC 5.04 Mil/uL (4.40-5.90); RED CELL DISTRIBUTION WIDTH 13.2 % (11.5-14.5); WHITE BLOOD COUNT 4.8 K/uL (4.8-10.8)
[2018-02-04 08:15] LABS: ALB/GLOB RATIO 0.9 (1.0-2.1); ALBUMIN 3.3 g/dL (3.5-5.0); ALT/SGPT 37 U/L (21-72); AST/SGOT 47 U/L (17-59); BLOOD UREA NITROGEN 9 mg/dL (9-20); CALCIUM 8.9 mg/dl (8.6-10.4); GFR NON-AFRICAN AMERICAN > 60
--- NOTE | 2018-02-04 09:48 | CP.PCM.PCO ---
Physician Communication Note - Physician Communication Note Physician Communication Note: Please see above
[2018-02-05] MEDS: Albuterol 0.083% Inhal Sol (2.5 mg/3 mL) UD INH SCH ×3 (01:30→13:35)
[2018-02-05] MEDS: Acetylcysteine 20% Inhal Soln (4ml) INH SCH ×3 (01:30→13:35)
--- NOTE | 2018-02-05 01:50 | CP.PCM.PN ---
<Carina Gallo - Last Filed: 02/05/18 02:04> Subjective - Date & Time of Evaluation Date of Evaluation: 02/05/18 Time of Evaluation: 01:46 - Subjective Subjective: PGY-1 Carina Gallo D.O. Medicine progress note for Dr. Cody Gomes's service: Patient was seen and examined this morning. Yesterday, patient has multiple of wretching/panic attacks. He was encouraged to use deep breathing exercises. Patient again was encouraged to work with PT. West was placed yesterday, as patient has had significant distress due to urinary retention and needs to focus on managing his anxiety and working with PT/OT for placement after this acute hospitalization. Objective - Vital Signs/Intake and Output Vital Signs (last 24 hours): Temp Pulse Resp BP Pulse Ox 98.0 F 98 H 20 149/90 100 02/04/18 15:00 02/04/18 15:00 02/04/18 15:00 02/04/18 16:31 02/04/18 15:00 Intake and Output: 02/04/18 02/05/18 18:59 06:59 Intake Total 200 240 Output Total 375 300 Balance -175 -60 - Medications Medications: Current Medications Acetylcysteine (Acetylcysteine 20%) 4 ml INH RQ6 [facility] Last Admin: 02/04/18 19:45 Dose: 4 ml Albuterol Sulfate (Albuterol 0.083% Inhal Zhane (2.5 Mg/3 Ml) Ud) 2.5 mg INH RQ6 [facility] Last Admin: 02/04/18 19:45 Dose: 2.5 mg Amitriptyline HCl (Elavil) 25 mg PO HS [facility] Last Admin: 02/04/18 21:31 Dose: 25 mg Bisacodyl (Dulcolax) 10 mg NC DAILY [facility] Last Admin: 02/04/18 11:00 Dose: 10 mg Dextrose (Dextrose 50% Inj) 0 ml IVP .STAT PRN; Protocol PRN Reason: Hypoglycemia Protocol Last Admin: 01/31/18 00:53 Dose: 50 ml Dextrose (Glutose 15) 0 gm PO .ONCE PRN; Protocol PRN Reason: Hypoglycemia Protocol Glucagon (Glucagen Diagnostic Kit) 0 mg IM .STAT PRN; Protocol PRN Reason: Hypoglycemia Protocol Heparin Sodium (Porcine) (Heparin) 5,000 units SC Q12 [facility] Last Admin: 02/04/18 21:33 Dose: 5,000 units Ketorolac Tromethamine (Toradol) 15 mg IVP Q6 PRN PRN Reason: Pain, moderate (4-7) Ketorolac Tromethamine (Toradol) 30 mg IVP Q6 PRN PRN Reason: Pain, severe (8-10) Last Admin: 01/31/18 12:05 Dose: 30 mg Lorazepam (Ativan) 0.5 mg PO TID PRN PRN Reason: Anxiety Losartan Potassium (Cozaar) 50 mg PO DAILY [facility] Last Admin: 02/04/18 10:11 Dose: 50 mg Pantoprazole Sodium (Protonix Inj) 40 mg IVP DAILY [facility] Last Admin: 02/04/18 11:00 Dose: 40 mg - Labs Labs: 02/04/18 07:21 02/04/18 07:21 - Constitutional Appears: No Acute Distress, Chronically Ill - Head Exam Head Exam: ATRAUMATIC, NORMAL INSPECTION - Eye Exam Eye Exam: EOMI, Normal appearance - ENT Exam ENT Exam: Mucous Membranes Moist - Neck Exam Neck Exam: Normal Inspection - Respiratory Exam Respiratory Exam: Clear to Ausculation Bilateral, NORMAL BREATHING PATTERN. absent: Respiratory Distress - Cardiovascular Exam Cardiovascular Exam: REGULAR RHYTHM, +S1, +S2 - GI/Abdominal Exam GI & Abdominal Exam: Soft. absent: Tenderness - Rectal Exam Rectal Exam: Deferred - Extremities Exam Extremities Exam: absent: Pedal Edema, Tenderness Additional comments: b/l contracted feet - Neurological Exam Neurological Exam: Alert, Awake, CN II-XII Intact, Oriented x3 - Psychiatric Exam Psychiatric exam: Anxious - Skin Skin Exam: Dry, Normal Color, Warm Assessment and Plan - Assessment and Plan (Free Text) Assessment: Patient is a 52 year old male with Pmhx of Chronic Inflammatory Demyelinating Polyneuropathy (CIDP), HTN, depression, anxiety and prostatic enlargement who presented to the ED for abdominal pain with nausea and dry wr etching. Of note, patient was just discharged from the hospital last week for the same symptoms. This admission, patient found to have urinary retention and constipation. Pt has been responding well to west/straight catheter insertion for urinary retention and fleet enemas to help with constipation. Patient had missed multiple treatments of IVIG as outpatient. He completed course of IVIG here. Patient repeatedly with episodes of dry wretching and spastic movements consistent with EPS vs panic attacks. Avoiding antinausea medications that can contribute to EPS and now using Ativan for nausea. Patient continues to Seen by psychiatry and switch from Celexa to Amitriptyline 25 mg PO QHS for abdominal pain/nausea/anxiety. Presently, patient is hesitant to work with PT/OT. He is having multiple panic attacks throughout the day. Plan: Anxiety with panic attacks - May ay experience increased anxiety to to recently starting on amitriptyline - Needs to be calmed down in order to relax when having anxiety attacks which cause increased wretching and nausea- breathing exercises - [employer] called twice during this admission for unresponsiveness, wretching, spitting clear phlegm, rolling his eyes- each time patient had significant urinary retention as well - EEG normal - Amitriptyline 25 mg PO QHS - Psychiatry, Dr. Elizabeth, consulted - Signed off Intractable nausea and vomiting with abdominal pain - Unable to use Promethazine, Phenergan due to EPS side effect - Zofran does not control symptoms - Patient was seen in prior hospitalization and had refused EGD due to concern for anesthesia side effect - Presently, patient is dry wretching with minimal clear/white salive, no true vomiting - Suspect related to anxiety - Advance diet as tolerated - Ativan 0.5 mg PO TID prn anxiety/nausea - Toradol 15 mg IVP q6h prn moderate pain, Toradol 30 mg IVP q6h prn severe pain - Acetylcysteine q6h - Duonebs q6h - GI, Dr. Quijano, consulted - No scope at this time Extrapyramidal symptoms, improved - Medication side effect - Continue to avoid promethazine, reglan Urinary retention - TURP earlier in December - Patient's anxiety is increased with urinary retention, west catheter reinserted 02/04 - Urology, Dr. Hahn, consulted Constipation, improving - Continue Dulcolax NC daily Electrolyte abnormality - Replete as needed - Continue to monitor Hypertension, chronic - Monitor vitals Q4H - Losartan 50 mg PO QD Chronic inflammatory demyelinating polyneuropathy (CIDP) - Diagnosed in 2004 - Case discussed at length with pt and sister. Pt's abdominal pain and nausea and vomiting is secondary to CIDP. Pt has not followed up with Dr. Ronquillo since November. Pt's EPS symtopms are due to the phenergan given in the ED. Pt has been moving his bowel well with the phosphate enemas, which we will continue. - Pt has had decreased nausea as he has been moving his bowels. - EEG is normal - Case was discussed with Dr. Ronquillo via telephone, who does not believe this is due to CIDP flare, but rec to give IVIG as pt has missed 2 doses. - Dr. Arreola, neurology, consulted who believes these GI symptoms are secondary to CIDP flare, and recommended restarting IVIG. - Pt finished a 2 day course of IVIG on 02/01/18. - Case discussed with neurology, Dr. Flynn, who states that there is no contraindication to EGD procedure at this time. Urinary tract infection (UTI), resolved - Patient has had recent prostate biopsy earlier in December at a different facility - Completed course of Cipro 400mg IV Q12H for 5 days (01/29-02/02) - Blood culture negative - Urine culture (01/28) negative PPX Heparin 5000 units SC Q12H Protonix 40mg IV daily Diet: Clear liquids- advance as tolerated PT/OT- rec JUSTIN Code status: full code Case discussed with attending , Dr. Cody Gomes. <Cody Gomes J - Last Filed: 02/05/18 19:00> Objective - Vital Signs/Intake and Output Vital Signs (last 24 hours): Temp Pulse Resp BP Pulse Ox 98.0 F 113 H 20 128/73 99 02/05/18 15:00 02/05/18 15:00 02/05/18 15:00 02/05/18 15:00 02/05/18 15:00 Intake and Output: 02/05/18 02/05/18 06:59 18:59 Intake Total 240 450 Output Total 300 400 Balance -60 50 - Medications Medications: Current Medications Acetylcysteine (Acetylcysteine 20%) 4 ml INH RQ6 [facility] Last Admin: 02/05/18 13:35 Dose: 4 ml Albuterol Sulfate (Albuterol 0.083% Inhal Zhane (2.5 Mg/3 Ml) Ud) 2.5 mg INH RQ6 [facility] Last Admin: 02/05/18 13:35 Dose: 2.5 mg Amitriptyline HCl (Elavil) 25 mg PO HS [facility] Last Admin: 02/04/18 21:31 Dose: 25 mg Bisacodyl (Dulcolax) 10 mg NC DAILY [facility] Last Admin: 02/05/18 10:43 Dose: 10 mg Dextrose (Dextrose 50% Inj) 0 ml IVP .STAT PRN; Protocol PRN Reason: Hypoglycemia Protocol Last Admin: 01/31/18 00:53 Dose: 50 ml Dextrose (Glutose 15) 0 gm PO .ONCE PRN; Protocol PRN Reason: Hypoglycemia Protocol Gabapentin (Neurontin) 300 mg PO TID [facility] Last Admin: 02/05/18 17:47 Dose: 300 mg Glucagon (Glucagen Diagnostic Kit) 0 mg IM .STAT PRN; Protocol PRN Reason: Hypoglycemia Protocol Heparin Sodium (Porcine) (Heparin) 5,000 units SC Q12 [facility] Last Admin: 02/05/18 10:42 Dose: 5,000 units Methylprednisolone 1,000 mg/ (Sodium Chloride) 250 mls @ 125 mls/hr IVPB DAILY [facility] Stop: 02/07/18 11:59 Last Admin: 02/05/18 13:06 Dose: 125 mls/hr Lorazepam (Ativan) 0.5 mg PO TID PRN PRN Reason: Anxiety Last Admin: 02/05/18 05:49 Dose: 0.5 mg Losartan Potassium (Cozaar) 50 mg PO DAILY [facility] Last Admin: 02/05/18 10:43 Dose: 50 mg Pantoprazole Sodium (Protonix Inj) 40 mg IVP DAILY [facility] Last Admin: 02/05/18 10:38 Dose: 40 mg - Labs Labs: 02/05/18 08:33 02/05/18 08:33 Attending/Attestation - Attestation I have personally seen and examined this patient.: Yes I have fully participated in the care of the patient.: Yes I have reviewed all pertinent clinical information, including history, physical exam and plan: Yes Notes (Text): 02/05/18 18:19 Patient was seen and examined at 9 AM 02/05/18 Bed 567 P Please see resident Dr. Gallo's for full details HEENT, Cardio, Resp, GI, Ext, CN II through XII exams were unremarkable From 02/04/18: Patient has a long history of anxiety and panic attacks as per my conversation with throughout this past week and again last night 02/03/18. She suspects this started when patient [place] a lot of [place]. He has been having episodes of anxiety that involves him retc [place] loudly since his prostate biopsy at [facility] in December [address] Bansal. Upon my exam on morning of 02/04/18, patient was again retching loudly and bringing up small amounts of white/clear saliva. I sat down and asked him to concentrate on his breathing by closing his eyes, visualizing the air entering his nose going through the back of his throat entering his trachea and down his lungs causing them to expand and then visualizing this in the opposite direction. He did this for about 5 minutes and afterwards was calm. We spoke about how he met his , what his wishes were for this holiday season (to go again to [facility] to see the [employer] tree: he has a framed picture at the bedside of a prior visit there with his family). I explained to him that we needed to be able to get him up and moving with physical therapy and that by giving him medications to treat "the nausea" has lead to side effects (extrapyramidal symptoms earlier this week with zofran, reglan, promethazine) and increased sedation (ativan that was started after the extrapyramidal sympto ms started with the prior drugs mentioned) that has lead to him not being able to participate in physical therapy which is what is needed after treatment with the IV IG for his history of CIDP. I explained to him that the breathing exercises will take some practice and that he should perform them the moment that he starts to feel anxious leading to his complaints of nausea. Patient expressed understanding. Please note that 20 minutes was spent talking with the patient and during the entire time there was no retching and patient speaking with me and interacting with me in a normal fashion. Although I am hesitant to keep the West in place, we will for now considering that that without it, it has brought significant distress to the patient that lead to the [employer] on 02/04/18. Urology Consult with Dr. Hahn has been ordered considered the history of prostate biopsy at [facility] by a Dr. Montanez as per my conversation with patient's Alia. I have already spoken with PT Silviano on 02/03/18 to start PT on patient. From 02/05/18: Patient continued with episodes of retching and grunting at the time of exam. However, again asking him to focus on his breathing as described on 02/04/18 caused the retching and grunting to stop. Alia was present during and exam and I explained that although I did not believe that retching was due to CIDP, I wanted to try steroid therapy as my research on CIDP has shown that in addition to the IV IG (which he completed here at [facility] earlier this past week), treatment with steroids has shown to be beneficial. I spoke with Neurologist Dr. Flynn and expressed the possibility of starting steroids and he recommended pulse steroid therapy with Solumedrol 1 gm IV 1x/day for 3 days and orders have been placed. Patient to receive Solumedrol 1 gm IV 1x/day on 02/05/18, 02/06/18, and 02/07/18. Patient is already on GI prophylaxis with Protonix. Dr. Flynn also recommended Gabapentin 300 mg PO 3x/day and this too has been ordered. Medicine Team: 1). Please follow up with Dr. Hahn Urology for the patient's history of urinary retention. He currently has west in place with west care (please see my note from 02/04/18 above). Urinary rentention can be a sequelae of CIDP. 2). Please contact Urologist Dr. Montanez at [facility] to follow up results of prostate biopsy that he had done in December 2017 as per Alia. 3). Make sure that PT works with patient this week. 4). Patient will likely need JUSTIN upon discharge. Cody Gomes D.O.
[2018-02-05 08:57] LABS: BASO % 0.3 % (0.0-2.0); EOS % 0.5 % (0.0-4.0); LYMPH # 1.2 K/uL (1.0-4.3); LYMPH % 19.3 % (20.0-40.0); MEAN CELL VOLUME 88.3 fL (80.0-94.0); MEAN CORPUSCULAR HEMOGLOBIN 30.5 pg (27.0-31.0); MEAN CORPUSCULAR HGB CONC 34.5 g/dL (33.0-37.0); MEAN PLATELET VOLUME 10.4 fL (7.2-11.7); MONO # 0.5 K/uL (0.0-0.8); MONO % 8.4 % (0.0-10.0); NEUT # 4.3 K/uL (1.8-7.0); NEUT % 71.5 % (50.0-75.0); NRBC % 0.3 % (0.0-2.0); RBC 5.66 Mil/uL (4.40-5.90); RED CELL DISTRIBUTION WIDTH 13.5 % (11.5-14.5)
[2018-02-05 09:17] LABS: ALB/GLOB RATIO 0.9 (1.0-2.1); ALBUMIN 4.2 g/dL (3.5-5.0); ALT/SGPT 72 U/L (21-72); AST/SGOT 88 U/L (17-59); BLOOD UREA NITROGEN 11 mg/dL (9-20); CALCIUM 9.4 mg/dl (8.6-10.4); GFR NON-AFRICAN AMERICAN > 60
[2018-02-05 09:19] LABS: HEMOGLOBIN 17.3 g/dL (12.0-18.0)
[2018-02-05] MEDS ORDERED: MethylPREDNISolone 1 gm Vial IV ONE (11:26)
--- NOTE | 2018-02-05 13:31 | CP.PCM.PCO ---
Physician Communication Note - Physician Communication Note Physician Communication Note: The patient is producing occasional spontaneous "grunting" sounds. Assessment/Plan - Assessment/Plan Assessment (Free Text): This is likely due to anxiety or psychiatric issues. It is unlikely to be related to CIDP. However, the patient is not improving and is not able to participate in PT. Plan (Free Text): We will try pulse steroid doses of solumedrol 1000 mg each day for 3 days. I recommend also starting neurontin 300 mg TID. - Problems Patient Problems: Problem List (Active/Current) Problem Status Onset Code Abdominal pain Acute R10.9 Constipation Acute K59.00 Constipation Acute K59.00 Hypokalemia Acute E87.6 Nausea Acute R11.0 Prophylactic measure Acute Z29.9 Side effect of medication Acute T88.7XXA UTI (urinary tract infection) Acute N39.0 Urinary retention Acute R33.9 Vomiting Acute R11.10 CIDP (chronic inflammatory demyelinating polyneuropathy) Chronic G61.81 Hypertension Chronic I10
--- NOTE | 2018-02-05 19:01 | CP.PCM.PCO ---
Physician Communication Note - Physician Communication Note Physician Communication Note: Please see above
[2018-02-06] MEDS: Albuterol 0.083% Inhal Sol (2.5 mg/3 mL) UD INH SCH ×3 (03:46→13:56)
[2018-02-06] MEDS: Acetylcysteine 20% Inhal Soln (4ml) INH SCH ×4 (03:46→19:16)
[2018-02-06 07:48] LABS: BASO % 0.1 % (0.0-2.0); HEMOGLOBIN 16.4 g/dL (12.0-18.0); LYMPH # 0.5 K/uL (1.0-4.3); LYMPH % 7.2 % (20.0-40.0); MEAN CELL VOLUME 88.2 fL (80.0-94.0); MEAN PLATELET VOLUME 10.2 fL (7.2-11.7); MONO # 0.1 K/uL (0.0-0.8); MONO % 2.1 % (0.0-10.0); NEUT # 6.4 K/uL (1.8-7.0); NEUT % 90.6 % (50.0-75.0); PLATELET COUNT 217 K/uL (130-400); RBC 5.46 Mil/uL (4.40-5.90); RED CELL DISTRIBUTION WIDTH 13.5 % (11.5-14.5); WHITE BLOOD COUNT 7.1 K/uL (4.8-10.8)
[2018-02-06 08:30] LABS: ALBUMIN 3.7 g/dL (3.5-5.0); ALT/SGPT 93 U/L (21-72); AST/SGOT 102 U/L (17-59); BLOOD UREA NITROGEN 15 mg/dL (9-20); CALCIUM 9.4 mg/dl (8.6-10.4); GFR NON-AFRICAN AMERICAN > 60
[2018-02-06 09:20] LABS: BANDS 2 % (0-2); LYMPHOCYTE 9 % (20-40); MONOCYTE 2 % (0-10); NEUTROPHIL 86 % (50-75); PLATELET ESTIMATE NORMAL (NORMAL); REACTIVE LYMPHOCYTES 1 % (0-0); TOTAL CELLS COUNTED 100
[2018-02-06] MEDS ORDERED: MethylPREDNISolone 1 gm Vial IV ONE (11:30)
--- NOTE | 2018-02-06 15:21 | CP.PCM.PN ---
Subjective - Date & Time of Evaluation Date of Evaluation: 02/06/18 Time of Evaluation: 15:19 - Subjective Subjective: Neurology Follow-Up Note: Mr. Leahy was evaluated this afternoon in bed. He is still complaining of generalized weakness, however, admits to much improvements in upper extremity weakness, anxiety, and dry wretching since yesterday. He admits to participating in PT today. Today he denies h/a, dizziness, visual changes, chest pain, sob, abd pain, n/v/d. Objective - Vital Signs/Intake and Output Vital Signs (last 24 hours): Temp Pulse Resp BP Pulse Ox 97.4 F L 110 H 20 114/76 99 02/06/18 07:21 02/06/18 09:34 02/06/18 07:21 02/06/18 09:34 02/06/18 07:21 Intake and Output: 02/06/18 02/06/18 06:59 18:59 Output Total 250 Balance -250 - Medications Medications: Current Medications Acetylcysteine (Acetylcysteine 20%) 4 ml INH RQ6 [facility] Last Admin: 02/06/18 13:56 Dose: Not Given Amitriptyline HCl (Elavil) 25 mg PO HS [facility] Last Admin: 02/05/18 22:16 Dose: 25 mg Bisacodyl (Dulcolax) 10 mg VT DAILY [facility] Last Admin: 02/06/18 09:41 Dose: 10 mg Dextrose (Dextrose 50% Inj) 0 ml IVP .STAT PRN; Protocol PRN Reason: Hypoglycemia Protocol Last Admin: 01/31/18 00:53 Dose: 50 ml Dextrose (Glutose 15) 0 gm PO .ONCE PRN; Protocol PRN Reason: Hypoglycemia Protocol Gabapentin (Neurontin) 300 mg PO TID [facility] Last Admin: 02/06/18 09:34 Dose: 300 mg Glucagon (Glucagen Diagnostic Kit) 0 mg IM .STAT PRN; Protocol PRN Reason: Hypoglycemia Protocol Heparin Sodium (Porcine) (Heparin) 5,000 units SC Q12 [facility] Last Admin: 02/06/18 09:36 Dose: 5,000 units Methylprednisolone 1,000 mg/ (Sodium Chloride) 250 mls @ 125 mls/hr IVPB DAILY [facility] Stop: 02/07/18 11:59 Last Admin: 02/06/18 09:41 Dose: 125 mls/hr Lorazepam (Ativan) 0.5 mg PO TID PRN PRN Reason: Anxiety Last Admin: 02/05/18 05:49 Dose: 0.5 mg Losartan Potassium (Cozaar) 50 mg PO DAILY [facility] Last Admin: 02/06/18 09:34 Dose: 50 mg Pantoprazole Sodium (Protonix Inj) 40 mg IVP DAILY [facility] Last Admin: 02/06/18 09:36 Dose: 40 mg - Labs Labs: 02/06/18 07:30 02/06/18 07:30 - Constitutional Appears: Well, Non-toxic, No Acute Distress - Head Exam Head Exam: ATRAUMATIC, NORMAL INSPECTION, NORMOCEPHALIC - Eye Exam Eye Exam: EOMI, Normal appearance Pupil Exam: NORMAL ACCOMODATION - ENT Exam ENT Exam: Mucous Membranes Moist - Neck Exam Neck Exam: Full ROM, Normal Inspection - Respiratory Exam Respiratory Exam: NORMAL BREATHING PATTERN - Extremities Exam Extremities Exam: Normal Inspection. absent: Calf Tenderness, Full ROM (decreased rom to BLE; weakness to BUE however improved compared to last week.), Pedal Edema - Neurological Exam Neurological Exam: Alert, Oriented x3 Neuro motor strength exam: Left Upper Extremity: 3 (extension work instructor 2/5), Right Upper Extremity: 3 (extension work instructor 2/5), Left Lower Extremity: 2/1, Right Lower Extremity: 2/1 Additional comments: alert, awake; cooperative, follows commands speech clear, fluid able to move BUE independently; increased movement to BUE compared to last week. still has significant weakness to BLE sensation intact b/l reflexes brisk - Psychiatric Exam Psychiatric exam: Normal Affect, Normal Mood - Skin Skin Exam: Normal Color Assessment and Plan (1) CIDP (chronic inflammatory demyelinating polyneuropathy) Assessment & Plan: Mr. Leahy has improved significantly since last week. He has increased energy and increased movement to BUE. His dry wretching and anxiety have also improved. He has been receiving Gabapentin 300 mg PO TID and Solumedrol pulse doses since 02/05/18 and is tolerating. He attributes his recent improvement to these medications and is very happy about that. -Continue Solumedrol 1, 000 mg IV daily x3 total doses (started on 02/05/18 and last dose to be given 02/07/18) and Gabapentin 300 mg PO TID. -Patient has received total of 2 doses of IVIG since admission. -EEG normal. -Continue PT/OT and supportive measures. -Pt to f/u with his neurologist, Dr. Ronquillo, upon d/c and he can resume his IVIG treatments as outpatient. -Notify neuro of any acute changes. Case discussed with Dr. Flynn. Status: Chronic
--- NOTE | 2018-02-06 16:33 | CP.PCM.PN ---
Subjective - Date & Time of Evaluation Date of Evaluation: 02/06/18 Time of Evaluation: 16:34 - Subjective Subjective: PGY-[address] Go Patient seen and examined at bedside. Patient states has not had had any nausea or dry heaving since yesterday at 1pm. Patient now tolerating liquids. Patient is agreeable with plan to d/c home tomorrow. Patient with no other complaints at this time, including no chest pain, shortness of breath, abdominal pain, dizziness. Objective - Vital Signs/Intake and Output Vital Signs (last 24 hours): Temp Pulse Resp BP Pulse Ox 98.3 F 78 20 116/68 99 02/06/18 15:00 02/06/18 15:00 02/06/18 15:00 02/06/18 15:00 02/06/18 15:00 Intake and Output: 02/06/18 02/06/18 06:59 18:59 Intake Total 600 Output Total 250 200 Balance -250 400 - Medications Medications: Current Medications Acetylcysteine (Acetylcysteine 20%) 4 ml INH RQ6 [facility] Last Admin: 02/06/18 13:56 Dose: Not Given Amitriptyline HCl (Elavil) 25 mg PO HS [facility] Last Admin: 02/05/18 22:16 Dose: 25 mg Bisacodyl (Dulcolax) 10 mg UT DAILY [facility] Last Admin: 02/06/18 09:41 Dose: 10 mg Dextrose (Dextrose 50% Inj) 0 ml IVP .STAT PRN; Protocol PRN Reason: Hypoglycemia Protocol Last Admin: 01/31/18 00:53 Dose: 50 ml Dextrose (Glutose 15) 0 gm PO .ONCE PRN; Protocol PRN Reason: Hypoglycemia Protocol Gabapentin (Neurontin) 300 mg PO TID [facility] Last Admin: 02/06/18 15:00 Dose: 300 mg Glucagon (Glucagen Diagnostic Kit) 0 mg IM .STAT PRN; Protocol PRN Reason: Hypoglycemia Protocol Heparin Sodium (Porcine) (Heparin) 5,000 units SC Q12 [facility] Last Admin: 02/06/18 09:36 Dose: 5,000 units Methylprednisolone 1,000 mg/ (Sodium Chloride) 250 mls @ 125 mls/hr IVPB DAILY [facility] Stop: 02/07/18 11:59 Last Admin: 02/06/18 09:41 Dose: 125 mls/hr Lorazepam (Ativan) 0.5 mg PO TID PRN PRN Reason: Anxiety Last Admin: 02/05/18 05:49 Dose: 0.5 mg Losartan Potassium (Cozaar) 50 mg PO DAILY [facility] Last Admin: 02/06/18 09:34 Dose: 50 mg Pantoprazole Sodium (Protonix Inj) 40 mg IVP DAILY [facility] Last Admin: 02/06/18 09:36 Dose: 40 mg - Labs Labs: 02/06/18 07:30 02/06/18 07:30 - Constitutional Appears: Non-toxic, No Acute Distress - Head Exam Head Exam: ATRAUMATIC, NORMAL INSPECTION - Eye Exam Eye Exam: EOMI, Normal appearance - ENT Exam ENT Exam: Mucous Membranes Moist - Respiratory Exam Respiratory Exam: Clear to Ausculation Bilateral, NORMAL BREATHING PATTERN. absent: Rhonchi, Wheezes - Cardiovascular Exam Cardiovascular Exam: REGULAR RHYTHM, +S1, +S2 - GI/Abdominal Exam GI & Abdominal Exam: Soft, Normal Bowel Sounds. absent: Guarding, Rigid, Tenderness - Neurological Exam Neurological Exam: Alert, Awake, Oriented x3 - Psychiatric Exam Psychiatric exam: Anxious, Normal Affect - Skin Skin Exam: Dry, Intact, Normal Color Assessment and Plan - Assessment and Plan (Free Text) Assessment: Assessment: Patient is a 52 year old male with Pmhx of Chronic Inflammatory Demyelinating Polyneuropathy (CIDP), HTN, depression, anxiety and prostatic enlargement who presented to the ED for abdominal pain with nausea and dry wretching. Of note, patient was just discharged from the hospital prior to re- admission for similar symptoms. This admission, patient found to have urinary retention and constipation. Pt has been responding well to west/straight catheter insertion for urinary retention and fleet enemas to help with constipation. Patient had missed multiple treatments of IVIG as outpatient. He completed course of IVIG here. No dry retching today and patient tolerating food (consider sx 2/2 EPS vs anxiety). Avoiding antinausea medications that can contribute to EPS and now using Ativan for nausea. Patient continues to Seen by psychiatry and switch from Celexa to Amitriptyline 25 mg PO QHS for abdominal pain/nausea/anxiety. Symptoms improved today - patient agrees with plan for discharge home tomorrow. Plan: Anxiety with panic attacks - May ay experience increased anxiety to to recently starting on amitriptyline - States he has not had any retching since yesterday 01/26 at 1am and is tolerating liquid diet - Needs to be calmed down in order to relax when having anxiety attacks which cause increased wretching and nausea- breathing exercises - NUCLEAR OPERATOR called twice during this admission for unresponsiveness, wretching, spitting clear phlegm, rolling his eyes- each time patient had significant urinary retention as well - EEG normal - Amitriptyline 25 mg PO QHS - Psychiatry, Dr. Elizabeth, consulted - Signed off Intractable nausea and vomiting with abdominal pain - Suspect related to anxiety - symptoms improved - Diet advanced to solid heart healthy - plan to d/c tomorrow. - Unable to use Promethazine, Phenergan due to EPS side effect - Zofran does not control symptoms - Patient was seen in prior hospitalization and had refused EGD due to concern for anesthesia side effect - Presently, patient is dry wretching with minimal clear/white salive, no true vomiting - Advance diet as tolerated - Ativan 0.5 mg PO TID prn anxiety/nausea - Toradol 15 mg IVP q6h prn moderate pain, Toradol 30 mg IVP q6h prn severe pain - Acetylcysteine q6h - Duonebs q6h - GI, Dr. Quijano, consulted - No scope at this time Extrapyramidal symptoms, improved - Medication side effect - Continue to avoid promethazine, reglan Urinary retention - TURP earlier in December - Patient's anxiety is increased with urinary retention, west catheter reinserted 02/04 - Urology, Dr. Hahn, consulted Constipation, improving - Continue Dulcolax UT daily Electrolyte abnormality - Replete as needed - Continue to monitor Hypertension, chronic - Monitor vitals Q4H - Losartan 50 mg PO QD Chronic inflammatory demyelinating polyneuropathy (CIDP) - Diagnosed in 2004 - Case discussed at length with pt and sister. Pt's abdominal pain and nausea and vomiting is secondary to CIDP. Pt has not followed up with Dr. Ronquillo since November. Pt's EPS symtopms are due to the phenergan given in the ED. Pt has been moving his bowel well with the phosphate enemas, which we will continue. - Pt has had decreased nausea as he has been moving his bowels. - EEG is normal - Case was discussed with Dr. Ronquillo via telephone, who does not believe this is due to CIDP flare, but rec to give IVIG as pt has missed 2 doses. - Dr. Arreola, neurology, consulted who believes these GI symptoms are secondary to CIDP flare, and recommended restarting IVIG. - Pt finished a 2 day course of IVIG on 02/01/18. - Case discussed with neurology, Dr. Flynn, who states that there is no contraindication to EGD procedure at this time. Urinary tract infection (UTI), resolved - Patient has had recent prostate biopsy earlier in December at a different facility - Completed course of Cipro 400mg IV Q12H for 5 days (01/29-02/02) - Blood culture negative - Urine culture (01/28) negative PPX Heparin 5000 units SC Q12H Protonix 40mg IV daily Diet: Clear liquids- advance as tolerated PT/OT- rec JUSTIN Code status: full code Case discussed with attending , Dr. Donavan Suazo, PGY-1
[2018-02-07] MEDS: Acetylcysteine 20% Inhal Soln (4ml) INH SCH ×3 (07:25→19:29)
[2018-02-07 08:00] LABS: BASO % 0.1 % (0.0-2.0); HEMOGLOBIN 14.7 g/dL (12.0-18.0); LYMPH # 0.3 K/uL (1.0-4.3); MEAN CELL VOLUME 88.3 fL (80.0-94.0); MEAN PLATELET VOLUME 10.5 fL (7.2-11.7); MONO # 0.5 K/uL (0.0-0.8); MONO % 4.8 % (0.0-10.0); NEUT # 10.5 K/uL (1.8-7.0); NEUT % 92.1 % (50.0-75.0); NRBC % 0.1 % (0.0-2.0); PLATELET COUNT 224 K/uL (130-400); RBC 4.89 Mil/uL (4.40-5.90); RED CELL DISTRIBUTION WIDTH 13.5 % (11.5-14.5)
[2018-02-07 08:08] LABS: WHITE BLOOD COUNT 11.4 K/uL (4.8-10.8)
[2018-02-07 08:24] LABS: ALBUMIN 3.2 g/dL (3.5-5.0); ALT/SGPT 89 U/L (21-72); AST/SGOT 59 U/L (17-59); BLOOD UREA NITROGEN 21 mg/dL (9-20); CALCIUM 9.1 mg/dl (8.6-10.4); GFR NON-AFRICAN AMERICAN > 60
[2018-02-07 08:46] LABS: LYMPHOCYTE 5 % (20-40); MONOCYTE 3 % (0-10); NEUTROPHIL 92 % (50-75); PLATELET ESTIMATE NORMAL (NORMAL); TOTAL CELLS COUNTED 100
[2018-02-07] MEDS: Pantoprazole 40 mg EC Tab PO SCH (09:46)
[2018-02-07] MEDS ORDERED: MethylPREDNISolone 1 gm Vial IV ONE (11:30)
--- NOTE | 2018-02-07 13:03 | CP.PCM.DIS ---
Provider - Provider Date of Admission: 01/30/18 08:08 Attending physician: Ben Loco Consults: 01/30/18 14:26 Neurology Consult Routine Comment: Consulting Provider: Ishaan Arreola Consulting Physician: Ishaan Arreola Reason for Consult: cidp 02/01/18 08:25 Psychiatry Consult Routine Comment: Consulting Provider: Taya Elizabeth Consulting Physician: Taya Elizabeth Reason for Consult: recs for TCA vs SSRI for abdominal pain/nausea 02/04/18 09:17 Urology Consult Routine Comment: Consulting Provider: Ovidio Hahn Consulting Physician: Ovidio Hahn Reason for Consult: Hx Prostate Bx [facility] Urinary Rentention. West in place. Urology Consult Routine Comment: Consulting Provider: Ovidio Hahn Consulting Physician: Ovidio Hahn Reason for Consult: urine retention, Hx of CIDP; Prostate bx 01/03/18 by Michael Mack MD Time Spent in preparation of Discharge (in minutes): 45 Hospital Course - Lab Results Lab Results: Micro Results 01/28/18 22:11 Blood Blood Culture - Final NO GROWTH AFTER 5 DAYS 01/28/18 22:11 Blood Gram Stain - Final TEST NOT PERFORMED 01/28/18 21:30 Blood Blood Culture - Final NO GROWTH AFTER 5 DAYS 01/28/18 21:30 Blood Gram Stain - Final TEST NOT PERFORMED 01/31/18 00:30 Nose MRSA Culture - Final MRSA NOT DETECTED 01/30/18 07:51 Urine,Catheterized Urine Culture - Final No Growth (<1,000 CFU/ML) 01/29/18 02:53 Naris MRSA Culture (Admit) - Final MRSA NOT DETECTED 01/28/18 20:56 Urine Urine Culture - Final No Growth (<1,000 CFU/ML) Most Recent Lab Values WBC 11.4 K/uL (4.8-10.8) H D 02/07/18 07:56 RBC 4.89 Mil/uL (4.40-5.90) 02/07/18 07:56 Hgb 14.7 g/dL (12.0-18.0) 02/07/18 07:56 Hct 43.1 % (35.0-51.0) 02/07/18 07:56 MCV 88.3 fL (80.0-94.0) 02/07/18 07:56 MCH 30.0 pg (27.0-31.0) 02/07/18 07:56 MCHC 34.0 g/dL (33.0-37.0) 02/07/18 07:56 RDW 13.5 % (11.5-14.5) 02/07/18 07:56 Plt Count 224 K/uL (130-400) 02/07/18 07:56 MPV 10.5 fL (7.2-11.7) 02/07/18 07:56 Neut % (Auto) 92.1 % (50.0-75.0) H 02/07/18 07:56 Lymph % (Auto) 3.0 % (20.0-40.0) L 02/07/18 07:56 Andrew % (Auto) 4.8 % (0.0-10.0) 02/07/18 07:56 Eos % (Auto) 0.0 % (0.0-4.0) 02/07/18 07:56 Baso % (Auto) 0.1 % (0.0-2.0) 02/07/18 07:56 Neut # (Auto) 10.5 K/uL (1.8-7.0) H 02/07/18 07:56 Lymph # (Auto) 0.3 K/uL (1.0-4.3) L 02/07/18 07:56 Andrew # (Auto) 0.5 K/uL (0.0-0.8) 02/07/18 07:56 Eos # (Auto) 0.0 K/uL (0.0-0.7) 02/07/18 07:56 Baso # (Auto) 0.0 K/uL (0.0-0.2) 02/07/18 07:56 Neutrophils % (Manual) 92 % (50-75) H 02/07/18 07:56 Band Neutrophils % 2 % (0-2) 02/06/18 07:30 Lymphocytes % (Manual) 5 % (20-40) L 02/07/18 07:56 Reactive Lymphs % 1 % (0-0) H 02/06/18 07:30 Monocytes % (Manual) 3 % (0-10) 02/07/18 07:56 Toxic Granulation Present 01/29/18 06:04 Platelet Estimate Normal (NORMAL) 02/07/18 07:56 Large Platelets Present 01/29/18 06:04 Giant Platelets Present 01/29/18 06:04 Anisocytosis (manual) Slight 01/29/18 06:04 Sodium 132 mmol/L (132-148) 02/07/18 07:56 Potassium 3.7 mmol/L (3.6-5.2) 02/07/18 07:56 Chloride 98 mmol/L (98-107) 02/07/18 07:56 Carbon Dioxide 30 mmol/L (22-30) 02/07/18 07:56 Anion Gap 8 (10-20) L 02/07/18 07:56 BUN 21 mg/dL (9-20) H 02/07/18 07:56 Creatinine 0.4 mg/dL (0.8-1.5) L 02/07/18 07:56 Est GFR ( Amer) > 60 02/07/18 07:56 Est GFR (Non-Af Amer) > 60 02/07/18 07:56 POC Glucose (mg/dL) 245 mg/dL (65-110) H 02/07/18 11:11 Random Glucose 144 mg/dL (75-110) H 02/07/18 07:56 Calcium 9.1 mg/dl (8.6-10.4) 02/07/18 07:56 Phosphorus 3.6 mg/dL (2.5-4.5) 02/07/18 07:56 Magnesium 2.0 mg/dL (1.6-2.3) 02/07/18 07:56 Total Bilirubin 1.2 mg/dL (0.2-1.3) 02/07/18 07:56 AST 59 U/L (17-59) D 02/07/18 07:56 ALT 89 U/L (21-72) H 02/07/18 07:56 Alkaline Phosphatase 59 U/L (38-126) 02/07/18 07:56 Troponin I 0.0130 ng/mL (0.00-0.120) 01/28/18 21:03 Total Protein 6.4 g/dL (6.3-8.3) 02/07/18 07:56 Albumin 3.2 g/dL (3.5-5.0) L 02/07/18 07:56 Globulin 3.2 gm/dL (2.2-3.9) 02/07/18 07:56 Albumin/Globulin Ratio 1.0 (1.0-2.1) 02/07/18 07:56 Lipase 17 U/L (23-300) L 01/28/18 20:47 Urine Color Yellow (YELLOW) 01/29/18 00:08 Urine Clarity Clear (Clear) 01/29/18 00:08 Urine pH 6.0 (5.0-8.0) 01/29/18 00:08 Ur Specific [place] 1.013 (1.003-1.030) 01/29/18 00:08 Urine Protein Negative mg/dL (NEGATIVE) 01/29/18 00:08 Urine Glucose (UA) Normal mg/dL (Normal) 01/29/18 00:08 Urine Ketones Trace mg/dL (NEGATIVE) 01/29/18 00:08 Urine Blood Negative (NEGATIVE) 01/29/18 00:08 Urine Nitrate Negative (NEGATIVE) 01/29/18 00:08 Urine Bilirubin Negative (NEGATIVE) 01/29/18 00:08 Urine Urobilinogen Normal mg/dL (0.2-1.0) 01/29/18 00:08 Ur Leukocyte Esterase Neg Michael/uL (Negative) 01/29/18 00:08 Urine WBC (Auto) 12 /hpf (0-5) H 01/29/18 00:08 Urine RBC (Auto) 2 /hpf (0-3) 01/29/18 00:08 - Hospital Course Hospital Course: Patient is a 52 year old male with Pmhx of Chronic Inflammatory Demyelinating Polyneuropathy (CIDP), HTN, depression, anxiety and prostatic enlargement who presented to the ED for abdominal pain with nausea and dry wretching. Of note, patient was just discharged from the hospital prior to re- admission for similar symptoms. Patient's abdominal pain was initiallly worked up and he was found to have severe constipation on obstruction series. Constipation was managed with a combination of Dulcolax and fleet enemas. Patient was treated with Salumedrol for CIDP and Gabapentin was added, management per Neurology, Dr. Flynn. Over time, his symptoms of nausea and dry wretching improved as his hospital course progressed. Patient's diet was advanced from liquids to solids and patient tolerated without nausea or Patient also has a history of anxiety which was thought to be a contributing factor to his medical complaints. Patient had been taking Celexa at home, but had requested switch to a different medication. Per psych consult, Dr. Elizabeth, patient was switched to Elavil 25 mg HS. He was also thought to be experiencing extrapyramidal side effects as a result of his medication history. Any contributing medications were held including This admission, patient found to have urinary retention and constipation. Pt has been responding well to west/straight catheter insertion for urinary retention and fleet enemas to help with constipation. Patient had missed multiple treatments of IVIG as outpatient. He completed course of IVIG here. No dry retching today and patient tolerating food (consider sx 2/2 EPS vs anxiety). Avoiding antinausea medications that can contribute to EPS and now using Ativan for nausea. Patient continues to Seen by psychiatry and switch from Celexa to Amitriptyline 25 mg PO QHS for abdominal pain/nausea/anxiety. Symptoms improved today - patient agrees with plan for discharge home tomorrow. Plan: Anxiety with panic attacks - May ay experience increased anxiety to to recently starting on amitriptyline - States he has not had any retching since yesterday 01/26 at 1am and is tolerating liquid diet - Needs to be calmed down in order to relax when having anxiety attacks which cause increased wretching and nausea- breathing exercises - CHILD WELFARE COUNSELOR called twice during this admission for unresponsiveness, wretching, spitting clear phlegm, rolling his eyes- each time patient had significant urinary retention as well - EEG normal - Amitriptyline 25 mg PO QHS - Psychiatry, Dr. Elizabeth, consulted - Signed off Intractable nausea and vomiting with abdominal pain - Suspect related to anxiety - symptoms improved - Diet advanced to solid heart healthy - plan to d/c tomorrow. - Unable to use Promethazine, Phenergan due to EPS side effect - Zofran does not control symptoms - Patient was seen in prior hospitalization and had refused EGD due to concern for anesthesia side effect - Presently, patient is dry wretching with minimal clear/white salive, no true vomiting - Advance diet as tolerated - Ativan 0.5 mg PO TID prn anxiety/nausea - Toradol 15 mg IVP q6h prn moderate pain, Toradol 30 mg IVP q6h prn severe pain - Acetylcysteine q6h - Duonebs q6h - GI, Dr. Quijano, consulted - No scope at this time Extrapyramidal symptoms, improved - Medication side effect - Continue to avoid promethazine, reglan Urinary retention - TURP earlier in December - Patient's anxiety is increased with urinary retention, west catheter reinserted 02/04 - Urology, Dr. Hahn, consulted Constipation, improving - Continue Dulcolax ID daily Electrolyte abnormality - Replete as needed - Continue to monitor Hypertension, chronic - Monitor vitals Q4H - Losartan 50 mg PO QD Chronic inflammatory demyelinating polyneuropathy (CIDP) - Diagnosed in 2004 - Case discussed at length with pt and sister. Pt's abdominal pain and nausea and vomiting is secondary to CIDP. Pt has not followed up with Dr. Ronquillo since November. Pt's EPS symtopms are due to the phenergan given in the ED. Pt has been moving his bowel well with the phosphate enemas, which we will continue. - Pt has had decreased nausea as he has been moving his bowels. - EEG is normal - Case was discussed with Dr. Ronquillo via telephone, who does not believe this is due to CIDP flare, but rec to give IVIG as pt has missed 2 doses. - Dr. Arreola, neurology, consulted who believes these GI symptoms are secondary to CIDP flare, and recommended restarting IVIG. - Pt finished a 2 day course of IVIG on 02/01/18. - Case discussed with neurology, Dr. Flynn, who states that there is no contraindication to EGD procedure at this time. Urinary tract infection (UTI), resolved - Patient has had recent prostate biopsy earlier in December at a different facility - Completed course of Cipro 400mg IV Q12H for 5 days (01/29-02/02) - Blood culture negative - Urine culture (01/28) negative Discharge Exam - Head Exam Head Exam: ATRAUMATIC, NORMAL INSPECTION Discharge Plan - Discharge Medications Prescriptions: Amitriptyline [Elavil] 25 mg PO HS #30 tab Gabapentin [Neurontin] 300 mg PO TID #90 cap Losartan [Cozaar] 50 mg PO DAILY #30 tab Rosuvastatin Calcium [Crestor] 5 mg PO HS #30 tab - Follow Up Plan Condition: STABLE Disposition: HOME/ ROUTINE Additional Instructions: Patient is cleared for discharge per Dr. Go Patient is to follow up with PMD in 5-7 days
--- NOTE | 2018-02-07 14:34 | PCM.RRT ---
<Rodrigo Brown - Last Filed: 02/07/18 14:43> EQUIPMENT ENGINEER Nurses Assessment - Situation Date: 02/01/18 Time EQUIPMENT ENGINEER was called: 05:26 EQUIPMENT ENGINEER Responder Arrival Time:: 05:27 EQUIPMENT ENGINEER Location:: Med/Surg Room Number: 563B EQUIPMENT ENGINEER Reason for Call: Change in Mental Status EQUIPMENT ENGINEER Called By: RN - IV IV Inserted during EQUIPMENT ENGINEER?: No - Respiratory EQUIPMENT ENGINEER Delivery Method: Nasal Cannula @L/min - Medication Medications Administered During EQUIPMENT ENGINEER: none - Diagnostic Test Ordered EKG: No Chest X-Ray: No CT Scan: No CPR started during EQUIPMENT ENGINEER?: No - Vital Signs Vital Signs: Rapid Response Vital Sign Blood Pressure 180/101 Pulse Rate 95 Respiratory Rate 18 Temperature 98.7 F Oxygen Saturation 97 - Time EQUIPMENT ENGINEER Ended Time EQUIPMENT ENGINEER Ended: 05:40 - Vital Signs at end of EQUIPMENT ENGINEER Vital Signs at end of EQUIPMENT ENGINEER: Rapid Response End Vital Sign Blood Pressure 134/85 Pulse Rate 95 Respiratory Rate 20 Temperature 97 F O2 Sat by Pulse Oximetry 97 - Recommendations Notifications: Attending Physician I.Reason for EQUIPMENT ENGINEER - A) Acute Change in Patient: (Select all that apply): Acute change in mental status - Respiratory Oxygen Delivery Method: Nasal Cannula @L/min - Constitutional Appears: Chronically Ill - Head Head Exam: ATRAUMATIC, NORMOCEPHALIC - Eyes Eye Exam: EOMI, Normal appearance, PERRL - Respiratory Exam Respiratory Exam: Clear to Ausculation Bilateral, NORMAL BREATHING PATTERN. absent: Rhonchi, Wheezes, Respiratory Distress, Stridor - Cardiovascular Exam Cardiovascular Exam: Tachycardia, +S1, +S2. absent: Gallop, Rubs, Murmur - GI/Abdominal Exam GI & Abdominal Exam: Soft, Normal Bowel Sounds. absent: Distended, Tenderness - Neurological Exam Neurological Exam: Alert, Awake Additional exam: not answering questions at this time. unable to asses orientation - Extremities Exam Extremities Exam: Normal Inspection. absent: Calf Tenderness, Pedal Edema Plan - Assessment of Findings&Treatment Plan EQUIPMENT ENGINEER was called because pt was unsresponsive with eyes closed. Chest compressions were given. Pt became responsive. Upon examination, vitals: Pt was afebrile, BP 141/88, HR 109, RR 18 sat 100% on NC CXR, ABG shock panel, prolactin, CPK, bipap, and EEG were ordered. R/O seizure <Naveen Scanlon - Last Filed: 02/07/18 15:40> EQUIPMENT ENGINEER Nurses Assessment - Vital Signs Vital Signs: Rapid Response Vital Sign Blood Pressure 180/101 Pulse Rate 95 Respiratory Rate 18 Temperature 98.7 F Oxygen Saturation 97 - Vital Signs at end of EQUIPMENT ENGINEER Vital Signs at end of EQUIPMENT ENGINEER: Rapid Response End Vital Sign Blood Pressure 134/85 Pulse Rate 95 Respiratory Rate 20 Temperature 97 F O2 Sat by Pulse Oximetry 97 Attending/Attestation - Attestation I have personally seen and examined this patient.: Yes I have fully participated in the care of the patient.: Yes I have reviewed all pertinent clinical information, including history, physical exam and plan: Yes Notes (Text): Responded to EQUIPMENT ENGINEER and code blue. Upon arrival he was unresponsive with shallow breathing WITH GOOD PULSE PER RN PATIENT WAS PULSELESS HAD BRIEF CARDIAC COMPRESSION. hE WAS SATURATING GOOD WITH GOOD BLOOD PRESSURE POSSIBLE SEIZURE WITH POST ICTAL STAGE DISCUSSED WITH DR LEYVA AT BEDSIDE . PATIENT STARTED RESPONDING PLAN DISCUSSED WITH THE RESIDENT. WE WILL CALL HIS FAMILY ALSO
[2018-02-07 14:50] LABS: ABG ALLEN TEST POS; ARTERIAL BLOOD GAS HCO3 28.3 mmol/L (21-28); ARTERIAL BLOOD GAS O2 SAT 99.9 % (95-98); ARTERIAL BLOOD GAS PCO2 33 mm/Hg (35-45); ARTERIAL BLOOD GAS PH 7.52 (7.35-7.45); ARTERIAL BLOOD GAS PO2 143 mm/Hg (80-100); ARTERIAL BLOOD GAS TCO2 27.9 mmol/L (22-28)
--- NOTE | 2018-02-07 15:33 | CP.PCM.PN ---
Subjective - Date & Time of Evaluation Date of Evaluation: 02/07/18 Time of Evaluation: 15:23 - Subjective Subjective: Neuro Follow-Up Note: Mr. Leahy was evaluated this afternoon after a MACHINE SCALLOP CUTTER was called on him for a period of unresponsiveness. Per nursing staff and MACHINE SCALLOP CUTTER team, pt had CPR started and shortly after became responsive and opened eyes. He was noted afterwards to have a period of confusion vs post-ictal state; no incontinence bowel/bladder noted. Per nursing staff, pt was at his normal baseline all day until this episode. Upon my interaction with pt he just states that he feels tired. Denies h/a, dizziness, visual changes, chest pain, palpitations, sob, n/v/d. Denies any recollection of or prior to the period of unresponsiveness nor does he remember having any aura preceding the event. Objective - Vital Signs/Intake and Output Vital Signs (last 24 hours): Temp Pulse Resp BP Pulse Ox 97.4 F L 99 H 20 120/75 97 02/07/18 08:15 02/07/18 14:49 02/07/18 08:15 02/07/18 09:44 02/07/18 09:44 Intake and Output: 02/07/18 02/07/18 06:59 18:59 Intake Total 240 Output Total 300 Balance -60 - Medications Medications: Current Medications Acetylcysteine (Acetylcysteine 20%) 4 ml INH RQ6 ELADIO Last Admin: 02/07/18 07:25 Dose: 4 ml Amitriptyline HCl (Elavil) 25 mg PO HS ELADIO Last Admin: 02/06/18 23:03 Dose: 25 mg Bisacodyl (Dulcolax) 10 mg UT DAILY ELADIO Last Admin: 02/07/18 09:46 Dose: 10 mg Clonazepam (Klonopin) 0.5 mg PO BID PRN PRN Reason: Anxiety Last Admin: 02/07/18 13:43 Dose: 0.5 mg Dextrose (Dextrose 50% Inj) 0 ml IVP .STAT PRN; Protocol PRN Reason: Hypoglycemia Protocol Last Admin: 01/31/18 00:53 Dose: 50 ml Dextrose (Glutose 15) 0 gm PO .ONCE PRN; Protocol PRN Reason: Hypoglycemia Protocol Gabapentin (Neurontin) 300 mg PO TID ELADIO Last Admin: 02/07/18 13:38 Dose: 300 mg Glucagon (Glucagen Diagnostic Kit) 0 mg IM .STAT PRN; Protocol PRN Reason: Hypoglycemia Protocol Heparin Sodium (Porcine) (Heparin) 5,000 units SC Q12 [facility] Last Admin: 02/07/18 09:47 Dose: 5,000 units Losartan Potassium (Cozaar) 50 mg PO DAILY [facility] Last Admin: 02/07/18 09:46 Dose: 50 mg Pantoprazole Sodium (Protonix Ec Tab) 40 mg PO DAILY [facility] Last Admin: 02/07/18 09:46 Dose: 40 mg - Labs Labs: 02/07/18 07:56 02/07/18 07:56 - Constitutional Appears: Non-toxic - Head Exam Head Exam: ATRAUMATIC, NORMAL INSPECTION, NORMOCEPHALIC - Eye Exam Eye Exam: EOMI, Normal appearance, PERRL Pupil Exam: NORMAL ACCOMODATION, PERRL - ENT Exam ENT Exam: Mucous Membranes Moist - Neck Exam Neck Exam: Full ROM, Normal Inspection - Respiratory Exam Respiratory Exam: absent: NORMAL BREATHING PATTERN Additional comments: on bipap machine - Extremities Exam Extremities Exam: absent: Calf Tenderness, Full ROM (generalized weakness ), Pedal Edema - Neurological Exam Neurological Exam: Alert, Awake, Reflexes Normal Additional comments: speech clear, fluid pt awake and alert during my exam generalized weakness to bue and ble; when asked to test strength, sensation and motor function the pt shakes his head and refuses exam no tremor, no facial asymmetry - Psychiatric Exam Additional comments: calm; not cooperative for full neuro exam - Skin Skin Exam: Normal Color Assessment and Plan (1) Altered mental status Assessment & Plan: Acute change in mental status this afternoon. Had a MACHINE SCALLOP CUTTER called on him for period of unresponsiveness. After a brief period of CPR pt opened eyes. He cannot recall this episode nor does he recall anything preceding the event. We need to r/o poss seizure activity, regardless of normal EEG form last week. -Prolactin and CPK ordered by primary team--pending results. -Stat EEG bedside ordered by primary team---pending. -CT Head without contrast stat ordered---will f/u -Further orders pending results of above mentioned tests. -Notify neuro team of any abnormal results please or change in patient's condition. Case discussed with Dr. Flynn Status: Acute (2) CIDP (chronic inflammatory demyelinating polyneuropathy) Assessment & Plan: -Continue Solumedrol 1, 000 mg IV daily x3 total doses (started on 02/05/18 and last dose to be given 02/07/18) and Gabapentin 300 mg PO TID. -Patient has received total of 2 doses of IVIG since admission. -EEG normal. -Continue PT/OT and supportive measures. -Pt to f/u with his neurologist, Dr. Ronquillo, upon d/c and he can resume his IVIG treatments as outpatient. -Notify neuro of any acute changes. Case discussed with Dr. Flynn. Status: Chronic
[2018-02-07 15:41] LABS: PROLACTIN 12.6 ng/mL (3.7-17.9)
--- NOTE | 2018-02-07 16:00 | CP.PCM.PN ---
Subjective - Date & Time of Evaluation Date of Evaluation: 02/07/18 Time of Evaluation: 15:58 - Subjective Subjective: PGY-[address] Go Patient seen and examined at bedside. Clinically, he had been improving. However, once we began to talk with the patient regarding being discharged, he seemed to express anxiety regarding being discharged and his same symptoms have resurfaced. Patient continued dry-heaving today. Rapid response was called for patient appearing unresponsive and patient again was dry-heaving and somnolent appearing. Workup was done as detailed in INSPECTOR BARREL note. We will continue to monitor this patient. On time of exam this morning, patient did admit to nausea, but was not dry heaving. He did mention he would like to have west removed. Patient denied chest pain, palpitations, headache, dizziness. Objective - Vital Signs/Intake and Output Vital Signs (last 24 hours): Temp Pulse Resp BP Pulse Ox 98.5 F 91 H 25 H 131/85 100 02/07/18 15:00 02/07/18 15:00 02/07/18 15:00 02/07/18 15:00 02/07/18 15:00 Intake and Output: 02/07/18 02/07/18 06:59 18:59 Intake Total 240 Output Total 300 Balance -60 - Medications Medications: Current Medications Acetylcysteine (Acetylcysteine 20%) 4 ml INH RQ6 [facility]ADIO Last Admin: 02/07/18 13:55 Dose: Not Given Amitriptyline HCl (Elavil) 25 mg PO HS [facility] Last Admin: 02/06/18 23:03 Dose: 25 mg Bisacodyl (Dulcolax) 10 mg MO DAILY [facility] Last Admin: 02/07/18 09:46 Dose: 10 mg Clonazepam (Klonopin) 0.5 mg PO BID PRN PRN Reason: Anxiety Last Admin: 02/07/18 13:43 Dose: 0.5 mg Dextrose (Dextrose 50% Inj) 0 ml IVP .STAT PRN; Protocol PRN Reason: Hypoglycemia Protocol Last Admin: 01/31/18 00:53 Dose: 50 ml Dextrose (Glutose 15) 0 gm PO .ONCE PRN; Protocol PRN Reason: Hypoglycemia Protocol Gabapentin (Neurontin) 300 mg PO TID [facility]ADIO Last Admin: 02/07/18 13:38 Dose: 300 mg Glucagon (Glucagen Diagnostic Kit) 0 mg IM .STAT PRN; Protocol PRN Reason: Hypoglycemia Protocol Heparin Sodium (Porcine) (Heparin) 5,000 units SC Q12 [facility] Last Admin: 02/07/18 09:47 Dose: 5,000 units Losartan Potassium (Cozaar) 50 mg PO DAILY [facility] Last Admin: 02/07/18 09:46 Dose: 50 mg Pantoprazole Sodium (Protonix Ec Tab) 40 mg PO DAILY [facility] Last Admin: 02/07/18 09:46 Dose: 40 mg Scopolamine (Transderm-Scop) 1 patch TD Q3D [facility] - Labs Labs: 02/07/18 07:56 02/07/18 07:56 - Constitutional Appears: Non-toxic - Head Exam Head Exam: ATRAUMATIC, NORMAL INSPECTION - Eye Exam Eye Exam: EOMI - ENT Exam ENT Exam: Mucous Membranes Moist - Respiratory Exam Respiratory Exam: Clear to Ausculation Bilateral. absent: Rales, Wheezes - Cardiovascular Exam Cardiovascular Exam: REGULAR RHYTHM, +S1, +S2 - GI/Abdominal Exam GI & Abdominal Exam: Soft, Normal Bowel Sounds. absent: Tenderness - Extremities Exam Extremities Exam: absent: Pedal Edema, Tenderness - Neurological Exam Neurological Exam: Alert, Awake, CN II-XII Intact, Oriented x3 - Psychiatric Exam Psychiatric exam: Anxious, Normal Affect - Skin Skin Exam: Dry, Intact Assessment and Plan - Assessment and Plan (Free Text) Assessment: This admission, patient found to have urinary retention and constipation. Pt has been responding well to west/straight catheter insertion for urinary retention and fleet enemas to help with constipation. Patient had missed multiple treatments of IVIG as outpatient. He completed course of IVIG here. No dry retching today and patient tolerating food (consider sx 2/2 EPS vs anxiety). Avoiding antinausea medications that can contribute to EPS and now using Ativan for nausea. Patient continues to Seen by psychiatry and switch from Celexa to Amitriptyline 25 mg PO QHS for abdominal pain/nausea/anxiety. Symptoms improved today - patient agrees with plan for discharge home tomorrow. Plan: INSPECTOR BARREL for patient unresponsive, rule out seizure -EEG - f/u -ABG - f/u -Prolactin - f/u -BiPap started - f/u -CPK - f/u -I spoke with patient's family member and she was made aware. She knows that his symptom flairs are likely brought on by anxiety and will talk to the patient Anxiety with panic attacks - Patient had been feeling better and was ready for discharge, then seemed to express anxiety at the thought of discharge - Needs to be calmed down in order to relax when having anxiety attacks which cause increased wretching and nausea- breathing exercises - INSPECTOR BARREL called twice during this admission for unresponsiveness, wretching, spitting clear phlegm, rolling his eyes- each time patient had significant urinary retention as well - EEG normal - Amitriptyline 25 mg PO QHS - Psychiatry, Dr. Elizabeth, consulted - Signed off Intractable nausea and vomiting with abdominal pain - Suspect related to anxiety - symptoms had improved, now he is experiencing again - Unable to use Promethazine, Phenergan due to EPS side effect - Zofran does not control symptoms - Patient was seen in prior hospitalization and had refused EGD due to concern for anesthesia side effect - Presently, patient is dry wretching with minimal clear/white salive, no true vomiting - Advance diet as tolerated - Ativan 0.5 mg PO TID prn anxiety/nausea - Toradol 15 mg IVP q6h prn moderate pain, Toradol 30 mg IVP q6h prn severe pain - Acetylcysteine q6h - Duonebs q6h - GI, Dr. Quijano, consulted - No scope at this time Extrapyramidal symptoms, improved - Medication side effect - Continue to avoid promethazine, reglan Urinary retention - TURP earlier in December - Patient's anxiety is increased with urinary retention, west catheter reinserted 02/04 - Urology, Dr. Hahn, consulted Constipation, improving - Continue Dulcolax MO daily Electrolyte abnormality - Replete as needed - Continue to monitor Hypertension, chronic - Monitor vitals Q4H - Losartan 50 mg PO QD Chronic inflammatory demyelinating polyneuropathy (CIDP) - Diagnosed in 2004 - Case discussed at length with pt and sister. Pt's abdominal pain and nausea and vomiting is secondary to CIDP. Pt has not followed up with Neuro, Dr. Ronquillo since November. Pt's EPS symtopms are due to the phenergan given in the ED. - EEG is normal - S/p finished a 2 day course of IVIG on 02/01/18, though Neuro suspect ML NOT due to CIDP - Case discussed with neurology, Dr. Flynn, who states that there is no cont raindication to EGD procedure at this time. Urinary tract infection (UTI), resolved - Patient has had recent prostate biopsy earlier in December at a different facility - Completed course of Cipro 400mg IV Q12H for 5 days (01/29-02/02) - Blood culture negative - Urine culture (01/28) negative Discussed with Dr. Go, Shahid Suazo, PGY-1
--- NOTE | 2018-02-07 16:45 | CT ---
Date of service: 02/07/2018 PROCEDURE: CT HEAD WITHOUT CONTRAST. HISTORY: AMS; episode of unresponsiveness COMPARISON: Comparison made with prior CT scan 01/29/2018.. TECHNIQUE: Axial computed tomography images were obtained through the head/brain without intravenous contrast. Radiation dose: Total exam DLP = 1079.61 mGy-cm. This CT exam was performed using one or more of the following dose reduction techniques: Automated exposure control, adjustment of the mA and/or kV according to patient size, and/or use of iterative reconstruction technique. FINDINGS: HEMORRHAGE: No acute parenchymal, subarachnoid or extra-axial hemorrhage. BRAIN: No evidence of large acute infarct. Note again made of slight elliptical shaped CSF structure just to the right of midline abutting the posterior inferior medial margins of the lateral ventricles; rule out prominent atypical cavum velum interpositum VENTRICLES: No obstructive hydrocephalus.. CALVARIUM: Unremarkable. PARANASAL SINUSES: Minimal mucosal thickening seen the ethmoid air complex as well as sphenoid sinus and left maxillary antrum. MASTOID AIR CELLS: Unremarkable as visualized. No inflammatory changes. OTHER FINDINGS: None. IMPRESSION: No evidence of acute intracranial hemorrhage or infarction.
--- NOTE | 2018-02-07 17:04 | RAD ---
HISTORY: s/p chest compressions COMPARISON: Chest x-ray performed 01/23/18 TECHNIQUE: Chest, one view. FINDINGS: Numerous external wires and leads obscure evaluation of the underlying parenchyma. LUNGS: No focal consolidation. Please note that chest x-ray has limited sensitivity for the detection of pulmonary masses. PLEURA: No significant pleural effusion identified. No definite pneumothorax . CARDIOVASCULAR: Heart size appears within normal limits. No significant atherosclerotic calcification present. OSSEOUS STRUCTURES: No acute osseous abnormality identified. VISUALIZED UPPER ABDOMEN: Unremarkable. OTHER FINDINGS: None. IMPRESSION: No focal consolidation.
[2018-02-07] MEDS: Dextrose 5%/0.45% NS 1,000 ML IV SCH (20:09)
[2018-02-08] MEDS: Dextrose 5%/0.45% NS 1,000 ML IV SCH (06:10)
--- NOTE | 2018-02-08 06:54 | CP.PCM.PN ---
<Carina Gallo - Last Filed: 02/08/18 16:55> Subjective - Date & Time of Evaluation Date of Evaluation: 02/08/18 Time of Evaluation: 06:53 - Subjective Subjective: PGY-1 Carina Gallo D.O. Medicine progress note for Dr. King's service: Patient was seen and examined this morning. He is complaining of nausea and difficulty urinating. He admits that he gets anxious regarding urinating and this causes him to get "worked up." He was supposed to be discharged yesterday but became too anxious and another [employer] was called for unresponsiveness. Patient does not feel ready to go home. He is still requiring straight caths. Objective - Vital Signs/Intake and Output Vital Signs (last 24 hours): Temp Pulse Resp BP Pulse Ox 97.5 F L 70 20 128/80 99 02/08/18 00:00 02/08/18 02:20 02/08/18 00:00 02/08/18 00:00 02/08/18 00:00 Intake and Output: 02/07/18 02/08/18 18:59 06:59 Intake Total 800 Balance 800 - Medications Medications: Current Medications Acetylcysteine (Acetylcysteine 20%) 4 ml INH RQ6 [facility] Last Admin: 02/07/18 19:29 Dose: Not Given Amitriptyline HCl (Elavil) 25 mg PO HS [facility] Last Admin: 02/07/18 21:55 Dose: 25 mg Bisacodyl (Dulcolax) 10 mg MI DAILY [facility] Last Admin: 02/07/18 09:46 Dose: 10 mg Clonazepam (Klonopin) 0.5 mg PO BID PRN PRN Reason: Anxiety Last Admin: 02/07/18 13:43 Dose: 0.5 mg Dextrose (Dextrose 50% Inj) 0 ml IVP .STAT PRN; Protocol PRN Reason: Hypoglycemia Protocol Last Admin: 01/31/18 00:53 Dose: 50 ml Dextrose (Glutose 15) 0 gm PO .ONCE PRN; Protocol PRN Reason: Hypoglycemia Protocol Gabapentin (Neurontin) 300 mg PO TID [facility] Last Admin: 02/07/18 17:17 Dose: 300 mg Glucagon (Glucagen Diagnostic Kit) 0 mg IM .STAT PRN; Protocol PRN Reason: Hypoglycemia Protocol Heparin Sodium (Porcine) (Heparin) 5,000 units SC Q12 [facility] Last Admin: 02/07/18 21:55 Dose: 5,000 units Dextrose/Sodium Chloride (Dextrose 5%/0.45% Ns 1000 Ml) 1,000 mls @ 100 mls/hr IV .Q10H [facility] Last Admin: 02/08/18 06:10 Dose: Not Given Losartan Potassium (Cozaar) 50 mg PO DAILY [facility] Last Admin: 02/07/18 09:46 Dose: 50 mg Pantoprazole Sodium (Protonix Ec Tab) 40 mg PO DAILY [facility] Last Admin: 02/07/18 09:46 Dose: 40 mg Scopolamine (Transderm-Scop) 1 patch TD Q3D [facility] Last Admin: 02/07/18 17:17 Dose: 1 patch - Labs Labs: 02/07/18 07:56 02/07/18 07:56 - Additional Findings Additional findings: - Constitutional Appears: No Acute Distress, Chronically Ill - Head Exam Head Exam: ATRAUMATIC, NORMAL INSPECTION - Eye Exam Eye Exam: EOMI, Normal appearance - ENT Exam ENT Exam: Mucous Membranes Moist - Neck Exam Neck Exam: Normal Inspection - Respiratory Exam Respiratory Exam: Clear to Ausculation Bilateral, NORMAL BREATHING PATTERN. absent: Respiratory Distress - Cardiovascular Exam Cardiovascular Exam: REGULAR RHYTHM, +S1, +S2 - GI/Abdominal Exam GI & Abdominal Exam: Soft. absent: Tenderness - Extremities Exam Extremities Exam: absent: Pedal Edema, Tenderness Additional comments: b/l contracted feet - Neurological Exam Neurological Exam: Alert, Awake, CN II-XII Intact, Oriented x3 - Psychiatric Exam Psychiatric exam: Anxious - Skin Skin Exam: Dry, Normal Color, Warm Assessment and Plan - Assessment and Plan (Free Text) Assessment: Patient is a 52 year old male with Pmhx of Chronic Inflammatory Demyelinating Polyneuropathy (CIDP), HTN, depression, anxiety and prostatic e nlargement who presented to the ED for abdominal pain with nausea and dry wretching. Of note, patient was just discharged from the hospital last week for the same symptoms. This admission, patient found to have urinary retention and constipation. Pt has been responding well to west/straight catheter insertion for urinary retention and fleet enemas to help with constipation. Patient had missed multiple treatments of IVIG as outpatient. He completed course of IVIG here. Patient repeatedly with episodes of dry wretching and spastic movements consistent with EPS vs panic attacks. Avoiding antinausea medications that can contribute to EPS and now using Ativan for nausea. Patient continues to Seen by psychiatry and switch from Celexa to Amitriptyline 25 mg PO QHS for abdominal pain/nausea/anxiety. Presently, patient is hesitant to work with PT/OT. He is having multiple panic attacks throughout the day. Became anxious when preparing to be discharged yesterday. Reconsulted psychiatry. Also called patient's outpatient urologist who performed prostate Bx, Dr. Mack; waiting call back. Plan: Anxiety with panic attacks - Needs to be calmed down in order to relax when having anxiety attacks which cause increased wretching and nausea and then unresponsiveness- breathing exercises - [employer] called twice during this admission for unresponsiveness, wretching, spitting clear phlegm, rolling his eyes- each time patient had significant urinary retention as well - EEG normal - Prolactin, CPK, lactate, WBC wnl - Repeat EEG pending - CT head (02/07): no acute findings - Amitriptyline 25 mg PO QHS - Start Lexapro 5 mg PO daily - Start Klonopin 0.5 BID - Psychiatry, Dr. Elizabeth, consulted Urinary retention - TURP earlier in December - Patient's anxiety is increased with urinary retention, west catheter reinserted 02/04, removed 02/07 - Bladder scan and straight cath PRN - Call placed to patient's outpatient urologist, Dr. Mack on 02/08- waiting for call back - Urology, Dr. Hahn, consulted Intractable nausea and vomiting with abdominal pain - Unable to use Promethazine, Phenergan due to EPS side effect - Zofran does not control symptoms - Patient was seen in prior hospitalization and had refused EGD due to concern for anesthesia side effect - Presently, patient is dry wretching with minimal clear/white saliva, no true vomiting - Suspect related to anxiety - Advance diet as tolerated- pureed - Hypoglycemic protocol - Scopalamine patch - Protonix 40 mg PO daily - Discontinue Ativan as Klonopin started yesterday - GI, Dr. Quijano, consulted - No scope at this time Extrapyramidal symptoms, improved - Medication side effect - Continue to avoid promethazine, reglan Constipation, improving - Continue Dulcolax 10 mg MI daily Electrolyte abnormality - Replete as needed - Continue to monitor Hypertension, chronic - Monitor vitals Q4H - Losartan 50 mg PO QD Chronic inflammatory demyelinating polyneuropathy (CIDP) - Diagnosed in 2004 - Case discussed at length with pt and sister. Pt's abdominal pain and nausea and vomiting is secondary to CIDP. Pt has not followed up with Dr. Ronquillo since November. Pt's EPS symtopms are due to the phenergan given in the ED. Pt has been moving his bowel well with the phosphate enemas, which we will continue. - Pt has had decreased nausea as he has been moving his bowels. - EEG is normal - Gabapentin 300 mg PO TID - Case was discussed with Dr. Ronquillo via telephone, who does not believe this is due to CIDP flare, but rec to give IVIG as pt has missed 2 doses. - Dr. Arreola, neurology, consulted who believes these GI symptoms are secondary to CIDP flare, and recommended restarting IVIG. - Pt finished a 2 day course of IVIG on 02/01/18. - Case discussed with neurology, Dr. Flynn, who states that there is no contraindication to EGD procedure at this time. Urinary tract infection (UTI), resolved - Patient has had recent prostate biopsy earlier in December at a different facility - Completed course of Cipro 400mg IV Q12H for 5 days (01/29-02/02) - Blood culture negative - Urine culture (01/28) negative PPX Heparin 5000 units SC Q12H Protonix 40mg IV daily Diet: Clear liquids- advance as tolerated PT/OT- rec [facility] Code status: full code Case discussed with attending , Dr. King. <Melva King V - Last Filed: 02/08/18 20:34> Objective - Vital Signs/Intake and Output Vital Signs (last 24 hours): Temp Pulse Resp BP Pulse Ox 97.6 F 85 18 169/99 H 100 02/08/18 15:00 02/08/18 15:00 02/08/18 15:00 02/08/18 15:00 02/08/18 15:00 Intake and Output: 02/08/18 02/09/18 18:59 06:59 Intake Total 650 Output Total 420 Balance 230 - Medications Medications: Current Medications Amitriptyline HCl (Elavil) 25 mg PO HS [facility] Last Admin: 02/07/18 21:55 Dose: 25 mg Bisacodyl (Dulcolax) 10 mg MI DAILY [facility] Last Admin: 02/08/18 13:35 Dose: Not Given Clonazepam (Klonopin) 0.5 mg PO BID [facility] Last Admin: 02/08/18 18:02 Dose: 0.5 mg Dextrose (Dextrose 50% Inj) 0 ml IVP .STAT PRN; Protocol PRN Reason: Hypoglycemia Protocol Last Admin: 01/31/18 00:53 Dose: 50 ml Dextrose (Glutose 15) 0 gm PO .ONCE PRN; Protocol PRN Reason: Hypoglycemia Protocol Escitalopram Oxalate (Lexapro) 5 mg PO DAILY [facility] Last Admin: 02/08/18 13:34 Dose: 5 mg Gabapentin (Neurontin) 300 mg PO TID [facility] Last Admin: 02/08/18 18:01 Dose: 300 mg Glucagon (Glucagen Diagnostic Kit) 0 mg IM .STAT PRN; Protocol PRN Reason: Hypoglycemia Protocol Losartan Potassium (Cozaar) 50 mg PO DAILY [facility] Last Admin: 02/08/18 09:20 Dose: 50 mg Pantoprazole Sodium (Protonix Ec Tab) 40 mg PO DAILY [facility] Last Admin: 02/08/18 09:20 Dose: 40 mg Scopolamine (Transderm-Scop) 1 patch TD Q3D [facility] Last Admin: 02/07/18 17:17 Dose: 1 patch - Labs Labs: 02/08/18 07:52 02/08/18 07:52 Assessment and Plan (1) CIDP (chronic inflammatory demyelinating polyneuropathy) Status: Chronic (2) Intractable nausea and vomiting Status: Resolved (3) UTI (urinary tract infection) Status: Acute (4) Hypokalemia Status: Acute (5) Side effect of medication Status: Acute (6) Hypertension Status: Chronic (7) Urinary retention Status: Acute (8) Constipation Status: Acute (9) Prophylactic measure Status: Acute Attending/Attestation - Attestation I have personally seen and examined this patient.: Yes I have fully participated in the care of the patient.: Yes I have reviewed all pertinent clinical information, including history, physical exam and plan: Yes Notes (Text): Patient seen, examined and case discussed with medical safety director. Patient with known history of CIDP (completed IVIG, and Solumedrol during this hospitalization, since missed last treatment last month), history of urinary retention, history of recent prostate biopsy but has not seen his outpatient urologist due to his hospitalizations recently. Patient was rapid response yesterday for "unresponsiveness" thought I do suspect this is driven by his anxiety. He reports the stool incontience and urinary retention are new since his prostate biopsy last month and that he reports he feels very worked up. His west was discontinued, but was found to have some retention this morning and refuses the straight cath. We have reconsulted psych who has changed his medications given his anxiety. Resident has left a message with his outpatient urologist awaiting call back. Patient has completed bedside EEG; awaiting official report. Case management referral placed for subacute rehab for the patient. Assessment/plan 1. Anxiety Panic attacks Assessment/Plan * Psychiatry, Dr. Elizabeth, consulted * Start Lexapro 5 mg PO daily * patient's celexa was d/c * Start Klonopin 0.5 BID * Patient's ativan was d/c * EEG normal (1st), 2nd EEG performed * Prolactin, CPK, lactate, WBC wnl * CT head (02/07): no acute findings * Amitriptyline 25 mg PO QHS 2. Urinary retention Assessment/Plan * TURP earlier in December * Patient's anxiety is increased with urinary retention, west catheter reinserted 02/04, removed 02/07 * Bladder scan and straight cath PRN * Resident has placed to patient's outpatient urologist, Dr. Mack on 02/08- waiting for call back * Urology, Dr. Hahn, consulted 3. Intractable nausea and vomiting with abdominal pain * improving * GI has signed off the case as of 02/02 * Patient has refused EGD due to anesthesia side effect * Unable to use Promethazine, Phenergan due to EPS side effect * Suspect related to anxiety * Advance diet as tolerated- pureed * Hypoglycemic protocol * Scopalamine patch * Protonix 40 mg PO daily 4. Extrapyramidal symptoms, improved * Medication side effect * Continue to avoid promethazine, reglan 5.Constipation, improving * Continue Dulcolax 10 mg MI daily * Colace 100mg PO BID 6. Electrolyte abnormality * Replete as needed * Continue to monitor 7. Hypertension, chronic * Losartan 50 mg PO QD 8. History of Chronic inflammatory demyelinating polyneuropathy (CIDP) * Has completed IVIG and Solumedrol during this hospitalization * F/u outpatient with neurologist 9. Urinary tract infection (UTI), resolved * Patient has had recent prostate biopsy earlier in December at a different facility * F/u for results * Completed course of Cipro 400mg IV Q12H for 5 days (01/29-02/02) * Blood culture negative * Urine culture (01/28) negative 10. PPX * Heparin 5000 units SC Q12 * Protonix 40mg IV daily * Diet: Advance as tolerated * PT/OT- rec [facility] * Case management referral to [facility]
[2018-02-08 08:07] LABS: BASO % 0.1 % (0.0-2.0); HEMOGLOBIN 14.2 g/dL (12.0-18.0); LYMPH # 0.3 K/uL (1.0-4.3); LYMPH % 5.3 % (20.0-40.0); MEAN CELL VOLUME 88.5 fL (80.0-94.0); MEAN CORPUSCULAR HEMOGLOBIN 30.3 pg (27.0-31.0); MEAN CORPUSCULAR HGB CONC 34.2 g/dL (33.0-37.0); MEAN PLATELET VOLUME 10.5 fL (7.2-11.7); MONO # 0.3 K/uL (0.0-0.8); MONO % 5.7 % (0.0-10.0); NEUT # 5.5 K/uL (1.8-7.0); NEUT % 88.9 % (50.0-75.0); NRBC % 0.1 % (0.0-2.0); PLATELET COUNT 199 K/uL (130-400); RED CELL DISTRIBUTION WIDTH 13.6 % (11.5-14.5); WHITE BLOOD COUNT 6.2 K/uL (4.8-10.8)
[2018-02-08 08:27] LABS: ALB/GLOB RATIO 0.9 (1.0-2.1); ALBUMIN 2.9 g/dL (3.5-5.0); ALT/SGPT 65 U/L (21-72); AST/SGOT 26 U/L (17-59); BLOOD UREA NITROGEN 17 mg/dL (9-20); GFR NON-AFRICAN AMERICAN > 60
[2018-02-08 08:46] LABS: BANDS 1 % (0-2); MONOCYTE 6 % (0-10); TOTAL CELLS COUNTED 100
[2018-02-08 08:47] LABS: LYMPHOCYTE 5 % (20-40); NEUTROPHIL 88 % (50-75); PLATELET ESTIMATE NORMAL (NORMAL)
[2018-02-08] MEDS: Pantoprazole 40 mg EC Tab PO SCH (09:20)
--- NOTE | 2018-02-08 09:29 | PCM.PYCHPN ---
Psychiatric Progress Note - Psychiatric Progress Note Patient seen today, length of contact: 15 min Patient Chief Complaint: "I'm nauseous" Problems Identified/Issues Discussed: The pt is seen, chart reviewed, case discussed with staff. He is still anxious and looks depressed but he says he is not as depressed No SI, HI Still having lots of somatic problems Support given, psycho-education provided. Medication Change: Yes (lexapro) Medical Record Reviewed: Yes Mental Status Examination - Cognitive Function Orientation: Person, Place, Situation, Time Memory: Impaired Attention: Poor Concentration: Poor Association: WNL Fund of Knowledge: WNL - Mood Mood: Anxious - Affect Affect: Constricted - Speech Speech: Appropriate - Formal Thought Process Formal Thought Process: No Impairment - Suicidal Ideation Suicidal Ideation: No - Homicidal Ideation Homicidal Ideation: No Goal/Treatment Plan - Goal/Treatment Plan Need for Continued Stay: Other (medicine) Progress Toward Problem(s) and Goals/Treatment Plan: Lexapro 5 mg added for depressionand anxiety Klonopin 0.5 is now standing not prn Support Continue Elavil
--- NOTE | 2018-02-08 14:03 | CP.PCM.PN ---
Subjective - Date & Time of Evaluation Date of Evaluation: 02/08/18 Time of Evaluation: 14:02 - Subjective Subjective: Neurology Follow-Up Note: Mr. Leahy was evaluated this afternoon in bed. Pt had an episode of unresponsiveness yesterday afternoon. Labs, CT Head, and EEG were ordered at that time. Pt is still complaining of generalized weakness and nausea. Today he denies h/a, dizziness, visual changes, chest pain, sob, abd pain, vomiting/diarr hea. Objective - Vital Signs/Intake and Output Vital Signs (last 24 hours): Temp Pulse Resp BP Pulse Ox 98.3 F 70 20 133/79 99 02/08/18 08:08 02/08/18 08:08 02/08/18 08:08 02/08/18 08:08 02/08/18 09:19 Intake and Output: 02/08/18 02/08/18 06:59 18:59 Intake Total 800 Balance 800 - Medications Medications: Current Medications Amitriptyline HCl (Elavil) 25 mg PO HS [facility] Last Admin: 02/07/18 21:55 Dose: 25 mg Bisacodyl (Dulcolax) 10 mg FL DAILY [facility] Last Admin: 02/08/18 13:35 Dose: Not Given Clonazepam (Klonopin) 0.5 mg PO BID [facility] Last Admin: 02/08/18 11:26 Dose: Not Given Dextrose (Dextrose 50% Inj) 0 ml IVP .STAT PRN; Protocol PRN Reason: Hypoglycemia Protocol Last Admin: 01/31/18 00:53 Dose: 50 ml Dextrose (Glutose 15) 0 gm PO .ONCE PRN; Protocol PRN Reason: Hypoglycemia Protocol Escitalopram Oxalate (Lexapro) 5 mg PO DAILY [facility] Last Admin: 02/08/18 13:34 Dose: 5 mg Gabapentin (Neurontin) 300 mg PO TID [facility] Last Admin: 02/08/18 13:34 Dose: 300 mg Glucagon (Glucagen Diagnostic Kit) 0 mg IM .STAT PRN; Protocol PRN Reason: Hypoglycemia Protocol Losartan Potassium (Cozaar) 50 mg PO DAILY [facility] Last Admin: 02/08/18 09:20 Dose: 50 mg Pantoprazole Sodium (Protonix Ec Tab) 40 mg PO DAILY [facility] Last Admin: 02/08/18 09:20 Dose: 40 mg Scopolamine (Transderm-Scop) 1 patch TD Q3D [facility] Last Admin: 02/07/18 17:17 Dose: 1 patch - Labs Labs: 02/08/18 07:52 02/08/18 07:52 - Constitutional Appears: Well, Non-toxic, No Acute Distress - Head Exam Head Exam: ATRAUMATIC, NORMAL INSPECTION, NORMOCEPHALIC - Eye Exam Eye Exam: EOMI, Normal appearance Pupil Exam: NORMAL ACCOMODATION - ENT Exam ENT Exam: Mucous Membranes Moist - Neck Exam Neck Exam: Full ROM, Normal Inspection - Respiratory Exam Respiratory Exam: NORMAL BREATHING PATTERN - Extremities Exam Extremities Exam: absent: Calf Tenderness, Full ROM, Pedal Edema Additional comments: generalized weakness to BUE and BLE, more so to BLE which is not a new finding. - Neurological Exam Neurological Exam: Alert, Awake, Oriented x3 Neuro motor strength exam: Left Upper Extremity: 3, Right Upper Extremity: 3 Additional comments: speech clear, fluid pt awake and alert generalized weakness to bue and ble, worse to ble strength to bue 3/5 today; interior design teacher 2/5 unable test sensation and fine motor as pt is uncooperative with full neuro exam. no tremor, no facial asymmetry - Psychiatric Exam Psychiatric exam: Normal Mood Additional comments: not cooperative with full neuro exam - Skin Skin Exam: Normal Color Assessment and Plan (1) Altered mental status Assessment & Plan: Imaging reviewed: -CT Head (02/07/18): No evidence of acute intracranial hemorrhage or infarction. Acute change in mental status yesterday afternoon. Had a [facility]OF[facility] PATHOLOGY called on him for period of unresponsiveness. After a brief period of CPR pt opened eyes. He could not recall this episode nor did he recall anything preceding the event. We are still r/o poss seizure activity, regardless of normal EEG form last week. -Stat EEG bedside ordered by primary team was not done when ordered yesterday. Bedside EEG done this afternoon; pending results at this time. -Prolactin and CPK ordered by primary team--normal -Notify neuro team for change in patient's condition. Case discussed with Dr. Flynn Status: Acute (2) CIDP (chronic inflammatory demyelinating polyneuropathy) Assessment & Plan: -Received Solumedrol 1, 000 mg IV daily x3 total doses. -Continue Gabapentin 300 mg PO TID. -Patient has received total of 2 doses of IVIG since admission. -Initial EEG normal. -Continue PT/OT and supportive measures. -Pt to f/u with his neurologist, Dr. Ronquillo, upon d/c and he can resume his IVIG treatments as outpatient. -Notify neuro of any acute changes. Case discussed with Dr. Flynn. Status: Chronic
[2018-02-08 22:58] LABS: URINE BACTERIA RARE (<OCC); URINE BILIRUBIN NEGATIVE (NEGATIVE); URINE BLOOD 3+ (NEGATIVE); URINE CALCIUM OXALATE CRYSTALS OCC /hpf (<OCC); URINE CLARITY Clear (Clear); URINE COLOR Yellow (YELLOW); URINE GLUCOSE (UA) NORMAL (Normal); URINE LEUKOCYTE ESTERASE NEG Leu/uL (Negative); URINE PROTEIN NEGATIVE (NEGATIVE); URINE UROBILINOGEN NORMAL mg/dL (0.2-1.0)
[2018-02-09 06:48] LABS: BASO % 0.1 % (0.0-2.0); HEMOGLOBIN 13.7 g/dL (12.0-18.0); LYMPH # 0.6 K/uL (1.0-4.3); LYMPH % 10.6 % (20.0-40.0); MEAN CELL VOLUME 88.5 fL (80.0-94.0); MEAN CORPUSCULAR HGB CONC 33.9 g/dL (33.0-37.0); MEAN PLATELET VOLUME 10.3 fL (7.2-11.7); MONO # 0.6 K/uL (0.0-0.8); MONO % 11.8 % (0.0-10.0); NEUT # 4.2 K/uL (1.8-7.0); NEUT % 77.5 % (50.0-75.0); RBC 4.57 Mil/uL (4.40-5.90); RED CELL DISTRIBUTION WIDTH 13.3 % (11.5-14.5); WHITE BLOOD COUNT 5.5 K/uL (4.8-10.8)
--- NOTE | 2018-02-09 06:52 | CP.PCM.PN ---
<Carina Gallo - Last Filed: 02/09/18 16:26> Subjective - Date & Time of Evaluation Date of Evaluation: 02/09/18 Time of Evaluation: 06:51 - Subjective Subjective: PGY-1 Carina Gallo D.O. Medicine progress note for Dr. King's service: Patient was seen and examined this morning. Patient is lying in bed; does not appear in acute distress. He states he feels better. He asks if he is going home today. He says he feels ready. He reports working with PT the day before yesterday doing arm and leg exercises. He denies BRAVO, chest pain, SOB. He says he still is unable to urinate independently and needs a catheter. Objective - Vital Signs/Intake and Output Vital Signs (last 24 hours): Temp Pulse Resp BP Pulse Ox 98.1 F 61 20 113/72 99 02/08/18 23:30 02/08/18 23:30 02/08/18 23:30 02/08/18 23:30 02/08/18 23:30 Intake and Output: 02/08/18 02/09/18 18:59 06:59 Intake Total 650 200 Output Total 420 1100 Balance 230 -900 - Medications Medications: Current Medications Amitriptyline HCl (Elavil) 25 mg PO HS [facility] Last Admin: 02/08/18 22:09 Dose: 25 mg Bisacodyl (Dulcolax) 10 mg [place] DAILY [facility] Last Admin: 02/08/18 13:35 Dose: Not Given Clonazepam (Klonopin) 0.5 mg PO BID [facility] Last Admin: 02/08/18 18:02 Dose: 0.5 mg Dextrose (Dextrose 50% Inj) 0 ml IVP .STAT PRN; Protocol PRN Reason: Hypoglycemia Protocol Last Admin: 01/31/18 00:53 Dose: 50 ml Dextrose (Glutose 15) 0 gm PO .ONCE PRN; Protocol PRN Reason: Hypoglycemia Protocol Escitalopram Oxalate (Lexapro) 5 mg PO DAILY [facility] Last Admin: 02/08/18 13:34 Dose: 5 mg Gabapentin (Neurontin) 300 mg PO TID [facility] Last Admin: 02/08/18 18:01 Dose: 300 mg Glucagon (Glucagen Diagnostic Kit) 0 mg IM .STAT PRN; Protocol PRN Reason: Hypoglycemia Protocol Losartan Potassium (Cozaar) 50 mg PO DAILY [facility] Last Admin: 02/08/18 09:20 Dose: 50 mg Pantoprazole Sodium (Protonix Ec Tab) 40 mg PO DAILY [facility] Last Admin: 02/08/18 09:20 Dose: 40 mg Scopolamine (Transderm-Scop) 1 patch TD Q3D [facility] Last Admin: 02/07/18 17:17 Dose: 1 patch - Labs Labs: 02/08/18 07:52 02/08/18 07:52 - Additional Findings Additional findings: - Constitutional Appears: No Acute Distress, Chronically Ill - Head Exam Head Exam: ATRAUMATIC, NORMAL INSPECTION - Eye Exam Eye Exam: EOMI, Normal appearance - ENT Exam ENT Exam: Mucous Membranes Moist - Neck Exam Neck Exam: Normal Inspection - Respiratory Exam Respiratory Exam: Clear to Ausculation Bilateral, NORMAL BREATHING PATTERN. absent: Respiratory Distress - Cardiovascular Exam Cardiovascular Exam: REGULAR RHYTHM, +S1, +S2 - GI/Abdominal Exam GI & Abdominal Exam: Soft. absent: Tenderness - Extremities Exam Extremities Exam: absent: Pedal Edema, Tenderness Additional comments: b/l contracted feet - Neurological Exam Neurological Exam: Alert, Awake, CN II-XII Intact, Oriented x3 - Psychiatric Exam Psychiatric exam: Anxious - Skin Skin Exam: Dry, Normal Color, Warm Assessment and Plan - Assessment and Plan (Free Text) Assessment: Patient is a 52 year old male with history of Chronic Inflammatory Demyelinating Polyneuropathy (CIDP), HTN, depression, anxiety and prostatic enlargement who presented to the ED for abdominal pain with nausea and dry wretching. Of note, patient was just discharged from the hospital last week for the same symptoms. This admission, patient found to have urinary retention and constipation. Pt has been responding well to west/straight catheter insertion for urinary retention and fleet enemas to help with constipation. Patient had missed multiple treatments of IVIG as outpatient. He completed course of IVIG here. Patient repeatedly with episodes of dry wretching and spastic movements consistent with EPS vs panic attacks. Avoiding antinausea medications that can contribute to EPS and now using Ativan for nausea. Patient continues to Seen by psychiatry and switch from Celexa to Amitriptyline 25 mg PO QHS for abdominal pain/nausea/anxiety. Presently, patient is hesitant to work with PT/OT. He is having multiple panic attacks throughout the day. Became anxious when preparing to be discharged yesterday. Reconsulted psychiatry. Also called patient's outpatient urologist who performed prostate Bx, Dr. Mack; waiting call back. Plan on discharge tomorrow with home services. Plan: Anxiety with panic attacks - Needs to be calmed down in order to relax when having anxiety attacks which cause increased wretching and nausea and then unresponsiveness- breathing exercises - DEPUTY [employer] called x3 during this admission for unresponsiveness, wretching, spitting clear phlegm, rolling his eyes- each time patient had significant urinary retention as well - EEG normal - Prolactin, CPK, lactate, WBC wnl - Repeat EEG pending - CT head (02/07): no acute findings - Amitriptyline 25 mg PO QHS - Lexapro 5 mg PO daily - Klonopin 0.5 BID - Psychiatry, Dr. Elizabeth, consulted Urinary retention, improving - TURP earlier in December - Patient's anxiety is increased with urinary retention, west catheter reinserted 02/04, removed 02/07 - Bladder scan and straight cath PRN - Call placed to patient's outpatient urologist, Dr. Mack on 02/08 and 02/09- waiting for call back - Outpatient appointment on 03/14/18 at 11 AM - Urology, Dr. Hahn, consulted- f/u recs Intractable nausea and vomiting with abdominal pain - Unable to use Promethazine, Phenergan due to EPS side effect - Zofran does not control symptoms - Patient was seen in prior hospitalization and had refused EGD due to concern for anesthesia side effect - Presently, patient is dry wretching with minimal clear/white saliva, no true vomiting- improving - Suspect related to anxiety - Advance diet as tolerated- heart healthy, high protein - Hypoglycemic protocol - Scopalamine patch - Protonix 40 mg PO daily - GI, Dr. Quijano, consulted - No scope at this time Constipation, improving - Dulcolax 10 mg MA daily Hypertension, chronic - Monitor vitals Q4H - Losartan 50 mg PO QD Chronic inflammatory demyelinating polyneuropathy (CIDP), chronic - Diagnosed in 2004 - Case discussed at length with pt and sister. Pt's abdominal pain and nausea and vomiting is secondary to CIDP. Pt has not followed up with Dr. Ronquillo since November. Pt's EPS symtopms are due to the phenergan given in the ED. Pt has been moving his bowel well with the phosphate enemas, which we will continue. - Pt has had decreased nausea as he has been moving his bowels. - EEG is normal - Gabapentin 300 mg PO TID - Case was discussed with Dr. Ronquillo via telephone, who does not believe this is due to CIDP flare, but rec to give IVIG as pt has missed 2 doses. - Dr. Arreola, neurology, consulted who believes these GI symptoms are secondary to CIDP flare, and recommended restarting IVIG. - Pt finished a 2 day course of IVIG on 02/01/18. - Case discussed with neurology, Dr. Flynn, who states that there is no contraindication to EGD procedure at this time. - PT/OT Urinary tract infection (UTI), resolved - Patient has had recent prostate biopsy earlier in December at a different facility - Completed course of Cipro 400mg IV Q12H for 5 days (01/29-02/02) - Blood culture negative - Urine culture (01/28) negative Extrapyramidal symptoms, resolved - Medication side effect Electrolyte abnormality, resolved - Replete as needed - Continue to monitor Ppx: Heparin 5000 units SC Q12H Protonix 40mg IV daily Code status: full code Case discussed with attending , Dr. King. <Melva King V - Last Filed: 02/10/18 18:45> Objective - Vital Signs/Intake and Output Vital Signs (last 24 hours): Temp Pulse Resp BP Pulse Ox 98.2 F 71 20 106/68 99 02/10/18 16:00 02/10/18 16:00 02/10/18 16:00 02/10/18 16:00 02/10/18 16:00 Intake and Output: 02/10/18 02/10/18 06:59 18:59 Intake Total 240 720 Output Total 1000 Balance -760 720 - Medications Medications: Current Medications Amitriptyline HCl (Elavil) 25 mg PO HS [facility] Last Admin: 02/09/18 21:45 Dose: 25 mg Bisacodyl (Dulcolax) 10 mg MA DAILY [facility] Last Admin: 02/10/18 10:57 Dose: Not Given Clonazepam (Klonopin) 0.5 mg PO BID [facility] Last Admin: 02/10/18 17:29 Dose: 0.5 mg Dextrose (Dextrose 50% Inj) 0 ml IVP .STAT PRN; Protocol PRN Reason: Hypoglycemia Protocol Last Admin: 01/31/18 00:53 Dose: 50 ml Dextrose (Glutose 15) 0 gm PO .ONCE PRN; Protocol PRN Reason: Hypoglycemia Protocol Escitalopram Oxalate (Lexapro) 5 mg PO DAILY [facility] Last Admin: 02/10/18 09:29 Dose: 5 mg Gabapentin (Neurontin) 300 mg PO TID [facility] Last Admin: 02/10/18 17:30 Dose: 300 mg Glucagon (Glucagen Diagnostic Kit) 0 mg IM .STAT PRN; Protocol PRN Reason: Hypoglycemia Protocol Losartan Potassium (Cozaar) 50 mg PO DAILY [facility] Last Admin: 02/10/18 09:30 Dose: 50 mg Pantoprazole Sodium (Protonix Ec Tab) 40 mg PO DAILY [facility] Last Admin: 02/10/18 09:29 Dose: 40 mg Scopolamine (Transderm-Scop) 1 patch TD Q3D [facility] Last Admin: 02/10/18 16:25 Dose: Not Given - Labs Labs: 02/10/18 08:12 02/10/18 08:12 Assessment and Plan (1) CIDP (chronic inflammatory demyelinating polyneuropathy) Status: Chronic (2) Intractable nausea and vomiting Status: Resolved (3) UTI (urinary tract infection) Status: Acute (4) Hypokalemia Status: Acute (5) Side effect of medication Status: Acute (6) Hypertension Status: Chronic (7) Urinary retention Status: Acute (8) Constipation Status: Acute (9) Prophylactic measure Status: Acute Attending/Attestation - Attestation I have personally seen and examined this patient.: Yes I have fully participated in the care of the patient.: Yes I have reviewed all pertinent clinical information, including history, physical exam and plan: Yes Notes (Text): This is late computer entry for 02/09/18. Patient seen, examined, and case discussed with day-time resident. Agree with assessment and plan as written by the resident. Patient's anxiety is much controlled given medication changes. Patient is on Klonopin, Lexapro, Amitrypline. Patient's Citalopram was discontinued. Patient reports he is tolerating diet better and eating sweet potatoes from home. Since patient's west was discontinued, patient is able to urinate on his own multiple times today without issue. Resident has attempted to follow-up with patient's outpatient urologist, Dr. Mack again but has not received a call back. Resident has also spoken with Dr. Hahn, who had indicated he will come see the patient, initial consult was placed on 02/04 which was confirmed with the nurse, Vibha. EEG pending official read. Case and social work have arranged for psychiatric counselling to come visit the patient at his home. Patient and his both refuse rehab. They are aware, upon completion of hospitalization he will need to follow-up with PMD, GI, neurology, and urology. Patient is for discharge tomorrow.
[2018-02-09 07:33] LABS: ALB/GLOB RATIO 0.9 (1.0-2.1); ALBUMIN 2.7 g/dL (3.5-5.0); ALT/SGPT 76 U/L (21-72); AST/SGOT 45 U/L (17-59); BLOOD UREA NITROGEN 15 mg/dL (9-20); CALCIUM 8.6 mg/dl (8.6-10.4); GFR NON-AFRICAN AMERICAN > 60
[2018-02-09] MEDS: Pantoprazole 40 mg EC Tab PO SCH (09:35)
--- NOTE | 2018-02-09 11:54 | PCM.PYCHPN ---
Psychiatric Progress Note - Psychiatric Progress Note Patient seen today, length of contact: 15 min Patient Chief Complaint: "I'm better" Problems Identified/Issues Discussed: The pt is seen, chart reviewed, case discussed with staff. is with him Much calmer, smiling says he is happy and rested now Psych will sign off Medication Change: No Medical Record Reviewed: Yes Mental Status Examination - Cognitive Function Orientation: Person, Place, Situation, Time Memory: Impaired Attention: Poor Concentration: Poor Association: WNL Fund of Knowledge: WNL - Mood Mood: Anxious - Affect Affect: Constricted - Speech Speech: Appropriate - Formal Thought Process Formal Thought Process: No Impairment - Suicidal Ideation Suicidal Ideation: No - Homicidal Ideation Homicidal Ideation: No Goal/Treatment Plan - Goal/Treatment Plan Need for Continued Stay: Other (medicine) Progress Toward Problem(s) and Goals/Treatment Plan: Lexapro 5 mg added for depressiona nd anxiety Klonopin 0.5 is now standing not prn Support Continue Elavil
--- NOTE | 2018-02-09 15:15 | CP.PCM.PN ---
Subjective - Date & Time of Evaluation Date of Evaluation: 02/09/18 Time of Evaluation: 15:13 - Subjective Subjective: Neurology Follow-Up Note: Mr. Leahy was evaluated this afternoon in bed. Today pt admits to feeling "much better." He reports no nausea or dry heaving today. He states that he is eager to go home and will be d/c possibly this evening or tomorrow morning. Pt denies h/a, dizziness, visual changes, chest pain, sob, abd pain, n/v/d. Objective - Vital Signs/Intake and Output Vital Signs (last 24 hours): Temp Pulse Resp BP Pulse Ox 97.6 F 72 18 124/65 100 02/09/18 07:00 02/09/18 09:34 02/09/18 07:00 02/09/18 09:34 02/09/18 07:00 Intake and Output: 02/09/18 02/09/18 06:59 18:59 Intake Total 200 400 Output Total 1100 Balance -900 400 - Medications Medications: Current Medications Amitriptyline HCl (Elavil) 25 mg PO HS [facility] Last Admin: 02/08/18 22:09 Dose: 25 mg Bisacodyl (Dulcolax) 10 mg [place] DAILY [facility] Last Admin: 02/09/18 09:35 Dose: Not Given Clonazepam (Klonopin) 0.5 mg PO BID [facility] Last Admin: 02/09/18 09:35 Dose: 0.5 mg Dextrose (Dextrose 50% Inj) 0 ml IVP .STAT PRN; Protocol PRN Reason: Hypoglycemia Protocol Last Admin: 01/31/18 00:53 Dose: 50 ml Dextrose (Glutose 15) 0 gm PO .ONCE PRN; Protocol PRN Reason: Hypoglycemia Protocol Escitalopram Oxalate (Lexapro) 5 mg PO DAILY [facility] Last Admin: 02/09/18 09:35 Dose: 5 mg Gabapentin (Neurontin) 300 mg PO TID [facility] Last Admin: 02/09/18 13:06 Dose: 300 mg Glucagon (Glucagen Diagnostic Kit) 0 mg IM .STAT PRN; Protocol PRN Reason: Hypoglycemia Protocol Losartan Potassium (Cozaar) 50 mg PO DAILY [facility] Last Admin: 02/09/18 09:35 Dose: 50 mg Pantoprazole Sodium (Protonix Ec Tab) 40 mg PO DAILY [facility] Last Admin: 02/09/18 09:35 Dose: 40 mg Scopolamine (Transderm-Scop) 1 patch TD Q3D [facility] Last Admin: 02/07/18 17:17 Dose: 1 patch - Labs Labs: 02/09/18 06:42 02/09/18 06:42 - Constitutional Appears: Well, Non-toxic, No Acute Distress - Head Exam Head Exam: ATRAUMATIC, NORMAL INSPECTION, NORMOCEPHALIC - Eye Exam Eye Exam: EOMI, Normal appearance Pupil Exam: NORMAL ACCOMODATION, PERRL - ENT Exam ENT Exam: Mucous Membranes Moist - Neck Exam Neck Exam: Full ROM, Normal Inspection - Respiratory Exam Respiratory Exam: NORMAL BREATHING PATTERN - Extremities Exam Extremities Exam: absent: Calf Tenderness, Full ROM, Pedal Edema Additional comments: decreased rom to all extremities, worse to ble - Neurological Exam Neurological Exam: Alert, Awake, Oriented x3 Neuro motor strength exam: Left Upper Extremity: 3, Right Upper Extremity: 3, Left Lower Extremity: 2/1, Right Lower Extremity: 2/1 Additional comments: speech clear, fluid pt awake and alert generalized weakness to bue and ble, worse to ble strength to bue 3/5 today; chemical operations and training 2/5 sensation intact to upper body; diminished ble (not new finding). no tremor, no facial asymmetry - Psychiatric Exam Psychiatric exam: Normal Affect, Normal Mood - Skin Skin Exam: Normal Color Assessment and Plan (1) Altered mental status Assessment & Plan: Imaging reviewed: -CT Head (02/07/18): No evidence of acute intracranial hemorrhage or infarction. Mental status and behavior is back to baseline. -Bedside EEG done yesterday: pending results at this time. -Notify neuro team for change in patient's condition. Status: Acute (2) CIDP (chronic inflammatory demyelinating polyneuropathy) Assessment & Plan: -Received Solumedrol 1, 000 mg IV daily x3 total doses. -Continue Gabapentin 300 mg PO TID. -Patient has received total of 2 doses of IVIG since admission. -Initial EEG normal. -Continue PT/OT and supportive measures. -Notify neuro of any acute changes. -Pt to f/u with his neurologist, Dr. Ronquillo, upon d/c and he can resume his IVIG treatments as outpatient. He already has a scheduled appt for 02/17/18. Case discussed with Dr. Flynn. Status: Chronic
[2018-02-09 16:19] VITALS: RESP 20
--- NOTE | 2018-02-09 17:35 | PCM.EEG ---
Electroencephalogram Report - Electroencephalogram Report Procedure Date: 02/08/19 Medication: Amitryptiline, Gabapentin. ASA. Interpretation: Technical Information: This was a 16 -channel EEG, 1-channel EKG routine EEG performed using an [employer] machine. Electrodes were applied using the 10/20 international placement system. Start; 11;27 End; 11;53 total; 25 min. Poor study due to movement. Clinical Information: 52 y/o man with alter mental status During resting wakefulness there was a symmetric posterior dominant rhythm at 8.Hz, 30-50 uV, which was reactive to eye opening and closing. Drowsiness was (11;29 AM) associated with fragmentation of the posterior dominant rhythm and with slow roving eye movements. Light sleep was recorded and was characterized by central vertex waves, sleep spindles, and bilateral theta slowing. Hyperventilation was not performed. Photic stimulation was performed and there were no changes on the record. Focal abnormality; none Impression: This is a normal awake and drowsy electroencephalogram.
[2018-02-10 08:27] LABS: BASO % 0.2 % (0.0-2.0); EOS % 0.5 % (0.0-4.0); HEMOGLOBIN 14.7 g/dL (12.0-18.0); LYMPH # 1.1 K/uL (1.0-4.3); LYMPH % 18.7 % (20.0-40.0); MEAN CORPUSCULAR HGB CONC 33.7 g/dL (33.0-37.0); MEAN PLATELET VOLUME 10.4 fL (7.2-11.7); MONO # 0.5 K/uL (0.0-0.8); MONO % 8.1 % (0.0-10.0); NEUT # 4.4 K/uL (1.8-7.0); NEUT % 72.5 % (50.0-75.0); NRBC % 0.1 % (0.0-2.0); RBC 4.91 Mil/uL (4.40-5.90); RED CELL DISTRIBUTION WIDTH 13.5 % (11.5-14.5)
[2018-02-10 08:33] LABS: ALT/SGPT 90 U/L (21-72); AST/SGOT 51 U/L (17-59); BLOOD UREA NITROGEN 14 mg/dL (9-20); CALCIUM 8.5 mg/dl (8.6-10.4); GFR NON-AFRICAN AMERICAN > 60
[2018-02-10] MEDS: Pantoprazole 40 mg EC Tab PO SCH (09:29)
--- NOTE | 2018-02-10 12:15 | CP.PCM.DIS ---
<Shahid Suazo - Last Filed: 02/10/18 17:20> Provider - Provider Date of Admission: 01/30/18 08:08 Attending physician: Melva King DO Consults: 01/30/18 14:26 Neurology Consult Routine Comment: Consulting Provider: Ishaan Arreola Consulting Physician: Ishaan Arreola Reason for Consult: cidp 02/01/18 08:25 Psychiatry Consult Routine Comment: Consulting Provider: Taya Elizabeth Consulting Physician: Taya Elizabeth Reason for Consult: recs for TCA vs SSRI for abdominal pain/nausea 02/04/18 09:17 Urology Consult Routine Comment: Consulting Provider: Ovidio Hahn Consulting Physician: Ovidio Hahn Reason for Consult: Hx Prostate Bx [facility] Urinary Rentention. West in place. Urology Consult Routine Comment: Consulting Provider: Ovidio Hahn Consulting Physician: Ovidio Hahn Reason for Consult: urine retention, Hx of CIDP; Prostate bx 01/03/18 by Michael Mack MD 02/08/18 08:57 Psychiatry Consult Routine Comment: Consulting Provider: Taya Elizabeth Consulting Physician: Taya Elizabeth Reason for Consult: reconsult- anxiety/panic attacks 02/08/18 20:12 Case Management Referral Routine Comment: Physician Instructions: Reason For Exam: subacute rehab Reason for Referral: Discharge Planning Time Spent in preparation of Discharge (in minutes): 45 Diagnosis - Discharge Diagnosis (1) Urinary retention Status: Acute (2) Constipation Status: Acute (3) Vomiting Status: Acute (4) Generalized anxiety disorder Status: Acute Hospital Course - Lab Results Lab Results: Micro Results 01/28/18 22:11 Blood Blood Culture - Final NO GROWTH AFTER 5 DAYS 01/28/18 22:11 Blood Gram Stain - Final TEST NOT PERFORMED 01/28/18 21:30 Blood Blood Culture - Final NO GROWTH AFTER 5 DAYS 01/28/18 21:30 Blood Gram Stain - Final TEST NOT PERFORMED 01/31/18 00:30 Nose MRSA Culture - Final MRSA NOT DETECTED 01/30/18 07:51 Urine,Catheterized Urine Culture - Final No Growth (<1,000 CFU/ML) 01/29/18 02:53 Naris MRSA Culture (Admit) - Final MRSA NOT DETECTED 01/28/18 20:56 Urine Urine Culture - Final No Growth (<1,000 CFU/ML) Most Recent Lab Values WBC 6.0 K/uL (4.8-10.8) 02/10/18 08:12 RBC 4.91 Mil/uL (4.40-5.90) 02/10/18 08:12 Hgb 14.7 g/dL (12.0-18.0) 02/10/18 08:12 Hct 43.6 % (35.0-51.0) 02/10/18 08:12 MCV 89.0 fL (80.0-94.0) 02/10/18 08:12 MCH 30.0 pg (27.0-31.0) 02/10/18 08:12 MCHC 33.7 g/dL (33.0-37.0) 02/10/18 08:12 RDW 13.5 % (11.5-14.5) 02/10/18 08:12 Plt Count 189 K/uL (130-400) 02/10/18 08:12 MPV 10.4 fL (7.2-11.7) 02/10/18 08:12 Neut % (Auto) 72.5 % (50.0-75.0) 02/10/18 08:12 Lymph % (Auto) 18.7 % (20.0-40.0) L 02/10/18 08:12 Steele % (Auto) 8.1 % (0.0-10.0) 02/10/18 08:12 Eos % (Auto) 0.5 % (0.0-4.0) 02/10/18 08:12 Baso % (Auto) 0.2 % (0.0-2.0) 02/10/18 08:12 Neut # (Auto) 4.4 K/uL (1.8-7.0) 02/10/18 08:12 Lymph # (Auto) 1.1 K/uL (1.0-4.3) 02/10/18 08:12 Steele # (Auto) 0.5 K/uL (0.0-0.8) 02/10/18 08:12 Eos # (Auto) 0.0 K/uL (0.0-0.7) 02/10/18 08:12 Baso # (Auto) 0.0 K/uL (0.0-0.2) 02/10/18 08:12 Neutrophils % (Manual) 88 % (50-75) H 02/08/18 07:52 Band Neutrophils % 1 % (0-2) 02/08/18 07:52 Lymphocytes % (Manual) 5 % (20-40) L 02/08/18 07:52 Reactive Lymphs % 1 % (0-0) H 02/06/18 07:30 Monocytes % (Manual) 6 % (0-10) 02/08/18 07:52 Toxic Granulation Present 01/29/18 06:04 Platelet Estimate Normal (NORMAL) 02/08/18 07:52 Large Platelets Present 01/29/18 06:04 Giant Platelets Present 01/29/18 06:04 Anisocytosis (manual) Slight 01/29/18 06:04 Puncture Site Rr 02/07/18 14:40 pCO2 33 mm/Hg (35-45) L 02/07/18 14:40 pO2 143 mm/Hg (80-100) H 02/07/18 14:40 HCO3 28.3 mmol/L (21-28) H 02/07/18 14:40 ABG pH 7.52 (7.35-7.45) H 02/07/18 14:40 ABG Total CO2 27.9 mmol/L (22-28) 02/07/18 14:40 ABG O2 Saturation 99.9 % (95-98) H 02/07/18 14:40 ABG Base Excess 4.3 mmol/L (-2.0-3.0) H 02/07/18 14:40 Federico Test Pos 02/07/18 14:40 ABG Potassium 3.3 mmol/L (3.6-5.2) L 02/07/18 14:40 Sodium 135.0 mmol/l (132-148) 02/07/18 14:40 Chloride 105.0 mmol/L (98-107) 02/07/18 14:40 Glucose 151 mg/dl (75-110) H 02/07/18 14:40 Lactate 2.4 mmol/L (0.7-2.1) H 02/07/18 14:40 Liter Flow 4.0 02/07/18 14:40 Sodium 134 mmol/L (132-148) 02/10/18 08:12 Potassium 4.2 mmol/L (3.6-5.2) 02/10/18 08:12 Chloride 95 mmol/L (98-107) L 02/10/18 08:12 Carbon Dioxide 34 mmol/L (22-30) H 02/10/18 08:12 Anion Gap 8 (10-20) L 02/10/18 08:12 BUN 14 mg/dL (9-20) 02/10/18 08:12 Creatinine 0.3 mg/dL (0.8-1.5) L 02/10/18 08:12 Est GFR ( Amer) > 60 02/10/18 08:12 Est GFR (Non-Af Amer) > 60 02/10/18 08:12 POC Glucose (mg/dL) 100 mg/dL (65-110) 02/10/18 11:16 Random Glucose 92 mg/dL (75-110) 02/10/18 08:12 Lactic Acid 1.2 mmol/L (0.7-2.1) 02/08/18 07:52 Calcium 8.5 mg/dl (8.6-10.4) L 02/10/18 08:12 Phosphorus 2.9 mg/dL (2.5-4.5) 02/10/18 08:12 Magnesium 2.3 mg/dL (1.6-2.3) 02/10/18 08:12 Total Bilirubin 1.0 mg/dL (0.2-1.3) 02/10/18 08:12 AST 51 U/L (17-59) 02/10/18 08:12 ALT 90 U/L (21-72) H 02/10/18 08:12 Alkaline Phosphatase 54 U/L (38-126) 02/10/18 08:12 Total Creatine Kinase < 20 U/L (55-170) L 02/07/18 15:07 Troponin I 0.0130 ng/mL (0.00-0.120) 01/28/18 21:03 Total Protein 6.1 g/dL (6.3-8.3) L 02/10/18 08:12 Albumin 3.0 g/dL (3.5-5.0) L 02/10/18 08:12 Globulin 3.1 gm/dL (2.2-3.9) 02/10/18 08:12 Albumin/Globulin Ratio 1.0 (1.0-2.1) 02/10/18 08:12 Lipase 17 U/L (23-300) L 01/28/18 20:47 Prolactin 12.6 ng/mL (3.7-17.9) 02/07/18 15:07 Arterial Blood Potassium 3.3 mmol/L (3.6-5.2) L 02/07/18 14:40 Urine Color Yellow (YELLOW) 02/08/18 22:10 Urine Clarity Clear (Clear) 02/08/18 22:10 Urine pH 7.0 (5.0-8.0) 02/08/18 22:10 Ur Specific [place] 1.009 (1.003-1.030) 02/08/18 22:10 Urine Protein Negative mg/dL (NEGATIVE) 02/08/18 22:10 Urine Glucose (UA) Normal mg/dL (Normal) 02/08/18 22:10 Urine Ketones Negative mg/dL (NEGATIVE) 02/08/18 22:10 Urine Blood 3+ (NEGATIVE) H 02/08/18 22:10 Urine Nitrate Negative (NEGATIVE) 02/08/18 22:10 Urine Bilirubin Negative (NEGATIVE) 02/08/18 22:10 Urine Urobilinogen Normal mg/dL (0.2-1.0) 02/08/18 22:10 Ur Leukocyte Esterase Neg Michael/uL (Negative) 02/08/18 22:10 Urine WBC (Auto) 1 /hpf (0-5) 02/08/18 22:10 Urine RBC (Auto) 18 /hpf (0-3) H 02/08/18 22:10 Calcium Oxalate Crystal Occ /hpf (<OCC) H 02/08/18 22:10 Urine Bacteria Rare (<OCC) 02/08/18 22:10 - Hospital Course Hospital Course: PGY-[address] King Initial HPI: Patient is 52 year old Male with Pmhx of Chronic Inflammatory Demyelinating Polyneuropathy (CIDP), HTN, depression, anxiety and prostatic enlargement who presents to the ED for abdominal pain, with nausea and dry wretching. Family is at bedside, and history obtained from family as pt is unable to answer questions during initial evaluation. Family reports that since 8 pm (01/28) pt developed lower abdominal pain with distension, described as a sharp pressure. Pt developed dry wretching productive of spit, no vomiting (bloody or bilious, or containing any food materials). Pt was given Zofran at home for the nausea, which did not help. reports pt was complaining of a pressure in the rectum, and inability to move his bowels or urinate. Denies fever, chills, chest pain, shortness of breath, hematochezia, melena, rash or leg swelling, seizure activity. Pt was recently discharged from [facility] on 01/25 with Ciprofloxacin for UTI noted during hospitalization. In the ED, pt was given Morphine 2 mg IVP for the pain, phenergen 25 mg GA for the nausea. As per ED physician, pt developed facial grimacing after Phenergan and Benadryl 25 mg IVP was given. On initial evaluation, pt is unable to respond to my voice, is rolling his eyes, moving his jaw and tongue, nonverbal. He continues to have episodes of spitting up (nonbloody). Pt is responsive to painful stimuli (lower abdominal ttp). Bladder scan showed over 900mL. West catheter was inserted which relieved the abdominal distension and produced approximately 1L of dark yellow urine. Head CT w/o contrast ordered stat. After approximately 30 minutes, pt's extrapyramidal symptoms resolved and pt was AAOx3. He denies any complaints. He corroborates the HPI that the family reported. Hospital Course: Patient is a 52 year old male with Pmhx of Chronic Inflammatory Demyelinating Polyneuropathy (CIDP), HTN, depression, anxiety and prostatic enlargement who presented to the ED for abdominal pain with nausea and dry wretching. Of note, patient was just discharged from the hospital prior to re- admission for similar symptoms. Patient's abdominal pain was initiallly worked up and he was found to have severe constipation on obstruction series. Constipation was managed with a combination of Dulcolax and fleet enemas. Patient also was complaining of new urinary retention and required west placement, and this also seemed to be associated with anxiety. Of note, patient did have recent TURP. However, by end of hospital stay, retention resolved. Patient was treated with Salumedrol for CIDP and Gabapentin was added, management per Neurology, Dr. Flynn. Over time, his symptoms of nausea and dry wretching improved as his hospital course progressed. Patient's diet was advanced from liquids to solids and patient tolerated without nausea or Patient also has a history of anxiety which was thought to be a contributing factor to his medical complaints. Psych meds were changed multiple times prior to discharge. Patient had been taking Celexa at home, but had requested switch to a different medication. Per psych consult, Dr. Elizabeth, patient was switched to Elavil 25 mg HS. He was also thought to be experiencing extrapyramidal side effects as a result of his medication history. Offending meds were held. Patient was initially planned for discharge on 02/07, but he was demonstrating increasing anxiety at the notion of being discharged. Episodes of dry-heaving re-started and later that day [facility] was called for patient found unresponsive. Seizure was ruled out as cause. Patient was reevaluated by psych and anxiety meds again were adjusted. Patient restarted on Elavil and Lexapro 5 mg added as well as Klonopin .5mg BID scheduled. Patient's symptoms again began to resolve and by time of discharge, patient was no longer feeling nauseous, was urinating without need for catheterization, was tolerating solid foods, and reporting less anxiety. Patient was discharged with plans to f/u with PMD and appropriate specialists. Imaging: Abd obstruction series 01/28: Severe consipation. Nonobstructive bowel gas. Head CT 01/29: No acute intracranial abnormality Chest X-ray 02/07: No focal consolidation Head CT 02/07: No evidence of acute intracranial hemorrhage or infarct Discharge Exam - Head Exam Head Exam: ATRAUMATIC, NORMAL INSPECTION, NORMOCEPHALIC - Eye Exam Eye Exam: EOMI, Normal appearance - ENT Exam ENT Exam: Mucous Membranes Moist - Respiratory Exam Respiratory Exam: Clear to PA & Lateral, UNREMARKABLE. absent: Rhonchi, Wheezes - Cardiovascular Exam Cardiovascular Exam: REGULAR RHYTHM, +S1, +S2 - GI/Abdominal Exam GI & Abdominal Exam: Normal Bowel Sounds, Soft, Unremarkable. absent: Distended, Tenderness - Extremities Exam Extremities exam: normal inspection - Neurological Exam Neurological exam: Alert, CN II-XII Intact, Oriented x3 - Psychiatric Exam Psychiatric exam: Normal Affect, Normal Mood - Skin Skin Exam: Dry, Intact, Normal Color, Warm Discharge Plan - Discharge Medications Prescriptions: RX: Amitriptyline [Elavil] 25 mg PO HS #30 tab Clonazepam [Klonopin] 0.5 mg PO BID #10 tablet RX: Escitalopram [Lexapro] 5 mg PO DAILY #30 tab RX: Gabapentin [Neurontin] 300 mg PO TID #90 cap RX: Losartan [Cozaar] 50 mg PO DAILY #30 tab RX: Rosuvastatin Calcium [Crestor] 5 mg PO HS #30 tab - Follow Up Plan Condition: STABLE Disposition: HOME/ ROUTINE Instructions: High Blood Pressure (DC), Anxiety, Adult (DC), Urinary Retention (DC), Urinary Tract Infection in Men (DC) Additional Instructions: Please follow-up with your primary care physician, Dr. Newby, within 3-5 days of discharge for expiration of klonopin. Please follow-up with your urologist, Dr. Mack. You have an appointment on 03/14/18 at 11 AM. Please follow-up with your neurologist, Dr. Ronquillo, and maintain your appointments for treatments. You are highly encouraged to see a psychiatrist to help with your anxiety. Dr. Hadley can help you with a referral. Additionally, if necessary, Dr. Hadley can help you with a referral to a cyber security administrator. Take all medications as instructed. You will continue with your home services. If symptoms recur, return to the nearest emergency room. Referrals: Samm Ronquillo MD [Staff Provider] - Michael Mack MD [Non-Staff] - David Hadley MD [Staff Provider] - <Melva King V - Last Filed: 02/10/18 19:00> Provider - Provider Date of Admission: 01/30/18 08:08 Attending physician: Melva King DO Consults: 01/30/18 14:26 Neurology Consult Routine Comment: Consulting Provider: Ishaan Arreola Consulting Physician: Ishaan Arreola Reason for Consult: cidp 02/01/18 08:25 Psychiatry Consult Routine Comment: Consulting Provider: Taya Elizabeth Consulting Physician: Taya Elizabeth Reason for Consult: recs for TCA vs SSRI for abdominal pain/nausea 02/04/18 09:17 Urology Consult Routine Comment: Consulting Provider: Ovidio Hahn Consulting Physician: Ovidio Hahn Reason for Consult: Hx Prostate Bx [facility] Urinary Rentention. West in place. Urology Consult Routine Comment: Consulting Provider: Ovidio Hahn Consulting Physician: Ovidio Hahn Reason for Consult: urine retention, Hx of CIDP; Prostate bx 01/03/18 by Michael Mack MD 02/08/18 08:57 Psychiatry Consult Routine Comment: Consulting Provider: Taya Elizabeth Consulting Physician: Taya Elizabeth Reason for Consult: reconsult- anxiety/panic attacks 02/08/18 20:12 Case Management Referral Routine Comment: Physician Instructions: Reason For Exam: subacute rehab Reason for Referral: Discharge Planning Diagnosis - Discharge Diagnosis (1) CIDP (chronic inflammatory demyelinating polyneuropathy) Status: Chronic Comment: patient has received IVIG and pulse steroid during hospital since he missed his regularly scheduled IVIG due to recent hospitalizations. He will f/u with Dr. Ronquillo his outpatient neurologist following hospitalization. (2) Anxiety disorder due to multiple medical problems Status: Resolved Comment: Patient was seen and evaluated by psychiatry during hospitalization. His Citalopram was discontinued. His anxiety improved with Klonopin 0.5mg PO BID, lexapro 5mg PO daily, and Amitryline 25mg POqHS. Note: many medications with EPS side effects were not considered for this patient because he did have facial twitching after Promethazine. He is strongly recommended to follow-up with his PMD for psychiatry referral for outpatient followup as well as GI to monitor his n/v. Patient did refused EGD in prior hospitalization. (3) Intractable nausea and vomiting Status: Resolved Comment: likely secondary to anxiety and CDIP flare. Patient has received his regularly scheduled IVIG treatment while hospitalized. Patient was seen and evaluated by psychiatry during hospitalization. His Citalopram was discontinued. His anxiety improved with Klonopin 0.5mg PO BID, lexapro 5mg PO daily, and Amitryline 25mg POqHS. Note: many medications with EPS side effects were not considered for this patient because he did have facial twitching after Promethazine. He is strongly recommended to follow-up with his PMD for psychiatry referral for outpatient followup as well as GI to monitor his n/v. Patient did refused EGD in prior hospitalization. (4) UTI (urinary tract infection) Status: Resolved Comment: Completed antibiotic during hospitalization. follow-up urine culture shows UTI has cleared. Patient's urinary retention resolved. his west was discontinued and urinating on his own. He is recommended to follow-up with his outpatient urologist to follow-up for his prostate biopsy result. (5) Hypokalemia Status: Resolved (6) Side effect of medication Status: Inactive Comment: patient should not receive medications with EP side effects such as promethazine and reglan. He does exhibit this symptoms post medication administration. (7) Hypertension Status: Chronic Comment: monitored during hospitalization (8) Urinary retention Status: Resolved (9) Constipation Status: Resolved (10) Seizure Status: Ruled-out Hospital Course - Lab Results Lab Results: Micro Results 02/08/18 22:10 Urine,Catheterized Urine Culture - Final No Growth (<1,000 CFU/ML) 01/28/18 22:11 Blood Blood Culture - Final NO GROWTH AFTER 5 DAYS 01/28/18 22:11 Blood Gram Stain - Final TEST NOT PERFORMED 01/28/18 21:30 Blood Blood Culture - Final NO GROWTH AFTER 5 DAYS 01/28/18 21:30 Blood Gram Stain - Final TEST NOT PERFORMED 01/31/18 00:30 Nose MRSA Culture - Final MRSA NOT DETECTED 01/30/18 07:51 Urine,Catheterized Urine Culture - Final No Growth (<1,000 CFU/ML) 01/29/18 02:53 Naris MRSA Culture (Admit) - Final MRSA NOT DETECTED 01/28/18 20:56 Urine Urine Culture - Final No Growth (<1,000 CFU/ML) Most Recent Lab Values WBC 6.0 K/uL (4.8-10.8) 02/10/18 08:12 RBC 4.91 Mil/uL (4.40-5.90) 02/10/18 08:12 Hgb 14.7 g/dL (12.0-18.0) 02/10/18 08:12 Hct 43.6 % (35.0-51.0) 02/10/18 08:12 MCV 89.0 fL (80.0-94.0) 02/10/18 08:12 MCH 30.0 pg (27.0-31.0) 02/10/18 08:12 MCHC 33.7 g/dL (33.0-37.0) 02/10/18 08:12 RDW 13.5 % (11.5-14.5) 02/10/18 08:12 Plt Count 189 K/uL (130-400) 02/10/18 08:12 MPV 10.4 fL (7.2-11.7) 02/10/18 08:12 Neut % (Auto) 72.5 % (50.0-75.0) 02/10/18 08:12 Lymph % (Auto) 18.7 % (20.0-40.0) L 02/10/18 08:12 Steele % (Auto) 8.1 % (0.0-10.0) 02/10/18 08:12 Eos % (Auto) 0.5 % (0.0-4.0) 02/10/18 08:12 Baso % (Auto) 0.2 % (0.0-2.0) 02/10/18 08:12 Neut # (Auto) 4.4 K/uL (1.8-7.0) 02/10/18 08:12 Lymph # (Auto) 1.1 K/uL (1.0-4.3) 02/10/18 08:12 Steele # (Auto) 0.5 K/uL (0.0-0.8) 02/10/18 08:12 Eos # (Auto) 0.0 K/uL (0.0-0.7) 02/10/18 08:12 Baso # (Auto) 0.0 K/uL (0.0-0.2) 02/10/18 08:12 Neutrophils % (Manual) 88 % (50-75) H 02/08/18 07:52 Band Neutrophils % 1 % (0-2) 02/08/18 07:52 Lymphocytes % (Manual) 5 % (20-40) L 02/08/18 07:52 Reactive Lymphs % 1 % (0-0) H 02/06/18 07:30 Monocytes % (Manual) 6 % (0-10) 02/08/18 07:52 Toxic Granulation Present 01/29/18 06:04 Platelet Estimate Normal (NORMAL) 02/08/18 07:52 Large Platelets Present 01/29/18 06:04 Giant Platelets Present 01/29/18 06:04 Anisocytosis (manual) Slight 01/29/18 06:04 Puncture Site Rr 02/07/18 14:40 pCO2 33 mm/Hg (35-45) L 02/07/18 14:40 pO2 143 mm/Hg (80-100) H 02/07/18 14:40 HCO3 28.3 mmol/L (21-28) H 02/07/18 14:40 ABG pH 7.52 (7.35-7.45) H 02/07/18 14:40 ABG Total CO2 27.9 mmol/L (22-28) 02/07/18 14:40 ABG O2 Saturation 99.9 % (95-98) H 02/07/18 14:40 ABG Base Excess 4.3 mmol/L (-2.0-3.0) H 02/07/18 14:40 Federico Test Pos 02/07/18 14:40 ABG Potassium 3.3 mmol/L (3.6-5.2) L 02/07/18 14:40 Sodium 135.0 mmol/l (132-148) 02/07/18 14:40 Chloride 105.0 mmol/L (98-107) 02/07/18 14:40 Glucose 151 mg/dl (75-110) H 02/07/18 14:40 Lactate 2.4 mmol/L (0.7-2.1) H 02/07/18 14:40 Liter Flow 4.0 02/07/18 14:40 Sodium 134 mmol/L (132-148) 02/10/18 08:12 Potassium 4.2 mmol/L (3.6-5.2) 02/10/18 08:12 Chloride 95 mmol/L (98-107) L 02/10/18 08:12 Carbon Dioxide 34 mmol/L (22-30) H 02/10/18 08:12 Anion Gap 8 (10-20) L 02/10/18 08:12 BUN 14 mg/dL (9-20) 02/10/18 08:12 Creatinine 0.3 mg/dL (0.8-1.5) L 02/10/18 08:12 Est GFR ( Amer) > 60 02/10/18 08:12 Est GFR (Non-Af Amer) > 60 02/10/18 08:12 POC Glucose (mg/dL) 100 mg/dL (65-110) 02/10/18 11:16 Random Glucose 92 mg/dL (75-110) 02/10/18 08:12 Lactic Acid 1.2 mmol/L (0.7-2.1) 02/08/18 07:52 Calcium 8.5 mg/dl (8.6-10.4) L 02/10/18 08:12 Phosphorus 2.9 mg/dL (2.5-4.5) 02/10/18 08:12 Magnesium 2.3 mg/dL (1.6-2.3) 02/10/18 08:12 Total Bilirubin 1.0 mg/dL (0.2-1.3) 02/10/18 08:12 AST 51 U/L (17-59) 02/10/18 08:12 ALT 90 U/L (21-72) H 02/10/18 08:12 Alkaline Phosphatase 54 U/L (38-126) 02/10/18 08:12 Total Creatine Kinase < 20 U/L (55-170) L 02/07/18 15:07 Troponin I 0.0130 ng/mL (0.00-0.120) 01/28/18 21:03 Total Protein 6.1 g/dL (6.3-8.3) L 02/10/18 08:12 Albumin 3.0 g/dL (3.5-5.0) L 02/10/18 08:12 Globulin 3.1 gm/dL (2.2-3.9) 02/10/18 08:12 Albumin/Globulin Ratio 1.0 (1.0-2.1) 02/10/18 08:12 Lipase 17 U/L (23-300) L 01/28/18 20:47 Prolactin 12.6 ng/mL (3.7-17.9) 02/07/18 15:07 Arterial Blood Potassium 3.3 mmol/L (3.6-5.2) L 02/07/18 14:40 Urine Color Yellow (YELLOW) 02/08/18 22:10 Urine Clarity Clear (Clear) 02/08/18 22:10 Urine pH 7.0 (5.0-8.0) 02/08/18 22:10 Ur Specific [place] 1.009 (1.003-1.030) 02/08/18 22:10 Urine Protein Negative mg/dL (NEGATIVE) 02/08/18 22:10 Urine Glucose (UA) Normal mg/dL (Normal) 02/08/18 22:10 Urine Ketones Negative mg/dL (NEGATIVE) 02/08/18 22:10 Urine Blood 3+ (NEGATIVE) H 02/08/18 22:10 Urine Nitrate Negative (NEGATIVE) 02/08/18 22:10 Urine Bilirubin Negative (NEGATIVE) 02/08/18 22:10 Urine Urobilinogen Normal mg/dL (0.2-1.0) 02/08/18 22:10 Ur Leukocyte Esterase Neg Michael/uL (Negative) 02/08/18 22:10 Urine WBC (Auto) 1 /hpf (0-5) 02/08/18 22:10 Urine RBC (Auto) 18 /hpf (0-3) H 02/08/18 22:10 Calcium Oxalate Crystal Occ /hpf (<OCC) H 02/08/18 22:10 Urine Bacteria Rare (<OCC) 02/08/18 22:10 Discharge Exam - GI/Abdominal Exam GI & Abdominal Exam: absent: Guarding, Rebound, Rigid - Extremities Exam Extremities exam: pedal pulses present Attending/Attestation - Attestation I have personally seen and examined this patient.: Yes I have fully participated in the care of the patient.: Yes I have reviewed all pertinent clinical information, including history, physical exam and plan: Yes Notes (Text): Patient seen, examined, and case discussed with medical lab tech instructor. Patient reports he is feeling better. He is tolerating diet and urinating well on his own without west for past 2 days. Patient's overall affect is improved. Patient requests to go home today. Arrangements have been made by case management and social work for transportation for home and psychiatric services to be provided on discharge. Patient and have been recommended for rehab but do refuse. Discharge instructions discussed in detail with patient prior to discharge. Patient will need to follow-up with PMD, neurology, and urology and obtain referral for GI and psych. Patient's midline access was removed prior to discharge. No complications noted. This is a summary of patient's hospitalization. Please refer to EMR for full detail of record. I have put in brief summary of patient's problems in my portion of my note as well.
[2018-02-10] MEDS ORDERED: Influenza Vaccine 60 MCG/0.5 ML SYR (3 yr & up) IM ONE (16:19)
[2018-02-10] MEDS ORDERED: Pneumococcal 23-Valent Vaccine IM ONE (16:21)
[2018-02-10 16:51] VITALS: BP 106/68; PULSE 71; TEMP 98.2; O2SAT 99
== END 2018-02-10 18:50 | disposition home or self-care (01) | DRG 18 ==
LOC: C.ER 20:22 → C.9E 23:01 → INTOOBSV 23:01 → C.6T 23:44 → C.9E 01-29 01:53 → C.9I 01-29 02:05 → OBSVTOIN 01-30 08:08 → C.5S 01-30 17:23 → C.3T 02-09 15:14
PROVIDERS: ADMIT Hospitalist; ATTEND Hospitalist
DX: G61.81 Chronic inflammatory demyelinating polyneuritis (principal); E87.6 Hypokalemia; G71.00 Muscular dystrophy, unspecified; N39.0 Urinary tract infection, site not specified; F06.4 Anxiety disorder due to known physiological condition; I10 Essential (primary) hypertension; F41.1 Generalized anxiety disorder; F41.0 Panic disorder [episodic paroxysmal anxiety]; R41.82 Altered mental status, unspecified; N40.1 Benign prostatic hyperplasia with lower urinary tract symptoms; R33.8 Other retention of urine; K59.09 Other constipation; Z79.899 Other long term (current) drug therapy; Z82.49 Family history of ischemic heart disease and other diseases of the circulatory system; Z83.3 Family history of diabetes mellitus

== ENCOUNTER 2018-02-14 20:56 | Emergency (ER) | payer MEDICAID ==
--- NOTE | 2018-02-14 21:34 | C.PDOC ---
History Of Present Illness pt presents with urinary retention. has had a similar episode a few day ago for which he was hospitalized. No f/c/some nausea , no vomiting Time Seen by Provider: 02/14/18 21:34 Chief Complaint (Nursing): Male Genitourinary History Per: Family History/Exam Limitations: no limitations Onset/Duration Of Symptoms: Hrs Current Symptoms Are (Timing): Worse Severity: Severe Pain Scale Rating Of: 8 Quality Of Discomfort: Cramping, Pressure Associated Symptoms: denies: Fever, Chills Alleviating Factors: None Recent travel outside of the [place]: No Additional History Per: Family Past Medical History Reviewed: Historical Data, Nursing Documentation, Vital Signs Vital Signs: Last Vital Signs Temp 98.3 F 02/14/18 21:09 Pulse 120 H 02/14/18 21:09 Resp 20 02/14/18 21:09 BP 150/120 H 02/14/18 21:09 Pulse Ox 100 02/14/18 21:09 - Medical History PMH: HTN, Multiple Sclerosis (CIDP), Seizures Family History: States: No Known Family Hx - Social History Hx Alcohol Use: No Hx Substance Use: No - Immunization History Hx Tetanus Toxoid Vaccination: No Hx Influenza Vaccination: No Hx Pneumococcal Vaccination: No Review Of Systems Constitutional: Negative for: Fever, Chills Cardiovascular: Negative for: Chest Pain Respiratory: Negative for: Shortness of Breath Gastrointestinal: Positive for: Abdominal Pain Genitourinary: Positive for: Other (urinary retention) Musculoskeletal: Negative for: Back Pain Skin: Negative for: Rash Neurological: Positive for: Weakness Psych: Positive for: Anxiety Physical Exam - Physical Exam Appears: Non-toxic Skin: Warm, Dry Oral Mucosa: Dry Neck: Supple Chest: Symmetrical Cardiovascular: Rhythm Regular Respiratory: No Rales, No Rhonchi, No Wheezing Gastrointestinal/Abdominal: Soft, Tenderness (suprapubic), Distention, No Guarding Back: No CVA Tenderness Extremity: No Pedal Edema Extremity: Bilateral: Atraumatic Neurological/Psych: Oriented x3 Gait: Unsteady ED Course And Treatment - Laboratory Results Result Diagrams: 02/14/18 22:12 02/14/18 22:12 O2 Sat by Pulse Oximetry: 100 Pulse Ox Interpretation: Normal Progress Note: 16 fr west was palcedm with about 750 cc of urine, initially clear then very cloudy Reevaluation Time: 23:48 Reassessment Condition: Improved Disposition Counseled Patient/Family Regarding: Studies Performed, Diagnosis, Need For Followup - Disposition Disposition: HOME/ ROUTINE Disposition Time: 21:34 Condition: FAIR Additional Instructions: Please follow up with your urologist Instructions: Urinary Retention (DC), How to Care for Your West Catheter, Male Forms: [facility] (Slovak) - Clinical Impression Clinical Impression: Urinary retention
[2018-02-14] MEDS ORDERED: Sodium Chloride 0.9% 1,000 ML IV ONE (21:40)
[2018-02-14 22:23] LABS: VENOUS BLOOD GAS BASE EXCESS 6.2 mmol/L (0.0-2.0); VENOUS BLOOD GAS PCO2 54 mmHg (40-60); VENOUS BLOOD GAS PO2 26 mm/Hg (30-55); VENOUS BLOOD PH 7.39 (7.32-7.43)
[2018-02-14 22:24] LABS: INR 1.2; PROTHROMBIN TIME 13.1 SECONDS (9.7-12.2)
[2018-02-14 22:29] LABS: ALB/GLOB RATIO 1.2 (1.0-2.1); ALBUMIN 3.6 g/dL (3.5-5.0); ALT/SGPT 65 U/L (21-72); AST/SGOT 25 U/L (17-59); BLOOD UREA NITROGEN 10 mg/dL (9-20); CALCIUM 8.9 mg/dl (8.6-10.4); GFR NON-AFRICAN AMERICAN > 60
[2018-02-14 22:34] LABS: BASO % 0.2 % (0.0-2.0); EOS % 0.1 % (0.0-4.0); HEMOGLOBIN 16.1 g/dL (12.0-18.0); LYMPH # 0.7 K/uL (1.0-4.3); LYMPH % 5.8 % (20.0-40.0); MEAN CORPUSCULAR HGB CONC 32.9 g/dL (33.0-37.0); MEAN PLATELET VOLUME 9.7 fL (7.2-11.7); MONO # 0.8 K/uL (0.0-0.8); MONO % 6.3 % (0.0-10.0); NEUT # 10.7 K/uL (1.8-7.0); NEUT % 87.6 % (50.0-75.0); NRBC % 0.1 % (0.0-2.0); PLATELET COUNT 295 K/uL (130-400); RBC 5.55 Mil/uL (4.40-5.90); RED CELL DISTRIBUTION WIDTH 13.7 % (11.5-14.5); WHITE BLOOD COUNT 12.2 K/uL (4.8-10.8)
[2018-02-14 22:59] LABS: URINE AMORPHOUS SEDIMENT MODERATE /ul (<OCC); URINE BILIRUBIN NEGATIVE (NEGATIVE); URINE BLOOD NEGATIVE (NEGATIVE); URINE CLARITY Hazy (Clear); URINE COLOR Red (YELLOW); URINE GLUCOSE (UA) NORMAL (Normal); URINE LEUKOCYTE ESTERASE NEG Leu/uL (Negative); URINE PROTEIN NEGATIVE (NEGATIVE)
[2018-02-14 23:04] LABS: URINE BACTERIA FEW (<OCC)
[2018-02-14 23:36] LABS: BANDS 1 % (0-2); LYMPHOCYTE 7 % (20-40); MONOCYTE 1 % (0-10); NEUTROPHIL 91 % (50-75); PLATELET ESTIMATE NORMAL (NORMAL); TOTAL CELLS COUNTED 100
[2018-02-15 00:27] VITALS: BP 145/84; PULSE 95; RESP 18; TEMP 97.3; O2SAT 98
== END 2018-02-15 03:42 | disposition home or self-care (01) ==
LOC: C.ER 20:56
DX: R33.9 Retention of urine, unspecified (principal); I10 Essential (primary) hypertension; G35 Multiple sclerosis
CPT/HCPCS: 51702; 80053; 81001; 82803; 85025; 85610; 85730; 87040; 87086; 87181; 96360; 99285; J7030

== ENCOUNTER 2018-03-06 11:24 | Emergency (ER) | payer MEDICAID ==
--- NOTE | 2018-03-06 12:42 | C.PDOC ---
History Of Present Illness 52 year old male with a history of MS presents to the emergency department with complaints of lower abdominal discomfort. Patient states that his west catheter has not been draining since earlier today. Patient reports that he has been in and out of the hospital several times with admission since January for UTI. Patient states that he has made minimal urine since last night. He denies fever, chills, nausea, vomiting, diarrhea. has urology appt next . Time Seen by Provider: 03/06/18 11:38 Chief Complaint (Nursing): Male Genitourinary History Per: Patient History/Exam Limitations: no limitations Onset/Duration Of Symptoms: Days Current Symptoms Are (Timing): Still Present Quality Of Discomfort: "Pain" Associated Symptoms: Urinary Symptoms. denies: Fever, Chills, Nausea, Vomiting, Diarrhea Past Medical History Reviewed: Historical Data, Nursing Documentation, Vital Signs Vital Signs: Last Vital Signs Temp 98.2 F 03/06/18 11:33 Pulse 79 03/06/18 11:33 Resp 16 03/06/18 11:33 BP 118/77 03/06/18 11:33 Pulse Ox 99 03/06/18 11:33 - Medical History PMH: HTN, Multiple Sclerosis (CIDP), Seizures Surgical History: No Surg Hx - [facility] Procedures ASSISTANCE WITH RESPIRATORY VENTILATION, <24 HRS, CPAP (01/30/18) INSERTION OF INFUSION DEV INTO R BASILIC VEIN, PERC APPROACH (01/30/18) PERFORMANCE OF CARDIAC OUTPUT, SINGLE, MANUAL (01/30/18) Family History: States: No Known Family Hx - Social History Hx Alcohol Use: No Hx Substance Use: No - Immunization History Hx Tetanus Toxoid Vaccination: No Hx Influenza Vaccination: No Hx Pneumococcal Vaccination: No Review Of Systems Constitutional: Negative for: Fever, Chills Cardiovascular: Negative for: Chest Pain Respiratory: Negative for: Cough Gastrointestinal: Positive for: Abdominal Pain. Negative for: Nausea, Vomiting, Diarrhea Genitourinary: Positive for: Other (poorly draining west) Neurological: Negative for: Weakness, Numbness Physical Exam - Physical Exam Appears: Non-toxic, Chronically Ill, Other (contracted hands) Skin: Warm, Dry Head: Atraumatic, Normacephalic Eye(s): bilateral: Normal Inspection, PERRL, EOMI Oral Mucosa: Moist Neck: Normal, Supple Chest: Symmetrical, No Tenderness Cardiovascular: Rhythm Regular, No Murmur Respiratory: Normal Breath Sounds, No Rales, No Rhonchi, No Wheezing Gastrointestinal/Abdominal: Bowel Sounds, Soft, Tenderness (minimal tenderness to suprapubic area), No Distention, No Guarding, No Rebound Male Genital: Other (west cather in place) Extremity: Normal ROM Neurological/Psych: Oriented x3, Normal Speech, Normal Cognition ED Course And Treatment - Laboratory Results Result Diagrams: 03/06/18 12:46 03/06/18 12:46 O2 Sat by Pulse Oximetry: 99 (RA) Pulse Ox Interpretation: Normal Medical Decision Making Medical Decision Making: Plan: CMP Lipase CBC Urine CUlture Urinalysis [address] Mack, pt's urologist; [address] no return call from Dr Mack, pt with soft abdomen, is making urine that is passing through west into bag. given wbc in urine, will tx for uti. pt has appt for next with Dr Mack; will d/c and give pt lb results. Disposition Counseled Patient/Family Regarding: Studies Performed, Diagnosis, Need For Followup, Rx Given - Disposition Referrals: Michael Mack MD [Non-Staff] - Disposition: HOME/ ROUTINE Disposition Time: 16:10 Condition: GOOD Additional Instructions: Take antibiotics as prescribed. Drink increased fluids. Follow up with Dr Mack as scheduled; bring lab tests with you. Return to ER for any worse symptoms. Prescriptions: Nitrofurantoin Macrocrystals [Macrobid] 100 mg PO BID #14 cap Instructions: Urinary Tract Infection, Adult (DC) Forms: [facility] (Belgian), General Discharge Instructions - Clinical Impression Clinical Impression: UTI (urinary tract infection) - PA / [employer] / Resident Statement MD/DO has reviewed & agrees with the documentation as recorded. - Scribe Statement The provider has reviewed the documentation as recorded by the Scribe (Salvador German) All medical record entries made by the Scribe were at my direction and personally dictated by me. I have reviewed the chart and agree that the record accurately reflects my personal performance of the history, physical exam, medical decision making, and the department course for this patient. I have also personally directed, reviewed, and agree with the discharge instructions and disposition.
[2018-03-06 12:51] LABS: BASO % 0.6 % (0.0-2.0); EOS % 0.4 % (0.0-4.0); LYMPH # 1.3 K/uL (1.0-4.3); LYMPH % 22.5 % (20.0-40.0); MEAN CELL VOLUME 89.4 fL (80.0-94.0); MEAN CORPUSCULAR HEMOGLOBIN 29.9 pg (27.0-31.0); MEAN CORPUSCULAR HGB CONC 33.5 g/dL (33.0-37.0); MEAN PLATELET VOLUME 9.4 fL (7.2-11.7); MONO # 0.4 K/uL (0.0-0.8); MONO % 7.9 % (0.0-10.0); NEUT # 3.9 K/uL (1.8-7.0); NEUT % 68.6 % (50.0-75.0); RBC 4.39 Mil/uL (4.40-5.90)
[2018-03-06 12:52] LABS: HEMOGLOBIN 13.1 g/dL (12.0-18.0); WHITE BLOOD COUNT 5.7 K/uL (4.8-10.8)
[2018-03-06 13:06] LABS: ALBUMIN 2.9 g/dL (3.5-5.0); ALT/SGPT 35 U/L (21-72); AST/SGOT 36 U/L (17-59); BLOOD UREA NITROGEN 10 mg/dL (9-20); CALCIUM 8.2 mg/dl (8.6-10.4); GFR NON-AFRICAN AMERICAN > 60; LIPASE 28 U/L (23-300)
[2018-03-06] MEDS ORDERED: Sodium Chloride 0.9% 1,000 ML IV ONE (13:42)
[2018-03-06 13:44] LABS: URINE BACTERIA OCC (<OCC); URINE BILIRUBIN NEGATIVE (NEGATIVE); URINE BLOOD 3+ (NEGATIVE); URINE CLARITY Hazy (Clear); URINE COLOR Red (YELLOW); URINE GLUCOSE (UA) NORMAL (Normal); URINE LEUKOCYTE ESTERASE 3+ Leu/uL (Negative); URINE PROTEIN 2+ mg/dL (NEGATIVE); URINE UROBILINOGEN NORMAL mg/dL (0.2-1.0)
[2018-03-06 18:52] VITALS: BP 151/89; PULSE 87; RESP 18; TEMP 98
[2018-03-08 03:20] VITALS: O2SAT 99
== END 2018-03-06 18:28 | disposition home or self-care (01) ==
LOC: C.ER 11:24
DX: N39.0 Urinary tract infection, site not specified (principal)
CPT/HCPCS: 80053; 81001; 83690; 85025; 87086; 96360; 99285; J7030

== ENCOUNTER 2018-03-08 07:15 | Observation (INO) | payer MEDICAID ==
[2018-03-08 07:27] VITALS: BMI 18.8
[2018-03-08] MEDS ORDERED: Sodium Chloride 0.9% 1,000 ML IV ONE ×2 (07:30→07:32)
[2018-03-08] MEDS ORDERED: Sodium Chloride 0.9% 2,000 ML ONE (07:46)
[2018-03-08 08:00] LABS: BASO % 0.3 % (0.0-2.0); LYMPH # 0.6 K/uL (1.0-4.3); LYMPH % 9.5 % (20.0-40.0); MEAN CELL VOLUME 88.5 fL (80.0-94.0); MEAN CORPUSCULAR HEMOGLOBIN 29.9 pg (27.0-31.0); MEAN CORPUSCULAR HGB CONC 33.8 g/dL (33.0-37.0); MEAN PLATELET VOLUME 9.3 fL (7.2-11.7); MONO # 0.3 K/uL (0.0-0.8); MONO % 3.8 % (0.0-10.0); NEUT # 5.8 K/uL (1.8-7.0); NEUT % 86.4 % (50.0-75.0); PLATELET COUNT 248 K/uL (130-400); RBC 5.13 Mil/uL (4.40-5.90); WHITE BLOOD COUNT 6.7 K/uL (4.8-10.8)
[2018-03-08 08:07] LABS: HEMOGLOBIN 15.3 g/dL (12.0-18.0)
--- NOTE | 2018-03-08 08:11 | C.PDOC ---
History Of Present Illness 52 year old male with a PMHx of Multiple Sclerosis presents to the ED for evaluation of nausea and vomiting for 3 days. Of note patient has had cyclic vomiting lately, with multiple visits in the past month for same. Additionally, records demonstrate recent admission for colitis in December. Patients family at bedside says the vomiting has been worsening since Tuesday. Of note patient also has indwelling west, and is currently being treated for a UTI. No fever, dark or bloody stools, diarrhea, chest pain, or difficulty breathing. At present patient continues to feel nauseous and is retching. Time Seen by Provider: 03/08/18 07:21 Chief Complaint (Nursing): Abdominal Pain History Per: Patient History/Exam Limitations: no limitations Onset/Duration Of Symptoms: Days Current Symptoms Are (Timing): Still Present Location Of Pain/Discomfort: Suprapubic Associated Symptoms: Nausea, Vomiting Additional History Per: EMS, Family Past Medical History Reviewed: Historical Data, Nursing Documentation, Vital Signs Vital Signs: Last Vital Signs Temp 98.4 F 03/08/18 07:26 Pulse 104 H 03/08/18 07:26 Resp 20 03/08/18 07:26 BP 148/92 H 03/08/18 07:26 Pulse Ox 100 03/08/18 07:26 - Medical History PMH: HTN, Multiple Sclerosis (CIDP), Seizures - [facility] Procedures ASSISTANCE WITH RESPIRATORY VENTILATION, <24 HRS, CPAP (01/30/18) INSERTION OF INFUSION DEV INTO R BASILIC VEIN, PERC APPROACH (01/30/18) PERFORMANCE OF CARDIAC OUTPUT, SINGLE, MANUAL (01/30/18) Family History: States: No Known Family Hx - Social History Hx Alcohol Use: No Hx Substance Use: No - Immunization History Hx Tetanus Toxoid Vaccination: No Hx Influenza Vaccination: No Hx Pneumococcal Vaccination: No Review Of Systems Constitutional: Negative for: Fever Cardiovascular: Negative for: Chest Pain Respiratory: Negative for: Shortness of Breath Gastrointestinal: Positive for: Nausea, Vomiting. Negative for: Diarrhea, Melena, Hematochezia Neurological: Negative for: Weakness, Numbness, Dizziness Physical Exam - Physical Exam Appears: Non-toxic, No Acute Distress, Other (Actively retching in the ED) Skin: Warm, Dry, No Rash Head: Atraumatic, Normacephalic Eye(s): bilateral: Normal Inspection, PERRL, EOMI Oral Mucosa: Moist Neck: Normal ROM Chest: Symmetrical Cardiovascular: Rhythm Regular, No Murmur Respiratory: Normal Breath Sounds Gastrointestinal/Abdominal: Soft, Tenderness (diffuse abdominal tenderness), No Guarding, Other (West catheter in place; Forbes-svitlana tinted fluid draining from west) Extremity: Deformity Extremity: Bilateral: Atraumatic, Normal Color And Temperature Neurological/Psych: Oriented x3 Gait: Unable To Assess ED Course And Treatment - Laboratory Results Result Diagrams: 03/08/18 07:45 03/08/18 07:45 Lab Interpretation: No Acute Changes ECG: Interpreted By Md ECG Rhythm: Sinus Rhythm Rate From EC O2 Sat by Pulse Oximetry: 100 (RA) Pulse Ox Interpretation: Normal - Radiology CXR: Interpreted by Md CXR Interpretation: Yes: No Acute Disease - CT Scan/US CT Abdomen/Pelvis Other Rad Studies (CT/US): Read By Radiologist, Radiology Report Reviewed CT/US Interpretation: Accession No. : [id number]. Patient Name / ID : ERICK PERALTA / [id number]. Exam Date : 03/08/2018 08:19:50 ( Approved ). Study Comment : Sex / Age : M / 52Y. Creator : Tam Gonzalez MD. Dictator : Tam Gonzalez MD. Theoretical Physicist : Aircraft [employer] Repairer : Tam Gonzalez MD. Approver2 : Report Date : 03/08/2018 08:53:20. My Comment : . Date of service: 03/08/2018. PROCEDURE: CT Abdomen and Pelvis without intravenous contrast. HISTORY: Pain. COMPARISON: Abdomen pelvis CT with contrast 01/04/2018. TECHNIQUE: Helical CT of the abdomen and pelvis was performed without oral or intravenous contrast as per referring physician request. Coronal and sagittal reformats were generated. Contrast dose: None. Radiation dose: Total exam DLP = 316.95 mGy-cm. This CT exam was performed using one or more of the following dose reduction techniques: Automated exposure control, adjustment of the mA and/or kV according to patient size, and/or use of iterative reconstruction technique. FINDINGS: LOWER THORAX: Stable nonspecific, limited elevation left hemidiaphragm. LIVER: Unremarkable. No gross lesion or ductal dilatation. GALLBLADDER AND BILE DUCTS: Unremarkable. PANCREAS: Atrophic nonfocal pancreas reiterated. SPLEEN: Unremarkable. ADRENALS: Unremarkable. No mass. KIDNEYS AND URETERS: Unremarkable. No hydronephrosis. No solid mass. VASCULATURE: Nonaneurysmal abdominal aortic calcific atherosclerotic changes are identified. BOWEL: No definite bowel obstruction appreciable. Prominent retained fecal material is appreciated on a moderate basis suggestive of developing constipation. The stomach is partially collapsed, mildly distended with retained gas and some fluid. Evaluation of the gastrointestinal tract is limited due to the lack of oral contrast administration. APPENDIX: Unremarkable. Normal appendix. PERITONEUM: Unremarkable. No free fluid. No free air. LYMPH NODES: Unremarkable. No enlarged lymph nodes. BLADDER: Bladder is partially decompressed by West catheter with mural thickening not excluded. Cystitis is question but not definite. Clinically correlate further. REPRODUCTIVE: Stable moderately enlarged prostate gland unchanged in appearance overall. No definite suspicious local fluid collection in this unenhanced CT. BONES: No acute fracture. OTHER FINDINGS: None. IMPRESSION: 1. Developing constipation suggested. No definitive bowel obstruction, mesenteric edema, ascites or free intra peritoneal gas collection identified. 2. Stable enlarged prostate gland again evident without local fluid collection appreciable in this unenhanced exam. 3. Partial decompression of the urinary bladder by a West catheter with mural thickening not excluded. Cystitis is therefore difficult to evaluate for. Clinically correlate. 4. Lesser additional findings as discussed above. Progress Note: Patient treated with IVF NSS x 2 liters, zofran and continues to vomit. Treated with additional zofran and protonics and continues to dry heave. Treated with ativan 1 mg IV and rocephim for UTI Reassessment Condition: Improved - Physician Consult Information Physician Contacted: Melva King Outcome Of Conversation: admit Medical Decision Making Medical Decision Making: Plan: --Labs --EKG --CT Abdomen/Pelvis --IV fluids, 1 L --4 mg IV Zofran Disposition Discussed With Dr.: Melva King Doctor Will See Patient In The: Hospital Counseled Patient/Family Regarding: Diagnosis, Need For Followup - Disposition Disposition: HOSPITALIZED Disposition Time: 08:40 Condition: IMPROVED - POA Present On Arrival: None - Clinical Impression Clinical Impression: Nausea & vomiting, Nausea, Vomiting - PA / [employer] / Resident Statement MD/DO has reviewed & agrees with the documentation as recorded. - Scribe Statement The provider has reviewed the documentation as recorded by the Scribe Clarita Wade All medical record entries made by the Scribe were at my direction and personally dictated by me. I have reviewed the chart and agree that the record accurately reflects my personal performance of the history, physical exam, medical decision making, and the department course for this patient. I have also personally directed, reviewed, and agree with the discharge instructions and disposition. Decision To Admit - Pt Status Changed To: Hospital Disposition Of: Inpatient - Admit Certification Admit to Inpatient:: After my assessment, the patient will require hospitalization for at least two midnights. This is because of the severity of symptoms shown, intensity of services needed, and/or the medical risk in this patient being treated as an outpatient. - InPatient: Physician Admission Certification:: intractable vomiting - . Bed Request Type: Regular Admitting Physician: Melva King Patient Diagnosis: Nausea & vomiting, Nausea, Vomiting
[2018-03-08 08:16] LABS: ALB/GLOB RATIO 1.3 (1.0-2.1); ALT/SGPT 28 U/L (21-72); AST/SGOT 36 U/L (17-59); BLOOD UREA NITROGEN 12 mg/dL (9-20); CALCIUM 9.2 mg/dl (8.6-10.4); GFR NON-AFRICAN AMERICAN > 60; LIPASE 14 U/L (23-300)
[2018-03-08 08:19] LABS: URINE BACTERIA OCC (<OCC); URINE BILIRUBIN NEGATIVE (NEGATIVE); URINE BLOOD 3+ (NEGATIVE); URINE CALCIUM OXALATE CRYSTALS MOD /hpf (<OCC); URINE CLARITY Hazy (Clear); URINE COLOR Amber (YELLOW); URINE GLUCOSE (UA) NORMAL (Normal); URINE LEUKOCYTE ESTERASE 2+ Leu/uL (Negative); URINE PROTEIN 2+ mg/dL (NEGATIVE); URINE UROBILINOGEN NORMAL mg/dL (0.2-1.0); WBC CLUMPS MANY /hpf
[2018-03-08] MEDS ORDERED: cefTRIAXone IV 1 gm in Dextros 50 ML IV ONE (08:25)
[2018-03-08 08:26] LABS: BANDS 3 % (0-2); LYMPHOCYTE 5 % (20-40); MONOCYTE 6 % (0-10); NEUTROPHIL 85 % (50-75); PLATELET ESTIMATE NORMAL (NORMAL); REACTIVE LYMPHOCYTES 1 % (0-0); TOTAL CELLS COUNTED 100
[2018-03-08 08:27] LABS: ANISOCYTOSIS SLIGHT
[2018-03-08] MEDS ORDERED: Albuterol-Ipratrop 3 mg / 0.5 (3 ml) UD IH STA (08:43)
[2018-03-08] MEDS ORDERED: Albuterol-Ipratrop 3 mg / 0.5 (3 ml) UD ONE (08:53)
--- NOTE | 2018-03-08 08:57 | CT ---
Date of service: 03/08/2018 PROCEDURE: CT Abdomen and Pelvis without intravenous contrast HISTORY: Pain COMPARISON: Abdomen pelvis CT with contrast 01/04/2018. TECHNIQUE: Helical CT of the abdomen and pelvis was performed without oral or intravenous contrast as per referring physician request. Coronal and sagittal reformats were generated. Contrast dose: None Radiation dose: Total exam DLP = 316.95 mGy-cm. This CT exam was performed using one or more of the following dose reduction techniques: Automated exposure control, adjustment of the mA and/or kV according to patient size, and/or use of iterative reconstruction technique. FINDINGS: LOWER THORAX: Stable nonspecific, limited elevation left hemidiaphragm. LIVER: Unremarkable. No gross lesion or ductal dilatation. GALLBLADDER AND BILE DUCTS: Unremarkable. PANCREAS: Atrophic nonfocal pancreas reiterated. SPLEEN: Unremarkable. ADRENALS: Unremarkable. No mass. KIDNEYS AND URETERS: Unremarkable. No hydronephrosis. No solid mass. VASCULATURE: Nonaneurysmal abdominal aortic calcific atherosclerotic changes are identified. BOWEL: No definite bowel obstruction appreciable. Prominent retained fecal material is appreciated on a moderate basis suggestive of developing constipation. The stomach is partially collapsed, mildly distended with retained gas and some fluid. Evaluation of the gastrointestinal tract is limited due to the lack of oral contrast administration. APPENDIX: Unremarkable. Normal appendix. PERITONEUM: Unremarkable. No free fluid. No free air. LYMPH NODES: Unremarkable. No enlarged lymph nodes. BLADDER: Bladder is partially decompressed by Blake catheter with mural thickening not excluded. Cystitis is question but not definite. Clinically correlate further. REPRODUCTIVE: Stable moderately enlarged prostate gland unchanged in appearance overall. No definite suspicious local fluid collection in this unenhanced CT. BONES: No acute fracture. OTHER FINDINGS: None. IMPRESSION: 1. Developing constipation suggested. No definitive bowel obstruction, mesenteric edema, ascites or free intra peritoneal gas collection identified. 2. Stable enlarged prostate gland again evident without local fluid collection appreciable in this unenhanced exam. 3. Partial decompression of the urinary bladder by a Blake catheter with mural thickening not excluded. Cystitis is therefore difficult to evaluate for. Clinically correlate. 4. Lesser additional findings as discussed above.
[2018-03-08 09:01] LABS: ALBUMIN 4.1 g/dL (3.5-5.0)
[2018-03-08] MEDS ORDERED: Sodium Chloride 0.9% 1,000 ML ONE (11:31)
--- NOTE | 2018-03-08 11:37 | RAD ---
Date of service: 03/08/2018 HISTORY: SOB COMPARISON: Chest 02/07/2018. FINDINGS: LUNGS: No active pulmonary disease. PLEURA: No significant pleural effusion identified, no pneumothorax apparent. CARDIOVASCULAR: No aortic atherosclerotic calcification present. Normal cardiac size. No pulmonary vascular congestion. OSSEOUS STRUCTURES: No significant abnormalities. VISUALIZED UPPER ABDOMEN: Limited left hemidiaphragm elevation identified. OTHER FINDINGS: None. IMPRESSION: No acute cardiopulmonary is appreciable. Limited left hemidiaphragm elevation noted.
[2018-03-08] MEDS: Sodium Chloride 0.9% 1,000 ML IV SCH ×2 (11:41→21:50)
--- NOTE | 2018-03-08 12:33 | CP.PCM.HP ---
<Caron Harkins - Last Filed: 03/08/18 14:02> History of Present Illness - History of Present Illness History of Present Illness: PGY-1 H&P for Dr. Scanlon's service CC: intractable nausea and vomiting starting 03/06 HPI: Patient is a 52 yo male w/ PMH of MS, HTN, BPH, anxiety/depression admitted to hospital for intractable nausea/vomiting. Family at bedside offered history as patient was asleep. Patient has continuous admits to hospital s/p prostate biopsy in December showing prostate inflammation. Patient has been to hospital for intractable retching likely 2/2 to patient increased anxiety due to his medical problems. Patient began retching on Tuesday after he was given his home medications. Patient's family states that he was acting fine since prior for two weeks until Tuesday. Patient has not had any actual vomiting but just retches continuously. Patient is well known to hospitalist staff. Family states no new stressors at home. Limited ROS as patient was very difficult to arouse. Code Status: Full Code, Proxy: Bindu Leahy (daughter), No Advance directive Allx: NKDA Pmhx: CIDP affecting upper and lower extremities (diagnosed 2007), HTN, Prostatic enlargement, MS, anxiety/depression Shx: Prostate biopsy 01/03/18 Meds: Zofran 4mg Q8hrs PRN, Losartan 50mg PO QD, Citalopram (celexa) 10mg QD FHx: Diabetes, HTN (mother) SHx: denies alcohol, tobacco or illegal drug use, Lives with and mother, disabled PMD: [place] Present on Admission - Present on Admission Any Indicators Present on Admission: No Review of Systems - Review of Systems Review of Systems: Patient very difficult to arouse limited ROS Past Patient History - Infectious Disease Hx of Infectious Diseases: None - Past Medical History & Family History Past Medical History?: Yes - Past Social History Smoking Status: Never Smoked - CARDIAC Hx Hypertension: Yes - NEUROLOGICAL Hx Multiple Sclerosis: Yes (CIDP) Hx Seizures: Yes - MUSCULOSKELETAL/RHEUMATOLOGICAL Hx Falls: No Other/Comment: Muscular dystrophy - GASTROINTESTINAL Hx Colitis: Yes Hx Nausea: Yes - GENITOURINARY/GYNECOLOGICAL Hx Prostate Problems: Yes - PSYCHIATRIC Hx Substance Use: No - SURGICAL HISTORY Hx Surgeries: No - ANESTHESIA Hx Anesthesia: No Meds Allergies/Adverse Reactions: Allergies Allergy/AdvReac Type Severity Reaction Status Date / Time promethazine AdvReac NAUSEA Verified 03/08/18 07:26 Physical Exam - Constitutional Appears: Non-toxic, No Acute Distress - Head Exam Head Exam: NORMAL INSPECTION, NORMOCEPHALIC - Eye Exam Eye Exam: EOMI, Normal appearance. absent: Nystagmus, Scleral icterus - ENT Exam ENT Exam: Mucous Membranes Moist - Respiratory Exam Respiratory Exam: Clear to Auscultation Bilateral, NORMAL BREATHING PATTERN. absent: Rales, Rhonchi, Wheezes - Cardiovascular Exam Cardiovascular Exam: REGULAR RHYTHM, +S1, +S2. absent: Tachycardia - GI/Abdominal Exam GI & Abdominal Exam: Normal Bowel Sounds, Soft. absent: Diminished Bowel Sounds, Distended, Firm, Guarding, Hernia, Tenderness - Extremities Exam Extremities exam: Positive for: normal inspection. Negative for: calf tenderness, pedal edema - Neurological Exam Neurological exam: Alert, Oriented x3 - Psychiatric Exam Psychiatric exam: Normal Affect, Normal Mood - Skin Skin Exam: Intact, Normal Color Results - Vital Signs Recent Vital Signs: Last Vital Signs Temp 98.4 F 03/08/18 07:26 Pulse 101 H 03/08/18 11:41 Resp 18 03/08/18 09:51 BP 160/93 H 03/08/18 11:41 Pulse Ox 100 03/08/18 11:44 - Labs Result Diagrams: 03/08/18 07:45 03/08/18 07:45 Labs: Laboratory Results - last 24 hr 03/08/18 03/08/18 03/08/18 07:45 07:45 07:45 WBC 6.7 RBC 5.13 Hgb 15.3 D Hct 45.3 MCV 88.5 MCH 29.9 MCHC 33.8 RDW 15.0 H Plt Count 248 MPV 9.3 Neut % (Auto) 86.4 H Lymph % (Auto) 9.5 L [place] % (Auto) 3.8 Eos % (Auto) 0.0 Baso % (Auto) 0.3 Neut # (Auto) 5.8 Lymph # (Auto) 0.6 L [place] # (Auto) 0.3 Eos # (Auto) 0.0 Baso # (Auto) 0.0 Neutrophils % (Manual) 85 H Band Neutrophils % 3 H Lymphocytes % (Manual) 5 L Reactive Lymphs % 1 H Monocytes % (Manual) 6 Platelet Estimate Normal Anisocytosis (manual) Slight Sodium 138 Potassium 3.5 L Chloride 101 Carbon Dioxide 27 Anion Gap 13 BUN 12 Creatinine 0.4 L Est GFR ( Amer) > 60 Est GFR (Non-Af Amer) > 60 Random Glucose 139 H D Lactic Acid 1.8 Calcium 9.2 Total Bilirubin 1.9 H AST 36 ALT 28 Alkaline Phosphatase 78 Total Protein 7.5 Albumin 4.1 Globulin 3.3 Albumin/Globulin Ratio 1.3 Lipase 14 L Urine Color Urine Clarity Urine pH Ur Specific [place] Urine Protein Urine Glucose (UA) Urine Ketones Urine Blood Urine Nitrate Urine Bilirubin Urine Urobilinogen Ur Leukocyte Esterase Urine WBC (Auto) Urine RBC (Auto) Urine WBC Clumps (Auto) Calcium Oxalate Crystal Urine Bacteria 03/08/18 07:55 WBC RBC Hgb Hct MCV MCH MCHC RDW Plt Count MPV Neut % (Auto) Lymph % (Auto) [place] % (Auto) Eos % (Auto) Baso % (Auto) Neut # (Auto) Lymph # (Auto) [place] # (Auto) Eos # (Auto) Baso # (Auto) Neutrophils % (Manual) Band Neutrophils % Lymphocytes % (Manual) Reactive Lymphs % Monocytes % (Manual) Platelet Estimate Anisocytosis (manual) Sodium Potassium Chloride Carbon Dioxide Anion Gap BUN Creatinine Est GFR ( Amer) Est GFR (Non-Af Amer) Random Glucose Lactic Acid Calcium Total Bilirubin AST ALT Alkaline Phosphatase Total Protein Albumin Globulin Albumin/Globulin Ratio Lipase Urine Color [place] Urine Clarity Hazy Urine pH 6.0 Ur Specific [place] 1.015 Urine Protein 2+ H Urine Glucose (UA) Normal Urine Ketones 1+ H Urine Blood 3+ H Urine Nitrate Negative Urine Bilirubin Negative Urine Urobilinogen Normal Ur Leukocyte Esterase 2+ H Urine WBC (Auto) 542 H Urine RBC (Auto) 1319 H Urine WBC Clumps (Auto) Many H Calcium Oxalate Crystal Mod H Urine Bacteria Occ H Assessment & Plan - Assessment and Plan (Free Text) Assessment: Patient is a 52 yo male w/ PMH of Multiple Sclerosis, Chronic Inflammatory Demyelinating Polyneuropathy (CIDP), HTN, depression, anxiety and prostatic enlargement who presents to the ED for intractable vomiting and nausea with west in place. Intractable Nausea/Vomiting likely related to anxiety etiology as patient is afebrile without white count from prior hx patient becomes anxious when west is removed and he believes is retaining urine and/or given oral meds for treatement NS @100mls/hr Zofran 4mg IVP q6 prn UTI west in place urine cx pending Ciprofloxacin 400mg IVPB q12h Constipation Miralax 17gm po daily HLD Crestor 5mg po daily Hx of BPH Flomax 0.4mg po daily Finasteride 5mg po daily Hypokalemia KCL 10 meq IV x 1 Hx of HTN Losartan 50mg po Hx of anxiety Lexapro 5mg po daily GI ppx: Protonix DVT ppx: Heparin 5000 q8, SCDs Disposition: Observe overnight, pending discharge tomorrow, educate patient that he is ok because his issues are anxiety related, outpatient psych followup for depression/anxiety worsening PGY-1 Caron Harkins Medical Management discussed with Dr. Scanlon <Naveen Scanlon - Last Filed: 03/09/18 20:08> Results - Vital Signs Recent Vital Signs: Last Vital Signs Temp 98.1 F 03/09/18 15:00 Pulse 72 03/09/18 15:00 Resp 20 03/09/18 15:00 BP 132/76 03/09/18 15:00 Pulse Ox 98 03/09/18 16:00 - Labs Result Diagrams: 03/09/18 06:50 03/09/18 17:20 Labs: Laboratory Results - last 24 hr 03/09/18 03/09/18 03/09/18 06:50 06:50 17:20 WBC 7.0 RBC 4.28 L Hgb 12.6 D Hct 37.7 MCV 88.0 MCH 29.5 MCHC 33.5 RDW 14.6 H Plt Count 217 MPV 9.6 Neut % (Auto) 79.3 H Lymph % (Auto) 12.5 L [place] % (Auto) 8.1 Eos % (Auto) 0.0 Baso % (Auto) 0.1 Neut # (Auto) 5.5 Lymph # (Auto) 0.9 L [place] # (Auto) 0.6 Eos # (Auto) 0.0 Baso # (Auto) 0.0 Sodium 133 133 Potassium 2.4 L* D 2.9 L Chloride 101 99 Carbon Dioxide 28 29 Anion Gap 7 L 8 L BUN 7 L 8 L Creatinine 0.4 L 0.4 L Est GFR ( Amer) > 60 > 60 Est GFR (Non-Af Amer) > 60 > 60 Random Glucose 93 D 96 Calcium 8.3 L 8.5 L Phosphorus 3.0 Magnesium 1.6 Total Bilirubin 1.2 1.3 AST 28 20 ALT 24 23 Alkaline Phosphatase 56 51 Total Protein 5.8 L 5.6 L Albumin 3.0 L D 2.9 L Globulin 2.8 2.7 Albumin/Globulin Ratio 1.1 1.1 Attending/Attestation - Attestation I have personally seen and examined this patient.: Yes I have fully participated in the care of the patient.: Yes I have reviewed all pertinent clinical information: Yes Notes (Text): Seen and examined by me in the ER. Spoke to his and daughter at bedside. Patient was brought for intractable nausea.He is changed after prostate biopsy as per his . He has a faley cath,follow urologist and getting cipro No vomiting noted in the ER. He is know to our service and seen by GI during previous admission. I reviewed his previous chart.My resident took care of him in the past. He was my patient in the past. He is not talkative like previous admission.sleeping after/sedated due to meds Has history of constipation. CT scan noted with some stool. we will add laxatives We will admit for observation and get GI consult if he noted with vomiting. Patient has no complain,sleeping in the ER. We will observe for vomting ,avoid reglan and Ativan plan discussed with his . She agrees with our plan
[2018-03-08] MEDS: POLYETHYLENE GLYCOL 3350 17 GM/Dose PACKET PO SCH (14:17)
[2018-03-08 14:44] VITALS: RESP 20
[2018-03-08] MEDS: CIPROFLOXACIN 400 MG/200 ML IVPB SCH (17:41)
[2018-03-08] MEDS: D5W IVPB SCH (17:41)
[2018-03-08] MEDS ORDERED: DiphenhydrAMINE 50 mg/ml Inj IVP ONE (23:30)
[2018-03-09] MEDS: CIPROFLOXACIN 400 MG/200 ML IVPB SCH ×2 (03:14→16:04)
[2018-03-09] MEDS: D5W IVPB SCH ×2 (03:14→16:04)
[2018-03-09 07:50] LABS: BASO % 0.1 % (0.0-2.0); LYMPH # 0.9 K/uL (1.0-4.3); LYMPH % 12.5 % (20.0-40.0); MEAN CORPUSCULAR HEMOGLOBIN 29.5 pg (27.0-31.0); MEAN CORPUSCULAR HGB CONC 33.5 g/dL (33.0-37.0); MEAN PLATELET VOLUME 9.6 fL (7.2-11.7); MONO # 0.6 K/uL (0.0-0.8); MONO % 8.1 % (0.0-10.0); NEUT # 5.5 K/uL (1.8-7.0); NEUT % 79.3 % (50.0-75.0); NRBC % 0.1 % (0.0-2.0); RBC 4.28 Mil/uL (4.40-5.90); RED CELL DISTRIBUTION WIDTH 14.6 % (11.5-14.5)
[2018-03-09 07:53] LABS: HEMOGLOBIN 12.6 g/dL (12.0-18.0)
[2018-03-09] MEDS: Sodium Chloride 0.9% 1,000 ML IV SCH ×2 (08:17→22:22)
[2018-03-09 08:32] LABS: ALB/GLOB RATIO 1.1 (1.0-2.1); ALT/SGPT 24 U/L (21-72); AST/SGOT 28 U/L (17-59); BLOOD UREA NITROGEN 7 mg/dL (9-20); CALCIUM 8.3 mg/dl (8.6-10.4); GFR NON-AFRICAN AMERICAN > 60
[2018-03-09] MEDS: POLYETHYLENE GLYCOL 3350 17 GM/Dose PACKET PO SCH (09:40)
[2018-03-09] MEDS: Potassium Chl 40 mEq in D5-1/2 1,000 ML IV SCH ×2 (11:36→20:10)
[2018-03-09] MEDS ORDERED: Magnesium Sulfate 1 gm in D5W 1 GM/100 ML BAG IVPB ONE (11:49)
--- NOTE | 2018-03-09 14:54 | CP.PCM.PN ---
<Caron Harkins - Last Filed: 03/09/18 14:51> Subjective - Date & Time of Evaluation Date of Evaluation: 03/09/18 Time of Evaluation: 14:51 - Subjective Subjective: PGY-[address] Scanlon's service Patient seen and examined at bedside. Patient is retching on and off with no vomitus. Patient denies fevers, chills, chest pain, sob, n/v, constipation or diarrhea, and dysuria. Objective - Vital Signs/Intake and Output Vital Signs (last 24 hours): Temp Pulse Resp BP Pulse Ox 98.1 F 91 H 20 154/88 H 98 03/09/18 00:00 03/09/18 00:00 03/09/18 00:00 03/09/18 00:00 03/09/18 04:46 Intake and Output: 03/09/18 03/09/18 06:59 18:59 Intake Total 1600 Output Total 1650 Balance -50 - Medications Medications: Current Medications Escitalopram Oxalate (Lexapro) 5 mg PO DAILY [facility] Last Admin: 03/09/18 09:40 Dose: Not Given Finasteride (Proscar) 5 mg PO DAILY [facility] Last Admin: 03/09/18 09:41 Dose: Not Given Heparin Sodium (Porcine) (Heparin) 5,000 units SC Q8 [facility] Last Admin: 03/09/18 06:47 Dose: 5,000 units Sodium Chloride (Sodium Chloride 0.9%) 1,000 mls @ 100 mls/hr IV .Q10H [facility] Last Admin: 03/09/18 08:17 Dose: Not Given Ciprofloxacin (Cipro 400mg/200ml Dsw) 400 mg in 200 mls @ 133 mls/hr IVPB Q12H [facility]; Protocol Last Admin: 03/09/18 03:14 Dose: 133 mls/hr Potassium Chloride/Dextrose/Sod Cl (Potassium Chl 40 Meq In D5-1/2ns) 1,000 mls @ 100 mls/hr IV .Q10H [facility] Last Admin: 03/09/18 11:36 Dose: 100 mls/hr Influenza Virus Vaccine (Flucelvax Quad [id number] Syr) 60 mcg IM .ONCE ONE Stop: 03/11/18 10:01 Losartan Potassium (Cozaar) 50 mg PO DAILY [facility] Last Admin: 03/09/18 11:36 Dose: 50 mg Ondansetron HCl (Zofran Inj) 4 mg IVP Q6 PRN PRN Reason: Vomiting Last Admin: 03/09/18 05:00 Dose: 4 mg Pantoprazole Sodium (Protonix Inj) 40 mg IVP DAILY [facility] Last Admin: 03/09/18 09:42 Dose: 40 mg Polyethylene Glycol (Miralax) 17 gm PO DAILY [facility] Last Admin: 03/09/18 09:40 Dose: Not Given Rosuvastatin Calcium (Crestor) 5 mg PO HS [facility] Last Admin: 03/08/18 21:45 Dose: Not Given Tamsulosin HCl (Flomax) 0.4 mg PO DAILY [facility] Last Admin: 03/09/18 09:40 Dose: Not Given - Labs Labs: 03/09/18 06:50 03/09/18 06:50 - Constitutional Appears: Non-toxic, No Acute Distress - Eye Exam Eye Exam: EOMI, Normal appearance. absent: Nystagmus, Scleral icterus - ENT Exam ENT Exam: Mucous Membranes Dry - Respiratory Exam Respiratory Exam: Clear to Ausculation Bilateral, NORMAL BREATHING PATTERN. absent: Rales, Rhonchi, Wheezes - Cardiovascular Exam Cardiovascular Exam: REGULAR RHYTHM, +S1, +S2. absent: Tachycardia - GI/Abdominal Exam GI & Abdominal Exam: Soft, Normal Bowel Sounds. absent: Distended, Firm, Guarding, Rigid, Tenderness - Extremities Exam Extremities Exam: Normal Inspection. absent: Calf Tenderness, Pedal Edema - Neurological Exam Neurological Exam: Alert, Awake, Oriented x3 - Psychiatric Exam Psychiatric exam: Normal Affect, Normal Mood - Skin Skin Exam: Dry, Intact, Normal Color Assessment and Plan - Assessment and Plan (Free Text) Assessment: Patient is a 52 yo male w/ PMH of Multiple Sclerosis, Chronic Inflammatory Demyelinating Polyneuropathy (CIDP), HTN, depression, anxiety and prostatic enlargement who presents to the ED for intractable vomiting and nausea with west in place. Intractable Nausea/Vomiting likely related to anxiety etiology as patient is afebrile without white count from prior hx patient becomes anxious when west is removed and he believes is retaining urine and/or given oral meds for treatement NS @100mls/hr Zofran 4mg IVP q6 prn UTI west in place urine cx: g- ashley and g+ cocci Ciprofloxacin 400mg IVPB q12h afebrile Constipation Miralax 17gm po daily HLD Crestor 5mg po daily Hx of BPH Flomax 0.4mg po daily Finasteride 5mg po daily Electrolyte disturbances NS with 40meq KCL KCL 10meq x 3 Mag bag x 1 Hx of HTN Losartan 50mg po Hx of anxiety Lexapro 5mg po daily GI ppx: Protonix DVT ppx: Heparin 5000 q8, SCDs Disposition: Will educate patient family about psych outpatient followup, may benefit from low dose bzd or increased lexapro; Likely d/c in AM; educate patient to eat and deep breathing for anxiety related retching PGY-1 Caron Harkins Medical Management discussed with Dr. Scanlon <Naveen Scanlon - Last Filed: 03/09/18 19:43> Objective - Vital Signs/Intake and Output Vital Signs (last 24 hours): Temp Pulse Resp BP Pulse Ox 98.1 F 72 20 132/76 98 03/09/18 15:00 03/09/18 15:00 03/09/18 15:00 03/09/18 15:00 03/09/18 16:00 Intake and Output: 03/09/18 03/10/18 18:59 06:59 Intake Total 300 Output Total 700 Balance -400 - Medications Medications: Current Medications Escitalopram Oxalate (Lexapro) 5 mg PO DAILY [facility] Last Admin: 03/09/18 09:40 Dose: Not Given Finasteride (Proscar) 5 mg PO DAILY [facility] Last Admin: 03/09/18 09:41 Dose: Not Given Heparin Sodium (Porcine) (Heparin) 5,000 units SC Q8 [facility] Last Admin: 03/09/18 15:25 Dose: Not Given Sodium Chloride (Sodium Chloride 0.9%) 1,000 mls @ 100 mls/hr IV .Q10H [facility] Last Admin: 03/09/18 08:17 Dose: Not Given Ciprofloxacin (Cipro 400mg/200ml Dsw) 400 mg in 200 mls @ 133 mls/hr IVPB Q12H [facility]; Protocol Last Admin: 03/09/18 16:04 Dose: 133 mls/hr Potassium Chloride/Dextrose/Sod Cl (Potassium Chl 40 Meq In D5-1/2ns) 1,000 mls @ 100 mls/hr IV .Q10H [facility] Last Admin: 03/09/18 11:36 Dose: 100 mls/hr Losartan Potassium (Cozaar) 50 mg PO DAILY [facility] Last Admin: 03/09/18 11:36 Dose: 50 mg Ondansetron HCl (Zofran Inj) 4 mg IVP Q6 PRN PRN Reason: Vomiting Last Admin: 03/09/18 19:41 Dose: 4 mg Pantoprazole Sodium (Protonix Inj) 40 mg IVP DAILY [facility] Last Admin: 03/09/18 09:42 Dose: 40 mg Polyethylene Glycol (Miralax) 17 gm PO DAILY [facility] Last Admin: 03/09/18 09:40 Dose: Not Given Rosuvastatin Calcium (Crestor) 5 mg PO HS [facility] Last Admin: 03/08/18 21:45 Dose: Not Given Tamsulosin HCl (Flomax) 0.4 mg PO DAILY [facility] Last Admin: 03/09/18 09:40 Dose: Not Given - Labs Labs: 03/09/18 06:50 03/09/18 17:20 Attending/Attestation - Attestation I have personally seen and examined this patient.: Yes I have fully participated in the care of the patient.: Yes I have reviewed all pertinent clinical information, including history, physical exam and plan: Yes Notes (Text): seen and examined by me. spoke to his at bedside. Patient is lying comfortable.C/O nausea,no vomting start on diet as tolerated Hypokalemia -replace and repeat K level
[2018-03-09] MEDS ORDERED: Influenza Vaccine 60 mcg/0.5 mL SYR (4YR UP) IM ONE ×2 (15:15→16:30)
[2018-03-09 17:54] LABS: ALB/GLOB RATIO 1.1 (1.0-2.1); ALBUMIN 2.9 g/dL (3.5-5.0); ALT/SGPT 23 U/L (21-72); AST/SGOT 20 U/L (17-59); BLOOD UREA NITROGEN 8 mg/dL (9-20); CALCIUM 8.5 mg/dl (8.6-10.4); GFR NON-AFRICAN AMERICAN > 60
[2018-03-09] MEDS ORDERED: Potassium Chl 40 mEq in D5-1/2 1,000 ML IV SCH (18:15)
[2018-03-09] MEDS ORDERED: Potassium Chloride 20 mEq/15 ml LIQ UD PO ONE (19:46)
[2018-03-10 01:56] LABS: BLOOD UREA NITROGEN 7 mg/dL (9-20); CALCIUM 8.5 mg/dl (8.6-10.4); GFR NON-AFRICAN AMERICAN > 60
[2018-03-10] MEDS: D5W IVPB SCH ×3 (02:13→14:06)
[2018-03-10] MEDS: CIPROFLOXACIN 400 MG/200 ML IVPB SCH ×3 (02:13→14:06)
[2018-03-10] MEDS: Sodium Chloride 0.9% 1,000 ML IV SCH ×2 (03:45→14:00)
[2018-03-10] MEDS: Potassium Chl 40 mEq in D5-1/2 1,000 ML IV SCH (05:13)
[2018-03-10] MEDS: POLYETHYLENE GLYCOL 3350 17 GM/Dose PACKET PO SCH (14:00)
[2018-03-10 14:26] LABS: BASO % 0.2 % (0.0-2.0); EOS % 0.1 % (0.0-4.0); HEMOGLOBIN 13.2 g/dL (12.0-18.0); LYMPH % 20.3 % (20.0-40.0); MEAN CELL VOLUME 88.1 fL (80.0-94.0); MEAN CORPUSCULAR HEMOGLOBIN 30.2 pg (27.0-31.0); MEAN CORPUSCULAR HGB CONC 34.2 g/dL (33.0-37.0); MEAN PLATELET VOLUME 9.4 fL (7.2-11.7); MONO # 0.5 K/uL (0.0-0.8); MONO % 10.9 % (0.0-10.0); NEUT # 3.3 K/uL (1.8-7.0); NEUT % 68.5 % (50.0-75.0); NRBC % 0.1 % (0.0-2.0); RBC 4.38 Mil/uL (4.40-5.90); RED CELL DISTRIBUTION WIDTH 14.9 % (11.5-14.5); WHITE BLOOD COUNT 4.8 K/uL (4.8-10.8)
--- NOTE | 2018-03-10 14:34 | CP.PCM.DIS ---
<Caron Harkins - Last Filed: 03/10/18 14:31> Provider - Provider Date of Admission: 03/08/18 11:48 Attending physician: Melva King DO Consults: 03/08/18 17:09 Wound Care [Nursing Referral for Wound Care] Routine Comment: left foot reddened and dry. left outer ankle w/red Physician Instructions: left outer leg w/red spot. no open wounds. Reason For Exam: new admission. Pt high risk for pressure ulcers Time Spent in preparation of Discharge (in minutes): 35 Hospital Course - Lab Results Lab Results: Micro Results 03/08/18 07:55 Urine Random Urine Culture - Final Acinetobacter Baumannii Enterococcus Faecalis Most Recent Lab Values WBC 4.8 K/uL (4.8-10.8) 03/10/18 14:11 RBC 4.38 Mil/uL (4.40-5.90) L 03/10/18 14:11 Hgb 13.2 g/dL (12.0-18.0) 03/10/18 14:11 Hct 38.6 % (35.0-51.0) 03/10/18 14:11 MCV 88.1 fL (80.0-94.0) 03/10/18 14:11 MCH 30.2 pg (27.0-31.0) 03/10/18 14:11 MCHC 34.2 g/dL (33.0-37.0) 03/10/18 14:11 RDW 14.9 % (11.5-14.5) H 03/10/18 14:11 Plt Count 219 K/uL (130-400) 03/10/18 14:11 MPV 9.4 fL (7.2-11.7) 03/10/18 14:11 Neut % (Auto) 68.5 % (50.0-75.0) 03/10/18 14:11 Lymph % (Auto) 20.3 % (20.0-40.0) 03/10/18 14:11 [place] % (Auto) 10.9 % (0.0-10.0) H 03/10/18 14:11 Eos % (Auto) 0.1 % (0.0-4.0) 03/10/18 14:11 Baso % (Auto) 0.2 % (0.0-2.0) 03/10/18 14:11 Neut # (Auto) 3.3 K/uL (1.8-7.0) 03/10/18 14:11 Lymph # (Auto) 1.0 K/uL (1.0-4.3) 03/10/18 14:11 [place] # (Auto) 0.5 K/uL (0.0-0.8) 03/10/18 14:11 Eos # (Auto) 0.0 K/uL (0.0-0.7) 03/10/18 14:11 Baso # (Auto) 0.0 K/uL (0.0-0.2) 03/10/18 14:11 Neutrophils % (Manual) 85 % (50-75) H 03/08/18 07:45 Band Neutrophils % 3 % (0-2) H 03/08/18 07:45 Lymphocytes % (Manual) 5 % (20-40) L 03/08/18 07:45 Reactive Lymphs % 1 % (0-0) H 03/08/18 07:45 Monocytes % (Manual) 6 % (0-10) 03/08/18 07:45 Platelet Estimate Normal (NORMAL) 03/08/18 07:45 Anisocytosis (manual) Slight 03/08/18 07:45 Sodium 134 mmol/L (132-148) 03/10/18 01:18 Potassium 4.7 mmol/L (3.6-5.2) 03/10/18 01:18 Chloride 102 mmol/L (98-107) 03/10/18 01:18 Carbon Dioxide 30 mmol/L (22-30) 03/10/18 01:18 Anion Gap 6 (10-20) L 03/10/18 01:18 BUN 7 mg/dL (9-20) L 03/10/18 01:18 Creatinine 0.4 mg/dL (0.8-1.5) L 03/10/18 01:18 Est GFR ( Amer) > 60 03/10/18 01:18 Est GFR (Non-Af Amer) > 60 03/10/18 01:18 Random Glucose 109 mg/dL (75-110) 03/10/18 01:18 Lactic Acid 1.8 mmol/L (0.7-2.1) 03/08/18 07:45 Calcium 8.5 mg/dl (8.6-10.4) L 03/10/18 01:18 Phosphorus 3.0 mg/dL (2.5-4.5) 03/09/18 06:50 Magnesium 1.6 mg/dL (1.6-2.3) 03/09/18 06:50 Total Bilirubin 1.3 mg/dL (0.2-1.3) 03/09/18 17:20 AST 20 U/L (17-59) 03/09/18 17:20 ALT 23 U/L (21-72) 03/09/18 17:20 Alkaline Phosphatase 51 U/L (38-126) 03/09/18 17:20 Total Protein 5.6 g/dL (6.3-8.3) L 03/09/18 17:20 Albumin 2.9 g/dL (3.5-5.0) L 03/09/18 17:20 Globulin 2.7 gm/dL (2.2-3.9) 03/09/18 17:20 Albumin/Globulin Ratio 1.1 (1.0-2.1) 03/09/18 17:20 Lipase 14 U/L (23-300) L 03/08/18 07:45 Urine Color Ludivina (YELLOW) 03/08/18 07:55 Urine Clarity Hazy (Clear) 03/08/18 07:55 Urine pH 6.0 (5.0-8.0) 03/08/18 07:55 Ur Specific [place] 1.015 (1.003-1.030) 03/08/18 07:55 Urine Protein 2+ mg/dL (NEGATIVE) H 03/08/18 07:55 Urine Glucose (UA) Normal mg/dL (Normal) 03/08/18 07:55 Urine Ketones 1+ mg/dL (NEGATIVE) H 03/08/18 07:55 Urine Blood 3+ (NEGATIVE) H 03/08/18 07:55 Urine Nitrate Negative (NEGATIVE) 03/08/18 07:55 Urine Bilirubin Negative (NEGATIVE) 03/08/18 07:55 Urine Urobilinogen Normal mg/dL (0.2-1.0) 03/08/18 07:55 Ur Leukocyte Esterase 2+ Michael/uL (Negative) H 03/08/18 07:55 Urine WBC (Auto) 542 /hpf (0-5) H 03/08/18 07:55 Urine RBC (Auto) 1319 /hpf (0-3) H 03/08/18 07:55 Urine WBC Clumps (Auto) Many /hpf (NONE) H 03/08/18 07:55 Calcium Oxalate Crystal Mod /hpf (<OCC) H 03/08/18 07:55 Urine Bacteria Occ (<OCC) H 03/08/18 07:55 - Hospital Course Hospital Course: Upon Admission Patient is a 52 yo male w/ PMH of MS, HTN, BPH, anxiety/depression admitted to hospital for intractable nausea/vomiting. Family at bedside offered history as patient was asleep. Patient has continuous admits to hospital s/p prostate biopsy in December showing prostate inflammation. Patient has been to hospital for intractable retching likely 2/2 to patient increased anxiety due to his medical problems. Patient began retching on Tuesday after he was given his home medications. Patient's family states that he was acting fine since prior discharge for two weeks until Tuesday. Patient has not had any actual vomiting but just retches continuously. Patient is well known to hospitalist staff. Family states no new stressors at home. Limited ROS as patient was very difficult to arouse. Hospital Course Patient is a 52 yo male w/ PMH of Multiple Sclerosis, Chronic Inflammatory Demyelinating Polyneuropathy (CIDP), HTN, depression, anxiety and prostatic enlargement who presents to the ED for intractable vomiting and nausea with west in place. Patient will be discharged with west in place. On labs patient was noted to be hypokalemic likely 2/2 to poor appetite intake, repleted with KCL iv and in fluids. Patient will need outpatient followup with psych, urology, and neurology. Treated with ativan and lexapro for severe anxiety. Patient requires increased SSRI dosage and possible low dose BZD for anxiety from psych outpatient. Discharge Plan 1. Patient is stable for discharge to home as per Dr. Scanlon. 2. Extended discussion was had with at bedside to explain the clinical condition of Mr. Aron Leahy. Once patient becomes anxious he begins to retch continuously. There is no pathology other than anxiety related retching to explain his condition. Imaging of abdomen/pelvis was done with no acute findings. 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 Conversation with entailed how outpatient followup for psych for increased SSRI dosage with continuous followups weekly/biweekly to monitor clinical condition. 3. Patient will continue taking oral home antibiotics ciprofloxacin and nitrofurantoin. 4. Patient will continue all home medications as no medications were adjusted during this admission. Patient will be given 5 pills of Ativan to be used when patient becomes severely anxious and begins to retch with no vomiting. Patient and were educated to eat small meals multiple times during the time. 5. Patient should followup with personal psychiatry, urology, and neurology outpatient within 3-7 days of discharge from hospital. 6. Patient understands the plan as above and agrees. Disclaimer: Written above is a synopsis of patient's current hospital admission. For full report refer to EMR Discharge Exam - Head Exam Head Exam: NORMAL INSPECTION, NORMOCEPHALIC - Eye Exam Eye Exam: EOMI, Normal appearance. absent: Nystagmus, Scleral icterus - ENT Exam ENT Exam: Mucous Membranes Dry - Respiratory Exam Respiratory Exam: NORMAL BREATHING PATTERN. absent: Rales, Rhonchi, Wheezes - Cardiovascular Exam Cardiovascular Exam: REGULAR RHYTHM, +S1, +S2 - GI/Abdominal Exam GI & Abdominal Exam: Normal Bowel Sounds, Soft. absent: Diminished Bowel Sounds, Distended, Firm, Guarding, Tenderness - Extremities Exam Extremities exam: normal inspection Additional comments: severe muscle atrophy - Neurological Exam Neurological exam: Alert, Oriented x3 - Psychiatric Exam Psychiatric exam: Normal Affect, Normal Mood - Skin Skin Exam: Intact, Normal Color Discharge Plan - Discharge Medications Prescriptions: Ondansetron [Zofran] 4 mg PO Q8H PRN #30 tab PRN Reason: Nausea/Vomiting - Follow Up Plan Condition: IMPROVED Disposition: HOME/ ROUTINE Instructions: Nausea and Vomiting, Adult (DC) Additional Instructions: 1. Patient is stable for discharge to home as per Dr. Scanlon. 2. Extended discussion was had with at bedside to explain the clinical condition of Mr. Aron Leahy. Once patient becomes anxious he begins to retch continuously. There is no pathology other than anxiety related retching to explain his condition. Imaging of abdomen/pelvis was done with no acute findings. 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 Conversation with entailed how outpatient followup for psych for increased SSRI dosage with continuous followups weekly/biweekly to monitor clinical condition. 3. Patient will continue taking oral home antibiotics ciprofloxacin and nitrofurantoin. 4. Patient will continue all home medications as no medications were adjusted during this admission. Patient will be given 5 pills of Ativan to be used when patient becomes severely anxious and begins to retch with no vomiting. Patient and were educated to eat small meals multiple times during the time. 5. Patient should followup with personal psychiatry, urology, and neurology outpatient within 3-7 days of discharge from hospital. 6. Patient understands the plan as above and agrees. <Naveen Scanlon - Last Filed: 03/11/18 19:54> Provider - Provider Date of Admission: 03/08/18 11:48 Attending physician: Naveen Scanlon MD Consults: 03/08/18 17:09 Wound Care [Nursing Referral for Wound Care] Routine Comment: left foot reddened and dry. left outer ankle w/red Physician Instructions: left outer leg w/red spot. no open wounds. Reason For Exam: new admission. Pt high risk for pressure ulcers Hospital Course - Lab Results Lab Results: Micro Results 03/08/18 07:55 Urine Random Urine Culture - Final Acinetobacter Baumannii Enterococcus Faecalis Most Recent Lab Values WBC 4.8 K/uL (4.8-10.8) 03/10/18 14:11 RBC 4.38 Mil/uL (4.40-5.90) L 03/10/18 14:11 Hgb 13.2 g/dL (12.0-18.0) 03/10/18 14:11 Hct 38.6 % (35.0-51.0) 03/10/18 14:11 MCV 88.1 fL (80.0-94.0) 03/10/18 14:11 MCH 30.2 pg (27.0-31.0) 03/10/18 14:11 MCHC 34.2 g/dL (33.0-37.0) 03/10/18 14:11 RDW 14.9 % (11.5-14.5) H 03/10/18 14:11 Plt Count 219 K/uL (130-400) 03/10/18 14:11 MPV 9.4 fL (7.2-11.7) 03/10/18 14:11 Neut % (Auto) 68.5 % (50.0-75.0) 03/10/18 14:11 Lymph % (Auto) 20.3 % (20.0-40.0) 03/10/18 14:11 [place] % (Auto) 10.9 % (0.0-10.0) H 03/10/18 14:11 Eos % (Auto) 0.1 % (0.0-4.0) 03/10/18 14:11 Baso % (Auto) 0.2 % (0.0-2.0) 03/10/18 14:11 Neut # (Auto) 3.3 K/uL (1.8-7.0) 03/10/18 14:11 Lymph # (Auto) 1.0 K/uL (1.0-4.3) 03/10/18 14:11 [place] # (Auto) 0.5 K/uL (0.0-0.8) 03/10/18 14:11 Eos # (Auto) 0.0 K/uL (0.0-0.7) 03/10/18 14:11 Baso # (Auto) 0.0 K/uL (0.0-0.2) 03/10/18 14:11 Neutrophils % (Manual) 85 % (50-75) H 03/08/18 07:45 Band Neutrophils % 3 % (0-2) H 03/08/18 07:45 Lymphocytes % (Manual) 5 % (20-40) L 03/08/18 07:45 Reactive Lymphs % 1 % (0-0) H 03/08/18 07:45 Monocytes % (Manual) 6 % (0-10) 03/08/18 07:45 Platelet Estimate Normal (NORMAL) 03/08/18 07:45 Anisocytosis (manual) Slight 03/08/18 07:45 Sodium 131 mmol/L (132-148) L 03/10/18 14:11 Potassium 3.6 mmol/L (3.6-5.2) 03/10/18 14:11 Chloride 97 mmol/L (98-107) L 03/10/18 14:11 Carbon Dioxide 30 mmol/L (22-30) 03/10/18 14:11 Anion Gap 8 (10-20) L 03/10/18 14:11 BUN 4 mg/dL (9-20) L 03/10/18 14:11 Creatinine 0.3 mg/dL (0.8-1.5) L 03/10/18 14:11 Est GFR ( Amer) > 60 03/10/18 14:11 Est GFR (Non-Af Amer) > 60 03/10/18 14:11 Random Glucose 131 mg/dL (75-110) H D 03/10/18 14:11 Lactic Acid 1.8 mmol/L (0.7-2.1) 03/08/18 07:45 Calcium 8.3 mg/dl (8.6-10.4) L 03/10/18 14:11 Phosphorus 2.7 mg/dL (2.5-4.5) 03/10/18 14:11 Magnesium 1.7 mg/dL (1.6-2.3) 03/10/18 14:11 Total Bilirubin 1.0 mg/dL (0.2-1.3) 03/10/18 14:11 AST 17 U/L (17-59) 03/10/18 14:11 ALT 24 U/L (21-72) 03/10/18 14:11 Alkaline Phosphatase 59 U/L (38-126) 03/10/18 14:11 Total Protein 5.5 g/dL (6.3-8.3) L 03/10/18 14:11 Albumin 3.1 g/dL (3.5-5.0) L 03/10/18 14:11 Globulin 2.4 gm/dL (2.2-3.9) 03/10/18 14:11 Albumin/Globulin Ratio 1.3 (1.0-2.1) 03/10/18 14:11 Lipase 14 U/L (23-300) L 03/08/18 07:45 Urine Color Ludivina (YELLOW) 03/08/18 07:55 Urine Clarity Hazy (Clear) 03/08/18 07:55 Urine pH 6.0 (5.0-8.0) 03/08/18 07:55 Ur Specific [place] 1.015 (1.003-1.030) 03/08/18 07:55 Urine Protein 2+ mg/dL (NEGATIVE) H 03/08/18 07:55 Urine Glucose (UA) Normal mg/dL (Normal) 03/08/18 07:55 Urine Ketones 1+ mg/dL (NEGATIVE) H 03/08/18 07:55 Urine Blood 3+ (NEGATIVE) H 03/08/18 07:55 Urine Nitrate Negative (NEGATIVE) 03/08/18 07:55 Urine Bilirubin Negative (NEGATIVE) 03/08/18 07:55 Urine Urobilinogen Normal mg/dL (0.2-1.0) 03/08/18 07:55 Ur Leukocyte Esterase 2+ Michael/uL (Negative) H 03/08/18 07:55 Urine WBC (Auto) 542 /hpf (0-5) H 03/08/18 07:55 Urine RBC (Auto) 1319 /hpf (0-3) H 03/08/18 07:55 Urine WBC Clumps (Auto) Many /hpf (NONE) H 03/08/18 07:55 Calcium Oxalate Crystal Mod /hpf (<OCC) H 03/08/18 07:55 Urine Bacteria Occ (<OCC) H 03/08/18 07:55 Attending/Attestation - Attestation I have personally seen and examined this patient.: Yes I have fully participated in the care of the patient.: Yes I have reviewed all pertinent clinical information, including history, physical exam and plan: Yes Notes (Text): PATIENT WAS SEEN AND EXAMINED BY ME BEFORE DISCHARGE HE IS AWAKE AND ORIENTED,SPOKE TO HIS MOTHER AT BEDSIDE HE WAS ABLE TO TOLERATE LUNCH WITHOUT NAUSEA AND VOMTING EXPLAINED ABOUT DISCHARGE PLAN PATIENT'S WANTED TO TRY LOW DOSE ATIVAN AT HOME FOR HIS ANXIETY STABLE FOR DISCHARGE
[2018-03-10] MEDS ORDERED: Propofol 10 mg/ml Inj (20 ML) ONE (14:48)
[2018-03-10] MEDS ORDERED: Midazolam 2 MG/2 ML VIAL ONE (14:48)
[2018-03-10 15:31] LABS: ALB/GLOB RATIO 1.3 (1.0-2.1); ALBUMIN 3.1 g/dL (3.5-5.0); ALT/SGPT 24 U/L (21-72); AST/SGOT 17 U/L (17-59); BLOOD UREA NITROGEN 4 mg/dL (9-20); CALCIUM 8.3 mg/dl (8.6-10.4); GFR NON-AFRICAN AMERICAN > 60
--- NOTE | 2018-03-10 15:54 | CARD ---
APPROVED REPORT Date of service: 03/08/2018 EKG Measurement Heart [id number] <Conclusion> Normal sinus rhythm with sinus arrhythmia Possible Left atrial enlargement Left axis deviation Abnormal ECG
[2018-03-10 16:02] VITALS: BP 117/77; PULSE 64; TEMP 98.5; O2SAT 100
[2018-03-10] MEDS ORDERED: Succinylcholine Chloride 20 mg/ml Syr (5 ml) IV ONE (16:32)
[2018-03-10] MEDS ORDERED: Neostigmine 1:1000 (1 mg/ml) Inj ONE (16:32)
[2018-03-11] MEDS ORDERED: Influenza Vaccine 60 mcg/0.5 mL SYR (4YR UP) IM ONE (10:00)
== END 2018-03-10 17:09 | disposition home or self-care (01) ==
LOC: C.ER 07:15 → C.9E 11:48 → C.3T 14:37
PROVIDERS: ADMIT Internal Medicine; ATTEND Internal Medicine
DX: R11.2 Nausea with vomiting, unspecified (principal); G35 Multiple sclerosis; G61.81 Chronic inflammatory demyelinating polyneuritis; E87.6 Hypokalemia; E78.5 Hyperlipidemia, unspecified; E11.9 Type 2 diabetes mellitus without complications; F06.4 Anxiety disorder due to known physiological condition; G71.00 Muscular dystrophy, unspecified; I10 Essential (primary) hypertension; N39.0 Urinary tract infection, site not specified; K59.00 Constipation, unspecified; N40.0 Benign prostatic hyperplasia without lower urinary tract symptoms; Z82.49 Family history of ischemic heart disease and other diseases of the circulatory system
CPT/HCPCS: 36415; 71045; 74176; 80048; 80053; 81001; 83605; 83690; 83735; 84100; 85025; 87086; 87181; 93005; 94640; 96361; 96365; 96366; 96372; 96375; 96376; 99285; C9113; G0378; J0696; J0744; J1644; J2060; J2250; J2405; J2704; J2710; J3010; J3480; J7030